=== PATIENT | male | born 1945 | race Caucasian/White ===

== ENCOUNTER 2018-04-21 16:18 | Inpatient (IN) | payer MEDICARE, OTHER, SELFPAY ==
[2018-04-21 18:02] VITALS: BMI 26.9
[2018-04-21 19:15] VITALS: BP 157/81; PULSE 103; RESP 18; TEMP 36.5; O2SAT 97
--- NOTE | 2018-04-21 19:17 | PC.NURSE ---
[facility] WITH ONSET OF GI BLEED SINCE 0300 LAST NIGHT. DENIES PAIN OR NAUSEA, NO STOOLS SINCE PRIOR TO TRANSFER FROM [facility]. REVIEWED PLAN OF CARE WITH PATIENT AND FAMILY- NPO AT THIS TIME- PATIENT SEEN BY DR. MAHAJAN.
[2018-04-21 19:20] VITALS: BP 150/88; PULSE 100; RESP 16; O2SAT 98
--- NOTE | 2018-04-21 19:22 | PM.HP.1 ---
History of Present Illness Date Patient Seen: 04/21/18 Time Patient Seen: 19:23 Chief complaint: GI BLEED Narrative: Patient is a 72-year-old male transfer from [facility] Emergency Department due to acute GI bleed. He was fine until this morning when noticed a black tarry stool. Subsequently he has had 3 or 4 similar stools prior to presenting to the emergency department and then had another 3 or 4 bloody stools in the ED. In total he has had about 7 bloody stools. He states that the stools have been black and tarry but also some bright red blood per rectum after the black tarry movements. He has been lightheaded. Patient states he had a colonoscopy about 5 years ago which was normal. He denies prior history of GI bleed. At outside Emergency Department his initial hematocrit was 35 and subsequent blood draw showed hematocrit of 33. Renal function testing was normal. He has been mildly tachycardic with normal blood pressures. He carries diagnosis of systemic lupus and takes prednisone 3 mg daily. He is also on low-dose daily aspirin. He has history of pulmonary embolism in 2015 during illness and previously pulmonary embolism after knee replacement. He stopped warfarin about 2 months ago and at that time started the 81 mg daily aspirin. He also takes occasional OTC Aleve for shoulder pain. Patient History Medical History GI bleed (Acute) BPH (benign prostatic hyperplasia) (Chronic) History of pulmonary embolism (Chronic) Lupus (systemic lupus erythematosus) (Chronic) Family & Social History Social History: household members spouse Safety & Behavioral: Feels Safe in Current Yes Environment Been Physically Hurt or No Threatened By a Person Suicidal Ideation Description None Tobacco & Substance use: Smoking Status Former smoker alcohol intake current alcohol intake frequency 0-2 drinks per day Substance Use Type does not use Meds Allergies Allergy/AdvReac Type Severity Reaction Status Date / Time No Known Drug Allergies Allergy Verified 04/21/18 19:33 Review of Systems Review of Systems All systems reviewed & are unremarkable except as noted in HPI and below Exam Narrative Exam Narrative: GENERAL: This is an alert well-nourished, well-developed patient HEAD: Atraumatic. Normocephalic. EYES: Pupils equal, round and reactive. Extraocular motions intact. No scleral icterus. No injection or drainage. OROPHARYNX: moist mucosa NECK: Trachea midline. No JVD or lymphadenopathy. CARDIOVASCULAR: Tachycardic with regular rhythm, no murmur RESPIRATORY: Clear to auscultation bilaterally. GASTROINTESTINAL: Abdomen nondistended, soft, non-tender. No hepato-splenomegaly, or palpable masses. EXTREMITIES: No pretibial edema. NEUROLOGICAL: Alert, well oriented, speech is intact, normal bilateral upper and lower extremity strength SKIN: warm, dry, no rash Assessment & Plan Plan: Assessment/Plan Narrative: 1. GI bleed with acute blood loss anemia. Patient presents with 7 or more episodes of melena to bright red blood stools. His baseline hematocrit is 45. This is likely upper source due to peptic ulcer disease and less likely a lower source. He is on low-dose prednisone, daily low-dose aspirin and takes Aleve as needed all risk factors. He may need transfusion overnight and potentially could become hemodynamically stable. Plan: ICU care. Keep NPO and provide maintenance IV fluid. Check serial H&H and transfuse for hematocrit less than 24 or if patient is hypotensive. IV Protonix. Consult surgery for EGD. 2. Systemic lupus erythematosus. Continue prednisone 3 mg daily. 3. DVT prophylaxis. Contraindicated due to active bleed. Quality VTE Deep Vein Thrombosis/Pulmonary Embolism Present on Admission: No
[2018-04-21] MEDS: SODIUM CHLORIDE 0.9% 1,000 ML 100 ML IV (20:30)
[2018-04-21] MEDS: PANTOPRAZOLE 40 MG VIAL IV (21:16)
[2018-04-21 21:22] LABS: Add Manual Diff / Slide Review NO; Basophils Percent Auto 0.6 % (0-2); Eosinophils Percent Auto 17.6 % (2-4); Hemoglobin 9.9 g/dL (13.5-17.5); Mean Corpuscular Hemoglobin 32.6 PG (26-34); Mean Corpuscular Volume 95.7 fL (80-100); Monocytes Percent Auto 1.6 % (3-14); Neutrophils Absolute Auto 1600 /uL (3000-5900); Neutrophils Percent Auto 69.2 % (50-75); Platelet Count 212 X10^3/uL (150-400); Red Blood Cell Count 3.03 X10^6/uL (4.5-5.9); Red Cell Distribution Width 14.6 % (11.6-14.8); White Blood Cell Count 2.3 X10^3/uL (4.5-11.0)
[2018-04-21 21:31] LABS: BUN Creatinine Ratio 31.4 (6-22); Blood Urea Nitrogen 22 mg/dL (9-20); Calcium 7.6 mg/dL (8.4-10.2); Carbon Dioxide 25 mmol/L (22-32); Chloride 105 mmol/L (98-107); Estimated Glomerular Filt Rate > 60.0 mL/min (>60); Glucose 80 mg/dL (80-110); HEMOLYSIS < 15 (0-50); Potassium 4.1 mmol/L (3.4-5.1); Sodium 136 mmol/L (137-145)
[2018-04-21 21:51] VITALS: BP 137/64; PULSE 97; RESP 12; TEMP 37.3; O2SAT 98
[2018-04-22] VITALS (33 sets, daily range): BP systolic 79–158; BP diastolic 44–71; PULSE 80–107; RESP 10–22; TEMP 36.7–37.6; O2SAT 95–98
--- NOTE | 2018-04-22 | PATH_ITS ---
[facility] Accession Number: [id number] . 01 Material submitted: . GASTRIC ANTRUM . 01 Clinical history: . FOR H. PYLORI . 02 Diagnosis: Gastric Antrum, Biopsies: Gastric antral mucosa with no diagnostic abnormality. No evidence of Helicobacter organisms on H/E stain. Negative for intestinal metaplasia, dysplasia or malignancy. MRV/04/23/2018 . 02 Electronically signed: . Elgin Almazan MD, PhD, Pathologist NPI- [id number] . 01 Gross description: . Received one formalin-filled container, labeled with the patient's name, labeled gastric antrum. The specimen consists of a 0.3 cm portion of tissue, entirely submitted in one cassette. ([id number]) /FRR . 02 Pathologist provided ICD-10: R10.13 . 02 CPT . 572741 Performed at: 01 [facility] [address] [facility] [place], [place], [place] [id number] MD Jerod Wood MD Phone: [phone] Performed at: 02 [facility] [address] [place], [place] [id number] MD Felix Lopez MD Phone: [phone]
[2018-04-22 01:19] LABS: Hematocrit 27.4 % (41-53); Hemoglobin 9.2 g/dL (13.5-17.5)
[2018-04-22 05:16] LABS: Hematocrit 26.6 % (41-53)
[2018-04-22] MEDS: SODIUM CHLORIDE 0.9% 1,000 ML 100 ML IV (06:02)
[2018-04-22] MEDS: predniSONE 1 MG TABLET 3 MG PO (08:29)
[2018-04-22] MEDS: PANTOPRAZOLE 40 MG VIAL IV (08:30)
--- NOTE | 2018-04-22 09:52 | PC.NURSE ---
Addendum entered by Latisha Subramanian R.N. 04/22/18 10:31: Returned to rm 103 from PACU a 1025. Alert and oriented, RA with sats 97%. Denies pain. Call light within reach. Original Note: Patient to EGD at 0940.
--- NOTE | 2018-04-22 10:02 | SUR.OPER ---
Supine on inpatient bed. Head on one pillow. One pillow under right hip per surgeon.
[2018-04-22 10:09] LABS: Hematocrit 27.3 % (41-53); Hemoglobin 9.1 g/dL (13.5-17.5)
--- NOTE | 2018-04-22 10:59 | OP_ITS ---
DATE OF SERVICE: 04/22/2018 PREOP DIAGNOSIS: Upper GI bleed. POSTOP DIAGNOSIS: Upper GI bleed secondary to diffuse severe antral gastritis and diffuse duodenitis. No definitive ulcer is seen. That is, no isolated duodenal ulcer. SURGEON: Parish Perez MD PROCEDURE: Esophagogastroduodenoscopy, gastric biopsy for H pylori. DESCRIPTION OF PROCEDURE: The patient was properly identified during surgical pause under general endotracheal anesthesia, placed in a left lateral decubitus position, the flexible fiberoptic gastroscope inserted transorally from the hypopharynx into the upper duodenum. 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 Certainly, there is a small hiatal hernia. Retroflexing the scope in the gastric fundus shows no Julia-Reyes, no blood in the proximal stomach, really no blood in the stomach whatsoever. Some diffuse antral gastritis is seen. There is no punctate duodenal ulcer. The first and second portions of the duodenum, however, are severely involved with diffuse duodenitis. Again, a gastric biopsy was done in the antrum for H pylori. The procedure was well tolerated. Numerous photographs of all the anatomy were taken. Lalo Hyde - /shane/leland doc#: [id number]/job#: [id number] dd: 04/22/2018 10:15:00 dt: 04/22/2018 10:54:00 DICTATING MD/COPIES TO: Parish Perez MD COPIES MNE: SANTOSH
--- NOTE | 2018-04-22 12:56 | P.PN_ITS ---
Subjective Date Patient Seen: 04/22/18 Time Patient Seen: 12:48 Interval history: Patient with continued rectal hemorrhage over night. EGD today showed severe duodenitis but no blood in stomach or duodenum. Patient has lightheadedness and orthostatic blood pressure drops to the 70s. Exam Vital Signs (past 8 hours): - 04/22/18 05:00 04/22/18 05:35 04/22/18 06:00 Temperature 98.5 F Pulse Rate 98 H 98 H Respiratory Rate 11 L 18 Blood Pressure 138/62 H 118/56 L Pulse Oximetry 98 96 95 04/22/18 07:00 04/22/18 07:52 04/22/18 08:00 Temperature 98.6 F Pulse Rate 95 H 90 93 H Respiratory Rate 18 16 Blood Pressure 120/61 121/64 H 133/65 H Pulse Oximetry 95 95 04/22/18 09:07 04/22/18 10:14 04/22/18 10:19 Temperature 98.4 F Pulse Rate 95 H 91 H Respiratory Rate 15 10 L Blood Pressure 114/66 119/71 Pulse Oximetry 97 97 96 04/22/18 10:28 04/22/18 11:15 04/22/18 11:43 Temperature 99.6 F Pulse Rate 88 92 H 107 H Respiratory Rate 15 20 Blood Pressure 136/70 H 121/66 H 79/44 L Pulse Oximetry 95 97 04/22/18 11:44 Temperature Pulse Rate 95 H Respiratory Rate Blood Pressure 131/63 H Pulse Oximetry Oxygen Delivery Method Room Air Oxygen Flow Rate 0 Narrative Exam Narrative: GENERAL: Patient is in no acute distress HEENT: Head normocephalic, atraumatic. Mucous membranes moist. CHEST: Clear to auscultation bilaterally. CARDIAC: Regular rate and rhythm. ABDOMEN: Nondistended, soft, nontender EXTREMITIES: no edema. NEUROLOGICAL: Alert, pleasant, no focal findings SKIN: Warm, dry, no petechiae, no rash Objective Labs Result Diagrams: 04/22/18 09:40 04/21/18 21:10 Labs: Laboratory Results - last 24 hr 04/21/18 04/21/18 04/21/18 21:10 21:10 21:10 WBC 2.3 L RBC 3.03 L Hgb 9.9 L Hct 29.0 L MCV 95.7 MCH 32.6 MCHC 34.0 RDW 14.6 Plt Count 212 Neut % (Auto) 69.2 Lymph % (Auto) 11.0 L [place] % (Auto) 1.6 L Eos % (Auto) 17.6 H Baso % (Auto) 0.6 Neut # (Auto) 1600 L Sodium 136 L Potassium 4.1 Chloride 105 Carbon Dioxide 25 BUN 22 H Creatinine 0.70 Estimated GFR > 60.0 BUN/Creatinine Ratio 31.4 H Glucose 80 Calcium 7.6 L Nasal Screen MRSA (PCR) Negative for mrsa Blood Type Antibody Screen 04/21/18 04/22/18 04/22/18 21:10 01:08 05:04 WBC RBC Hgb 9.2 L 9.0 L Hct 27.4 L 26.6 L MCV MCH MCHC RDW Plt Count Neut % (Auto) Lymph % (Auto) [place] % (Auto) Eos % (Auto) Baso % (Auto) Neut # (Auto) Sodium Potassium Chloride Carbon Dioxide BUN Creatinine Estimated GFR BUN/Creatinine Ratio Glucose Calcium Nasal Screen MRSA (PCR) Blood Type O Positive Antibody Screen Negative 04/22/18 09:40 WBC RBC Hgb 9.1 L Hct 27.3 L MCV MCH MCHC RDW Plt Count Neut % (Auto) Lymph % (Auto) [place] % (Auto) Eos % (Auto) Baso % (Auto) Neut # (Auto) Sodium Potassium Chloride Carbon Dioxide BUN Creatinine Estimated GFR BUN/Creatinine Ratio Glucose Calcium Nasal Screen MRSA (PCR) Blood Type Antibody Screen Assessment & Plan Plan: Assessment/Plan Narrative: 1. GI bleed with acute blood loss anemia. Patient is symptomatic due to blood loss with continued drop in hematocrit although act bleeding seems to be lessening. Primary finding of EGD was severe duodenitis which is likely source of bleed as patient has been on daily aspirin, prednisone and takes Aleve periodically. Patient stated he had a normal colonoscopy within the past 5 years. Gastric biopsies were obtained and pathology should be followed up on as outpatient. Plan: Transfer to floor care. Transfuse 2 units PRBC for symptomatic anemia. Change Protonix to p.o. 40 mg twice daily. Full liquid diet. Anticipate discharge tomorrow if patient is medically stable without active bleeding. He is instructed to avoid Aleve or other NSAIDs. 2. Systemic lupus erythematosus. Continue prednisone 3 mg daily. 3. History of pulmonary embolism. Patient has previous history of pulmonary embolism after knee replacement and in setting of acute illness a few years ago. Unclear whether he really needs to be on daily aspirin at this point. He can be discharged off aspirin to discuss with his PCP whether he should resume low-dose daily aspirin in future. 4. DVT prophylaxis. Contraindicated due to active bleed. Quality VTE Deep Vein Thrombosis/Pulmonary Embolism Present on Admission: No
[2018-04-22 13:35] LABS: Hemoglobin 9.5 g/dL (13.5-17.5)
--- NOTE | 2018-04-22 14:59 | CM.DANOTE ---
DCP Assessment: 72 year old male admitted to [facility] on 04/21 with diagnosis of GI bleed. Patient resides at home in [place] with his , insurance is Medicare, and [employer]. Patient has been independent prior to admission, and uses a cane upon occasion for stability. Alert and oriented. Had endoscopy procedure done today. Patient stated he is still having some rectal bleeding as well. Is to receive blood transfusion this afternoon. Plan: Will follow up with patient tomorrow and note updated orders from physician, which will determine if he will be discharged tomorrow. Has who is involved, and would be assist him with any needs. Asked patient if he had ever had home health, denied, and did not feel that it would be necessary. Will follow up with patient tomorrow.
[2018-04-22 21:00] LABS: Hematocrit 32.3 % (41-53); Hemoglobin 10.9 g/dL (13.5-17.5)
[2018-04-22] MEDS: PANTOPRAZOLE 40 MG TABLET PO (21:56)
--- NOTE | 2018-04-22 22:06 | PC.NURSE ---
Patient received total 2 units rbc's- up 3 xs on bedside commode for dark bloody stools. unsteady on feet one time- patient had requested we leave room and let him do own cleanup after stooling- kindly insisted we assist him due to his unsteadiness, and he agreed. anticipate posssible discharge to home tomorrow if no further bleeding and labs stable. patient aware of results of last lab draw- and no further transfusions at this time.
[2018-04-23 03:16] VITALS: BP 152/69; PULSE 89; RESP 18; TEMP 37.2; O2SAT 95
[2018-04-23 05:42] LABS: Add Manual Diff / Slide Review NO; Basophils Percent Auto 0.6 % (0-2); Hematocrit 29.8 % (41-53); Hemoglobin 10.1 g/dL (13.5-17.5); Lymphocytes Percent Auto 12.8 % (25-40); Mean Corpuscular HGB Conc 33.8 % (30-36); Mean Corpuscular Hemoglobin 31.7 PG (26-34); Mean Corpuscular Volume 93.9 fL (80-100); Monocytes Percent Auto 5.7 % (3-14); Neutrophils Absolute Auto 1800 /uL (3000-5900); Neutrophils Percent Auto 68.9 % (50-75); Platelet Count 212 X10^3/uL (150-400); Red Blood Cell Count 3.17 X10^6/uL (4.5-5.9); Red Cell Distribution Width 14.9 % (11.6-14.8); White Blood Cell Count 2.6 X10^3/uL (4.5-11.0)
[2018-04-23] MEDS: PANTOPRAZOLE 40 MG TABLET PO ×2 (06:12→20:35)
[2018-04-23 07:00] VITALS: BP 132/90; PULSE 100; RESP 16; TEMP 36.9; O2SAT 96
[2018-04-23] MEDS: predniSONE 1 MG TABLET 3 MG PO (08:47)
--- NOTE | 2018-04-23 11:03 | P.PN_ITS ---
Subjective Date Patient Seen: 04/23/18 Time Patient Seen: 10:58 Interval history: Patient's rectal bleeding has decreased since yesterday. He has only had 1 episode of rectal bleeding since he was transfused with 2 units of packed red blood cells last evening. He continues to be lightheaded when standing. Exam Vital Signs (past 8 hours): - 04/23/18 03:16 04/23/18 07:00 Temperature 99.0 F 98.5 F Pulse Rate 89 100 H Respiratory Rate 18 16 Blood Pressure 152/69 H 132/90 H Pulse Oximetry 95 96 Oxygen Delivery Method Room Air Oxygen Flow Rate 0 Const General: cooperative, healthy appearing, comfortable, well developed and well groomed Nutritional Appearance: overweight Orientation: alert, awake and oriented x3 HENMT Head: normal to inspection, normocephalic and atraumatic Mouth: oral mucosae normal Teeth and gingiva: gingiva normal Eyes General: appearance normal, both eyes and all related structures Pupils: PERRL Neck Neck: normal visual inspection, trachea midline and supple Other: No JVD or lymphadenopathy Chest Chest: normal inspection of the chest Resp Effort & Inspection: normal respiratory effort and able to speak in complete sentences Auscultation: clear to auscultation bilaterally Cardio Rate: regular rate Rhythm: regular rhythm Heart Sounds: S1 normal and S2 normal GI Inspection: normal to inspection Palpation: soft Auscultation: normal bowel sounds Other: Nontender Back/Spine/Pelvis Back: normal to inspection Skin General: dry skin and warm Other: He has a covered incision on his left elbow from a recent bursa surgery. He also has an approximate 5 mm crater appearing lesion on his right ft between the medial and intermediate bone on the ball of his foot which is being followed and managed by his wound care doctor. Is dressed with a 2 x 2 and protective covering. No signs of an infection. Neuro General: alert, awake and oriented x3 Cognition: normal cognition Speech: speech normal Gait: normal gait Motor: muscle tone normal throughout Extrem General: normal to inspection Psych Appearance: grossly normal Mental Status: mental status grossly normal Mood: congruent mood Affect: normal affect Attitude: cooperative Thought Process: normal Thought Content: normal Judgment: judgment good Objective Labs Result Diagrams: 04/23/18 05:08 04/21/18 21:10 Labs: Laboratory Results - last 24 hr 04/21/18 04/22/18 04/22/18 21:10 13:27 20:45 WBC RBC Hgb 9.5 L 10.9 L Hct 28.0 L 32.3 L MCV MCH MCHC RDW Plt Count Neut % (Auto) Lymph % (Auto) [place] % (Auto) Eos % (Auto) Baso % (Auto) Neut # (Auto) Blood Type O Positive Antibody Screen Negative Crossmatch See Detail 04/23/18 05:08 WBC 2.6 L RBC 3.17 L Hgb 10.1 L Hct 29.8 L MCV 93.9 MCH 31.7 MCHC 33.8 RDW 14.9 H Plt Count 212 Neut % (Auto) 68.9 Lymph % (Auto) 12.8 L [place] % (Auto) 5.7 Eos % (Auto) 12.0 H Baso % (Auto) 0.6 Neut # (Auto) 1800 L Blood Type Antibody Screen Crossmatch Assessment & Plan Plan: Assessment/Plan Narrative: 1. GI bleed with acute blood loss anemia. Patient is symptomatic due to blood loss with continued drop in hematocrit although act bleeding seems to be lessening. He was transfused with 2 units packed red blood cells on the evening shift last night and his hemoglobin went to 10.9. After the transfusion last night he had 1 episode of rectal hemorrhaging. His repeat hemoglobin this morning is 10.1 hematocrit 29.8. He continues to be symptomatic when standing with lightheadedness and increase in pulse rate. Primary finding of EGD was severe duodenitis which is likely a source of bleed as patient has been on daily aspirin, prednisone and takes Aleve periodically. Patient stated he had a normal colonoscopy within the past 5 years. Gastric biopsies were obtained and pathology should be followed up on as outpatient. Plan: After speaking with general surgeon the patient will undergo bowel prep for a colonoscopy in the morning. I will restart his IV at 125 cc/hour of normal saline for hydration purposes. If he continues to actively bleed and his hemoglobin is less than 9 we transfused with another 2 units packed red blood cells. His Protonix was changed to p.o. 40 mg twice daily. Anticipate discharge tomorrow if patient is medically stable without active bleeding and pending findings colonoscopy. He is instructed to avoid Aleve or other NSAIDs. 2. Systemic lupus erythematosus. Continue prednisone 3 mg daily. 3. History of pulmonary embolism. Patient has previous history of pulmonary embolism after knee replacement and in setting of acute illness a few years ago. Unclear whether he really needs to be on daily aspirin at this point. He can be discharged off aspirin to discuss with his PCP whether he should resume low-dose daily aspirin in future. 4. DVT prophylaxis. Contraindicated due to active bleed. Quality VTE Deep Vein Thrombosis/Pulmonary Embolism Present on Admission: No
[2018-04-23 11:41] VITALS: BP 145/81; PULSE 88; RESP 17; TEMP 37.1; O2SAT 98
[2018-04-23] MEDS: SODIUM CHLORIDE 0.9% 1,000 ML 125 ML IV ×2 (12:56→20:41)
[2018-04-23] MEDS: PEG3350/SOD SULF,BICARB,CL/KCL 4,000 ML SOLUTION 4000 ML PO (14:46)
[2018-04-23 15:40] VITALS: BP 166/86; PULSE 83; RESP 18; TEMP 36.1; O2SAT 97
[2018-04-23 20:03] VITALS: BP 161/89; PULSE 95; RESP 16; TEMP 36.1
--- NOTE | 2018-04-23 21:53 | PC.NURSE ---
Pt up to BSC. Bowel prep complete, stool clearing. Pt reports drsg fell off of right foot. Scant amount of serosanguineous drainage. Wound cleansed with NS, Allevyn drsg applied. Call light in reach.
[2018-04-24 00:47] VITALS: BP 148/69; PULSE 97; RESP 18; TEMP 37.2; O2SAT 97
[2018-04-24 05:03] VITALS: BP 143/65; PULSE 91; RESP 18; TEMP 37.1; O2SAT 94
[2018-04-24 05:43] LABS: Add Manual Diff / Slide Review NO; Basophils Percent Auto 0.4 % (0-2); Eosinophils Percent Auto 11.5 % (2-4); Hematocrit 29.6 % (41-53); Hemoglobin 10.2 g/dL (13.5-17.5); Lymphocytes Percent Auto 16.7 % (25-40); Mean Corpuscular HGB Conc 34.4 % (30-36); Mean Corpuscular Hemoglobin 32.1 PG (26-34); Mean Corpuscular Volume 93.5 fL (80-100); Monocytes Percent Auto 5.6 % (3-14); Neutrophils Absolute Auto 1500 /uL (3000-5900); Neutrophils Percent Auto 65.8 % (50-75); Platelet Count 224 X10^3/uL (150-400); Red Blood Cell Count 3.17 X10^6/uL (4.5-5.9); Red Cell Distribution Width 14.2 % (11.6-14.8); White Blood Cell Count 2.2 X10^3/uL (4.5-11.0)
[2018-04-24 05:48] LABS: BUN Creatinine Ratio 12.5 (6-22); Blood Urea Nitrogen 10 mg/dL (9-20); Calcium 7.4 mg/dL (8.4-10.2); Carbon Dioxide 26 mmol/L (22-32); Chloride 107 mmol/L (98-107); Estimated Glomerular Filt Rate > 60.0 mL/min (>60); Glucose 72 mg/dL (80-110); HEMOLYSIS < 15 (0-50); Magnesium 1.7 mg/dL (1.6-2.3); Potassium 3.7 mmol/L (3.4-5.1); Sodium 138 mmol/L (137-145)
[2018-04-24 07:50] VITALS: BP 145/73; PULSE 89; RESP 17; TEMP 36.8; O2SAT 97
[2018-04-24] MEDS: predniSONE 1 MG TABLET 3 MG PO (07:50)
[2018-04-24] MEDS: PANTOPRAZOLE 40 MG TABLET PO (07:50)
--- NOTE | 2018-04-24 10:08 | PM.PN.1 ---
Subjective Date Patient Seen: 04/24/18 Time Patient Seen: 08:08 Interval history: Uneventful 24 hr. He has no further rectal bleeding. He tolerated his bowel prep for his colonoscopy without any issues. He denies lightheadedness when transferring to the bedside commode. Exam Vital Signs (past 8 hours): - 04/24/18 05:03 04/24/18 07:50 Temperature 98.8 F 98.2 F Pulse Rate 91 H 89 Respiratory Rate 18 17 Blood Pressure 143/65 H 145/73 H Pulse Oximetry 94 97 Oxygen Delivery Method Room Air Oxygen Flow Rate 0 Narrative Exam Narrative: cooperative, healthy appearing, comfortable, well developed and well groomed Nutritional Appearance: overweight Orientation: alert, awake and oriented x3 HENMT Head: normal to inspection, normocephalic and atraumatic Mouth: oral mucosae normal Teeth and gingiva: gingiva normal Eyes General: appearance normal, both eyes and all related structures Pupils: PERRL Neck Neck: normal visual inspection, trachea midline and supple Other: No JVD or lymphadenopathy Chest Chest: normal inspection of the chest Resp Effort & Inspection: normal respiratory effort and able to speak in complete sentences Auscultation: clear to auscultation bilaterally Cardio Rate: regular rate Rhythm: regular rhythm Heart Sounds: S1 normal and S2 normal GI Inspection: normal to inspection Palpation: soft Auscultation: normal bowel sounds Other: Nontender Back/Spine/Pelvis Back: normal to inspection Skin General: dry skin and warm Other: He has a covered incision on his left elbow from a recent bursa surgery. He also has an approximate 5 mm wide crater appearing lesion on his right ft between the medial and intermediate bone on the ball of his foot which is being followed and managed by his wound care doctor. Is dressed with a 2 x 2 and protective covering. No signs of an infection. Neuro General: alert, awake and oriented x3 Cognition: normal cognition Speech: speech normal Gait: normal gait Motor: muscle tone normal throughout Extrem General: normal to inspection Psych Appearance: grossly normal Mental Status: mental status grossly normal Mood: congruent mood Affect: normal affect Attitude: cooperative Thought Process: normal Thought Content: normal Judgment: judgment good Objective Labs Result Diagrams: 04/24/18 04:53 04/24/18 04:53 Labs: Laboratory Results - last 24 hr 04/24/18 04/24/18 04:53 04:53 WBC 2.2 L RBC 3.17 L Hgb 10.2 L Hct 29.6 L MCV 93.5 MCH 32.1 MCHC 34.4 RDW 14.2 Plt Count 224 Neut % (Auto) 65.8 Lymph % (Auto) 16.7 L [place] % (Auto) 5.6 Eos % (Auto) 11.5 H Baso % (Auto) 0.4 Neut # (Auto) 1500 L Sodium 138 Potassium 3.7 Chloride 107 Carbon Dioxide 26 BUN 10 Creatinine 0.80 Estimated GFR > 60.0 BUN/Creatinine Ratio 12.5 Glucose 72 L Calcium 7.4 L Magnesium 1.7 Assessment & Plan Plan: Assessment/Plan Narrative: 1. GI bleed with acute blood loss anemia. He has had no reports of further bleeding since yesterday and has not required any further transfusions. He is asymptomatic able to stand and transfer the bedside commode without any lightheadedness. His repeat hemoglobin this morning is 10.2 hematocrit 29.6. Primary finding of EGD was severe duodenitis which is likely a source of bleed as patient has been on daily aspirin, prednisone and takes Aleve periodically. Patient stated he had a normal colonoscopy within the past 5 years. Gastric biopsies were obtained and pathology should be followed up on as outpatient. Plan: After speaking with general surgeon the patient will undergo a colonoscopy this morning. Yesterday, he was restarted on IV at 125 cc/hour of normal saline for hydration purposes. His Protonix was changed to p.o. 40 mg twice daily. Anticipate discharge today pending the findings of the colonoscopy. He is instructed to avoid Aleve or other NSAIDs. 2. Systemic lupus erythematosus. Continue prednisone 3 mg daily. 3. History of pulmonary embolism. Patient has previous history of pulmonary embolism after knee replacement and in setting of acute illness a few years ago. Unclear whether he really needs to be on daily aspirin at this point. He can be discharged off aspirin to discuss with his PCP whether he should resume low-dose daily aspirin in future. 4. DVT prophylaxis. Contraindicated due to active bleed. Quality VTE Deep Vein Thrombosis/Pulmonary Embolism Present on Admission: No
[2018-04-24 11:35] VITALS: BP 147/72; PULSE 86; RESP 18; TEMP 36.8; O2SAT 97
[2018-04-24 11:58] VITALS: BP 154/82; PULSE 84; RESP 15; TEMP 36.4; O2SAT 98; BMI 27.1
--- NOTE | 2018-04-24 12:10 | PC.NURSE ---
Addendum entered by Latisha Subramanian R.N. 04/24/18 12:58: Returned to room 103 at 1255 from PACU. Alert and oriented, on RA with sats 98%. Original Note: Patient to colonoscopy at 1150.
[2018-04-24] MEDS: MIDAZOLAM 5 MG/5 ML VIAL IV (12:44)
[2018-04-24] MEDS: fentaNYL 250 MCG/5 ML INJ IV (12:45)
--- NOTE | 2018-04-24 14:25 | CM.DPC ---
DC Plan cont: Spoke to patient. Stated that he will be discharged, and mentioned that medications were probable cause of bleeding. will be picking him up. Stated that he felt that he was back to baseline, and did not need any therapy at this time. Justina valerio RN/rn case mgr
--- NOTE | 2018-04-24 17:25 | OP_ITS ---
DATE OF SERVICE: 04/24/2018 PREOP DIAGNOSIS: Colonic bleeding. POSTOP DIAGNOSES: Pancolonic diverticulosis. No active bleeding. No sign of any blood in the colon. No tumors. No polyps. No ulcers. PROCEDURE: Total colonoscopy to the cecum. SURGEON: Parish Perez MD DESCRIPTION OF PROCEDURE: The patient was given conscious sedation. He was properly identified during a surgical pause. The flexible fiberoptic colonoscope was inserted transanally to the cecum. The patient has moderate pandiverticulosis. There are no tumors. No polyps. No ulcers. No blood. No new or old blood. The colonoscope was retrieved very slowly to look for any polyps or tumors or bleeding. There was nothing. The procedure was well tolerated. Lalo Hyde - /shane/suzan doc#: [id number]/job#: [id number] dd: 04/24/2018 12:53:00 dt: 04/24/2018 17:19:00 DICTATING /COPIES TO: Parish Perez MD COPIES MNE: SANTOSH
--- NOTE | 2018-04-25 09:09 | PM.DS.1 ---
History of Present Illness Date Patient Seen: 04/24/18 Time Patient Seen: 12:11 Chief complaint: GI BLEED Narrative: Patient is a 72-year-old male transfer from [facility] Emergency Department due to acute GI bleed. He was fine until this morning when noticed a black tarry stool. Subsequently he has had 3 or 4 similar stools prior to presenting to the emergency department and then had another 3 or 4 bloody stools in the ED. In total he has had about 7 bloody stools. He states that the stools have been black and tarry but also some bright red blood per rectum after the black tarry movements. He has been lightheaded. Patient states he had a colonoscopy about 5 years ago which was normal. He denies prior history of GI bleed. At outside Emergency Department his initial hematocrit was 35 and subsequent blood draw showed hematocrit of 33. Renal function testing was normal. He has been mildly tachycardic with normal blood pressures. He carries diagnosis of systemic lupus and takes prednisone 3 mg daily. He is also on low-dose daily aspirin. He has history of pulmonary embolism in 2015 during illness and previously pulmonary embolism after knee replacement. He stopped warfarin about 2 months ago and at that time started the 81 mg daily aspirin. He also takes occasional OTC Aleve for shoulder pain. Discharge Providers Date of admission: 04/21/18 16:18 Primary care physician: Jose Rudd MD Consults: 04/21/18 19:16 Consult to Physician Routine Comment: Consulting Provider: Parish Perez Reason for consultation: GI BLEED Has provider been notified: Yes Discharge provider: PASCALE Huerta Summary Discharge Diagnosis: 1. GI bleed with acute blood loss 2. systemic lupus erythematosus 3. History of pulmonary embolism Hospital Course: This is a summary of 4 day hospitalization for this 72-year-old patient who presented with acute blood loss from a GI bleed. He was symptomatic with lightheadedness and tachycardia. He was made NPO, started on IV fluids, and prepped for an EGD which revealed severe duodenitis which was likely source of his bleed as he has been on daily aspirin prednisone and takes Aleve periodically. A biopsy taken at the time revealed no evidence of Helicobacter and was negative for intestinal metaplasia, dysplasia or malignancy. He was subsequently transfused with 2 units packed red blood cells for continued symptomatic rectal bleeding and hemoglobin of 9 hemoglobin. After the transfusion he only had 1 episode of rectal bleeding, his hemoglobin stabilized, and he was prepped for colonoscopy which revealed moderate pandiverticulosis, no tumors polyps or ulcers or blood. His discharge hemoglobin was 10.2 hematocrit 29.6. Patient was subsequently discharged on his home medications and advised to not take any NSAIDs. He is to follow up with his primary care provider. Status at Discharge Overall status at discharge: patient is back to baseline Time Spent with Patient Greater than 30 minutes Exam Vital Signs (past 8 hours): Oxygen Delivery Method Room Air Oxygen Flow Rate 0 Narrative Exam Narrative: cooperative, healthy appearing, comfortable, well developed and well groomed Nutritional Appearance: overweight Orientation: alert, awake and oriented x3 HENMT Head: normal to inspection, normocephalic and atraumatic Mouth: oral mucosae normal Teeth and gingiva: gingiva normal Eyes General: appearance normal, both eyes and all related structures Pupils: PERRL Neck Neck: normal visual inspection, trachea midline and supple Other: No JVD or lymphadenopathy Chest Chest: normal inspection of the chest Resp Effort & Inspection: normal respiratory effort and able to speak in complete sentences Auscultation: clear to auscultation bilaterally Cardio Rate: regular rate Rhythm: regular rhythm Heart Sounds: S1 normal and S2 normal GI Inspection: normal to inspection Palpation: soft Auscultation: normal bowel sounds Other: Nontender Back/Spine/Pelvis Back: normal to inspection Skin General: dry skin and warm Other: He has a covered incision on his left elbow from a recent bursa surgery. He also has an approximate 5 mm wide crater appearing lesion on his right ft between the medial and intermediate bone on the ball of his foot which is being followed and managed by his wound care doctor. Is dressed with a 2 x 2 and protective covering. No signs of an infection. Neuro General: alert, awake and oriented x3 Cognition: normal cognition Speech: speech normal Gait: normal gait Motor: muscle tone normal throughout Extrem General: normal to inspection Psych Appearance: grossly normal Mental Status: mental status grossly normal Mood: congruent mood Affect: normal affect Attitude: cooperative Thought Process: normal Thought Content: normal Judgment: judgment good Objective Labs Result Diagrams: 04/24/18 04:53 04/24/18 04:53 Discharge Plan Discharge Plan Patient Disposition: Home, Self-Care Discharge comment: Take all home medications as prescribed. STOP NSAIDs. Discharge Med Rec/Prescriptions Prescriptions: No Action prednisone 1 mg tablet 3 mg PO QAM RF: 0 tamsulosin 0.4 mg capsule,extended release 24hr 1 mg PO DAILY RF: 0 hydroxychloroquine 200 mg 1 mg PO DAILY RF: 0 methotrexate (PF) 25 mg solution 1 mg Sub-Q QWEEK RF: 0 aspirin 81 mg Tablet,Delayed Release (Dr/Ec) 81 mg PO DAILY RF: 0 Follow up/Referrals: Jose Rudd MD [Primary Care Provider] - (Patient will call and make follow-up appointment within 1-2 weeks.) Visit Report/Discharge Packet Instructions: DI for Colonoscopy, Gastrointestinal Bleeding Visit Report Forms: Stroke Signs & Symptoms Discharge Data Primary Care Provider: Jose Rudd Attending Provider: Steve Booth Admit Date/Time: 04/21/18 16:18 Discharges patient from system. Discharge Date/Time: 04/24/18 15:07 Quality VTE Deep Vein Thrombosis/Pulmonary Embolism Present on Admission: No
== END 2018-04-24 15:07 | disposition home or self-care (01) | DRG 378 ==
PROVIDERS: Nurse Practitioner Acute Care; Surgery; Admitting Provider Internal Medicine; PCP Internal Medicine; Visit Provider Internal Medicine
PROC: 0DJ08ZZ Inspection of Upper Intestinal Tract, Via Natural or Artificial Opening Endoscopic (ICD-10-PCS; CPT 43235; principal; 2018-04-22 09:45)
PROC: 0DJD8ZZ Inspection of Lower Intestinal Tract, Via Natural or Artificial Opening Endoscopic (ICD-10-PCS; CPT 45378; principal; 2018-04-24 12:00)
DX: K29.81 Duodenitis with bleeding (principal); D62 Acute posthemorrhagic anemia; K29.71 Gastritis, unspecified, with bleeding; L93.0 Discoid lupus erythematosus; N40.0 Benign prostatic hyperplasia without lower urinary tract symptoms
CPT/HCPCS: 36415; 36430; 43239; 45378; 80048; 83735; 85014; 85018; 85025; 86850; 86900; 86901; 87797; P9016; C9113; J0330; J2250; J2704; J3010

== ENCOUNTER → 2018-04-29 13:04 | Outpatient (CLI) | payer MEDICARE, OTHER, SELFPAY ==
[2018-04-21 18:02] VITALS: BMI 26.9
--- NOTE | 2018-04-29 | OV.WND_ITS ---
Progress Note Details Patient Name: Lalo Hyde Patient Number: [id number] PatientPatientDate: 04/29/2018 Clinician: Angie Robles Clinician Cosigner: Priscilla Tran Physician / Promotions Manager: Jhonathan Hernandez SUBJECTIVE Chief Complaint This information was obtained from the patient Non-healing wound to left elbow and right foot. Allergies NKDA HPI This information was obtained from the patient 04/29/18. Seen by Dr. Hernandez. The patient's new to our clinic and presents with a non-healing left elbow surgical wound that started as an infected bursa requiring incision and drainage about one month ago. He does not report pain or significant drainage from the site and is not currently on antibiotics. Of note, he's been diagnosed with systemic lupus and is currently on prednisone and methotrexate. 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 This is complicated by a severe right foot pes cavus deformity. 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 , Past Medical History This information was obtained from the patient Patient has a medical history of: Systemic lupus erythematosis Surgical History This information was obtained from the patient Patient has a surgical history of: Bilateral Total knee replacement Cataract removal Complaints and Symptoms This information was obtained from the patient Patient complains of: General Notes: I have reviewed and concur with the Review of Systems and Past Family Social History documents completed by the clinician, I have reviewed and concur with the Wound Assessment document completed by the clinician Integumentary (Hair/Skin/Nails): Open Sore Musculoskeletal: Assistive Devices Prior Wound History: Drainage, Pain Patient denies complaints or symptoms related to: Cardiovascular (Central/Peripheral): Lower extremity (leg) swelling Constitutional Symptoms (General Health): Chills, Fever Hematologic/Lymphatic: Bleeding / Clotting Disorders, Bleeding Tendency Psychiatric: Memory Loss General Notes: Up to date per patient Medications hydroxychloroquine 200 mg tablet oral tablet oral once daily tamsulosin 0.4 mg capsule oral capsule,extended release 24hr oral once daily prednisone 5 mg tablet oral tablet oral once daily gentamicin 0.1 % topical ointment topical ointment topical every other day for 7 days for infected wound OBJECTIVE Constitutional BP elevated; Afebrile; Alert and in no distress. Well developed. Alert. Clean appearing.. Height/Length: 73 in (185.42 cm), Weight: 197.7 lbs (89.86 kgs), BMI: 26.1, Temperature: 98 ?F (36.67 ?C), Pulse: 102 bpm, Respiratory Rate: 16 breaths/min, Blood Pressure : 164/93 mmHg, Pulse Oximetry: 94 %. Ears, Nose, Mouth, and Throat: No clinically significant hearing loss on informal examination. Respiratory: No respiratory distress. Even respirations and without use of accessory muscles.. Cardiovascular: Affected extremity exhibits no peripheral edema or cyanosis, is warm, and is well perfused. Capillary refill is less than 2 seconds. Musculoskeletal: Significant right foot pes cavus deformity. Integumentary (Hair, Skin) No periwound erythema, warmth, or significant drainage. No periwound rashes appreciated or noted otherwise.. Refer to appropriate clinician wound documentation for this visit; left elbow wound base covered with pink granulation, signficant undermining, no purulent drainage; right plantar 1st MTPJ ulcer extends to subcut. Significant amount of callus in the right 1st MTPJ periulcer area. Wound #1 Left Elbow is a chronic Full Thickness Atypical and has received a status of Not Healed. Initial wound encounter measurements are 1.4cm length x 1.2cm width x 0.2cm depth, with an area of 1.68 sq cm and a volume of 0.336 cubic cm. No tunneling has been noted. No sinus tract has been noted. Undermining has been noted at 1:00 and ends at 1:00 with a maximum distance of 2cm. There is a moderate amount of sero-sanguineous drainage noted which has no odor. The patient reports a wound pain of level 0/10. The wound margin is irregular. Wound bed has Yes epithelialization, No eschar, No slough, Yes bright red, pink, firm granulation. The periwound skin texture is normal. The periwound skin moisture is normal. The periwound skin color is normal. The temperature of the periwound skin is WNL. Periwound skin does not exhibit signs or symptoms of infection. Local Pulse is Palpable. Neurological: Cranial nerves grossly intact with symmetric function normal by informal observation.. ASSESSMENT Active Problems ICD-10 (Encounter Diagnosis) S41.102D - Unspecified open wound of left upper arm, subsequent encounter (Encounter Diagnosis) L97.512 - Non-pressure chronic ulcer of other part of right foot with fat layer exposed (Encounter Diagnosis) M21.6X1 - Other acquired deformities of right foot PLAN Wound Orders: Wound #1 Left Elbow Anesthetic Topical Xylocaine to wound bed. - In clinic only Cleanser Cleanse Wound: - Normal saline in clinic. May use distilled water at home with clean gauze. May Shower. - Please avoid getting tap water in wounds. Cover while in shower. May use cast protector purchased from pharmacy. Topical Treatments Antibiotic/Antimicrobial Ointment/Cream. - Gentamicin ointment Dressings Pack wound: - 1/4 ribbon gauze. Primary dressing: - Bordered foam Change Dressing: - Every other day. Additional Orders: Off-Loading Keep weight off: - Left elbow. Follow-Up Appointments Return Appointment: - - Saturday 05/05 Other information: If you develop fever, chills, increased pain, drainage, redness or swelling please call our office. If after hours, respond to the ER. Should you experience any significant changes in your wound(s) or have any questions regarding your home care instructions please contact the wound center @ [phone]. If after hours, contact your primary care physician or go to the hospital emergency room. Scribing Attestation I attest, as the nurse, that I scribed these orders for the physician. Medications prescribed: gentamicin - topical 0.1 % ointment other for 7 days for infected wound starting 04/29/2018 General Notes: Please contact Dr. Barrow for referral regarding right foot. We will call with any positive wound culture results requiring antibiotics. I've reviewed the clinician's documentation and agree with the evaluation and plan as written. Also, I've cultured the left elbow wound and will consider starting an oral antibiotic pending the culture results. We'll also plan on placing a wound vac next week. He'll discuss the right foot ulcer with his sharepoint analyst also and we'll be happy to manage this if needed. Electronic Signature(s) Signed By: Date: Jhonathan Hernandez MD 05/01/2018 08:46:21 Entered By: Jhonathan Hernandez on 05/01/2018 08:37:31
== END ==
PROVIDERS: PCP Internal Medicine; Visit Provider Internal Medicine
DX: S41.102D Unspecified open wound of left upper arm, subsequent encounter (principal)
CPT/HCPCS: 87070; 87075; 87077; 87147; 87186; 87205; 99213

== ENCOUNTER → 2018-05-05 11:32 | Outpatient (CLI) | payer MEDICARE, OTHER, SELFPAY ==
[2018-04-21 18:02] VITALS: BMI 26.9
--- NOTE | 2018-05-05 | OV.WND_ITS ---
Progress Note Details Patient Name: Lalo Hyde Patient Number: [id number] PatientPatientDate: 05/05/2018 Clinician: Lisa Fofana Clinician Cosigner: Angie Robles Physician / Road Repairer: Jhonathan Hernandez SUBJECTIVE Chief Complaint This information was obtained from the patient Non-healing wound to left elbow and right foot. Allergies NKDA HPI This information was obtained from the patient 05/05/18. Seen by Dr. Hernandez. The patient's left elbow wound culture grew a coag negative Staph species and he's been applying topical gentamicin ointment to the base as recommended. 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 04/29/18. Seen by Dr. Hernandez. The patient's new to our clinic and presents with a non-healing left elbow surgical wound that started as an infected bursa requiring incision and drainage about one month ago. He does not report pain or significant drainage from the site and is not currently on antibiotics. Of note, he's been diagnosed with systemic lupus and is currently on prednisone and methotrexate. 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 This is complicated by a severe right foot pes cavus deformity. Past Medical History This information was obtained from the patient Patient has a medical history of: Systemic lupus erythematosis Complaints and Symptoms This information was obtained from the patient Patient complains of: General Notes: I have reviewed and concur with the Review of Systems and Past Family Social History documents completed by the clinician, I have reviewed and concur with the Wound Assessment document completed by the clinician Integumentary (Hair/Skin/Nails): Open Sore Musculoskeletal: Assistive Devices Neurological: Loss of Protective Sensation Prior Wound History: Drainage, Pain Patient denies complaints or symptoms related to: Cardiovascular (Central/Peripheral): Lower extremity (leg) swelling Constitutional Symptoms (General Health): Chills, Fever Ear/Nose/Mouth/Throat: Hearing Loss / Aid Hematologic/Lymphatic: Bleeding / Clotting Disorders, Bleeding Tendency Psychiatric: Memory Loss OBJECTIVE Constitutional Vital signs reviewed and noted. Well developed. Alert. Clean appearing.. Height/ Length: 73 in (185.42 cm), Weight: 194.4 lbs (88.36 kgs), BMI: 25.6, Temperature: 98.4 ?F ( 36.89 ?C), Pulse: 100 bpm, Respiratory Rate: 18 breaths/min, Blood Pressure: 133/84 mmHg, Pulse Oximetry: 95 %. Ears, Nose, Mouth, and Throat: No clinically significant hearing loss on informal examination. Respiratory: No respiratory distress. Even respirations and without use of accessory muscles.. Cardiovascular: Affected extremity exhibits no peripheral edema or cyanosis, is warm, and is well perfused. Capillary refill is less than 2 seconds. Musculoskeletal: Significant dorsal flexion of right 1st toe. Integumentary (Hair, Skin) No periwound erythema, warmth, or significant drainage. No periwound rashes appreciated or noted otherwise.. Refer to appropriate clinician wound documentation for this visit; left elbow wound and right foot ulcer extends to subcut with base partially covered with pink granulation, remainder fibrin and slough. Significant amount of callus in the right foot periulcer area. Wound #1 Left Elbow is a chronic Full Thickness Atypical and has received a status of Not Healed. Subsequent wound encounter measurements are 1.5cm length x 1.4cm width x 0.4cm depth, with an area of 2.1 sq cm and a volume of 0.84 cubic cm. No tunneling has been noted. No sinus tract has been noted. Undermining has been noted at 1:00 and ends at 1: 00 with a maximum distance of 1.8cm. There is a moderate amount of serous drainage noted which has no odor. The patient reports a wound pain of level 0/10. The wound margin is irregular. Wound bed has Yes epithelialization, No eschar, Yes slough, Yes bright red, pink, firm granulation. The periwound skin texture is normal. The periwound skin moisture is normal. The periwound skin color is normal. The temperature of the periwound skin is WNL. Periwound skin does not exhibit signs or symptoms of infection. Local Pulse is Palpable. Wound #2 Right, Plantar Foot is a chronic Full Thickness Neuropathic Ulcer and has received a status of Not Healed. Initial wound encounter measurements are 0.4cm length x 0.2cm width x 0.4cm depth, with an area of 0.08 sq cm and a volume of 0.032 cubic cm. No tunneling has been noted. No sinus tract has been noted. Undermining has been noted at 7:00 and ends at 4:00 with a maximum distance of 0.4cm. There is a small amount of sero- sanguineous drainage noted which has no odor. The patient reports a wound pain of level 0/ 10. The wound margin is callus. Wound bed has No epithelialization, No eschar, Yes slough, Yes bright red, firm granulation. The periwound skin moisture is normal. The periwound skin color is normal. The periwound skin exhibited: Callus. The periwound skin did not exhibit: Brawny Induration, Edema, Excoriation, Induration, Crepitus, Fluctuance, Friable, Rash. The temperature of the periwound skin is WNL. Periwound skin does not exhibit signs or symptoms of infection. Local Pulse is Strong. General Notes: Patient reports pain when disturbed. Neurological: Cranial nerves grossly intact with symmetric function normal by informal observation.. ASSESSMENT Active Problems ICD-10 (Encounter Diagnosis) S41.102D - Unspecified open wound of left upper arm, subsequent encounter (Encounter Diagnosis) L97.512 - Non-pressure chronic ulcer of other part of right foot with fat layer exposed (Encounter Diagnosis) M21.6X1 - Other acquired deformities of right foot (Encounter Diagnosis) B95.7 - Other staphylococcus as the cause of diseases classified elsewhere PROCEDURES Wound #1 Wound #1 (Atypical) is located on the left elbow. A skin/subcutaneous tissue level surgical debridement with a total area debrided of 2.1 sq cm was performed by Jhonathan Hernandez MD. Subcutaneous was removed along with devitalized tissue: exudate. The following instrument (s) were used: curette. Pain control was achieved using 4% Lido. A time out was conducted prior to the start of the procedure. A minimal amount of bleeding was controlled with n/a. The procedure was tolerated well with a pain level of 0 throughout and a pain level of 0 following the procedure. Post Debridement Measurements: 1.5cm length x 1.4cm width x 0.5cm depth; with an area of 2.1 sq cm and a volume of 1.05 cubic cm; Wound #1 (Atypical) is located on the left elbow. A Disposable Wound Vac Application < 50 Sq Cm procedure was performed by Jhonathan Hernandez MD. A time out was conducted prior to the start of the procedure. The procedure was tolerated well. General Notes: CATHERINE 4x8 applied to left elbow. Wound #2 Wound #2 (Neuropathic Ulcer) is located on the right, plantar foot. A skin/ subcutaneous tissue level surgical debridement with a total area debrided of 0.2 sq cm was performed by Jhonathan Hernandez MD. Subcutaneous was removed along with devitalized tissue: callus and slough. The following instrument(s) were used: curette. Pain control was achieved using 4% Lido. A time out was conducted prior to the start of the procedure. A moderate amount of bleeding was controlled with pressure. The procedure was tolerated well with a pain level of 0 throughout and a pain level of 0 following the procedure. Post Debridement Measurements: 0.5cm length x 0.4cm width x 0.4cm depth; with an area of 0.2 sq cm and a volume of 0.08 cubic cm; General Notes: Undermining decreased to 0.2cm post debridement due to callus removal. Additional Information Muscle fascia or bone removed and sent to pathology?: No Muscle fascia or bone removed and sent to pathology?: No PLAN Wound Orders: Wound #1 Left Elbow Anesthetic Topical Xylocaine to wound bed. - In clinic only. Cleanser Cleanse Wound: - Normal saline in clinic. May use distilled water at home with clean gauze. May Shower. - Please avoid getting tap water in wounds. Cover while in shower. May use cast protector purchased from pharmacy. Topical Treatments Antibiotic/Antimicrobial Ointment/Cream. - Gentamicin ointment. Dressings Wound Vac: - CATHERINE 4x8. Change Dressing: - Leave in place until next visit. Wound #2 Right, Plantar Foot Anesthetic Topical Xylocaine to wound bed. - In clinic only. Cleanser Cleanse Wound: - Normal saline in clinic. May use distilled water at home with clean gauze. May Shower. - Please avoid getting tap water in wounds. Cover while in shower. May use cast protector purchased from pharmacy. Dressings Pack wound: - Endoform moistened with normal saline (may use distilled water at home). Cover and secure with: - [place] pad donut surrounding wound - you may leave the felt donut in place if it does not fall off during dressing changes. Foam cut, secured with hypafix tape. Change Dressing: - Every other day. Additional Orders: Off-Loading Keep weight off: - Left elbow and right foot. Use/Wear when Walking: - Forefoot off-loading shoe. Please use knee scooter if possible. Follow-Up Appointments Return Appointment: - - One week. Other information: If you develop fever, chills, increased pain, drainage, redness or swelling please call our office. If after hours, respond to the ER. Should you experience any significant changes in your wound(s) or have any questions regarding your home care instructions please contact the wound center @ [phone]. If after hours, contact your primary care physician or go to the hospital emergency room. Scribing Attestation I attest, as the nurse, that I scribed these orders for the physician. I've reviewed the clinician's documentation and agree with the evaluation and plan as written. In addition the patient's wound and ulcer demonstrate evidence of non-viable devitalized tissue and they will continue to benefit from sharp debridement to help promote granulation and expedite healing. Negative pressure wound therapy will be utilized to facilitate granulation and removal of exudate and infectious material with the goal of expediting wound healing. We'll also refer the patient to [facility] for evaluation of orthotic footwear to help facilitate the left foot deformity and minimize callus formation. Electronic Signature(s) Signed By: Date: Jhonathan Hernandez MD 05/05/2018 13:52:38 Entered By: Jhonathan Hernandez on 05/05/2018 12:50:51
== END ==
PROVIDERS: PCP Internal Medicine; Visit Provider Internal Medicine
DX: G90.09 Other idiopathic peripheral autonomic neuropathy (principal); L97.512 Non-pressure chronic ulcer of other part of right foot with fat layer exposed; S41.102A Unspecified open wound of left upper arm, initial encounter; M21.6X1 Other acquired deformities of right foot; B95.7 Other staphylococcus as the cause of diseases classified elsewhere
CPT/HCPCS: 11042; 97607

== ENCOUNTER → 2018-05-12 10:41 | Outpatient (CLI) | payer MEDICARE, OTHER, SELFPAY ==
[2018-04-21 18:02] VITALS: BMI 26.9
--- NOTE | 2018-05-12 | OV.WND_ITS ---
Progress Note Details Patient Name: Lalo Hyde Patient Number: [id number] PatientPatientDate: 05/12/2018 Clinician: Anum Guaman Clinician Cosigner: Poly Marquez Physician / Flatbed Press Operator: Jhonathan Hernandez SUBJECTIVE Chief Complaint This information was obtained from the patient Non-healing wound to left elbow and right foot. Allergies NKDA HPI This information was obtained from the patient 05/12/18. Seen by Dr. Hernandez. The patient does not report increased drainage nor pain associated with the chronic left elbow, non-healing surgical wound nor the right plantar foot neuropathic ulcer since his last visit. He's tolerating NPWT for the elbow wound and wearing his offloading shoe as recommended on the right foot. He's off of prednisone but continues on methotrexate and hydroxychloroquine for SLE also. 05/05/18. Seen by Dr. Hernandez. The patient's left elbow wound culture grew a coag negative Staph species and he's been applying topical gentamicin ointment to the base as recommended. 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 04/29/18. Seen by Dr. Hernandez. The patient's new to our clinic and presents with a non-healing left elbow surgical wound that started as an infected bursa requiring incision and drainage about one month ago. He does not report pain or significant drainage from the site and is not currently on antibiotics. Of note, he's been diagnosed with systemic lupus and is currently on prednisone and methotrexate. 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 This is complicated by a severe right foot pes cavus deformity. Past Medical History This information was obtained from the patient Patient has a medical history of: Systemic lupus erythematosis Complaints and Symptoms This information was obtained from the patient Patient complains of: General Notes: I have reviewed and concur with the Review of Systems and Past Family Social History documents completed by the clinician, I have reviewed and concur with the Wound Assessment document completed by the clinician Integumentary (Hair/Skin/Nails): Open Sore Musculoskeletal: Assistive Devices Neurological: Loss of Protective Sensation Prior Wound History: Drainage, Pain Patient denies complaints or symptoms related to: Cardiovascular (Central/Peripheral): Lower extremity (leg) swelling Constitutional Symptoms (General Health): Chills, Fever Ear/Nose/Mouth/Throat: Hearing Loss / Aid Hematologic/Lymphatic: Bleeding / Clotting Disorders, Bleeding Tendency Psychiatric: Memory Loss OBJECTIVE Constitutional Vital signs reviewed and noted. Well developed. Alert. Clean appearing.. Height/ Length: 73 in (185.42 cm), Weight: 193.1 lbs (87.77 kgs), BMI: 25.5, Temperature: 98.6 ?F (37 ?C), Pulse: 99 bpm, Respiratory Rate: 17 breaths/min, Blood Pressure: 113/74 mmHg, Pulse Oximetry: 96 %. Ears, Nose, Mouth, and Throat: No clinically significant hearing loss on informal examination. Respiratory: No respiratory distress. Even respirations and without use of accessory muscles.. Integumentary (Hair, Skin) No periwound erythema, warmth, or significant drainage. No periwound rashes appreciated or noted otherwise.. Refer to appropriate clinician wound documentation for this visit; left elbow wound and right foot ulcer extends to subcut with base partially covered with pink granulation, remainder fibrin and slough. Wound #1 Left Elbow is a chronic Full Thickness Atypical and has received a status of Not Healed. Subsequent wound encounter measurements are 1.3cm length x 1cm width x 0.2cm depth, with an area of 1.3 sq cm and a volume of 0.26 cubic cm. No tunneling has been noted. No sinus tract has been noted. Undermining has been noted at 1:00 and ends at 1: 00 with a maximum distance of 1.7cm. There is a moderate amount of sero-sanguineous drainage noted which has no odor. The patient reports a wound pain of level 0/10. The wound margin is irregular. Wound bed has Yes epithelialization, No eschar, Yes slough, Yes bright red, pink, firm granulation. The periwound skin texture is normal. The periwound skin moisture is normal. The periwound skin color is normal. The temperature of the periwound skin is WNL. Periwound skin does not exhibit signs or symptoms of infection. Local Pulse is Palpable. Wound #2 Right, Plantar Foot is a chronic Full Thickness Neuropathic Ulcer and has received a status of Not Healed. Subsequent wound encounter measurements are 0.5cm length x 0.3cm width x 0.3cm depth, with an area of 0.15 sq cm and a volume of 0.045 cubic cm. No tunneling has been noted. No sinus tract has been noted. Undermining has been noted at 12:00 and ends at 12:00 with a maximum distance of 0.3cm. There is a moderate amount of serous drainage noted which has no odor. The patient reports a wound pain of level 0/10. The wound margin is callus. Wound bed has No epithelialization, No eschar, Yes slough, Yes bright red, firm granulation. The periwound skin moisture is normal. The periwound skin color is normal. The periwound skin exhibited: Callus. The periwound skin did not exhibit: Brawny Induration, Edema, Excoriation, Induration, Crepitus, Fluctuance, Friable, Rash. The temperature of the periwound skin is WNL. Periwound skin does not exhibit signs or symptoms of infection. Local Pulse is Strong. General Notes: Patient reports needle pain when it touched. Neurological: Cranial nerves grossly intact with symmetric function normal by informal observation.. ASSESSMENT Active Problems ICD-10 (Encounter Diagnosis) S41.102D - Unspecified open wound of left upper arm, subsequent encounter (Encounter Diagnosis) L97.512 - Non-pressure chronic ulcer of other part of right foot with fat layer exposed (Encounter Diagnosis) T45.1X5D - Adverse effect of antineoplastic and immunosuppressive drugs, subsequent encounter PROCEDURES Wound #1 Wound #1 (Atypical) is located on the left elbow. A skin/subcutaneous tissue level surgical debridement with a total area debrided of 1.3 sq cm was performed by Jhonathan Hernandez MD. Subcutaneous was removed along with devitalized tissue: slough. Pain control was achieved using 4% Lido. A time out was conducted prior to the start of the procedure. A minimal amount of bleeding was controlled with n/a. The procedure was tolerated well with a pain level of 0 throughout and a pain level of 0 following the procedure. Post Debridement Measurements: 1.3cm length x 1cm width x 0.3cm depth; with an area of 1.3 sq cm and a volume of 0.39 cubic cm; Wound #1 (Atypical) is located on the left elbow. A Disposable Wound Vac Application < 50 Sq Cm procedure was performed by Jhonathan Hernandez MD. A time out was conducted prior to the start of the procedure. The procedure was tolerated well. General Notes: 4x8 applied to left elbow Wound #2 Wound #2 (Neuropathic Ulcer) is located on the right, plantar foot. A skin/ subcutaneous tissue level surgical debridement with a total area debrided of 0.2 sq cm was performed by Jhonathan Hrenandez MD. Subcutaneous was removed along with devitalized tissue: callus and slough. The following instrument(s) were used: curette. Pain control was achieved using 4% Lido. A time out was conducted prior to the start of the procedure. A minimal amount of bleeding was controlled with n/a. The procedure was tolerated well with a pain level of 0 throughout and a pain level of 0 following the procedure. Post Debridement Measurements: 0.5cm length x 0.4cm width x 0.4cm depth; with an area of 0.2 sq cm and a volume of 0.08 cubic cm; Additional Information Muscle fascia or bone removed and sent to pathology?: No Muscle fascia or bone removed and sent to pathology?: No PLAN Wound Orders: Wound #1 Left Elbow Anesthetic Topical Xylocaine to wound bed. - In clinic only. Cleanser Cleanse Wound: - Normal saline in clinic. May use distilled water at home with clean gauze. May Shower. - Please avoid getting tap water in wounds. Cover while in shower. May use cast protector purchased from pharmacy. Topical Treatments Antibiotic/Antimicrobial Ointment/Cream. - Gentamicin ointment. Dressings Wound Vac: - CATHERINE 4x8. Change Dressing: - Leave in place until next visit. Wound #2 Right, Plantar Foot Anesthetic Topical Xylocaine to wound bed. - In clinic only. Cleanser Cleanse Wound: - Normal saline in clinic. May use distilled water at home with clean gauze. May Shower. - Please avoid getting tap water in wounds. Cover while in shower. May use cast protector purchased from pharmacy. Dressings Pack wound: - Endoform moistened with normal saline (may use distilled water at home). Cover and secure with: - [place] pad donut surrounding wound - you may leave the felt donut in place if it does not fall off during dressing changes. Foam cut, secured with hypafix tape. Change Dressing: - Every other day. Additional Orders: Off-Loading Keep weight off: - Left elbow and right foot. Use/Wear when Walking: - Forefoot off-loading shoe. Please use knee scooter if possible. Follow-Up Appointments Return Appointment: - - One week. Other information: If you develop fever, chills, increased pain, drainage, redness or swelling please call our office. If after hours, respond to the ER. Should you experience any significant changes in your wound(s) or have any questions regarding your home care instructions please contact the wound center @ [phone]. If after hours, contact your primary care physician or go to the hospital emergency room. Scribing Attestation I attest, as the nurse, that I scribed these orders for the physician. I've reviewed the clinician's documentation and agree with the evaluation and plan as written. In addition, the patient's ulcer demonstrates evidence of non-viable devitalized tissue which will continue to benefit from sharp debridement to help promote granulation and expedite healing. Negative pressure wound therapy will be utilized to facilitate granulation and removal of exudate and infectious material with the goal of expediting wound healing. Also, we discussed the immunosuppressive effects of his SLE medications and if the left elbow wound does not improve he may need to be referred to a plastic surgeon. Electronic Signature(s) Signed By: Date: Jhonathan Hernandez MD 05/12/2018 13:33:28 Entered By: Jhonathan Hernandez on 05/12/2018 13:32:19
== END ==
PROVIDERS: PCP Internal Medicine; Visit Provider Internal Medicine
DX: G90.09 Other idiopathic peripheral autonomic neuropathy (principal); L97.512 Non-pressure chronic ulcer of other part of right foot with fat layer exposed; S41.102A Unspecified open wound of left upper arm, initial encounter; T45.1X5D Adverse effect of antineoplastic and immunosuppressive drugs, subsequent encounter
CPT/HCPCS: 11042; 97607

== ENCOUNTER → 2018-05-19 09:37 | Outpatient (CLI) | payer MEDICARE, OTHER, SELFPAY ==
[2018-04-21 18:02] VITALS: BMI 26.9
== END ==
PROVIDERS: PCP Internal Medicine; Visit Provider Internal Medicine
DX: S51.002A Unspecified open wound of left elbow, initial encounter (principal); G90.9 Disorder of the autonomic nervous system, unspecified; L97.512 Non-pressure chronic ulcer of other part of right foot with fat layer exposed; T45.1X5D Adverse effect of antineoplastic and immunosuppressive drugs, subsequent encounter; M21.6X1 Other acquired deformities of right foot
CPT/HCPCS: 11042; 97607

== ENCOUNTER → 2018-05-22 08:58 | Outpatient (CLI) | payer MEDICARE, OTHER, SELFPAY | PROVIDERS: PCP Internal Medicine; Visit Provider Internal Medicine | DX: G90.9 Disorder of the autonomic nervous system, unspecified (principal); L97.511 Non-pressure chronic ulcer of other part of right foot limited to breakdown of skin; S51.002A Unspecified open wound of left elbow, initial encounter; M21.6X1 Other acquired deformities of right foot | CPT/HCPCS: 11042; 97607 ==

== ENCOUNTER → 2018-05-29 13:48 | Outpatient (CLI) | payer MEDICARE, OTHER, SELFPAY ==
--- NOTE | 2018-05-29 | OV.WND_ITS ---
Progress Note Details Patient Name: Lalo Hyde Patient Number: [id number] PatientPatientDate: 05/29/2018 Clinician: Lisa Fofana Clinician Cosigner: Priscilla Tran Physician / Harness Brusher: Jhonathan Hernandez SUBJECTIVE Chief Complaint This information was obtained from the patient Non-healing wound to left elbow and right foot. Allergies NKDA HPI This information was obtained from the patient 05/29/18. Seen by Dr. Hernandez. The patient missed his recent appointment due to pneumonia for which he's now on antibiotics. He does not report pain or drainage associated with the chronic, non-healing left elbow surgical wound nor right 1st MTPJ neuropathic ulcer since his last visit. He has a severe left foot pes cavus deformity and is wearing an offloading shoe as recommended and minimizing his walking. He's also off of all immunosuppressive medications now that he'd been taking for many years for his systemic lupus erythematosis. 05/22/18. Seen by Dr. Hernandez. The patient's not yet received a call from the plastic surgeon's office we referred him to for the non-healing left elbow surgical wound. 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 He's wearing is offloading shoe as recommended and has not had any significant problems with the SNAP wound vac that was applied to the left elbow wound. 05/19/18. Seen by Dr. Hernandez. The patient reports some intermittent pain in the left elbow and feels the wound vac seal covering the non-healing left elbow surgical wound may not have been entirely effective. He's also wearing a forefoot offloading surgical show on the right foot and reports some increasing hip pain. 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 He also continues on methotrexate and hydroxychloroquine for SLE. 05/12/18. Seen by Dr. Hernandez. The patient does not report increased drainage nor pain associated with the chronic left elbow, non-healing surgical wound nor the right plantar foot neuropathic ulcer since his last visit. He's tolerating NPWT for the elbow wound and wearing his offloading shoe as recommended on the right foot. He's off of prednisone but continues on methotrexate and hydroxychloroquine for SLE also. 05/05/18. Seen by Dr. Hernandez. The patient's left elbow wound culture grew a coag negative Staph species and he's been applying topical gentamicin ointment to the base as recommended. 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 04/29/18. Seen by Dr. Hernandez. The patient's new to our clinic and presents with a non-healing left elbow surgical wound that started as an infected bursa requiring incision and drainage about one month ago. He does not report pain or significant drainage from the site and is not currently on antibiotics. Of note, he's been diagnosed with systemic lupus and is currently on prednisone and methotrexate. 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 This is complicated by a severe right foot pes cavus deformity. Past Medical History This information was obtained from the patient Patient has a medical history of: Systemic lupus erythematosis Complaints and Symptoms This information was obtained from the patient Patient complains of: General Notes: I have reviewed and concur with the Review of Systems and Past Family Social History documents completed by the clinician, I have reviewed and concur with the Wound Assessment document completed by the clinician Constitutional Symptoms (General Health): Fatigue Integumentary (Hair/Skin/Nails): Open Sore Musculoskeletal: Assistive Devices Neurological: Loss of Protective Sensation Prior Wound History: Drainage, Pain Respiratory: Cough Patient denies complaints or symptoms related to: Cardiovascular (Central/Peripheral): Lower extremity (leg) swelling Constitutional Symptoms (General Health): Chills, Fever Ear/Nose/Mouth/Throat: Hearing Loss / Aid Hematologic/Lymphatic: Bleeding / Clotting Disorders, Bleeding Tendency Psychiatric: Memory Loss OBJECTIVE Constitutional Vital signs reviewed and noted. Well developed. Alert. Clean appearing.. Height/ Length: 73 in (185.42 cm), Weight: 193.1 lbs (87.77 kgs), BMI: 25.5, Temperature: 98.5 ?F ( 36.94 ?C), Pulse: 105 bpm, Respiratory Rate: 16 breaths/min, Blood Pressure: 123/72 mmHg, Pulse Oximetry: 100 %. Ears, Nose, Mouth, and Throat: No clinically significant hearing loss on informal examination. Respiratory: No respiratory distress. Even respirations and without use of accessory muscles.. Gastrointestinal (GI): Non-obese. Nondistended.. Musculoskeletal: Significant right foot pes cavus deformity. Integumentary (Hair, Skin) No periwound erythema, warmth, or significant drainage. No periwound rashes appreciated or noted otherwise.. Refer to appropriate clinician wound documentation for this visit; right foot ulcer extends to subcut with base partially covered with pink granulation, remainder fibrin and slough; left elbow wound extends to deep subcut with significant undermining persisting. Moderate amount of callus in the right foot periulcer area. Wound #1 Left Elbow is a chronic Full Thickness Atypical and has received a status of Not Healed. Subsequent wound encounter measurements are 1.8cm length x 1.8cm width x 0.3cm depth, with an area of 3.24 sq cm and a volume of 0.972 cubic cm. No tunneling has been noted. No sinus tract has been noted. Undermining has been noted at 1:00 and ends at 1:00 with a maximum distance of 1.6cm. There is a moderate amount of sero- sanguineous drainage noted which has no odor. The patient reports a wound pain of level 0/10. The wound margin is unattached. Wound bed has Yes epithelialization, No eschar, Yes slough, Yes bright red, pink, firm granulation. The periwound skin texture is normal. The periwound skin moisture is normal. The periwound skin color is normal. The temperature of the periwound skin is WNL. Periwound skin does not exhibit signs or symptoms of infection. Local Pulse is Palpable. Wound #2 Right, Plantar Foot is a chronic Full Thickness Neuropathic Ulcer and has received a status of Not Healed. Subsequent wound encounter measurements are 0.2cm length x 0.2cm width x 0.3cm depth, with an area of 0.04 sq cm and a volume of 0.012 cubic cm. No tunneling has been noted. No sinus tract has been noted. No undermining has been noted. There was no drainage noted. The patient reports a wound pain of level 0/10. The wound margin is callus. Wound bed has Yes epithelialization, No eschar, No slough, No granulation. The periwound skin moisture is normal. The periwound skin color is normal. The periwound skin exhibited: Callus. The periwound skin did not exhibit: Brawny Induration, Edema, Excoriation, Induration, Crepitus, Fluctuance, Friable, Rash. The temperature of the periwound skin is WNL. Periwound skin does not exhibit signs or symptoms of infection. Local Pulse is Strong. Neurological: Cranial nerves grossly intact with symmetric function normal by informal observation.. ASSESSMENT Active Problems ICD-10 (Encounter Diagnosis) S41.102D - Unspecified open wound of left upper arm, subsequent encounter (Encounter Diagnosis) L97.512 - Non-pressure chronic ulcer of other part of right foot with fat layer exposed (Encounter Diagnosis) T45.1X5D - Adverse effect of antineoplastic and immunosuppressive drugs, subsequent encounter (Encounter Diagnosis) M21.6X1 - Other acquired deformities of right foot (Encounter Diagnosis) J18.9 - Pneumonia, unspecified organism PROCEDURES Wound #1 Wound #1 (Atypical) is located on the left elbow. A skin/subcutaneous tissue level surgical debridement with a total area debrided of 3.24 sq cm was performed by Jhonathan Hernandez MD. Subcutaneous was removed along with devitalized tissue: exudate and slough. The following instrument(s) were used: curette. Pain control was achieved using 4% Lido. A time out was conducted prior to the start of the procedure. A moderate amount of bleeding was controlled with pressure. The procedure was tolerated well with a pain level of 0 throughout and a pain level of 0 following the procedure. Post Debridement Measurements: 1.8cm length x 1.8cm width x 0.4cm depth; with an area of 3.24 sq cm and a volume of 1.296 cubic cm; Wound #2 Wound #2 (Neuropathic Ulcer) is located on the right, plantar foot. A skin/ subcutaneous tissue level surgical debridement with a total area debrided of 0.09 sq cm was performed by Jhonathan Hernandez MD. Subcutaneous was removed along with devitalized tissue: callus and exudate. The following instrument(s) were used: curette. Pain control was achieved using 4% Lido. A time out was conducted prior to the start of the procedure. A minimal amount of bleeding was controlled with pressure. The procedure was tolerated well with a pain level of 0 throughout and a pain level of 0 following the procedure. Post Debridement Measurements: 0.3cm length x 0.3cm width x 0.3cm depth; with an area of 0.09 sq cm and a volume of 0.027 cubic cm; Additional Information Muscle fascia or bone removed and sent to pathology?: No Muscle fascia or bone removed and sent to pathology?: No PLAN Wound Orders: Wound #1 Left Elbow Anesthetic Topical Xylocaine to wound bed. - In clinic only. Cleanser Cleanse Wound: - Normal saline in clinic. May use distilled water at home with clean gauze. May Shower. - Please avoid getting tap water in wounds. Cover while in shower. May use cast protector purchased from pharmacy. Topical Treatments Antibiotic/Antimicrobial Ointment/Cream. - Triple antibiotic ointment. Dressings Cover and secure with: - Foam cut to cover, secured with hypafix tape. Change Dressing: - Every other day. Wound #2 Right, Plantar Foot Anesthetic Topical Xylocaine to wound bed. - In clinic only. Cleanser Cleanse Wound: - Normal saline in clinic. May use distilled water at home with clean gauze. May Shower. - Please avoid getting tap water in wounds. Cover while in shower. May use cast protector purchased from pharmacy. Dressings Pack wound: - Endoform moistened with normal saline (may use distilled water at home). Cover and secure with: - [place] pad donut surrounding wound - you may leave the felt donut in place if it does not fall off during dressing changes. Foam cut, secured with hypafix tape. Change Dressing: - Every other day. Additional Orders: Off-Loading Keep weight off: - Left elbow and right foot. Use/Wear when Walking: - Forefoot off-loading shoe. Please use knee scooter if possible. Follow-Up Appointments Return Appointment: - - One week. Other information: If you develop fever, chills, increased pain, drainage, redness or swelling please call our office. If after hours, respond to the ER. Should you experience any significant changes in your wound(s) or have any questions regarding your home care instructions please contact the wound center @ [phone]. If after hours, contact your primary care physician or go to the hospital emergency room. Scribing Attestation I attest, as the nurse, that I scribed these orders for the physician. General Notes: Patient to call plastic surgeon's office to schedule a consult appointment. If plastics decides not to treat, we will evaluate whether a Grafix skin substitute. would be appropriate. I've reviewed the clinician's documentation and agree with the evaluation and plan as written. In addition, the patient's ulcer demonstrates evidence of non-viable devitalized tissue which will continue to benefit from sharp debridement to help promote granulation and expedite healing. Also, the patient will contact plastic surgery again once he's feeling better regarding his pneumonia to discuss possible grafting options for the chronic left elbow wound. Electronic Signature(s) Signed By: Date: Jhonathan Hernandez MD 05/30/2018 07:58:24 Entered By: Jhonathan Hernandez on 05/30/2018 07:31:40
== END ==
PROVIDERS: PCP Internal Medicine; Visit Provider Internal Medicine
DX: L97.512 Non-pressure chronic ulcer of other part of right foot with fat layer exposed (principal); S51.002A Unspecified open wound of left elbow, initial encounter; M21.6X1 Other acquired deformities of right foot; J18.9 Pneumonia, unspecified organism
CPT/HCPCS: 11042

== ENCOUNTER 2018-06-16 02:48 | Inpatient (IN) | payer MEDICARE, OTHER, SELFPAY ==
[2018-06-16] VITALS (11 sets, daily range): BP systolic 136–153; BP diastolic 68–92; PULSE 75–113; RESP 14–20; TEMP 36.3–36.8; O2SAT 91–99; BMI 22.4
--- NOTE | 2018-06-16 03:05 | DI.RAD.S_ITS ---
PROCEDURE: XR CHEST 1V INDICATIONS: Shortness of breath TECHNIQUE: One view of the chest was acquired. COMPARISON: Outside Film, CT, CT ANGIO CHEST, 05/22/2018, 15:13. [facility], CR, XR CHEST 2 VIEWS, 06/13/2018, 14:36. FINDINGS: Surgical changes and devices: None. Lungs and pleura: No pleural effusions or pneumothorax. Focal opacity in the right upper lobe is stable compared to prior exams. Linear opacities in the left lung with atelectasis or parenchymal scarring are stable. Mediastinum: Mediastinal contours appear normal. Heart size is normal. Bones and chest wall: No suspicious bony lesions. Overlying soft tissues appear unremarkable. IMPRESSION: Stable exam compared to 06/13/2018. Persistent right upper lobe opacity noted. Repeat chest x-ray in one month is recommended to evaluate for resolution and to exclude neoplastic process. Dictated by: Melissa Cordova MD, PhD on 06/16/2018 at 8:42 Approved by: Melissa Cordova MD, PhD on 06/16/2018 at 8:44
[2018-06-16] MEDS: ASPIRIN 81 MG TAB 324 MG PO (03:30)
[2018-06-16] MEDS: KETOROLAC 60 MG/2 ML VIAL 15 MG IV (03:31)
[2018-06-16] MEDS: SODIUM CHLORIDE 0.9% 1,000 ML 150 ML IV ×2 (03:31→07:47)
[2018-06-16] MEDS: methylPREDNISolone 125 MG/2 ML VIAL IV (03:31)
--- NOTE | 2018-06-16 03:39 | ED_ITS ---
HPI - Weakness General Chief complaint: Weakness Stated complaint: possibel lupus flare up, left elbow surgery Time Seen by Provider: 06/16/18 02:53 Source: patient and family Mode of arrival: ambulatory Limitations: no limitations History of Present Illness HPI Narrative: 72-year-old male with history of lupus and recent admission for melena presents with widespread joint pain and fatigue. Additionally he has some chest pain and shortness of breath. He denies any fever or chills. He is not dizzy nor weak (focally). He patient has a history of lupus and recently went off of all of his lupus medications due to a poorly healing left elbow bursa after surgery. His doctor took him off his medications he was placed back gone few of them on Saturday but he saw his redye hand. MD Complaint: generalized weakness Onset (ago): day(s) Duration: constant Location: generalized Migration: none Severity: moderate Relieving factors: none Exacerbating factors: none Context: recent illness Associated symptoms: chest pain, loss of appetite and myalgias Related Data Home Medications Medication Instructions Recorded Confirmed hydroxychloroquine 1 mg PO DAILY 04/21/18 04/21/18 methotrexate (PF) 1 mg SUB-Q QWEEK 04/21/18 04/21/18 prednisone 3 mg PO QAM 04/21/18 04/21/18 tamsulosin 1 mg PO DAILY 04/21/18 04/21/18 aspirin 81 mg PO DAILY 04/22/18 04/22/18 Allergies Allergy/AdvReac Type Severity Reaction Status Date / Time No Known Drug Allergies Allergy Verified 04/24/18 12:05 Review of Systems Review of Systems All systems reviewed & are unremarkable except as noted in HPI and below Constitutional Denies chills, Denies fever(s), Denies lethargy, Reports weakness and Reports weight loss Eyes Denies change in vision, Denies eye discharge, Denies irritation and Denies loss of vision ENT Ears, Nose, Mouth, and Throat: Denies change in voice, Denies neck pain and Denies sore throat Cardiovascular Reports chest pain, Denies irregular heart rhythm, Denies lightheadedness, Denies palpitations, Reports dyspnea, Reports dyspnea on exertion and Denies orthopnea Respiratory Reports cough, Reports dyspnea, Reports dyspnea on exertion and Denies wheezing Gastrointestinal Gastrointestinal: Denies abdominal pain, Denies change in bowel habits, Denies diarrhea, Denies nausea and Denies vomiting Genitourinary Denies hematuria, Denies flank pain, Denies urinary incontinence and Denies urinary urgency Musculoskeletal Denies neck pain Integumentary/Breasts Denies pruritus, Denies erythema, Denies rash and Denies wounds Neurologic Denies confusion, Denies loss of vision and Reports weakness Psychiatric Denies anxiety, Denies confusion, Denies depression, Denies homicidal ideation and Denies suicidal ideation Endocrine Denies palpitations Hematologic/Lymphatic Denies easy bruising Allergic/Immunologic Denies wheezing FOR[facility]LY [facility], [facility] Medical History GI bleed (Acute) BPH (benign prostatic hyperplasia) (Chronic) History of pulmonary embolism (Chronic) Lupus (systemic lupus erythematosus) (Chronic) Social History household members: spouse Smoking Status: Former smoker alcohol intake: current Exam Narrative Exam Narrative: Pleasant 72-year-old male is visibly distraught, obviously anxious Initial Vital Signs Initial Vital Signs: Vital Signs Temperature 97.8 F 06/16/18 03:05 Pulse Rate 105 H 06/16/18 03:05 Respiratory Rate 18 06/16/18 03:05 Blood Pressure 144/84 H 06/16/18 03:05 Pulse Oximetry 99 06/16/18 03:05 Const General: cooperative and well developed Nutritional Appearance: well nourished and thin Orientation: alert, awake, oriented x3 and not confused [facility] Head: normocephalic and atraumatic Ears: external ears normal and TM's normal bilaterally Nose: external nose normal and No nasal discharge Face and sinus: sinuses nontender, face symmetric, no sinus tenderness and dry mucous membranes Teeth and gingiva: dentition normal Throat: tonsils normal and uvula midline Eyes General: appearance normal, both eyes and all related structures Eyelids: eyelids normal Conjunctivae: conjunctivae normal Sclera: sclerae normal Pupils: PERRL EOM: EOM intact bilaterally Neck Neck: normal visual inspection, trachea midline, No lymphadenopathy, No midline deformity and No JVD Lymphatic: No lymphedema Chest Chest: normal inspection of the chest Resp Effort & Inspection: normal respiratory effort, able to speak in complete sentences, no respiratory distress and no use of accessory muscles Auscultation: clear to auscultation bilaterally, no rales, no rhonchi and no wheezes Cardio Rate: regular rate Rhythm: regular rhythm Heart Sounds: no click, no gallops, no murmurs and no rubs Pulses: normal peripheral pulses GI Inspection: non-distended Palpation: soft, no hepatosplenomegaly, No guarding, No pulsatile mass and No tender Auscultation: normal bowel sounds Back/Spine/Pelvis Back: No CVA tenderness Cervical Spine: cervical ROM normal and No pain with cervical ROM Thoracic/Lumbar Spine: thoracic and lumbar spine normal to inspection Skin General: no rashes or lesions noted, No jaundice and No petechiae Neuro General: alert, oriented x3, gait normal and no focal motor deficits Speech: speech normal Extrem General: full ROM, no clubbing, cyanosis or edema, no pedal edema and no calf tenderness Psych Appearance: well kempt Mental Status: mental status grossly normal Attitude: cooperative Thought Content: normal and suicidality Judgment: judgment good Course Decision to Admit Date: 06/16/18 Decision to Admit time: 04:08 Orders Ordered: ED Orders 06/16/18 03:05 XR chest 1V Stat EKG-12 Lead Stat 06/16/18 03:43 B Type Natriuretic Peptide Stat C-Reactive Protein Quant Stat Complete Blood Count AUTO DIFF Stat Comprehensive Metabolic Panel Stat Erythrocyte Sedimentation Rate Stat Lipase Stat Procalcitonin Stat Troponin & CK Cardiac Panel Stat Sodium Chloride (Normal Saline 0.9%) 1,000 mls @ 150 mls/hr IV CONT GINA Last Admin: 06/16/18 03:31 Dose: 150 mls/hr Discontinued Medications Aspirin (Aspirin Chew) 324 mg PO NOW ONE Stop: 06/16/18 03:05 Last Admin: 06/16/18 03:30 Dose: 324 mg Hydromorphone HCl (Dilaudid) 0.5 mg IV NOW ONE Stop: 06/16/18 04:34 Ketorolac Tromethamine (Toradol) 15 mg IV NOW ONE Stop: 06/16/18 03:05 Last Admin: 06/16/18 03:31 Dose: 15 mg Methylprednisolone (Solu-Medrol 125 Mg Vial) 125 mg IV NOW ONE Stop: 06/16/18 03:05 Last Admin: 06/16/18 03:31 Dose: 125 mg Consultations Consultation #1: Dr. Reyes is happy to accept, will write orders Time: 04:44 Vital Signs - 8 hr 06/16/18 03:05 06/16/18 03:45 06/16/18 04:08 Temperature 97.8 F Pulse Rate 105 H 98 H 99 H Respiratory Rate 18 20 20 Blood Pressure 144/84 H Blood Pressure [Right Arm] 153/92 H 136/77 H Pulse Oximetry 99 98 97 MDM - Weakness Lab Data Result diagrams: 06/16/18 03:43 06/16/18 03:43 Lab Results 06/16/18 06/16/18 06/16/18 Range/Units 03:43 03:43 03:43 WBC (4.5-11.0) X10^3/uL RBC (4.5-5.9) X10^6/uL Hgb (13.5-17.5) g/dL Hct (41-53) % MCV (80-100) fL MCH (26-34) PG MCHC (30-36) % RDW (11.6-14.8) % Plt Count (150-400) X10^3/uL Neut % (Auto) (50-75) % Lymph % (Auto) (25-40) % [place] % (Auto) (3-14) % Eos % (Auto) (2-4) % Baso % (Auto) (0-2) % Neut # (Auto) (0570-9674) /uL ESR 9 (0-15) MM/HR Sodium (137-145) mmol/L Potassium (3.4-5.1) mmol/L Chloride (98-107) mmol/L Carbon Dioxide (22-32) mmol/L BUN (9-20) mg/dL Creatinine (0.66-1.25) mg/dL Estimated GFR (>60) mL/min BUN/Creatinine Ratio (6-22) Glucose (80-110) mg/dL Calcium (8.4-10.2) mg/dL Total Bilirubin (0.2-1.3) mg/dL AST (17-59) IU/L ALT (21-72) IU/L Alkaline Phosphatase (38-126) U/L Total Creatine Kinase (55-170) U/L Troponin I (0.01-0.034) ng/mL C-Reactive Protein 1.8 H (<1.0) mg/dL B-Natriuretic Peptide 32.8 (<100) Total Protein (6.3-8.2) g/dL Albumin (3.5-5.0) g/dL Globulin (1.7-4.1) g/dL Albumin/Globulin Ratio (1.0-2.8) Lipase (23-300) U/L Procalcitonin < 0.05 (<0.5) ng/mL 06/16/18 06/16/18 Range/Units 03:43 03:43 WBC 4.1 L (4.5-11.0) X10^3/uL RBC 4.35 L (4.5-5.9) X10^6/uL Hgb 12.5 L (13.5-17.5) g/dL Hct 37.6 L (41-53) % MCV 86.4 (80-100) fL MCH 28.8 (26-34) PG MCHC 33.3 (30-36) % RDW 15.6 H (11.6-14.8) % Plt Count 223 (150-400) X10^3/uL Neut % (Auto) 91.3 H (50-75) % Lymph % (Auto) 4.6 L (25-40) % [place] % (Auto) 2.8 L (3-14) % Eos % (Auto) 0.9 L (2-4) % Baso % (Auto) 0.4 (0-2) % Neut # (Auto) 3800 (5670-6214) /uL ESR (0-15) MM/HR Sodium 128 L (137-145) mmol/L Potassium 4.0 (3.4-5.1) mmol/L Chloride 95 L (98-107) mmol/L Carbon Dioxide 25 (22-32) mmol/L BUN 22 H (9-20) mg/dL Creatinine 0.80 (0.66-1.25) mg/dL Estimated GFR > 60.0 (>60) mL/min BUN/Creatinine Ratio 27.5 H (6-22) Glucose 139 H (80-110) mg/dL Calcium 8.6 (8.4-10.2) mg/dL Total Bilirubin 0.7 (0.2-1.3) mg/dL AST 50 (17-59) IU/L ALT 63 (21-72) IU/L Alkaline Phosphatase 54 (38-126) U/L Total Creatine Kinase 45 L (55-170) U/L Troponin I < 0.012 (0.01-0.034) ng/mL C-Reactive Protein (<1.0) mg/dL B-Natriuretic Peptide (<100) Total Protein 5.9 L (6.3-8.2) g/dL Albumin 2.9 L (3.5-5.0) g/dL Globulin 3.0 (1.7-4.1) g/dL Albumin/Globulin Ratio 1.0 (1.0-2.8) Lipase 100 (23-300) U/L Procalcitonin (<0.5) ng/mL Discharge Plan Departure Patient Disposition: Admitted As Inpatient Clinical Impression: Acute hyponatremia, Acute dehydration
[2018-06-16 03:50] LABS: Add Manual Diff / Slide Review NO; Basophils Percent Auto 0.4 % (0-2); Eosinophils Percent Auto 0.9 % (2-4); Hematocrit 37.6 % (41-53); Hemoglobin 12.5 g/dL (13.5-17.5); Lymphocytes Percent Auto 4.6 % (25-40); Mean Corpuscular HGB Conc 33.3 % (30-36); Mean Corpuscular Hemoglobin 28.8 PG (26-34); Mean Corpuscular Volume 86.4 fL (80-100); Monocytes Percent Auto 2.8 % (3-14); Neutrophils Absolute Auto 3800 /uL (3000-5900); Neutrophils Percent Auto 91.3 % (50-75); Platelet Count 223 X10^3/uL (150-400); Red Blood Cell Count 4.35 X10^6/uL (4.5-5.9); Red Cell Distribution Width 15.6 % (11.6-14.8); White Blood Cell Count 4.1 X10^3/uL (4.5-11.0)
[2018-06-16 04:05] LABS: Alanine Aminotransferase 63 IU/L (21-72); Albumin 2.9 g/dL (3.5-5.0); Alkaline Phosphatase 54 U/L (38-126); Aspartate Aminotransferase 50 IU/L (17-59); BUN Creatinine Ratio 27.5 (6-22); Bilirubin Total 0.7 mg/dL (0.2-1.3); Blood Urea Nitrogen 22 mg/dL (9-20); Calcium 8.6 mg/dL (8.4-10.2); Carbon Dioxide 25 mmol/L (22-32); Chloride 95 mmol/L (98-107); Creatine Kinase 45 U/L (55-170); Estimated Glomerular Filt Rate > 60.0 mL/min (>60); Glucose 139 mg/dL (80-110); HEMOLYSIS < 15 (0-50); Lipase 100 U/L (23-300); Sodium 128 mmol/L (137-145); Total Protein 5.9 g/dL (6.3-8.2)
[2018-06-16 04:09] LABS: C-Reactive Protein Quant 1.8 mg/dL (<1.0)
[2018-06-16 04:11] LABS: B Type Natriuretic Peptide 32.8 (<100)
[2018-06-16 04:12] LABS: Erythrocyte Sedimentation Rate 9 MM/HR (0-15)
[2018-06-16 04:18] LABS: Troponin I < 0.012 ng/mL (0.01-0.034)
[2018-06-16 04:19] LABS: Procalcitonin < 0.05 ng/mL (<0.5)
[2018-06-16] MEDS: HYDROMORPHONE 1 MG INJ 0.5 MG IV (04:42)
--- NOTE | 2018-06-16 05:09 | PC.NURSE ---
Edited due to entry error
--- NOTE | 2018-06-16 06:11 | PM.HP.1 ---
History of Present Illness Date Patient Seen: 06/16/18 Time Patient Seen: 05:10 Chief complaint: possible lupus flare up, left elbow surgery Narrative: This is a 72 year old male with complex medical problems presenting with clinical symptoms suggest for flare of systemic lupus erythematosus, dehydration/volume depletion with hyponatremia, complains of widespread joint pain and fatigue, chronic wound on his left elbow. Current symptoms present for the last few weeks and getting progressively worse, especially in the last 24 hr prompting current admission. He was seen by his sales development executive last Saturday who recommended discontinuation of treatment with methotrexate and addition of hydroxychloroquine + steroids . Patient complains of general weakness, malaise, poor appetite, worsening widespread joint pain and fatigue, sore throat. In February of this year he underwent incision for left elbow bursitis which has not completely healed up yet. Patient reports recent admission to our hospital for GI bleeding from unclear source. Initial exam and testing in ED was significant for ill-appearing male with stable vital signs, mild sinus tachycardia. His general clinical exam was significant for mild malnourishment, some atrophy of interest take muscles on both hands , swelling of metacarpophalangeal joints with some deformity. Clinical labs with hyponatremia of 128, mild hyperglycemia of 139, mild normocytic anemia with no leukocytosis. Patient is getting admitted to acute care unit for further management by hospitalist team. Patient History Medical History GI bleed (Acute) BPH (benign prostatic hyperplasia) (Chronic) History of pulmonary embolism (Chronic) Lupus (systemic lupus erythematosus) (Chronic) Family & Social History Family History: Reviewed 06/16/18 by Pete Reyes MD Social History: household members spouse Tobacco & Substance use: Smoking Status Former smoker alcohol intake current alcohol intake frequency 0-2 drinks per day Substance Use Type does not use Meds Home Medications Medication Instructions Recorded Confirmed Type hydroxychloroquine 200 mg PO DAILY 04/21/18 06/16/18 History prednisone 5 mg PO QAM 04/21/18 06/16/18 History tamsulosin 0.8 mg PO DAILY 04/21/18 06/16/18 History aspirin 81 mg PO DAILY 04/22/18 04/22/18 History Allergies Allergy/AdvReac Type Severity Reaction Status Date / Time No Known Drug Allergies Allergy Verified 04/24/18 12:05 Review of Systems Review of Systems All systems reviewed & are unremarkable except as noted in HPI and below Exam Vital Signs (past 8 hours): - 06/16/18 03:05 06/16/18 03:45 06/16/18 04:08 Temperature 97.8 F Pulse Rate 105 H 98 H 99 H Respiratory Rate 18 20 20 Blood Pressure 144/84 H Blood Pressure [Right Arm] 153/92 H 136/77 H Pulse Oximetry 99 98 97 06/16/18 04:51 06/16/18 05:08 06/16/18 05:17 Temperature Pulse Rate 90 113 H 87 Respiratory Rate 14 17 16 Blood Pressure 143/77 H Blood Pressure [Right Arm] 148/82 H 143/77 H Pulse Oximetry 91 99 95 Oxygen Delivery Method Room Air Narrative Exam Narrative: Constitutional: Well-developed ill appearing and cachectic male in mild distress. He is alert oriented x3. HEENT: Somewhat dry oral mucosa, limited ability to open his mouth wide Eyes: PERRLA, EOMI Neck: Supple, no lymphadenopathy no jugular venous distension Cardiovascular: Mild sinus tachycardia with no discernible murmurs Pulmonary: Clear to auscultation bilaterally, no rales crepitations or wheezing detected. GI: Soft, nontender, nondistended, bowel sounds present. Extremities: Warm to touch, no peripherally edema. Chronic small joint deformities on both hands with some mild atrophy of small muscles, swelling of metatarsophalangeal joints Skin: with chronic pigmentation predominantly on both forearms. There is small round shaped and healed wound on left elbow area approximately 15 mm in diameter with clean base. Neurological: No focal neurological symptoms detected, patient appears to be grossly neurologically intact. Objective Labs Result Diagrams: 06/16/18 03:43 06/16/18 03:43 Labs: Laboratory Results - last 24 hr 06/16/18 06/16/18 06/16/18 03:43 03:43 03:43 WBC RBC Hgb Hct MCV MCH MCHC RDW Plt Count Neut % (Auto) Lymph % (Auto) [place] % (Auto) Eos % (Auto) Baso % (Auto) Neut # (Auto) ESR 9 Sodium Potassium Chloride Carbon Dioxide BUN Creatinine Estimated GFR BUN/Creatinine Ratio Glucose Calcium Total Bilirubin AST ALT Alkaline Phosphatase Total Creatine Kinase Troponin I C-Reactive Protein 1.8 H B-Natriuretic Peptide 32.8 Total Protein Albumin Globulin Albumin/Globulin Ratio Lipase Procalcitonin < 0.05 06/16/18 06/16/18 03:43 03:43 WBC 4.1 L RBC 4.35 L Hgb 12.5 L Hct 37.6 L MCV 86.4 MCH 28.8 MCHC 33.3 RDW 15.6 H Plt Count 223 Neut % (Auto) 91.3 H Lymph % (Auto) 4.6 L [place] % (Auto) 2.8 L Eos % (Auto) 0.9 L Baso % (Auto) 0.4 Neut # (Auto) 3800 ESR Sodium 128 L Potassium 4.0 Chloride 95 L Carbon Dioxide 25 BUN 22 H Creatinine 0.80 Estimated GFR > 60.0 BUN/Creatinine Ratio 27.5 H Glucose 139 H Calcium 8.6 Total Bilirubin 0.7 AST 50 ALT 63 Alkaline Phosphatase 54 Total Creatine Kinase 45 L Troponin I < 0.012 C-Reactive Protein B-Natriuretic Peptide Total Protein 5.9 L Albumin 2.9 L Globulin 3.0 Albumin/Globulin Ratio 1.0 Lipase 100 Procalcitonin Assessment & Plan Plan: Assessment/Plan Narrative: 1. Systemic lupus erythematosus flare: Manifesting with symptoms of widespread joint PE, general weakness, fatigue, poor appetite, unintentional weight loss, dehydration S1 depletion with resultant hypernatremia. Most probably provoked by recent changes made to his medications by his sales development executive a week ago, including decrease into the dose of his steroids. Start patient on therapy with low-dose of IV steroids, continue current therapy with methotrexate, symptomatic and supportive care. 2. Dehydration/volume depletion: Start patient on IV hydration with normal saline 3. Hyponatremia: Most probably secondary to the above with appropriate release of ADH. Start patient on hydration with normal saline, observe for response. 4. Unintentional weight loss: multifactorial/secondary to above. Request director of event management consultation. Management as above. 5. History of recurrent DVTs/PE: Chronic therapy with Coumadin remains on hold for history of recent gastrointestinal bleeding. Complex remains asymptomatic. 6. GI prophylaxis: Proton pump inhibitors p.o. 7. DVT prophylaxis: Lovenox sc 8. Code status: Patient is a full code.
--- NOTE | 2018-06-16 09:07 | CM.DANOTE ---
Discharge Planning/Care Management DCP: assessment: case received, EMR reviewed and met with pt. Introduced self and role. Pt is a 72 year old male who admitted early this morning 0445 to care of hospitalist team. PCP: Dr. Rudd. also is followed by a gis geographer who saw him on Saturday, 06/13 and changed his medications. He notes he had not yet started those medications and was still taking the prior medication ordered. He notes he usually does quite well but this was so sudden and the worst pain I have ever felt. P: in process. Will check in prn and follow as d/c needs become clearer. CM Discharge Assessment Start: 06/16/18 09:04 Freq: Status: Active Protocol: Document 06/16/18 09:05 ITV (Rec: 06/16/18 09:07 ITV [id number]) Discharge Planning Assessment Advance Directives? Yes Advance Directives on File No History Provided By Patient Medical Record Prior Living Arrangements House Household Members spouse Independent with ADL's Yes: with use of cane Is patient alert and oriented? Yes DME Already Rented / Owned Cane Transportation Arrangement Spouse bedside and can provide transport at d/c. Whiteboard Updated in Patient Room with Yes name and ext. # of Rare/Endangered Species Specialist Comment rooming in, currently asleep on the window bed. does not rouse during this conversation with her Review Status In Process Next Review Type Continued Stay Review
[2018-06-16] MEDS: PANTOPRAZOLE 40 MG PACKET PO (09:53)
[2018-06-16] MEDS: methylPREDNISolone 125 MG/2 ML VIAL 60 MG IV ×2 (09:53→20:10)
[2018-06-16] MEDS: HYDROXYCHLOROQUINE 200 MG TABLET PO (09:53)
[2018-06-16] MEDS: LIDOCAINE VISCOUS 2% MM ×2 (10:19→20:11)
[2018-06-16] MEDS: MAG HYDROX MM ×2 (10:19→20:11)
[2018-06-16] MEDS: ALUMINUM MM ×2 (10:19→20:11)
[2018-06-16] MEDS: [UNRECOGNIZED DRUG - OTHER] MM ×2 (10:19→20:11)
[2018-06-16 10:50] LABS: RBC Urine None Seen (0-5/HPF)
[2018-06-16 10:53] LABS: Appearance Urine UA CLEAR; Bilirubin Urine UA NEGATIVE (NEGATIVE); Color Urine UA YELLOW; Glucose Urine UA NEGATIVE (Normal); Ketones Urine UA TRACE (NEGATIVE); Leukocyte Esterase Urine UA NEGATIVE (NEGATIVE); Nitrite Urine UA Negative (Negative); Occult Blood Urine UA NEGATIVE (Negative); Protein Urine UA 2+ (Negative); Specific Gravity Urine UA 1.015 (1.000-1.035); Urobilinogen Urine UA 0.2 E.U./dL (0.2)
[2018-06-16 11:12] LABS: Amorphous Sediment Urine 1+; Bacteria Urine Few (2-10); Squamous Epithelial Cell Urine 5-10 /HPF; WBC Urine 5-10/HPF (0-5/HPF)
[2018-06-16 11:13] LABS: Culture Indicated Urine Cult Not Indicated; Granular Casts Urine 5-10/LPF; Mucus Urine 2+ (Negative)
[2018-06-16] MEDS: SODIUM CHLORIDE 0.9% 1,000 ML 100 ML IV ×2 (13:00→16:15)
--- NOTE | 2018-06-16 14:22 | PC.NURSE ---
day shift- pt states pain is improved today from last night. has decreased to just his shoulders from his entire body. states pain is 3/10 and declines any pain meds. up with SBA to bathroom. Did have BM with ferdinand blood. Notified MD and general surgery consult for upper/lower scope. pt had additional BM with ferdinand blood again this shift. will guiac stool.
--- NOTE | 2018-06-16 14:59 | PM.CN ---
History of Present Illness Date Patient Seen: 06/16/18 Time Patient Seen: 14:59 Chief complaint: possible lupus flare up, left elbow surgery Reason for consult: Blood per rectum Requesting provider: Pete Reyes Narrative: 72-year-old male who presented the emergency department yesterday with severe intractable diffuse joint pain in the upper and lower extremities most pronounced in the hips who was subsequently admitted for management of possible lupus exacerbation and had a single bloody stool shortly after admission. Currently patient states that his stool is formed and otherwise normal this afternoon. He has had no blood or melena since then. He has no abdominal pain. No nausea or vomiting. Appetite is not at usual baseline but he is tolerating his meals without significant difficulty. Denies diarrhea. No dizziness or lightheadedness. No chest pain or shortness of breath. Of note, he had a similar episode with ongoing gastrointestinal hemorrhage and associated symptomatic anemia in March 2018 for which he underwent EGD and colonoscopy approximately April 24, 2018. Findings were essentially unremarkable for neoplasm, ulcers, active bleeding, or other abnormalities. He did have pandiverticulosis. He was taken off of his warfarin therapy at that time and has otherwise done well. Surgery consultation is currently obtained given his single episode of bloody stool earlier this morning. [facility] Medical History GI bleed (Acute) BPH (benign prostatic hyperplasia) (Chronic) History of pulmonary embolism (Chronic) Lupus (systemic lupus erythematosus) (Chronic) Surgical History History of colonoscopy (Acute) History of esophagogastroduodenoscopy (EGD) (Acute) Social History household members: spouse Smoking Status: Former smoker alcohol intake: current Meds Home Medications Medication Instructions Recorded Confirmed Type hydroxychloroquine 200 mg PO DAILY 04/21/18 06/16/18 History prednisone 5 mg PO QAM 04/21/18 06/16/18 History tamsulosin 0.8 mg PO DAILY 04/21/18 06/16/18 History aspirin 81 mg PO DAILY 04/22/18 06/16/18 History Allergies Allergy/AdvReac Type Severity Reaction Status Date / Time No Known Drug Allergies Allergy Verified 04/24/18 12:05 Review of Systems Review of Systems All systems reviewed & are unremarkable except as noted in HPI and below Exam Vital Signs (past 8 hours): - 06/16/18 07:05 06/16/18 11:35 Temperature 97.8 F 98.2 F Pulse Rate 87 89 Respiratory Rate 15 16 Blood Pressure 146/88 H 150/81 H Pulse Oximetry 97 94 Oxygen Delivery Method Room Air Oxygen Flow Rate 0 Narrative Exam Narrative: Thin male in no acute distress. Alert oriented x3. He is able to ambulate unassisted. He appears chronically ill however. Sclera nonicteric Neck is supple Chest clear auscultation Abdomen is soft, nondistended, nontender, no masses. No ascites. No hepatomegaly. Extremities show no clubbing or cyanosis Objective Labs Result Diagrams: 06/16/18 03:43 06/16/18 03:43 Labs: Laboratory Results - last 24 hr 06/16/18 06/16/18 06/16/18 03:43 03:43 03:43 WBC RBC Hgb Hct MCV MCH MCHC RDW Plt Count Neut % (Auto) Lymph % (Auto) [place] % (Auto) Eos % (Auto) Baso % (Auto) Neut # (Auto) ESR 9 Sodium Potassium Chloride Carbon Dioxide BUN Creatinine Estimated GFR BUN/Creatinine Ratio Glucose Calcium Total Bilirubin AST ALT Alkaline Phosphatase Total Creatine Kinase Troponin I C-Reactive Protein 1.8 H B-Natriuretic Peptide 32.8 Total Protein Albumin Globulin Albumin/Globulin Ratio Lipase Procalcitonin < 0.05 Urine Color Urine Appearance Urine pH Ur Specific [place] Urine Protein Urine Glucose (UA) Urine Ketones Urine Occult Blood Urine Nitrate Urine Bilirubin Urine Urobilinogen Ur Leukocyte Esterase Urine RBC Urine WBC Ur Squamous Epith Cells Amorphous Sediment Urine Bacteria Granular Casts Urine Mucus Ur Culture Indicated? Micro UA Comment 06/16/18 06/16/18 06/16/18 03:43 03:43 08:15 WBC 4.1 L RBC 4.35 L Hgb 12.5 L Hct 37.6 L MCV 86.4 MCH 28.8 MCHC 33.3 RDW 15.6 H Plt Count 223 Neut % (Auto) 91.3 H Lymph % (Auto) 4.6 L [place] % (Auto) 2.8 L Eos % (Auto) 0.9 L Baso % (Auto) 0.4 Neut # (Auto) 3800 ESR Sodium 128 L Potassium 4.0 Chloride 95 L Carbon Dioxide 25 BUN 22 H Creatinine 0.80 Estimated GFR > 60.0 BUN/Creatinine Ratio 27.5 H Glucose 139 H Calcium 8.6 Total Bilirubin 0.7 AST 50 ALT 63 Alkaline Phosphatase 54 Total Creatine Kinase 45 L Troponin I < 0.012 C-Reactive Protein B-Natriuretic Peptide Total Protein 5.9 L Albumin 2.9 L Globulin 3.0 Albumin/Globulin Ratio 1.0 Lipase 100 Procalcitonin Urine Color Yellow Urine Appearance Clear Urine pH 6.0 Ur Specific [place] 1.015 Urine Protein 2+ H Urine Glucose (UA) Negative Urine Ketones Trace H Urine Occult Blood Negative Urine Nitrate Negative Urine Bilirubin Negative Urine Urobilinogen 0.2 Ur Leukocyte Esterase Negative Urine RBC None seen Urine WBC 5-10/hpf H Ur Squamous Epith Cells 5-10 /hpf H Amorphous Sediment 1+ Urine Bacteria Few (2-10) H Granular Casts 5-10/lpf Urine Mucus 2+ H Ur Culture Indicated? Cult not indicated Micro UA Comment Not Reportable Assessment & Plan (1) Blood in stool: Current visit: Yes Status: Acute Plan: Assessment/Plan Narrative: 72-year-old male with history of recent gastrointestinal hemorrhage status post EGD and colonoscopy which were essentially normal now with single recurrent episode of small amount of blood in the stool earlier this morning. Episode is since resolved and his bowel function has returned to baseline without any evidence of melena or bright red blood. He otherwise is completely asymptomatic. In fact, his hemoglobin is in the normal range this admission after transfusion in March of this year. He has no evidence of significant acute hemorrhage at the moment. He is otherwise stable. He will receive ongoing management of his pain and potential lupus exacerbation per the internal medicine service. I see no indication to repeat his endoscopy at this time. I suspect that the bleeding episode may possibly be related to a diverticulum. I agree with withholding warfarin indefinitely, and I would advise against Lovenox even for prophylactic issues in light of the gastrointestinal hemorrhage. I discussed all the above with the patient in detail. In addition, I explained to him that a small possibility of significant recurrent acute hemorrhage exists. If he is stable under those circumstances then I would recommend immediate transfer to a higher level facility where angiography and/or tagged red cell scan nuclear medicine capabilities are available. He understands that we do not have such services at [facility]. He was agreeable to such if indicated. All questions were otherwise answered to his satisfaction, and he voiced understanding. We will continue to follow him this admission but it is unlikely he will require any acute surgical intervention.
[2018-06-16] MEDS: HYDROCODONE/ACET 5/325 TABLET 1 TAB PO (21:36)
[2018-06-16] MEDS: MORPHINE 2 MG/ML INJ IV (21:36)
--- NOTE | 2018-06-16 22:43 | PC.NURSE ---
Ashtyn shift- Pt requested mouth care (swish/spit) @ 0, and C/O 6-7 pain to bilat knees. medicated with norco 5/325 1 tab PO and morphine 1mg IVP, effective. Pt alos reported talking to this evening. informed pt, his Lupus Dr. called and reported, UA taken last Sat is positive for bladder infection. this has not informed hospital staff as of yet. Using BRP to void and BM with ferdinand blood this ashtyn. RAC NS @ 100 infusing. Tele- NSR and NSR 1*AVB.
[2018-06-17] VITALS (7 sets, daily range): BP systolic 120–158; BP diastolic 60–88; PULSE 67–89; RESP 16–19; TEMP 36.4–36.7; O2SAT 95–97; BMI 22.5
[2018-06-17] MEDS: SODIUM CHLORIDE 0.9% 1,000 ML 100 ML IV (02:09)
[2018-06-17 07:40] LABS: Hematocrit 30.8 % (41-53); Hemoglobin 10.4 g/dL (13.5-17.5); Red Blood Cell Count 3.58 X10^6/uL (4.5-5.9); White Blood Cell Count 4.5 X10^3/uL (4.5-11.0)
[2018-06-17 07:41] LABS: Add Manual Diff / Slide Review NO; Basophils Percent Auto 0.2 % (0-2); Lymphocytes Percent Auto 4.3 % (25-40); Mean Corpuscular HGB Conc 33.9 % (30-36); Mean Corpuscular Hemoglobin 29.1 PG (26-34); Monocytes Percent Auto 4.4 % (3-14); Neutrophils Absolute Auto 4100 /uL (3000-5900); Neutrophils Percent Auto 91.1 % (50-75); Platelet Count 210 X10^3/uL (150-400); Red Cell Distribution Width 15.5 % (11.6-14.8)
[2018-06-17 08:21] LABS: Alanine Aminotransferase 41 IU/L (21-72); Albumin 2.3 g/dL (3.5-5.0); Albumin Globulin Ratio 0.8 (1.0-2.8); Alkaline Phosphatase 39 U/L (38-126); Aspartate Aminotransferase 31 IU/L (17-59); BUN Creatinine Ratio 31.4 (6-22); Bilirubin Total 0.4 mg/dL (0.2-1.3); Blood Urea Nitrogen 22 mg/dL (9-20); Calcium 7.9 mg/dL (8.4-10.2); Carbon Dioxide 23 mmol/L (22-32); Chloride 102 mmol/L (98-107); Estimated Glomerular Filt Rate > 60.0 mL/min (>60); Globulin 2.8 g/dL (1.7-4.1); Glucose 172 mg/dL (80-110); HEMOLYSIS 0 (0-50); Potassium 4.4 mmol/L (3.4-5.1); Sodium 131 mmol/L (137-145); Total Protein 5.1 g/dL (6.3-8.2)
[2018-06-17] MEDS: methylPREDNISolone 125 MG/2 ML VIAL 60 MG IV ×2 (08:21→22:08)
[2018-06-17] MEDS: HYDROXYCHLOROQUINE 200 MG TABLET PO (08:21)
--- NOTE | 2018-06-17 10:47 | PC.NURSE ---
Pt is A&Ox3, he denies pain. States that he had pneumonia three weeks ago and still has a cough at times and productive sputum. Upon auscultation of patients lungs, he is clear and on high 90s per Pulse Ox. Pt is steady on his feet, he calls appropriately for help and is going to have a shower this morning.
[2018-06-17 14:54] LABS: Bacteria Urine None Seen
[2018-06-17 14:58] LABS: Appearance Urine UA CLEAR; Bilirubin Urine UA NEGATIVE (NEGATIVE); Color Urine UA YELLOW; Glucose Urine UA NEGATIVE (Normal); Ketones Urine UA NEGATIVE (NEGATIVE); Leukocyte Esterase Urine UA NEGATIVE (NEGATIVE); Nitrite Urine UA Negative (Negative); Occult Blood Urine UA TRACE-LYSED (Negative); Protein Urine UA 1+ (Negative); Urobilinogen Urine UA 0.2 E.U./dL (0.2)
[2018-06-17 15:16] LABS: RBC Urine 1-5/HPF (0-5/HPF); Transitional Epi Cells Urine 1-5/HPF (0-5/HPF); WBC Urine 5-10/HPF (0-5/HPF)
[2018-06-17 15:17] LABS: Culture Indicated Urine Specimen Cultured
--- NOTE | 2018-06-17 15:26 | PM.PN.1 ---
Subjective Date Patient Seen: 06/17/18 Time Patient Seen: 07:45 Interval history: This is a 72 year old male with complex medical problems presenting with clinical symptoms suggestive of flare of systemic lupus erythematosus, dehydration/volume depletion with hyponatremia, complains of widespread joint pain and fatigue, chronic ,slow to heal, wound on his left elbow after I&D for bursitis. Later, on the day of admission, patient reported transient episode of BRBPR, which resovled spontaneusly. As of this morning, reporrts feelinig signifacntly bettter with resolution of his presenting symptoms. Exam Vital Signs (past 8 hours): - 06/17/18 08:21 06/17/18 12:15 Temperature 97.8 F 97.8 F Pulse Rate 67 72 Respiratory Rate 16 18 Blood Pressure 150/70 H 140/65 H Pulse Oximetry 96 97 Oxygen Delivery Method Room Air Oxygen Flow Rate 0 Narrative Exam Narrative: Constitutional: Well-developed , cachectic male in no distress. He is alert oriented x3, reports resolution of his presenting symptoms. HEENT: moist oral mucosa, otherwise unremarkable exam. Eyes: PERRLA, EOMI Neck: Supple, no lymphadenopathy no jugular venous distension Cardiovascular: RRR with no discernible murmurs Pulmonary: Clear to auscultation bilaterally, no rales, crepitations or wheezing detected. GI: Soft, nontender, nondistended, bowel sounds present. Extremities: Warm to touch, no peripherally edema. Chronic small joint deformities on both hands with some mild atrophy of small muscles, swelling of metatarsophalangeal joints Skin: with chronic pigmentation predominantly on both forearms. There is small round shaped and slow tyo heal wound on left elbow area approximately 15 mm in diameter with clean base. Neurological: No focal neurological symptoms detected, patient appears to be grossly neurologically intact. Objective Imaging Chest x-ray: Radiologist's impression: IMPRESSION: Stable exam compared to 06/13/2018. Persistent right upper lobe opacity noted. Repeat chest x-ray in one month is recommended to evaluate for resolution and to exclude neoplastic process. Dictated by: Melissa Cordova MD, PhD on 06/16/2018 at 8:42 Approved by: Melissa Cordova MD, PhD on 06/16/2018 at 8:44 Labs Result Diagrams: 06/17/18 05:57 06/17/18 05:57 Labs: Laboratory Results - last 24 hr 06/17/18 06/17/18 06/17/18 05:57 05:57 14:50 WBC 4.5 RBC 3.58 L Hgb 10.4 L Hct 30.8 L MCV 86.0 MCH 29.1 MCHC 33.9 RDW 15.5 H Plt Count 210 Neut % (Auto) 91.1 H Lymph % (Auto) 4.3 L [place] % (Auto) 4.4 Eos % (Auto) 0.0 L Baso % (Auto) 0.2 Neut # (Auto) 4100 Sodium 131 L Potassium 4.4 Chloride 102 Carbon Dioxide 23 BUN 22 H Creatinine 0.70 Estimated GFR > 60.0 BUN/Creatinine Ratio 31.4 H Glucose 172 H Calcium 7.9 L Magnesium 2.0 Total Bilirubin 0.4 AST 31 ALT 41 Alkaline Phosphatase 39 Total Protein 5.1 L Albumin 2.3 L Globulin 2.8 Albumin/Globulin Ratio 0.8 L Urine Color Yellow Urine Appearance Clear Urine pH 6.0 Ur Specific [place] 1.020 Urine Protein 1+ H Urine Glucose (UA) Negative Urine Ketones Negative Urine Occult Blood Trace-lysed Urine Nitrate Negative Urine Bilirubin Negative Urine Urobilinogen 0.2 Ur Leukocyte Esterase Negative Urine RBC 1-5/hpf Urine WBC 5-10/hpf H Ur Transition Epith Cell 1-5/hpf Urine Bacteria None seen Ur Culture Indicated? Specimen cultured Micro UA Comment Not Reportable Assessment & Plan Plan: Assessment/Plan Narrative: 1. Systemic lupus erythematosus flare: Manifesting with symptoms of widespread joint PE, general weakness, fatigue, poor appetite, unintentional weight loss, dehydration S1 depletion with resultant hyponatremia. Most probably provoked by recent changes made to his medications by his medical office clerk a week ago, including decrease into the dose of his steroids. Started patient on therapy with low-dose of IV steroids with good clinical response and near complete resolution of presenting symptoms' Continue current therapy with hydrochochloroquine, symptomatic and supportive care.Anticipate discharge home on a higher dose of PO prednisone. 2. Dehydration/volume depletion: resolving on IV hydration with normal saline. 3. Hyponatremia: Most probably secondary to the above with appropriate release of ADH, rsolving, continue IV fluid support as above. 4. Unintentional weight loss: multifactorial/secondary to above.Diet support per computer programming supervisor recommendation. 5. Recurrent episodes of BRBPR: right after admission complained of blood diarrhea which resolved. Per my request, was seen by Dr. Martinez: I see no indication to repeat his endoscopy at this time. I suspect that the bleeding episode may possibly be related to a diverticulum. I agree with withholding warfarin indefinitely, and I would advise against Lovenox even for prophylactic issues in light of the gastrointestinal hemorrhage. I discussed all the above with the patient in detail. In addition, I explained to him that a small possibility of significant recurrent acute hemorrhage exists. If he is stable under those circumstances then I would recommend immediate transfer to a higher level facility where angiography and/or tagged red cell scan nuclear medicine capabilities are available. He understands that we do not have such services at [facility]. He was agreeable to such if indicated. All questions were otherwise answered to his satisfaction, and he voiced understanding. We will continue to follow him this admission but it is unlikely he will require any acute surgical intervention. Currently, with no new episodes of GI bleeding. 5. History of recurrent DVTs/PE: Chronic therapy with Coumadin remains on hold indefinitely as recommended by Dr. Martinez for history of recent gastrointestinal bleeding. 6. Hyperglycemia: steroid induced, manage with ISS. 7. GI prophylaxis: Proton pump inhibitors p.o. 8. DVT prophylaxis: SCDs BL 9. Code status: Patient is a full code 10. Disposition: anticipate discharge home in AM Time Spent With Patient Time with patient: 25 - 35 minutes Quality VTE Deep Vein Thrombosis/Pulmonary Embolism Present on Admission: No
[2018-06-17] MEDS: INSULIN ASPART 100 UNIT/ML INSULN PEN SUBCUT (17:20)
[2018-06-17] MEDS: POTASSIUM CHLORIDE 20 MEQ/15 ML UDC PO (17:20)
[2018-06-17 17:42] LABS: Hemoglobin A1C% w Est Avg Glu 5.9 % (4.0-6.0)
--- NOTE | 2018-06-17 20:50 | PC.NURSE ---
Addendum entered by Neha Steel R.N. 06/17/18 23:19: 2215- pt c/O severe itching to IV site. all medications have been given. DC'd RAC IV, 2x2 gau[address]. Pt DC to home tomorrow. Original Note: Pt currently on achs glucose checks with 1630 CBG-154, 2 units insulin given. Answered all questions pt had concerning why on insulin now and not yesterday. 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 Denies pain, nausea, and SOB at this time. RAC SL, 96%RA, LS clear. DC tomorrow.
[2018-06-17] MEDS: HYDROCODONE/ACET 5/325 TABLET 1 TAB PO (22:16)
[2018-06-17] MEDS: MAG HYDROX MM (22:17)
[2018-06-17] MEDS: LIDOCAINE VISCOUS 2% MM (22:17)
[2018-06-17] MEDS: [UNRECOGNIZED DRUG - OTHER] MM (22:17)
[2018-06-17] MEDS: MORPHINE 2 MG/ML INJ IV (22:17)
[2018-06-17] MEDS: ALUMINUM MM (22:17)
[2018-06-18 03:27] VITALS: BP 151/79; PULSE 69; RESP 19; TEMP 36.7; O2SAT 94
[2018-06-18 04:15] VITALS: O2SAT 97
[2018-06-18 06:17] LABS: Add Manual Diff / Slide Review NO; Basophils Percent Auto 0.2 % (0-2); Hematocrit 32.4 % (41-53); Lymphocytes Percent Auto 3.1 % (25-40); Mean Corpuscular HGB Conc 33.9 % (30-36); Mean Corpuscular Hemoglobin 28.9 PG (26-34); Mean Corpuscular Volume 85.4 fL (80-100); Monocytes Percent Auto 3.4 % (3-14); Neutrophils Absolute Auto 5300 /uL (3000-5900); Neutrophils Percent Auto 93.3 % (50-75); Platelet Count 223 X10^3/uL (150-400); Red Blood Cell Count 3.79 X10^6/uL (4.5-5.9); Red Cell Distribution Width 15.8 % (11.6-14.8); White Blood Cell Count 5.7 X10^3/uL (4.5-11.0)
[2018-06-18 06:29] LABS: Alanine Aminotransferase 43 IU/L (21-72); Albumin 2.7 g/dL (3.5-5.0); Alkaline Phosphatase 43 U/L (38-126); Aspartate Aminotransferase 49 IU/L (17-59); BUN Creatinine Ratio 35.7 (6-22); Bilirubin Total 0.4 mg/dL (0.2-1.3); Blood Urea Nitrogen 25 mg/dL (9-20); Calcium 8.4 mg/dL (8.4-10.2); Carbon Dioxide 27 mmol/L (22-32); Chloride 101 mmol/L (98-107); Estimated Glomerular Filt Rate > 60.0 mL/min (>60); Globulin 2.8 g/dL (1.7-4.1); Glucose 171 mg/dL (80-110); HEMOLYSIS < 15 (0-50); Magnesium 2.2 mg/dL (1.6-2.3); Potassium 4.7 mmol/L (3.4-5.1); Sodium 133 mmol/L (137-145); Total Protein 5.5 g/dL (6.3-8.2)
[2018-06-18] MEDS: PANTOPRAZOLE 40 MG TABLET PO (06:41)
[2018-06-18 08:21] VITALS: BP 153/78; PULSE 69; RESP 16; TEMP 36.6; O2SAT 96
[2018-06-18] MEDS: INSULIN ASPART 100 UNIT/ML INSULN PEN SUBCUT ×2 (08:26→12:10)
[2018-06-18] MEDS: POTASSIUM CHLORIDE 20 MEQ/15 ML UDC PO (08:29)
[2018-06-18] MEDS: HYDROXYCHLOROQUINE 200 MG TABLET PO (08:29)
[2018-06-18] MEDS: predniSONE 20 MG TABLET 50 MG PO (08:55)
--- NOTE | 2018-06-18 11:51 | PC.NURSE ---
Assess- Pt is awake and ambulating with cane by himself. BS this am 201 and 211. Insulin given. Pt has been discharged from the hospital. Dressing to l. elbow changed. in room and pt is eating lunch now. Will be discharged soon after.
--- NOTE | 2018-06-18 16:46 | PM.DS.1 ---
History of Present Illness Chief complaint: possible lupus flare up, left elbow surgery Discharge Providers Date of admission: 06/16/18 04:45 Primary care physician: Jose Rudd MD Consults: 06/16/18 07:06 Consult to Dietitian, Adult Routine Comment: Reason For Exam: Ongoing weight loss 06/16/18 13:27 Consult to Physician Routine Comment: Consulting Provider: Homer Martinez Reason for consultation: GI bleeding Has provider been notified: Yes Discharge provider: Jaya Joyce MD Summary Discharge Diagnosis: Acute Flare of Lupus Hospital Course: This very pleasant gentleman is admitted history of acute-onset severe pain affecting all over the body and worsening of his joint pains He had 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 Meyer office waiting for return of the call in the meantime I have discharged him on prednisone 20 mg p.o. b.i.d. for the next 5 days he will follow up with Dr. Meyer by them and see if he needs to taper to discontinue the steroids and go back on small dose of the prednisone Time Spent with Patient Greater than 30 minutes Exam Vital Signs (past 8 hours): Oxygen Delivery Method Room Air Oxygen Flow Rate 0 Objective Labs Result Diagrams: 06/18/18 05:37 06/18/18 05:37 Labs: Laboratory Results - last 24 hr 06/17/18 06/18/18 06/18/18 17:24 05:37 05:37 WBC 5.7 RBC 3.79 L Hgb 11.0 L Hct 32.4 L MCV 85.4 MCH 28.9 MCHC 33.9 RDW 15.8 H Plt Count 223 Neut % (Auto) 93.3 H Lymph % (Auto) 3.1 L [place] % (Auto) 3.4 Eos % (Auto) 0.0 L Baso % (Auto) 0.2 Neut # (Auto) 5300 Sodium 133 L Potassium 4.7 Chloride 101 Carbon Dioxide 27 BUN 25 H Creatinine 0.70 Estimated GFR > 60.0 BUN/Creatinine Ratio 35.7 H Glucose 171 H Hemoglobin A1c 5.9 Calcium 8.4 Magnesium 2.2 Total Bilirubin 0.4 AST 49 ALT 43 Alkaline Phosphatase 43 Total Protein 5.5 L Albumin 2.7 L Globulin 2.8 Albumin/Globulin Ratio 1.0 Discharge Plan Discharge Plan Patient Disposition: Home Provider Discharge Instructions Diet: Regular Activity: ad meenu Skin/Wound/Dressing Care Report to your healthcare provider any signs of infection, such as:: chills, fever, night sweats and increased pain Discharge Data Primary Care Provider: Jose Rudd Attending Provider: Pete Reyes Admit Date/Time: 06/16/18 04:45 Discharges patient from system. Discharge Date/Time: 06/18/18 13:07 Quality VTE Deep Vein Thrombosis/Pulmonary Embolism Present on Admission: No
--- NOTE | 2018-06-18 17:11 | P.DS_ITS ---
History of Present Illness Chief complaint: possible lupus flare up, left elbow surgery Discharge Providers Date of admission: 06/16/18 04:45 Primary care physician: Jose Rudd MD Consults: 06/16/18 07:06 Consult to Dietitian, Adult Routine Comment: Reason For Exam: Ongoing weight loss 06/16/18 13:27 Consult to Physician Routine Comment: Consulting Provider: Homer Martinez Reason for consultation: GI bleeding Has provider been notified: Yes Discharge provider: Jaya Joyce MD Exam Vital Signs (past 8 hours): Oxygen Delivery Method Room Air Oxygen Flow Rate 0 Const General: cooperative, healthy appearing, comfortable and well developed Orientation: alert, awake and oriented x3 HENMT Head: normal to inspection, normocephalic and atraumatic Ears: hearing grossly normal bilaterally Nose: external nose normal Face and sinus: normal facial exam Eyes General: appearance normal, both eyes and all related structures Eyelids: eyelids normal Conjunctivae: conjunctivae normal Sclera: sclerae normal Pupils: PERRL EOM: EOM intact bilaterally Resp Effort & Inspection: normal respiratory effort and able to speak in complete sentences Auscultation: clear to auscultation bilaterally Cardio Palpation: normal PMI Rate: regular rate Rhythm: regular rhythm Heart Sounds: S1 normal and S2 normal GI Inspection: normal to inspection Palpation: soft and no hepatosplenomegaly Skin General: no rashes or lesions noted Neuro General: alert, awake, oriented x3 and no meningeal signs Cranial Nerves: CN's II-XI intact bilaterally Cognition: normal cognition Speech: speech normal Motor: muscle tone normal throughout Extrem Other: Hand joints chronic deformity Psych Mental Status: mental status grossly normal Speech and Movement: speech and movement normal Mood: congruent mood Affect: normal affect Attitude: cooperative Thought Process: normal Thought Content: normal Judgment: judgment good Objective Labs Result Diagrams: 06/18/18 05:37 06/18/18 05:37 Labs: Laboratory Results - last 24 hr 06/17/18 06/18/18 06/18/18 17:24 05:37 05:37 WBC 5.7 RBC 3.79 L Hgb 11.0 L Hct 32.4 L MCV 85.4 MCH 28.9 MCHC 33.9 RDW 15.8 H Plt Count 223 Neut % (Auto) 93.3 H Lymph % (Auto) 3.1 L [place] % (Auto) 3.4 Eos % (Auto) 0.0 L Baso % (Auto) 0.2 Neut # (Auto) 5300 Sodium 133 L Potassium 4.7 Chloride 101 Carbon Dioxide 27 BUN 25 H Creatinine 0.70 Estimated GFR > 60.0 BUN/Creatinine Ratio 35.7 H Glucose 171 H Hemoglobin A1c 5.9 Calcium 8.4 Magnesium 2.2 Total Bilirubin 0.4 AST 49 ALT 43 Alkaline Phosphatase 43 Total Protein 5.5 L Albumin 2.7 L Globulin 2.8 Albumin/Globulin Ratio 1.0 Discharge Plan Discharge Plan Patient Disposition: Home Provider Discharge Instructions Diet: Regular Activity: ad meenu Skin/Wound/Dressing Care Report to your healthcare provider any signs of infection, such as:: chills, fever, night sweats and increased pain Discharge Data Primary Care Provider: Jose Rudd Attending Provider: Pete Reyes Admit Date/Time: 06/16/18 04:45 Discharges patient from system. Discharge Date/Time: 06/18/18 13:07 Quality VTE Deep Vein Thrombosis/Pulmonary Embolism Present on Admission: No
== END 2018-06-18 13:07 | disposition home or self-care (01) | DRG 546 ==
LOC: ED 04:42 → AC 04:46
PROVIDERS: Admitting Provider Hospitalist; Emergency Provider Emergency Medicine; PCP Internal Medicine; Visit Provider Hospitalist
DX: M32.9 Systemic lupus erythematosus, unspecified (principal); E87.1 Hypo-osmolality and hyponatremia; K92.1 Melena; E44.0 Moderate protein-calorie malnutrition; R63.4 Abnormal weight loss; Z68.22 Body mass index [BMI] 22.0-22.9, adult; E86.0 Dehydration; Z87.891 Personal history of nicotine dependence; R73.9 Hyperglycemia, unspecified; T38.0X5A Adverse effect of glucocorticoids and synthetic analogues, initial encounter; Y92.230 Patient room in hospital as the place of occurrence of the external cause; Z86.718 Personal history of other venous thrombosis and embolism; Z79.01 Long term (current) use of anticoagulants
CPT/HCPCS: 36415; 36591; 71045; 80053; 81001; 82550; 82553; 82962; 83036; 83690; 83735; 83880; 84145; 84484; 85025; 85651; 86140; 87077; 87086; 87186; 93005; 93010; 94762; 96361; 96374; 96375; 99283; 99285; J1170; J1885; J2270; J2930

== ENCOUNTER → 2018-10-01 10:16 | Outpatient (CLI) | payer MEDICARE, OTHER, SELFPAY ==
[2018-06-16 05:51] VITALS: BMI 22.4
== END ==
PROVIDERS: PCP Family Medicine; Visit Provider Family Medicine
DX: L97.512 Non-pressure chronic ulcer of other part of right foot with fat layer exposed (principal)
CPT/HCPCS: 36415; 80053; 84134; 85025; 85651; 86140; 87070; 87075; 87077; 87205

== ENCOUNTER → 2018-10-01 12:22 | Outpatient (CLI) | payer MEDICARE, OTHER, SELFPAY ==
[2018-06-16 05:51] VITALS: BMI 22.4
--- NOTE | 2018-10-01 | DI.RAD.S_ITS ---
PROCEDURE: XR FOOT RT MIN 3V INDICATIONS: FOOT PAIN TECHNIQUE: 3 views of the foot were acquired. COMPARISON: None. FINDINGS: Suboptimal evaluation given deformity of the toes. No fractures or dislocations. No suspicious bony lesions. Lucency involving the plantar soft tissues at the first metatarsal head suggesting ulceration. No definite focal osseous destruction to suggest advanced osteomyelitis. There is hallux valgus and first MTP joint degeneration. Numerous vascular calcifications present. Os peroneum. There are marginal lucencies at the first metatarsal head raising the possibility of erosions/gout. IMPRESSION: No definite focal osseous destruction to suggest advanced osteomyelitis although if clinical concern persists, continued radiographic short interval serial followup could be performed versus contrast-enhanced MRI. Hallux valgus. First MTP joint degeneration. Flexion deformity of the toes. Soft tissue lucency suggesting ulceration at the plantar soft tissues at the level of the first metatarsal head. Marginal lucencies at the first metatarsal head raising the possibility of erosive arthropathy such as gout. Please correlate clinically and with laboratory data. Dictated by: Sctoty Felipe M.D. on 10/01/2018 at 15:58 Approved by: Scotty Felipe M.D. on 10/01/2018 at 16:05
== END ==
PROVIDERS: PCP Family Medicine; Visit Provider Family Medicine
DX: L97.512 Non-pressure chronic ulcer of other part of right foot with fat layer exposed (principal); G60.9 Hereditary and idiopathic neuropathy, unspecified; M79.671 Pain in right foot; M19.071 Primary osteoarthritis, right ankle and foot
CPT/HCPCS: 11042; 36415; 73630; 80053; 84134; 85025; 85651; 86140; 87070; 87075; 87077; 87186; 87205; 99213

== ENCOUNTER → 2018-10-01 12:50 | Outpatient (CLI) | payer MEDICARE, OTHER, SELFPAY ==
[2018-06-16 05:51] VITALS: BMI 22.4
[2018-10-01 13:15] LABS: Add Manual Diff / Slide Review NO; Basophils Percent Auto 0.8 % (0-2); Eosinophils Percent Auto 2.3 % (2-4); Hematocrit 40.7 % (41-53); Hemoglobin 13.2 g/dL (13.5-17.5); Lymphocytes Percent Auto 8.3 % (25-40); Mean Corpuscular HGB Conc 32.4 % (30-36); Mean Corpuscular Volume 86.6 fL (80-100); Monocytes Percent Auto 3.7 % (3-14); Neutrophils Absolute Auto 3100 /uL (3000-5900); Neutrophils Percent Auto 84.9 % (50-75); Platelet Count 238 X10^3/uL (150-400); Red Cell Distribution Width 14.2 % (11.6-14.8); White Blood Cell Count 3.7 X10^3/uL (4.5-11.0)
[2018-10-01 13:48] LABS: Erythrocyte Sedimentation Rate 11 MM/HR (0-15)
[2018-10-01 14:07] LABS: Alanine Aminotransferase 33 IU/L (21-72); Albumin 3.6 g/dL (3.5-5.0); Albumin Globulin Ratio 1.2 (1.0-2.8); Alkaline Phosphatase 67 U/L (38-126); Aspartate Aminotransferase 32 IU/L (17-59); BUN Creatinine Ratio 24.4 (6-22); Bilirubin Total 0.2 mg/dL (0.2-1.3); Blood Urea Nitrogen 22 mg/dL (9-20); Calcium 9.1 mg/dL (8.4-10.2); Carbon Dioxide 27 mmol/L (22-32); Chloride 99 mmol/L (98-107); Estimated Glomerular Filt Rate > 60.0 mL/min (>60); Globulin 2.9 g/dL (1.7-4.1); Glucose 108 mg/dL (80-110); HEMOLYSIS 15 (0-50); Potassium 5.1 mmol/L (3.4-5.1); Sodium 138 mmol/L (137-145); Total Protein 6.5 g/dL (6.3-8.2)
[2018-10-01 14:08] LABS: C-Reactive Protein Quant < 0.5 mg/dL (<1.0)
[2018-10-01 14:13] LABS: Prealbumin 25.2 mg/dL (17.6-36.0)
== END ==
PROVIDERS: PCP Family Medicine; Visit Provider Family Medicine
DX: L97.512 Non-pressure chronic ulcer of other part of right foot with fat layer exposed (principal)
CPT/HCPCS: 36415; 80053; 84134; 85025; 85651; 86140

== ENCOUNTER → 2018-10-08 12:58 | Outpatient (CLI) | payer MEDICARE, OTHER, SELFPAY ==
[2018-06-16 05:51] VITALS: BMI 22.4
== END ==
PROVIDERS: PCP Family Medicine; Visit Provider Family Medicine
DX: S51.002A Unspecified open wound of left elbow, initial encounter (principal); G90.9 Disorder of the autonomic nervous system, unspecified; L97.511 Non-pressure chronic ulcer of other part of right foot limited to breakdown of skin
CPT/HCPCS: 11042

== ENCOUNTER → 2018-10-15 13:02 | Outpatient (CLI) | payer MEDICARE, OTHER, SELFPAY ==
[2018-06-16 05:51] VITALS: BMI 22.4
== END ==
PROVIDERS: PCP Family Medicine; Visit Provider Family Medicine
DX: G90.9 Disorder of the autonomic nervous system, unspecified (principal); S91.301A Unspecified open wound, right foot, initial encounter; S51.002A Unspecified open wound of left elbow, initial encounter
CPT/HCPCS: 11042; 97597; 99212

== ENCOUNTER → 2018-10-15 15:03 | Outpatient (CLI) | payer MEDICARE, OTHER, SELFPAY ==
[2018-06-16 05:51] VITALS: BMI 22.4
[2018-10-15 15:52] LABS: BUN Creatinine Ratio 26.7 (6-22); Blood Urea Nitrogen 24 mg/dL (9-20); Estimated Glomerular Filt Rate > 60.0 mL/min (>60)
== END ==
PROVIDERS: PCP Family Medicine; Visit Provider Family Medicine
DX: S91.301A Unspecified open wound, right foot, initial encounter (principal)
CPT/HCPCS: 36415; 82565; 84520

== ENCOUNTER → 2018-10-22 08:08 | Outpatient (CLI) | payer MEDICARE, OTHER, SELFPAY ==
[2018-06-16 05:51] VITALS: BMI 22.4
--- NOTE | 2018-10-22 | DI.MRI.S_ITS ---
PROCEDURE: MR FOOT RT WO/W CON INDICATIONS: Unspecified open wound, right foot, initial encoun TECHNIQUE: Noncontrast coronal T1 spin echo and STIR, sagittal T1 spin echo with fat saturation and STIR, axial T1 spin echo and T2 fast spin echo with fat saturation. After the administration of contrast, axial/sagittal/coronal T1 spin echo with fat saturation through the right foot. COMPARISON: None. FINDINGS: Image quality: Excellent. Bones: The visualized bone marrow demonstrates normal signal on all sequences. The overlying cortex appears intact. No abnormal intraosseous enhancement. Osteoarthritic changes are noted in first MTP joint and first through fifth interphalangeal joints. Intraosseous cyst formation and plantar aspect of first metatarsal head is seen. No suspicious bony lesions. Soft tissues: No soft tissue masses are visualized. The scanned muscles demonstrate normal overall bulk and internal signal. There is an ulceration involving plantar aspect of medial forefoot at the level of first MTP joint. Surrounding soft tissue edema and swelling is seen. No drainable abscess collection is seen. Mild contrast enhancement in forefoot soft tissue at the area of ulceration is seen. IMPRESSION: 1. Ulceration involving plantar aspect of medial forefoot at the level of first MTP joint with surrounding soft tissue cellulitis. No discrete drainable fluid collection is seen. No underlying tendons or muscle involvement. 2. No MR evidence of osteomyelitis. Mild forefoot joint osteoarthritis. Dictated by: Han Velazco M.D. on 10/22/2018 at 9:22 Approved by: Han Velazco M.D. on 10/22/2018 at 9:38
== END ==
PROVIDERS: PCP Family Medicine; Visit Provider Family Medicine
DX: S91.301A Unspecified open wound, right foot, initial encounter (principal); G60.9 Hereditary and idiopathic neuropathy, unspecified; L97.512 Non-pressure chronic ulcer of other part of right foot with fat layer exposed; S51.002D Unspecified open wound of left elbow, subsequent encounter; L03.115 Cellulitis of right lower limb
CPT/HCPCS: 73720; 99213

== ENCOUNTER → 2018-10-22 10:00 | Outpatient (CLI) | payer MEDICARE, OTHER, SELFPAY ==
[2018-06-16 05:51] VITALS: BMI 22.4
== END ==
PROVIDERS: PCP Family Medicine; Visit Provider Family Medicine
DX: G60.9 Hereditary and idiopathic neuropathy, unspecified (principal); L97.512 Non-pressure chronic ulcer of other part of right foot with fat layer exposed; S51.002D Unspecified open wound of left elbow, subsequent encounter; L03.115 Cellulitis of right lower limb
CPT/HCPCS: 99213

== ENCOUNTER → 2018-10-30 13:30 | Outpatient (CLI) | payer MEDICARE, OTHER, SELFPAY ==
[2018-06-16 05:51] VITALS: BMI 22.4
== END ==
PROVIDERS: PCP Family Medicine; Visit Provider Family Medicine
DX: G60.9 Hereditary and idiopathic neuropathy, unspecified (principal); L97.511 Non-pressure chronic ulcer of other part of right foot limited to breakdown of skin; L03.115 Cellulitis of right lower limb; Z48.817 Encounter for surgical aftercare following surgery on the skin and subcutaneous tissue
CPT/HCPCS: 97597

== ENCOUNTER → 2018-11-06 10:10 | Outpatient (CLI) | payer MEDICARE, OTHER, SELFPAY ==
[2018-06-16 05:51] VITALS: BMI 22.4
[2018-11-06 10:40] LABS: BUN Creatinine Ratio 28.9 (6-22); Blood Urea Nitrogen 26 mg/dL (9-20); Estimated Glomerular Filt Rate > 60.0 mL/min (>60)
--- NOTE | 2018-11-06 10:47 | DI.CT.S_ITS ---
PROCEDURE: CT CHEST W CON INDICATIONS: lung mass TECHNIQUE: After the administration of intravenous contrast, 5 mm thick sections acquired from the pulmonary apices to the posterior costophrenic angles. 7 mm thick coronal and sagittal MIP reformats were acquired. For radiation dose reduction, the following was used: automated exposure control, adjustment of mA and/or kV according to patient size. COMPARISON: Outside Film, CT, CT ANGIO CHEST, 05/22/2018, 15:13. FINDINGS: Image quality: Excellent. Lungs and pleura: No acute air space opacities. Previously seen right upper lobe density has resolved, with mild residual scarring remaining. Mild apical predominant emphysema is present. Mild bibasilar scarring is present. No pleural effusions or pneumothorax. Central and peripheral airways are patent and normal in caliber. Mediastinum: Heart size is normal. No pericardial effusion. No mediastinal or hilar adenopathy by size criteria. Thoracic aorta and central pulmonary arteries are normal in size. Esophagus is normal in caliber. No hiatal hernia. Bones and chest wall: No suspicious bony lesions. Moderate diffuse thoracic kyphosis. No vertebral body compression fractures. No axillary or supraclavicular adenopathy by size criteria. Thyroid gland is within normal limits. Abdomen: Visualized upper abdominal solid organs appear normal. Upper abdominal bowel loops are normal in caliber. IMPRESSION: 1. Resolved right upper lobe pneumonia with mild residual scarring. No evidence of neoplasm. 2. Mild emphysema. Dictated by: Hernando Breaux M.D. on 11/06/2018 at 11:13 Approved by: Hernando Breaux M.D. on 11/06/2018 at 11:16
== END ==
PROVIDERS: PCP Family Medicine; Visit Provider Family Medicine
DX: L97.511 Non-pressure chronic ulcer of other part of right foot limited to breakdown of skin (principal); L03.115 Cellulitis of right lower limb; Z01.812 Encounter for preprocedural laboratory examination; J43.9 Emphysema, unspecified; J98.4 Other disorders of lung; G60.9 Hereditary and idiopathic neuropathy, unspecified
CPT/HCPCS: 11042; 36415; 71260; 82565; 84520; Q9967

== ENCOUNTER → 2018-11-13 14:31 | Outpatient (CLI) | payer MEDICARE, OTHER, SELFPAY ==
[2018-06-16 05:51] VITALS: BMI 22.4
== END ==
PROVIDERS: PCP Family Medicine; Visit Provider Family Medicine
DX: G60.9 Hereditary and idiopathic neuropathy, unspecified (principal); L97.511 Non-pressure chronic ulcer of other part of right foot limited to breakdown of skin
CPT/HCPCS: 11042

== ENCOUNTER → 2018-11-19 14:36 | Outpatient (CLI) | payer MEDICARE, OTHER, SELFPAY ==
[2018-06-16 05:51] VITALS: BMI 22.4
== END ==
PROVIDERS: PCP Family Medicine; Visit Provider Family Medicine
DX: G60.9 Hereditary and idiopathic neuropathy, unspecified (principal); L97.512 Non-pressure chronic ulcer of other part of right foot with fat layer exposed
CPT/HCPCS: 11042

== ENCOUNTER → 2018-11-24 08:58 | Outpatient (CLI) | payer MEDICARE, OTHER, SELFPAY ==
[2018-06-16 05:51] VITALS: BMI 22.4
== END ==
PROVIDERS: PCP Family Medicine; Visit Provider Podiatrist Primary Podiatric Medicine
DX: G60.9 Hereditary and idiopathic neuropathy, unspecified (principal); L97.512 Non-pressure chronic ulcer of other part of right foot with fat layer exposed
CPT/HCPCS: 11042

== ENCOUNTER → 2018-11-25 14:15 | Outpatient (CLI) | payer MEDICARE, OTHER, SELFPAY ==
[2018-06-16 05:51] VITALS: BMI 22.4
== END ==
PROVIDERS: PCP Family Medicine; Visit Provider Family Medicine
DX: L97.512 Non-pressure chronic ulcer of other part of right foot with fat layer exposed (principal)
CPT/HCPCS: 99212

== ENCOUNTER → 2018-11-28 12:53 | Outpatient (CLI) | payer MEDICARE, OTHER, SELFPAY ==
[2018-06-16 05:51] VITALS: BMI 22.4
--- NOTE | 2018-12-05 15:27 | PM.PFT.1 ---
Pulmonary Function Test Referral & Results Date Patient Seen: 11/28/18 Requesting provider: Dionne Snow Indication: J44.9 Results: The spirometry demonstrates an FVC of 4.24 L which is 91% of predicted. The FEV1 was measured at 2.98 L which is 87% of predicted. The FEV1/FVC ratio was 70 which is 96% of predicted. Following the administration of bronchodilator there was no appreciable change. Lung volumes show an SVC of 4.23 L which is 87% of predicted. The diffusing capacity was measured at 22.19 which is 62% of predicted. No hemoglobin value was provided, so no correction for potential anemia could be made, if appropriate. The maximum voluntary ventilation was normal Interpretation: This study demonstrates perhaps very mild obstructive lung disease based primarily on shape a flow volume loop. However this could also be considered normal Lung volumes are normal so there is no evidence of restrictive lung disease There is a mild reduction in diffusing capacity suggesting some element of disease at the capillary alveolar level
== END ==
PROVIDERS: PCP Family Medicine; Visit Provider Family Medicine
DX: J44.9 Chronic obstructive pulmonary disease, unspecified (principal)
CPT/HCPCS: 94060; 94726; 94729

== ENCOUNTER → 2018-12-04 14:19 | Outpatient (CLI) | payer MEDICARE, OTHER, SELFPAY ==
[2018-06-16 05:51] VITALS: BMI 22.4
== END ==
PROVIDERS: PCP Family Medicine; Visit Provider Family Medicine
DX: L97.516 Non-pressure chronic ulcer of other part of right foot with bone involvement without evidence of necrosis (principal); G90.9 Disorder of the autonomic nervous system, unspecified
CPT/HCPCS: 11042; 99213

== ENCOUNTER → 2018-12-04 16:30 | Outpatient (CLI) | payer MEDICARE, OTHER, SELFPAY ==
[2018-06-16 05:51] VITALS: BMI 22.4
--- NOTE | 2018-12-04 16:35 | DI.RAD.S_ITS ---
PROCEDURE: XR FOOT RT MIN 3V INDICATIONS: EVAL FOR OSTEOMYELITIS TECHNIQUE: 3 views of the foot were acquired. COMPARISON: [facility], CR, XR FOOT RT MIN 3V, 10/01/2018, 12:40. FINDINGS: Bones: No fractures or dislocations. No suspicious bony lesions. Soft tissues: No tibiotalar joint effusion. Achilles tendon appears normal. There is a cutaneous defect at the plantar aspect of the forefoot, located adjacent to the first metatarsal head, seen on the lateral projection. Underlying osteomyelitis is not seen. IMPRESSION: Soft tissue defect but no foreign body or osteomyelitis is found. Dictated by: Jeb Evangelista M.D. on 12/04/2018 at 17:11 Approved by: Jeb Evangelista M.D. on 12/04/2018 at 17:12
== END ==
PROVIDERS: PCP Family Medicine; Visit Provider Family Medicine
DX: L97.514 Non-pressure chronic ulcer of other part of right foot with necrosis of bone (principal)
CPT/HCPCS: 11042; 73630; 99213

== ENCOUNTER → 2018-12-17 10:10 | Outpatient (CLI) | payer MEDICARE, OTHER, SELFPAY ==
[2018-06-16 05:51] VITALS: BMI 22.4
== END ==
PROVIDERS: PCP Family Medicine; Visit Provider Family Medicine
DX: S91.301A Unspecified open wound, right foot, initial encounter (principal); S91.302A Unspecified open wound, left foot, initial encounter; G60.9 Hereditary and idiopathic neuropathy, unspecified
CPT/HCPCS: 11042

== ENCOUNTER → 2018-12-24 10:15 | Outpatient (CLI) | payer MEDICARE, OTHER, SELFPAY ==
[2018-06-16 05:51] VITALS: BMI 22.4
== END ==
PROVIDERS: PCP Family Medicine; Visit Provider Family Medicine
DX: G90.9 Disorder of the autonomic nervous system, unspecified (principal); L97.512 Non-pressure chronic ulcer of other part of right foot with fat layer exposed; I73.9 Peripheral vascular disease, unspecified
CPT/HCPCS: 93922; 99213

== ENCOUNTER → 2018-12-29 07:45 | Outpatient (CLI) | payer MEDICARE, OTHER, SELFPAY ==
[2018-06-16 05:51] VITALS: BMI 22.4
--- NOTE | 2018-12-29 | DI.MRI.S_ITS ---
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 Post-contrast short axis, long axis, and sagittal T1 spin echo with fat saturation through the forefoot. COMPARISON: [facility], , MR FOOT RT WO/W CON, 10/22/2018, 8:45. FINDINGS: Image quality: Excellent. Bones and joints: There is subtle marrow edema involving medial sesamoid of the first metatarsal head. No abnormal intraosseous enhancement is seen. No other area of abnormal marrow signal. No fracture or dislocation. Osteoarthritic changes are noted in first MTP joint as well as interphalangeal joints. No definite bony erosion is seen. No intraosseous lesions. Soft tissues: Ulceration over the plantar aspect of first MTP joint is seen with surrounding soft tissue edema and mild contrast enhancement suggestive of cellulitis. No discrete drainable fluid collection is seen. The visualized plantar foot muscles demonstrate normal signal and bulk. Visualized flexor and extensor tendons appear intact, without tenosynovitis. The distal insertions of the peroneus brevis and longus tendons appear intact. The principal Lisfranc ligament appears intact. No soft tissue ganglion cysts or bursal fluid collections. Sagittal images demonstrate no evidence for plantar plate tears. IMPRESSION: 1. Ulceration involving the plantar aspect of first MTP joint with surrounding soft tissue synovitis. No discrete abscess collection is seen. 2. Subtle marrow signal abnormality involving adjacent medial sesamoid of first metatarsal head, early osteomyelitis cannot be excluded. No bony erosive changes are seen. No other area of abnormal marrow signal. No fracture or dislocation. Osteoarthritic changes throughout forefoot joints. Dictated by: Han Velazco M.D. on 12/29/2018 at 9:59 Approved by: Han Velazco M.D. on 12/29/2018 at 10:08
== END ==
PROVIDERS: PCP Family Medicine; Visit Provider Family Medicine
DX: L97.516 Non-pressure chronic ulcer of other part of right foot with bone involvement without evidence of necrosis (principal); G60.9 Hereditary and idiopathic neuropathy, unspecified; G90.9 Disorder of the autonomic nervous system, unspecified; L97.512 Non-pressure chronic ulcer of other part of right foot with fat layer exposed; I73.9 Peripheral vascular disease, unspecified
CPT/HCPCS: 73720; 93923; 97597

== ENCOUNTER → 2018-12-29 13:00 | Outpatient (CLI) | payer MEDICARE, OTHER, SELFPAY ==
[2018-06-16 05:51] VITALS: BMI 22.4
== END ==
PROVIDERS: PCP Family Medicine; Visit Provider Family Medicine
DX: G90.9 Disorder of the autonomic nervous system, unspecified (principal); L97.512 Non-pressure chronic ulcer of other part of right foot with fat layer exposed; I73.9 Peripheral vascular disease, unspecified
CPT/HCPCS: 93923; 97597

== ENCOUNTER → 2019-01-06 13:16 | Outpatient (CLI) | payer MEDICARE, OTHER, SELFPAY ==
[2018-06-16 05:51] VITALS: BMI 22.4
== END ==
PROVIDERS: PCP Family Medicine; Visit Provider Family Medicine
DX: G90.9 Disorder of the autonomic nervous system, unspecified (principal); L97.516 Non-pressure chronic ulcer of other part of right foot with bone involvement without evidence of necrosis; L97.512 Non-pressure chronic ulcer of other part of right foot with fat layer exposed; I73.9 Peripheral vascular disease, unspecified
CPT/HCPCS: 11042; 17250; 87070; 87075; 87077; 87205

== ENCOUNTER → 2019-01-13 10:04 | Outpatient (CLI) | payer MEDICARE, OTHER, SELFPAY ==
[2018-06-16 05:51] VITALS: BMI 22.4
== END ==
PROVIDERS: PCP Family Medicine; Visit Provider Family Medicine
DX: G90.9 Disorder of the autonomic nervous system, unspecified (principal); L97.516 Non-pressure chronic ulcer of other part of right foot with bone involvement without evidence of necrosis; L97.512 Non-pressure chronic ulcer of other part of right foot with fat layer exposed; I73.9 Peripheral vascular disease, unspecified
CPT/HCPCS: 11042; 97597

== ENCOUNTER → 2019-01-20 10:45 | Outpatient (CLI) | payer MEDICARE, OTHER, SELFPAY ==
[2018-06-16 05:51] VITALS: BMI 22.4
== END ==
PROVIDERS: PCP Family Medicine; Visit Provider Family Medicine
DX: G90.9 Disorder of the autonomic nervous system, unspecified (principal); L97.516 Non-pressure chronic ulcer of other part of right foot with bone involvement without evidence of necrosis; I73.9 Peripheral vascular disease, unspecified
CPT/HCPCS: 11042

== ENCOUNTER → 2019-01-26 13:24 | Outpatient (CLI) | payer MEDICARE, OTHER, SELFPAY ==
[2018-06-16 05:51] VITALS: BMI 22.4
== END ==
PROVIDERS: PCP Family Medicine; Visit Provider Family Medicine
DX: G90.9 Disorder of the autonomic nervous system, unspecified (principal); L97.512 Non-pressure chronic ulcer of other part of right foot with fat layer exposed; L97.516 Non-pressure chronic ulcer of other part of right foot with bone involvement without evidence of necrosis; I73.9 Peripheral vascular disease, unspecified
CPT/HCPCS: 11042; 11043

== ENCOUNTER → 2019-06-03 12:43 | Outpatient (CLI) | payer MEDICARE, OTHER, SELFPAY ==
[2018-06-16 05:51] VITALS: BMI 22.4
--- NOTE | 2019-06-03 12:44 | DI.RAD.S_ITS ---
PROCEDURE: XR LUMBAR SPINE 2-3V INDICATIONS: new low back and radicular left leg pain TECHNIQUE: 3 views of the lumbar spine were acquired. COMPARISON: None. FINDINGS: Bones: 5 [id number] vertebrae are present. There is normal bony alignment. No vertebral body compression fractures. No suspicious bony lesions. Moderate degenerative disc disease, moderately severe facet osteoarthritis is noted from L3 inferiorly and present to the degree that spinal and foraminal stenosis may be present at L4-5 and L5-S1. Soft tissues: Overlying bowel gas pattern is normal. No suspicious soft tissue calcifications. IMPRESSION: Degenerative disc disease and facet osteoarthritis is relatively prominent over the lower half of the lumbosacral spine but no acute trauma found. Spinal and foraminal stenosis may be present, followup by MR scanning may be warranted given the current reported clinical symptomatology and these findings. Dictated by: Jeb Evangelista M.D. on 06/03/2019 at 14:21 Approved by: Jeb Evangelista M.D. on 06/03/2019 at 14:23
== END ==
PROVIDERS: PCP Family Medicine; Visit Provider Family Medicine
DX: M54.5 Low back pain (principal); M51.17 Intervertebral disc disorders with radiculopathy, lumbosacral region; M47.27 Other spondylosis with radiculopathy, lumbosacral region
CPT/HCPCS: 72100

== ENCOUNTER 2020-08-25 12:32 | Inpatient (IN) | payer MEDICARE, OTHER, SELFPAY ==
[2018-06-16 05:51] VITALS: BMI 22.4
[2020-08-25] VITALS (13 sets, daily range): BP systolic 151–197; BP diastolic 78–110; PULSE 77–90; RESP 16–21; TEMP 36.2–36.8; O2SAT 95–98; BMI 25.7; BMI 25.5
--- NOTE | 2020-08-25 12:39 | ED_ITS ---
HPI - Neuro Symptoms/Deficit General Chief Complaint: Neuro Symptoms/Deficit Stated Complaint: double vision,unstable,lips numb Time Seen by Provider: 08/25/20 12:37 Source: patient and family () Mode of arrival: Ambulatory Limitations: no limitations History of Present Illness HPI Narrative: This is a pleasant 74-year-old male who comes to the emergency department with complaint of double vision, unsteady gait and tingling of his lips. Patient states that he woke up at about 5 5:30 a.m. and was normal to use the bathroom to urinate. When he woke up this morning at 7 he was symptomatic. He denies any headache currently but states he had a very mild headache in the back of his head this morning. He denies any changes to speech, he states that if he covers up his right or left eye his double vision resolves but when he uses both eyes together he has double vision that is slightly overlapped. 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 He denies any chest pain or shortness of breath, no nausea, no vomiting. Typically has loose bowel movements with no new changes and no new changes to urination today. He states that he does have a history of lupus and is currently on hydrochloroquine as well as prednisone, vitamin-D and a multivitamin. He denies any history of hypertension, diabetes or dyslipidemia. 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 Morrison 1 of the urologists and has had infusions for this at least 1 time. States he had bilateral knee surgery 10 years ago and 5 years prior to that. No allergies to medications. Quit tobacco in 1983, drinks alcohol had 4 beers yesterday, no illicit street drugs. Dr. Snow is his primary care and Dr. hawkins is his final inspector paper. Related Data Home Medications Medication Instructions Recorded Confirmed hydroxychloroquine 200 mg PO BID 09/22/18 08/25/20 cholecalciferol (vitamin D3) 50 2,000 unit PO DAILY 11/07/18 08/25/20 mcg (2,000 unit) capsule ialrygit-iwj-vohhw acid 0.4 1 tab PO DAILY 11/07/18 08/25/20 mg-lycopene 300 mcg-lutein 250 mcg tablet Previous Rx's Medication Instructions Recorded prednisone 5 mg tablet 40 mg PO DAILY #80 tab 06/08/19 Allergies Allergy/AdvReac Type Severity Reaction Status Date / Time No Known Drug Allergies Allergy Verified 06/03/19 11:39 Review of Systems Review of Systems ROS Unobtainable: All systems reviewed & are unremarkable except as noted in HPI and below Patient History Medical History BPH (benign prostatic hyperplasia) (Chronic) Cataracts, bilateral (Chronic) Chronic cough (Chronic ~2017) 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 Mother Diabetes mellitus Hyperlipidemia Social History marital status: household members: spouse lives independently: Yes caregiver/support person: No housing: house education level: college occupational status: previously employed Smoking Status: Former smoker second hand exposure: No alcohol intake: current substance use type: does not use Smoking Status: Former smoker alcohol intake frequency: 0-2 drinks per day Substance Use Type: does not use Exam Narrative Exam Narrative: GEN: well nourished, well appearing male, alert and oriented x 3, patient appears to be in mild distress. HEENT: Atraumatic, pupils are equal round reactive to light, extraocular movements are intact, nares are clear, TMs are clear with no fluid, there is no conjunctival pallor. Throat is clear without any exudates, erythema, tonsillar enlargement or uvular deviation, no facial droop. HEART: Regular rate and rhythm without murmur, clicks, rubs. No carotid bruits, pulses are equal in upper and lower extremities LUNGS:Lungs clear to auscultation, no wheezes, rales, crackles, chest moves symmetrically ABD:bowel sounds normal, soft, non-tender, no guarding, rebound, rigidity, no masses noted, no hepatosplenomegaly :No CVA tenderness, [male/female exam] MSCL: Non-tender, no muscle atrophy, muscles strength 5/5 upper and lower extremities, full range of motion. NEURO:CN 2-12 intact, sensation normal, reflexes 2/4 upper and lower extremities. finger nose finger test normal, heel arrington test normal Initial Vital Signs Initial Vital Signs: Vital Signs Pulse Rate 87 08/25/20 12:39 Respiratory Rate 19 08/25/20 12:39 Pulse Oximetry 97 08/25/20 12:39 Scores NIH Stroke Scale Level of Conciousness: Alert, keenly responsive Ask month/age: Answers both questions correctly. Open/close eyes, close hand: Performs both tasks correctly Best gaze horizontal: Normal Visual tam: No visual loss Facial palsy: Normal symetrical movement Left arm drift: No drift for full 10 sec Right arm drift: No drift for full 10 sec Left leg drift: No drift for full 5 sec Right leg drift: No drift for full 5 sec Limb ataxia: Absent Sensory on face/arms/legs: Normal, no sensory loss Best language: No aphasia, normal Dysarthria: Normal Extinction or inattention: No abnormality Total NIH Stroke scale score: 0 Course Orders Ordered: ED Orders 08/25/20 12:37 CT head/brain wo con Stat EKG-12 Lead Stat 08/25/20 12:38 CT angio head and neck Stat 08/25/20 12:45 Basic Metabolic Panel Stat Complete Blood Count AUTO DIFF Stat Partial Thromboplastin Time Stat Prothrombin Time INR Stat Troponin & CK Cardiac Panel Stat 08/25/20 13:17 Urine Drug Screen, Rapid Stat 08/25/20 13:49 Urine Culture Stat Urine Microscopic Stat 08/25/20 15:12 MR stroke Stat 08/25/20 16:29 Consult to Discharge Planning Routine Consult to Occupational Therapy Evaluate & Treat Consult to Physical Therapy Evaluate & Treat EC echo doppler complete Routine Acetaminophen (Tylenol) 650 mg PO Q6HR PRN PRN Reason: Fever/Mild Pain (1-3) Aspirin (Aspirin Ec) 81 mg PO DAILY [facility] Atorvastatin Calcium (Lipitor) 20 mg PO BEDTIME [facility] Enoxaparin Sodium (Lovenox) 40 mg SUBCUT DAILY [facility] Hydroxychloroquine Sulfate (Plaquenil) 200 mg PO BID [facility] Naloxone HCl (Narcan) 0.2 mg IV Q2MIN PRN PRN Reason: Opiate Reversal Prednisone (Deltasone) 5 mg PO DAILY [facility] Tamsulosin HCl (Flomax) 0.8 mg PO DAILY [facility] Discontinued Medications Aspirin (Aspirin Chew) 324 mg PO NOW ONE Stop: 08/25/20 13:32 Last Admin: 08/25/20 13:35 Dose: 324 mg Documented by: RED Aspirin (Aspirin Ec) 325 mg PO DAILY [facility] Celecoxib (Celebrex) 200 mg PO DAILY [facility] Sodium Chloride (Normal Saline 0.9%) 1,000 mls @ 150 mls/hr IV CONT [facility] Last Infusion: 08/25/20 15:57 Dose: 0 mls/hr Documented by: Infusion: 08/25/20 15:31 Dose: 0 mls/hr Documented by: Admin: 08/25/20 13:16 Dose: 150 mls/hr Documented by: RED Reevaluation(s) Reevaluation #1: Re-evaluate patient continues to have diplopia. Otherwise he is doing well. Reviewed CT imaging and angiogram and labs. Patient has had infusions at [facility] but does not recall the medication. Patient is going to check is records. Discussed plan for consultation with neurology as I suspect likely CVA but would like any additional recommendations with his history of vasculitis. Time: 14:30 Consultations Consultation #1: Spoke with Dr. Butt from tele-stroke. He suspects more of a ischemic pattern after reviewing patient's non con head CT and reviewing verbally patient's angiography and recommends MRI without contrast and following the traditional ischemic stroke pathway. Time: 14:37 Consultation #2: Spoke with Dr. Mirza and he accepts on behalf on Dr. Snow. Plan to order MRI for stroke. Time: 15:05 Vital Signs Vital signs: Vital Signs - 8 hr 08/25/20 12:39 08/25/20 12:45 08/25/20 12:56 Temperature 98.1 F Pulse Rate 87 90 82 Respiratory Rate 19 16 20 Blood Pressure 197/92 H 180/82 H Pulse Oximetry 97 98 98 08/25/20 13:00 08/25/20 13:01 08/25/20 13:30 Temperature Pulse Rate 90 87 85 Respiratory Rate 21 20 19 Blood Pressure 183/88 H 157/78 H Pulse Oximetry 97 97 96 08/25/20 14:00 08/25/20 14:30 08/25/20 14:31 Temperature Pulse Rate 84 84 81 Respiratory Rate 20 21 19 Blood Pressure 154/86 H 152/110 H Pulse Oximetry 96 97 97 08/25/20 15:00 Temperature Pulse Rate 83 Respiratory Rate 20 Blood Pressure 179/87 H Pulse Oximetry 97 MDM - Neuro Symptoms/Deficit Lab Data Attestation: I reviewed the patient's lab results. Result diagrams: 08/25/20 12:45 08/25/20 12:45 Labs: Lab Results 08/25/20 08/25/20 08/25/20 Range/Units 12:45 12:45 12:45 WBC 7.3 (4.5-11.0) X10^3/uL RBC 4.69 (4.5-5.9) X10^6/uL Hgb 14.6 (13.5-17.5) g/dL Hct 44.5 (41-53) % MCV 94.8 (80-100) fL MCH 31.2 (26-34) PG MCHC 32.9 (30-36) % RDW 12.9 (11.6-14.8) % Plt Count 269 (150-400) X10^3/uL Neut % (Auto) 86.0 H (50-75) % Lymph % (Auto) 7.4 L (25-40) % Clarke % (Auto) 5.6 (3-14) % Eos % (Auto) 0.5 L (2-4) % Baso % (Auto) 0.5 (0-2) % Neut # (Auto) 6200 (3727-7678) /uL Lymph # (Auto) 500 L (4329-4553) /uL Clarke # (Auto) 400 (0-900) /uL Eos # (Auto) 0 (0-450) /uL Baso # (Auto) 0 (0-100) /uL PT 11.5 (10.1-12.7) SECONDS INR 1.0 (0.9-1.3) APTT 28 (26.4-36.2) SECONDS Sodium 134 L (137-145) mmol/L Potassium 4.4 (3.4-5.1) mmol/L Chloride 98 (98-107) mmol/L Carbon Dioxide 30 (22-32) mmol/L BUN 17 (9-20) mg/dL Creatinine 0.86 (0.66-1.25) mg/dL Estimated GFR > 60.0 (>60) mL/min BUN/Creatinine Ratio 19.8 (6-22) Glucose 130 H (80-110) mg/dL Calcium 9.1 (8.4-10.2) mg/dL Total Creatine Kinase 78 (55-170) U/L CK-MB (CK-2) TNP CK-MB (CK-2) Rel Index TNP Troponin I < 0.012 (0.01-0.034) ng/mL Urine RBC (0-5/HPF) Urine WBC (0-5/HPF) Ur Squamous Epith Cells (0-5/HPF) Amorphous Sediment Urine Bacteria (None) Ur Culture Indicated? U Opiates 300ng/mL cut (Negative) Ur Oxycodone Screen (Negative) Urine Methadone Screen (Negative) Ur Barbiturates Screen (Negative) U Tricyclic Antidepress (Negative) Ur Phencyclidine Scrn (Negative) Ur Amphetamines Screen (Negative) U Methamphetamines Scrn (Negative) Ur MDMA Scrn (Ecstasy) (Negative) U Benzodiazepines Scrn (Negative) Urine Cocaine Screen (Negative) U Marijuana (THC) Screen (Negative) 08/25/20 08/25/20 Range/Units 13:17 13:49 WBC (4.5-11.0) X10^3/uL RBC (4.5-5.9) X10^6/uL Hgb (13.5-17.5) g/dL Hct (41-53) % MCV (80-100) fL MCH (26-34) PG MCHC (30-36) % RDW (11.6-14.8) % Plt Count (150-400) X10^3/uL Neut % (Auto) (50-75) % Lymph % (Auto) (25-40) % Clarke % (Auto) (3-14) % Eos % (Auto) (2-4) % Baso % (Auto) (0-2) % Neut # (Auto) (2306-9058) /uL Lymph # (Auto) (6478-4745) /uL Clarke # (Auto) (0-900) /uL Eos # (Auto) (0-450) /uL Baso # (Auto) (0-100) /uL PT (10.1-12.7) SECONDS INR (0.9-1.3) APTT (26.4-36.2) SECONDS Sodium (137-145) mmol/L Potassium (3.4-5.1) mmol/L Chloride (98-107) mmol/L Carbon Dioxide (22-32) mmol/L BUN (9-20) mg/dL Creatinine (0.66-1.25) mg/dL Estimated GFR (>60) mL/min BUN/Creatinine Ratio (6-22) Glucose (80-110) mg/dL Calcium (8.4-10.2) mg/dL Total Creatine Kinase (55-170) U/L CK-MB (CK-2) CK-MB (CK-2) Rel Index Troponin I (0.01-0.034) ng/mL Urine RBC 1-5/hpf (0-5/HPF) Urine WBC 30-100/hpf H (0-5/HPF) Ur Squamous Epith Cells 0-1 /hpf (0-5/HPF) Amorphous Sediment 1+ Urine Bacteria Few (2-10) H (None) Ur Culture Indicated? Specimen cultured U Opiates 300ng/mL cut Negative (Negative) Ur Oxycodone Screen Negative (Negative) Urine Methadone Screen Negative (Negative) Ur Barbiturates Screen Negative (Negative) U Tricyclic Antidepress Negative (Negative) Ur Phencyclidine Scrn Negative (Negative) Ur Amphetamines Screen Negative (Negative) U Methamphetamines Scrn Negative (Negative) Ur MDMA Scrn (Ecstasy) Negative (Negative) U Benzodiazepines Scrn Negative (Negative) Urine Cocaine Screen Negative (Negative) U Marijuana (THC) Screen Negative (Negative) Point of Care Testing Glucose POC 121 Urine Dip Bedside Urine Glucose Negative Bedside Urine Bilirubin - Negative Bedside Urine Ketone - Negative Urine Specific Andrews 1.010 Bedside Urine Occult Blood ++ Bedside Urine pH 6.0 Bedside Urine Protein + 30 Bedside Urine Urobilinogen - Negative Bedside Urine Nitrite - Negative Bedside Urine Leukocytes +++ [address] scan - head: Radiologist's Impression: [address] [address] [address] Scan Report Signed Patient: Lalo Hyde [facility]#: [id number] : 3Acct:[id number] Age/Sex: 74 / MDate of Service: 08/25/20 Loc: ED Accession Number: [id number] Procedure: CT head/brain wo con Ordering Provider: Indigo Moss D.O. PROCEDURE: CT HEAD/BRAIN WO CON INDICATIONS: double vision, unstable gait, lips numb TECHNIQUE: Noncontrast 4.5 mm thick angled axial sections acquired from the foramen magnum to the vertex, with coronal and sagittal reformats. For radiation dose reduction, the following was used: automated exposure control, adjustment of mA and/or kV according to patient size. COMPARISON: None. FINDINGS: Image quality: Excellent. CSF spaces: Basal cisterns are patent. No extra-axial fluid collections. The ventricles are symmetric in size and shape. Brain: [place] left MCA sign. No intracranial bleeds or masses. There is mild cerebral volume loss for age, with resultant ventricular and sulcal prominence. There are mild periventricular and deep white matter chronic small vessel ischemic changes. There is intracranial internal carotid artery atherosclerosis. Skull and face: Calvarium and visualized facial bones appear intact, without suspicious lesions. Sinuses: Visualized sinuses and mastoids are clear. IMPRESSION: 1. Question left MCA sign. 2. Cerebral volume loss and chronic microvascular ischemic changes. The result was discussed with Dr. Pfeiffer. Dictated by: Rylie Hernández M.D. on 08/25/2020 at 12:59 Approved by: Rylie Hernández M.D. on 08/25/2020 at 13:03 CTA - brain/neck: Radiologist's Impression: Lalo Hyde 74 M 1945 [place] [address] CT Scan Report Signed Patient: Lalo Hyde [facility]#: [id number] : 3Acct:[id number] Age/Sex: 74 / MDate of Service: 08/25/20 Loc: ED Accession Number: [id number] Procedure: CT angio head and neck Ordering Provider: Indigo Moss D.O. PROCEDURE: CT ANGIO HEAD AND NECK INDICATIONS: double vision, unstable gait, lips numb TECHNIQUE: Noncontrast images were performed earlier in the day and not repeated. After the administration of intravenous contrast, 1 mm thick sections acquired from the aortic arch through the [place]. Post-contrast 4.5 mm thick sections then re- acquired from the foramen magnum to the vertex. 3-dimensional qzudulh-atukvpksj-jnshwrtqen (MIP) and/or volume rendering reformats were acquired of the central intracranial vasculature and neck separately. COMPARISON: [facility], CT, CT HEAD/BRAIN WO CON, 08/25/2020, 12:39. FINDINGS: Image quality: Excellent. BRAIN: CSF spaces: Ventricles are normal in size and shape. Basal cisterns are patent. No extra-axial fluid collections. Brain: No midline shift. No intracranial bleeds or masses. Zaragoza-white matter interface appears intact. Skull and face: Calvarium and facial bones appear intact, without suspicious lesions. Orbits appear normal. Sinuses: Sinuses and mastoids are clear. HEAD CT ANGIOGRAPHY: Anterior circulation: Intracranial internal carotid arteries demonstrate generalized calcification, with approximately 50% narrowing seen on each side. The flow within the paired anterior cerebral arteries is normal and symmetric. The flow within the middle cerebral arteries is normal and symmetric. The anterior communicating artery is seen. No aneurysms are seen. Posterior circulation: Visualized portions of the vertebral arteries demonstrate normal caliber, and join to form a normal appearing basilar artery. Flow within the posterior cerebral arteries is normal and symmetric. No aneurysms are seen. NECK CT ANGIOGRAPHY: Carotid system: The great vessels demonstrate a conventional anatomy as they arise from the aortic arch. The origins of the common carotid arteries appear patent. The common carotid arteries demonstrate normal caliber and courses. The bifurcation regions demonstrate atherosclerotic calcification and irregularity, right worse than left. No hemodynamically significant stenosis can be seen on either side, however. Posterior circulation: The origins of the vertebral arteries both appear widely patent. The more superior extracranial portions of both vertebral arteries also demonst rate normal courses and calibers. They join to form a normal appearing basilar artery. Soft tissues: Visualized neck soft tissues demonstrate no suspicious abnormalities. Bones: No suspicious bony lesions. Visualized cervical spine appears normally aligned. Moderate cervical spine degenerative changes are seen. IMPRESSION: No significant intracranial arterial abnormality is seen. Specifically, the left MCA demonstrates a normal appearance. Within the arteries of the neck, no hemodynamically significant stenosis can be seen. However, atherosclerotic calcification and irregularity can be seen involving the bifurcation regions, left worse than right. Incidental note is made of: Moderate cervical spine degenerative change Any quantitative measurements of stenosis were performed using NASCET criteria. Dictated by: Pranav Lopez M.D. on 08/25/2020 at 12:26 Approved by: Pranav Lopez M.D. on 08/25/2020 at 12:30 ECG Data Attestation: I personally reviewed and interpreted this ECG as follows: Interpretation: Sinus rhythm first-degree AV block, rate 88, TX interval of 214 and a QRS of 80 with a QTC of 430. No ST elevation or depression noted. MDM Narrative Medical decision making narrative: Patient comes in with concerning symptoms for stroke, he is far outside the window almost 7 hours from symptom onset a release last known normal. Patient is not a tPA candidate. He was initially quite hypertensive but improved in the emergency department to appropriate parameters. CT head is initially negative and CTA shows some minor changes but no clear stenosis. Patient does have a history of lupus and states he has been told he has vasculitis but is not sure what kind. Discussed with neurology who felt this was more likely an ischemic pattern and recommends MRI and the traditional stroke pathway. Patient was given aspirin 324 mg in the department all findings were discussed with patient not had resolution of his symptoms but no worsening. Stroke Core Measures Exclusion Criteria TPA in CVA: Symptom Onset >3 or 4.5 Hours (last known normal greater than 7 hours.) Discharge Plan Departure Patient Disposition: Admitted as Observation Clinical Impression: Diplopia, Acute CVA (cerebrovascular accident) Discharge Date/Time: 08/25/20 16:24 Referrals: Dionne Snow MD [Primary Care Provider] - Admit Date/Time: 08/25/20 15:39 Admit Provider: Rick Mirza
[2020-08-25 12:50] LABS: Add Manual Diff / Slide Review NO; Basophils Absolute Auto 0 /uL (0-100); Basophils Percent Auto 0.5 % (0-2); Eosinophils Absolute Auto 0 /uL (0-450); Eosinophils Percent Auto 0.5 % (2-4); Hematocrit 44.5 % (41-53); Hemoglobin 14.6 g/dL (13.5-17.5); Lymphocytes Absolute Auto 500 /uL (1100-4500); Lymphocytes Percent Auto 7.4 % (25-40); Mean Corpuscular HGB Conc 32.9 % (30-36); Mean Corpuscular Hemoglobin 31.2 PG (26-34); Mean Corpuscular Volume 94.8 fL (80-100); Monocytes Absolute Auto 400 /uL (0-900); Monocytes Percent Auto 5.6 % (3-14); Neutrophils Absolute Auto 6200 /uL (1500-7000); Platelet Count 269 X10^3/uL (150-400); Red Blood Cell Count 4.69 X10^6/uL (4.5-5.9); Red Cell Distribution Width 12.9 % (11.6-14.8); White Blood Cell Count 7.3 X10^3/uL (4.5-11.0)
[2020-08-25 12:56] LABS: Prothrombin Time 11.5 SECONDS (10.1-12.7)
[2020-08-25 12:59] LABS: PTT Partial Thromboplastin Tim 28 SECONDS (26.4-36.2)
[2020-08-25 13:04] LABS: BUN Creatinine Ratio 19.8 (6-22); Blood Urea Nitrogen 17 mg/dL (9-20); Calcium 9.1 mg/dL (8.4-10.2); Carbon Dioxide 30 mmol/L (22-32); Chloride 98 mmol/L (98-107); Creatine Kinase 78 U/L (55-170); Estimated Glomerular Filt Rate > 60.0 mL/min (>60); Glucose 130 mg/dL (80-110); HEMOLYSIS < 15 (0-50); Potassium 4.4 mmol/L (3.4-5.1); Sodium 134 mmol/L (137-145)
[2020-08-25 13:15] LABS: Troponin I < 0.012 ng/mL (0.01-0.034)
[2020-08-25] MEDS: SODIUM CHLORIDE 0.9% 1,000 ML 150 ML IV (13:16)
[2020-08-25 13:30] LABS: UR Morphine/Opiate cutoff 300 Negative (Negative); Ur Creatinine Normal (Normal); Ur Specific Gravity Normal (Normal); Urine Amphetamines Negative (Negative); Urine Barbiturates Negative (Negative); Urine Benzodiazepines Negative (Negative); Urine Cocaine Negative (Negative); Urine MDMA Negative (Negative); Urine Methadone Negative (Negative); Urine Methamphetamines Negative (Negative); Urine Oxycodone Negative (Negative); Urine Phencyclidine Negative (Negative); Urine Tetrahydrocannabinol Negative (Negative); Urine Tricyclic Antidepressant Negative (Negative); Urine pH Normal (Normal)
[2020-08-25] MEDS: ASPIRIN 81 MG CHEW TAB 324 MG PO (13:35)
[2020-08-25 13:58] LABS: Amorphous Sediment Urine 1+; Bacteria Urine Few (2-10); Culture Indicated Urine Specimen Cultured; RBC Urine 1-5/HPF (0-5/HPF); Squamous Epithelial Cell Urine 0-1 /HPF (0-5/HPF); WBC Urine 30-100/HPF (0-5/HPF)
--- NOTE | 2020-08-25 15:12 | DI.MRI.S_ITS ---
PROCEDURE: MR STROKE Pre- and post-contrast brain MRI, non-contrast brain MR angiogram, pre- and postcontrast neck MR angiogram INDICATIONS: stroke TECHNIQUE: Brain: Noncontrast axial T1 spin echo, axial T2 fast spin echo, sagittal and axial FLAIR, coronal T2 fast spin echo, axial gradient echo, axial diffusion and ADC through the brain. After the administration of contrast, axial 3D VIBE of the cranial vasculature and brain. Brain MRA: Non-contrast 3-D time of flight MR angiogram, with multiple rwuakft-gmnaaniiw-arbygxvuql (MIP) reformats performed. Neck MRA: Axial and sagittal TruFISP through the neck. Coronal dynamic MR angiogram during administration of contrast in the arterial and venous phases, with 3-dimenstional obyhjkr-yvczbzqwy-sshdjbqscd (MIP) reformats constructed from subtraction images. COMPARISON: None. FINDINGS: Image quality: Excellent. BRAIN: CSF spaces: Ventricles are normal in size and shape. Basal cisterns are patent. No extra-axial fluid collections. Brain: No intracranial bleeds or mass effects. Zaragoza-white matter interface is normal. Diffusion weighted images show no acute ischemic insults. Brainstem appears normal. Normal intravascular flow voids are present. No abnormal intracranial enhancement. Skull and face: Calvarial marrow signal is normal. Orbits appear normal. Sinuses: Sinuses and mastoids are clear. BRAIN MR ANGIOGRAM: Anterior circulation: Intracranial internal carotid arteries are normal in size and enhancement. The flow within the paired anterior cerebral arteries is normal and symmetric. The flow within the middle cerebral arteries is normal and symmetric. The anterior communicating artery is seen. No stenoses, occlusions, or aneurysms. Posterior circulation: The visualized portions of the vertebral arteries demonstrate normal caliber, and join to form a normal appearing basilar artery. The flow within the posterior cerebral arteries is normal and symmetric. No stenoses, occlusions, or aneurysms. NECK MR ANGIOGRAM: Carotids: Great vessels demonstrate a conventional anatomy as they arise from the aortic arch. The origins of the common carotid arteries appear patent. The calibers and courses of both common carotid arteries are normal. The bifurcation regions appear normal bilaterally. The internal carotid arteries demonstrate normal course and asymmetric caliber with no identified stenosis at the left internal carotid artery and less than 50% stenosis at the origin of the right internal carotid artery.. Posterior circulation: The origins of the vertebral arteries appear patent. More superior portions of both vertebral arteries demonstrate normal course and caliber, and join to form a normal appearing basilar artery. Miscellaneous: Subclavian arteries appear patent. Pre-contrast images through the neck show no soft tissue abnormalities. IMPRESSION: BRAIN MRI: No evidence of acute or subacute ischemic injury, excellent appearance of the brain parenchyma with minimal microvascular atherosclerotic change in the deep white matter of each hemisphere. BRAIN MR ANGIOGRAM: Normal intracranial MR angiogram. NECK MR ANGIOGRAM: Minimal atherosclerotic narrowing at the origin of the right internal carotid artery, none seen on the left. No significant stenosis. Dictated by: Jeb Evangelista M.D. on 08/25/2020 at 16:19 Approved by: Jeb Evangelista M.D. on 08/25/2020 at 16:21
--- NOTE | 2020-08-25 16:05 | P.HP_ITS ---
History of Present Illness History of Present Illness Date Patient Seen: 08/25/20 Time Patient Seen: 16:05 Chief complaint: double vision,unstable,lips numb Narrative: 74-year-old male who normally sees Dr. Snow but was last seen not quite 1 year ago. He presented to the [facility] Emergency Department on day of admission with symptoms of unsteady gait unstable on his feet numbness and tingling of his lips as well as double vision. He reported that he woke up about 05:00 day of admission and was entirely normal as he went off to the bathroom to empty his bladder. When he went back to bed and woke up again at 07:00 as when he noticed symptoms. For symptom a noticed was double vision which is 1 image on top of the other that disappears when he covers 1 eye although he has the sense that his right eye is the 1 affected since his vision out of that is not as clear. Also had some tingling around his lips and when he got up to walk he had severe dizziness and had a hold on to the side. Workup in the ER was fairly unremarkable. His head CT showed possible left MCA changes but follow-up CT angiography failed to reveal any difficulty. Tele stroke neurology was consulted who recommended admission for evaluation for standard thromboembolic CVA. Patient does have a history of lupus and possibly some element of vasculitis treated in the distant past. I do have access to a fairly recent rheumatology note from [facility] which describes the lupus as being diagnosed with a positive OLINDA and double-stranded DNA and hypocomplementemia. 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 Mother Diabetes mellitus Hyperlipidemia Social History: household members spouse lives independently Yes caregiver/support person No Safety & Behavioral: Feels Safe in Current Yes Environment Been Physically Hurt or No Threatened By a Person Tobacco & Substance use: Smoking Status Former smoker alcohol intake current alcohol intake frequency 0-2 drinks per day Substance Use Type does not use Meds Home Medications and Allergies Home Medications Medication Instructions Recorded Confirmed Type hydroxychloroquine 200 mg PO BID 09/22/18 08/25/20 History cholecalciferol (vitamin D3) 50 2,000 unit PO DAILY 11/07/18 08/25/20 History mcg (2,000 unit) capsule wbhnarbb-yom-rihau acid 0.4 1 tab PO DAILY 11/07/18 08/25/20 History mg-lycopene 300 mcg-lutein 250 mcg tablet prednisone 5 mg tablet 40 mg PO DAILY #80 tab 06/08/19 08/25/20 Rx Allergies Allergy/AdvReac Type Severity Reaction Status Date / Time No Known Drug Allergies Allergy Verified 06/03/19 11:39 Review of Systems Constitutional Constitutional: Denies excessive sweating, Denies fever(s), Denies headache(s), Denies weakness, Denies weight gain and Denies weight loss Eyes Eyes: Reports change in vision (Double vision), Reports diplopia, Denies itchy eyes, Denies loss of vision and Denies other visual disturbances ENT Ears, Nose, Mouth, and Throat: No change in voice, No dysphagia, Yes dizziness, No otalgia, No headache(s), No hoarseness, No lip swelling, No neck pain, No sore throat, No throat swelling and No tongue swelling Cardiovascular Cardiovascular: Denies chest pain, Denies syncope, Denies rapid heart rate, Denies irregular heart rhythm, Denies palpitations, Denies dyspnea, Denies dyspnea on exertion and Denies slow heart rate Respiratory Respiratory: Denies chest congestion, Denies cough, Denies hemoptysis, Denies dyspnea, Denies dyspnea on exertion, Denies stridor and Denies wheezing Gastrointestinal Gastrointestinal: Denies abdominal pain, Denies bloating, Denies change in bowel habits, Denies change in stool character, Denies dysphagia, Denies nausea, Denies vomiting and Denies hematemesis Genitourinary Genitourinary: Denies hematuria, Denies difficulty urinating and Denies urinary frequency Musculoskeletal Musculoskeletal: Reports abnormal gait, Denies myalgias, Denies arthralgias, Denies limited range of motion and Denies neck pain Integumentary/Breasts Skin/Breast: Denies bleeding lesions, Denies change in pigmentation, Denies changing lesions, Denies new lesions, Denies rash, Denies skin swelling, Denies sores and Denies jaundice Neurologic Neurologic: Denies abnormal speech, Reports abnormal gait, Denies behavioral changes, Denies confusion, Reports dizziness, Denies syncope, Denies headache(s), Denies loss of vision, Denies memory loss, Denies seizure-like activity, Reports paresthesias (Around lips, now resolved) and Denies weakness Psychiatric Psychiatric: Denies behavioral changes, Denies change in appetite, Denies confusion, Denies difficulty concentrating, Denies auditory hallucinations, Denies memory loss, Denies mood swings and Denies suicidal ideation Endocrine Endocrine: Denies excessive sweating, Denies flushing, Denies polyuria and Denies palpitations Hematologic/Lymphatic Hematologic/Lymphatic: Denies easy bleeding, Denies easy bruising and Denies lymphadenopathy Allergic/Immunologic Allergic/Immunologic: Denies urticaria, Denies itchy eyes, Denies lip swelling, Denies throat swelling, Denies tongue swelling and Denies wheezing Exam Vital Signs (past 8 hours): - 08/25/20 12:39 08/25/20 12:45 08/25/20 12:56 Temperature 98.1 F Pulse Rate 87 90 82 Respiratory Rate 19 16 20 Blood Pressure 197/92 H 180/82 H Pulse Oximetry 97 98 98 08/25/20 13:00 08/25/20 13:01 08/25/20 13:30 Temperature Pulse Rate 90 87 85 Respiratory Rate 21 20 19 Blood Pressure 183/88 H 157/78 H Pulse Oximetry 97 97 96 08/25/20 14:00 08/25/20 14:30 08/25/20 14:31 Temperature Pulse Rate 84 84 81 Respiratory Rate 20 21 19 Blood Pressure 154/86 H 152/110 H Pulse Oximetry 96 97 97 08/25/20 15:00 Temperature Pulse Rate 83 Respiratory Rate 20 Blood Pressure 179/87 H Pulse Oximetry 97 Oxygen Delivery Method Room Air Narrative Exam Narrative: Elderly male in no obvious distress lying in hospital bed HEENT-normocephalic atraumatic PERRLA, EOMs intact although maybe defect in right upward left gaze Neck-no lymphadenopathy no bruits Lungs-good breath sounds Heart-regular rate and rhythm no murmur Abdomen-benign Neuro-alert and oriented x3, no cranial nerve defects beyond the possible right eye as above, gait not tested Objective Imaging MRI - head: Radiologist's impression: PROCEDURE: MR STROKE Pre- and post-contrast brain MRI, non-contrast brain MR angiogram, pre- and postcontrast neck MR angiogram INDICATIONS: stroke TECHNIQUE: Brain: Noncontrast axial T1 spin echo, axial T2 fast spin echo, sagittal and axial FLAIR, coronal T2 fast spin echo, axial gradient echo, axial diffusion and ADC through the brain. After the administration of contrast, axial 3D VIBE of the cranial vasculature and brain. Brain MRA: Non-contrast 3-D time of flight MR angiogram, with multiple vielzuf-gqrkbpqlw-olsswfosuy (MIP) reformats performed. Neck MRA: Axial and sagittal TruFISP through the neck. Coronal dynamic MR angiogram during administration of contrast in the arterial and venous phases, with 3- dimenstional lkndfzt-jvwkxcmri-zkhkvznuxz (MIP) reformats constructed from subtraction images. COMPARISON: None. FINDINGS: Image quality: Excellent. BRAIN: CSF spaces: Ventricles are normal in size and shape. Basal cisterns are patent. No extra-axial fluid collections. Brain: No intracranial bleeds or mass effects. [place]-white matter interface is normal. Diffusion weighted images show no acute ischemic insults. Brainstem appears normal. Normal intravascular flow voids are present. No abnormal intracranial enhancement. Skull and face: Calvarial marrow signal is normal. Orbits appear normal. Sinuses: Sinuses and mastoids are clear. BRAIN MR ANGIOGRAM: Anterior circulation: Intracranial internal carotid arteries are normal in size and enhancement. The flow within the paired anterior cerebral arteries is normal and symmetric. The flow within the middle cerebral arteries is normal and symmetric. The anterior communicating artery is seen. No stenoses, occlusions, or aneurysms. Posterior circulation: The visualized portions of the vertebral arteries demonstrate normal caliber, and join to form a normal appearing basilar artery. The flow within the posterior cerebral arteries is normal and symmetric. No stenoses, occlusions, or aneurysms. NECK MR ANGIOGRAM: Carotids: Great vessels demonstrate a conventional anatomy as they arise from the aortic arch. The origins of the common carotid arteries appear patent. The calibers and courses of both common carotid arteries are normal. The bifurcation regions appear normal bilaterally. The internal carotid arteries demonstrate normal course and asymmetric caliber with no identified stenosis at the left internal carotid artery and less than 50% stenosis at the origin of the right internal carotid artery.. Posterior circulation: The origins of the vertebral arteries appear patent. More superior portions of both vertebral arteries demonstrate normal course and caliber, and join to form a normal appearing basilar artery. Miscellaneous: Subclavian arteries appear patent. Pre-contrast images through the neck show no soft tissue abnormalities. IMPRESSION: BRAIN MRI: No evidence of acute or subacute ischemic injury, excellent a ppearance of the brain parenchyma with minimal microvascular atherosclerotic change in the deep white matter of each hemisphere. BRAIN MR ANGIOGRAM: Normal intracranial MR angiogram. NECK MR ANGIOGRAM: Minimal atherosclerotic narrowing at the origin of the right internal carotid artery, none seen on the left. No significant stenosis. CT scan - head: Radiologist's impression: PROCEDURE: CT ANGIO HEAD AND NECK INDICATIONS: double vision, unstable gait, lips numb TECHNIQUE: Noncontrast images were performed earlier in the day and not repeated. After the administration of intravenous contrast, 1 mm thick sections acquired from the aortic arch through the [place] of [place]. Post-contrast 4.5 mm thick sections then re- acquired from the foramen magnum to the vertex. 3-dimensional neeesdt-quayjfbcr-uciqzmrxou (MIP) and/or volume rendering reformats were acquired of the central intracranial vasculature and neck separately. COMPARISON: [facility], CT, CT HEAD/BRAIN WO CON, 08/25/2020, 12:39. FINDINGS: Image quality: Excellent. BRAIN: CSF spaces: Ventricles are normal in size and shape. Basal cisterns are patent. No extra-axial fluid collections. Brain: No midline shift. No intracranial bleeds or masses. [place]-white matter interface appears intact. Skull and face: Calvarium and facial bones appear intact, without suspicious lesions. Orbits appear normal. Sinuses: Sinuses and mastoids are clear. HEAD CT ANGIOGRAPHY: Anterior circulation: Intracranial internal carotid arteries demonstrate generalized calcification, with approximately 50% narrowing seen on each side. The flow within the paired anterior cerebral arteries is normal and symmetric. The flow within the middle cerebral arteries is normal and symmetric. The anterior communicating artery is seen. No aneurysms are seen. Posterior circulation: Visualized portions of the vertebral arteries dem onstrate normal caliber, and join to form a normal appearing basilar artery. Flow within the posterior cerebral arteries is normal and symmetric. No aneurysms are seen. NECK CT ANGIOGRAPHY: Carotid system: The great vessels demonstrate a conventional anatomy as they arise from the aortic arch. The origins of the common carotid arteries appear patent. The common carotid arteries demonstrate normal caliber and courses. The bifurcation regions demonstrate atherosclerotic calcification and irregularity, right worse than left. No hemodynamically significant stenosis can be seen on either side, however. Posterior circulation: The origins of the vertebral arteries both appear widely patent. The more superior extracranial portions of both vertebral arteries also demonstrate normal courses and calibers. They join to form a normal appearing basilar artery. Soft tissues: Visualized neck soft tissues demonstrate no suspicious abnormalities. Bones: No suspicious bony lesions. Visualized cervical spine appears normally aligned. Moderate cervical spine degenerative changes are seen. IMPRESSION: No significant intracranial arterial abnormality is seen. Specifically, the left MCA demonstrates a normal appearance. Within the arteries of the neck, no hemodynamically significant stenosis can be seen. However, atherosclerotic calcification and irregularity can be seen involving the bifurcation regions, left worse than right. Incidental note is made of: Moderate cervical spine degenerative change Any quantitative measurements of stenosis were performed using NASCET criteria. PROCEDURE: CT HEAD/BRAIN WO CON INDICATIONS: double vision, unstable gait, lips numb TECHNIQUE: Noncontrast 4.5 mm thick angled axial sections acquired from the foramen magnum to the vertex, with coronal and sagittal reformats. For radiation dose reduction, the following was used: automated exposure control, adjustment of mA and/or kV according to patient size. COMPARISON: None. FINDINGS: Image quality: Excellent. CSF spaces: Basal cisterns are patent. No extra-axial fluid collections. The ventricles are symmetric in size and shape. Brain: [place] left MCA sign. No intracranial bleeds or masses. There is mild cerebral volume loss for age, with resultant ventricular and sulcal prominence. There are mild periventricular and deep white matter chronic small vessel ischemic changes. There is intracranial internal carotid artery atherosclerosis. Skull and face: Calvarium and visualized facial bones appear intact, without suspicious lesions. Sinuses: Visualized sinuses and mastoids are clear. IMPRESSION: 1. Question left MCA sign. 2. Cerebral volume loss and chronic microvascular ischemic changes. Labs Result Diagrams: 08/25/20 12:45 08/25/20 12:45 Labs: Laboratory Results - last 24 hr 08/25/20 08/25/20 08/25/20 12:45 12:45 12:45 WBC 7.3 RBC 4.69 Hgb 14.6 Hct 44.5 MCV 94.8 MCH 31.2 MCHC 32.9 RDW 12.9 Plt Count 269 Neut % (Auto) 86.0 H Lymph % (Auto) 7.4 L [place] % (Auto) 5.6 Eos % (Auto) 0.5 L Baso % (Auto) 0.5 Neut # (Auto) 6200 Lymph # (Auto) 500 L [place] # (Auto) 400 Eos # (Auto) 0 Baso # (Auto) 0 PT 11.5 INR 1.0 APTT 28 Sodium 134 L Potassium 4.4 Chloride 98 Carbon Dioxide 30 BUN 17 Creatinine 0.86 Estimated GFR > 60.0 BUN/Creatinine Ratio 19.8 Glucose 130 H Calcium 9.1 Total Creatine Kinase 78 CK-MB (CK-2) TNP CK-MB (CK-2) Rel Index TNP Troponin I < 0.012 Urine RBC Urine WBC Ur Squamous Epith Cells Amorphous Sediment Urine Bacteria Ur Culture Indicated? U Opiates 300ng/mL cut Ur Oxycodone Screen Urine Methadone Screen Ur Barbiturates Screen U Tricyclic Antidepress Ur Phencyclidine Scrn Ur Amphetamines Screen U Methamphetamines Scrn Ur MDMA Scrn (Ecstasy) U Benzodiazepines Scrn Urine Cocaine Screen U Marijuana (THC) Screen 08/25/20 08/25/20 13:17 13:49 WBC RBC Hgb Hct MCV MCH MCHC RDW Plt Count Neut % (Auto) Lymph % (Auto) [place] % (Auto) Eos % (Auto) Baso % (Auto) Neut # (Auto) Lymph # (Auto) [place] # (Auto) Eos # (Auto) Baso # (Auto) PT INR APTT Sodium Potassium Chloride Carbon Dioxide BUN Creatinine Estimated GFR BUN/Creatinine Ratio Glucose Calcium Total Creatine Kinase CK-MB (CK-2) CK-MB (CK-2) Rel Index Troponin I Urine RBC 1-5/hpf Urine WBC 30-100/hpf H Ur Squamous Epith Cells 0-1 /hpf Amorphous Sediment 1+ Urine Bacteria Few (2-10) H Ur Culture Indicated? Specimen cultured U Opiates 300ng/mL cut Negative Ur Oxycodone Screen Negative Urine Methadone Screen Negative Ur Barbiturates Screen Negative U Tricyclic Antidepress Negative Ur Phencyclidine Scrn Negative Ur Amphetamines Screen Negative U Methamphetamines Scrn Negative Ur MDMA Scrn (Ecstasy) Negative U Benzodiazepines Scrn Negative Urine Cocaine Screen Negative U Marijuana (THC) Screen Negative Assessment & Plan Assessment & Plan narrative: 1. Probable CVA-despite not finding anything on CT or MR imaging of the brain this appears to be a small CVA probably involving brainstem with cranial nerve involvement based primarily on symptoms of double vision and dizziness. Hopefully given the presume small nature of the lesion patient will recover rather rapidly. He will need also evaluation by physical therapy occupational therapy. Does not have a lot if any in the way of cranial nerve symptoms except for his double vision. He passed a basic swallow screen and I do not think would benefit from speech therapy at this point. Patient did develop an upper GI bleed when taking NSAIDs in very low-dose previously for various orthopedic musculoskeletal type symptoms. Somewhat hesitant to place patient on aspirin even low-dose 81 mg aspirin with that hi story as well as history of extensive bruising on his skin despite not taking any sort of anti thrombotic or anticoagulant whatsoever. However with this event I think the benefit outweighs the risk and would recommend at least short- term either 81 mg aspirin or perhaps Plavix (although history of bruising and easy bleeding make that a bit more problematic). Given this appears to be a small vessel disease process perhaps anti thrombotic therapy would not be appropriate. 2. 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 No evidence of active process at this time seems a bit atypical. Continue his hydroxychloroquine. Will continue patient's usual meds including the low-dose prednisone and the hydroxychloroquine as above. 3. Hypertension-likely a responsive hypertension secondary to his stroke. Will continue with some permissive hypertension for now. 4. VTE prophylaxis-I do think patient would benefit from low-dose Lovenox while hospitalized 5. Code status-patient should be full code in the event of a sudden cardiac or respiratory arrest.
--- NOTE | 2020-08-25 16:29 | DI.ECHO.S_ITS ---
[facility]---------+ [facility] +---------+ : : [address] : : : : [id number] : : : : Phone: [phone]+ Echocardiogram Report + + :Name: JUAN SANDERS Study Date: 08/26/2020 Height: 72 in : :[facility] Exam Location: IS Weight: 200 lb : : Gender: Male BSA: 2.1 m2 : :: 1945 Age: 74 yrs BP: 141/62 mmHg: :Reason For Study: CVA : :Ordering Physician: Brook : :Hospitalist Performed By: Kassandra Page : :Referring: JOHN DYER R : + + Interpretation Summary Left ventricular systolic function is normal with an estimated ejection fraction of 60 to 65% without any focal wall motion abnormality. Left ventricular size and wall thickness appear normal. There is likely a diastolic relaxation abnormality but normal filling pressures. The right ventricle appears normal. Right ventricular systolic pressure cannot be estimated but CVP is likely around 3 mmHg. The left atrium is moderate??severely enlarged while the right atrium is mildly enlarged. There is mild posterior mitral valve leaflet prolapse producing an eccentric jet of mild mitral regurgitation. There is no other significant valvular abnormality. The aortic root and ascending aorta are mildly enlarged. Procedure: A two-dimensional transthoracic echocardiogram with color flow and Doppler was performed. The study quality was technically adequate. There is no prior echocardiogram noted for this patient. The patient was in normal sinus rhythm during the exam. Left Ventricle: The left ventricle appears normal in size, wall thickness, and systolic function without any focal wall motion abnormalities. The ejection fraction is estimated to be 60-65%. Diastolic parameters suggest a relaxation abnormality of the left ventricle, consistent with probable normal filling pressures. Right Ventricle: The right ventricle is normal in size and function. Atria: The left atrium is moderately dilated. The right atrium is mildly dilated. A prominent eustachian valve noted in the RA. There is no Doppler evidence for an interatrial shunt. Mitral Valve: There is mild to moderate mitral annular calcification. The mitral valve leaflets are slightly calcified. There is mild mitral valve prolapse. There is mild mitral regurgitation. Aortic Valve: The aortic valve is trileaflet. The aortic valve opens well. There is trace aortic regurgitation. Tricuspid Valve: The tricuspid valve is normal in structure and function. There is a trace or physiologic amount of tricuspid regurgitation. Pulmonary artery pressures cannot be estimated because of the lack of a measurable TR jet velocity but the IVC suggests a CVP of around 3 mmHg. Pulmonic Valve: The pulmonic valve is not well visualized. There is a trace or physiologic amount of pulmonic regurgitation. There is no other significant valvular heart disease. Great Vessels: The aortic root is mildly dilated. The ascending aorta is mildly enlarged. The pulmonary artery is not well visualized, but is probably normal size. The IVC is of normal diameter and collapses greater than 50% with a sniff. This suggests a low right atrial pressure of 3 mm Hg. Pericardium/ Pleura There is no pericardial effusion. There is no pleural effusion. MMode/2D Measurements & Calculations LVIDd: 4.6 cm LVOT diam: 2.3 cm LVIDs: 3.6 cm Ao root diam: 4.0 cm FS: 21.4 % asc Aorta Diam: 3.5 cm EPSS: 0.21 cm IVSd: 0.59 cm LVPWd: 0.55 cm LV wooten. diameter/BSA (cm/m^2): 2.2 LV sys. diameter/BSA (cm/m^2): 1.7 LA A2 area: 27.5 cm2 RA long axis: 5.4 cm LA A4 area: 27.6 cm2 RA area: 21.6 cm2 LA length (vol): 6.4 cm RA vol: 72.5 ml LA vol: 101.2 ml RA : 34.1 ml/m2 LA vol index: 47.5 ml/m2 IVC diam: 1.8 cm RVD1 (basal): 4.4 cm TAPSE: 2.1 cm Doppler Measurements & Calculations Ao V2 max: 118.5 cm/sec LVOT Max Aron: 88.2 cm/sec Ao V2 mean: 82.4 cm/sec LV V1 max P.1 mmHg Ao max P.6 mmHg LV V1 VTI: 18.4 cm Ao mean P.0 mmHg ARMAAN(I,D): 3.4 cm2 Ao V2 VTI: 22.4 cm ARMAAN(V,D): 3.1 cm2 sev ratio: 0.82 ARMAAN indexed to BSA (cm^2/m^2): 1.6 MV E max aron: 81.3 cm/sec TR max aron: 208.6 cm/sec MV A max aron: 118.2 cm/sec TR max P.4 mmHg MV E/A: 0.69 PA V2 max: 73.4 cm/sec Med Peak E' Aron: 5.6 cm/sec PA V2 mean: 53.2 cm/sec E/E' med: 14.6 PA mean P.2 mmHg Lat Peak E' Aron: 9.1 cm/sec PA Accel Time: 0.10 sec E/E' lat: 9.0 E/e' average: 11.8 MV P1/2t: 73.1 msec MVA(VTI): 2.7 cm2 MV V2 mean: 69.3 cm/sec MV P1/2t max aron: 80.7 cm/sec MV mean P.3 mmHg MVA(P1/2t): 3.0 cm2 MV V2 VTI: 28.8 cm SV(LVOT): 76.7 ml Reading Physician:02:02 PM
--- NOTE | 2020-08-25 16:52 | PC.ADMIT ---
[id number] Admission Note: The patient,Lalo Hyde,74 y/o, was given written information regarding hospital policies, unit procedures and contact persons. Patient's smoking status: Former smoker. Vital Signs - 8 hr 08/25/20 12:39 08/25/20 12:45 08/25/20 12:56 Temperature 98.1 F Pulse Rate 87 90 82 Respiratory Rate 19 16 20 Blood Pressure 197/92 H 180/82 H Pulse Oximetry 97 98 98 08/25/20 13:00 08/25/20 13:01 08/25/20 13:30 Temperature Pulse Rate 90 87 85 Respiratory Rate 21 20 19 Blood Pressure 183/88 H 157/78 H Pulse Oximetry 97 97 96 08/25/20 14:00 08/25/20 14:30 08/25/20 14:31 Temperature Pulse Rate 84 84 81 Respiratory Rate 20 21 19 Blood Pressure 154/86 H 152/110 H Pulse Oximetry 96 97 97 08/25/20 15:00 Temperature Pulse Rate 83 Respiratory Rate 20 Blood Pressure 179/87 H Pulse Oximetry 97 Patient arrived @ 1625 via wheelchair and ambulated with moderate difficulty to bed, reports unsteady on his feet r/t diplopia. Reports recent fall in the last 3 months. Denies chest pain, SOB, nausea/vomiting, saturating WNL on RA. Pt is hypertensive 153/95 which patient reports is abnormal. High fall risk d/t double vision, unsteady gait, and recent fall. Dr Mirza in the room at time of admission. Bed alarm on and functioning, call light education given and in reach, patient acknowledged all teaching.
[2020-08-25 17:08] LABS: COVID19 -Nasal RAPID Negative (Negative)
[2020-08-25] MEDS: ATORVASTATIN 20 MG TABLET PO (20:43)
[2020-08-25] MEDS: HYDROXYCHLOROQUINE 200 MG TABLET PO (20:43)
[2020-08-26 03:45] VITALS: BP 141/81; PULSE 81; RESP 16; TEMP 36.6; O2SAT 96
--- NOTE | 2020-08-26 08:08 | P.DS_ITS ---
History of Present Illness History of Present Illness Date Patient Seen: 08/26/20 Time Patient Seen: 10:18 Chief complaint: double vision,unstable,lips numb Narrative: 74-year-old male who normally sees Dr. Snow but was last seen not quite 1 year ago. He presented to the [facility] on day of admission with symptoms of unsteady gait unstable on his feet numbness and tingling of his lips as well as double vision. He reported that he woke up about 05:00 day of admission and was entirely normal as he went off to the bathroom to empty his bladder. When he went back to bed and woke up again at 07:00 as when he noticed symptoms. For symptom a noticed was double vision which is 1 image on top of the other that disappears when he covers 1 eye although he has the sense that his right eye is the 1 affected since his vision out of that is not as clear. Also had some tingling around his lips and when he got up to walk he had severe dizziness and had a hold on to the side. Workup in the ER was fairly unremarkable. His head CT showed possible left MCA changes but follow-up CT angiography failed to reveal any difficulty. [facility] neurology was consulted who recommended admission for evaluation for standard thromboembolic CVA. Patient does have a history of lupus and possibly some element of vasculitis treated in the distant past. I do have access to a fairly recent rheumatology note from [facility] which describes the lupus as being diagnosed with a positive OLINDA and double-stranded DNA and hypocomplementemia. 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 In addition his CT angiography was unremarkable Discharge Providers Provider Date of admission: 08/25/20 15:39 Discharge Date: 08/26/20 Primary care physician: Dionne Snow MD Consults: 08/25/20 16:29 Consult to Discharge Planning Routine Comment: Consult to Occupational Therapy Evaluate & Treat Comment: Physician Instructions: Evaluate and treat Consult to Physical Therapy Evaluate & Treat Comment: Physician Instructions: Evaluate and Treat Discharge provider: Dionne Snow MD Summary Hospital Course Discharge Diagnosis: Blurry vision Presumed Acute CVA Hypertension Lupus Hospital Course: The pt was admitted due to double vision and unsteady gait, concerning for TIA/CVA. CT, CTA and MRI were negative. Echocardiogram revealed an enlarged right atrium and mild mitral regurgitation. The pt was seen by PT and OT. OT noted a weakening of the medial rectus and inferior oblique of his right and recommended outpatient therapy. They recommended no driving at home. Initially at presentation, the pts BP was noted to be quite elevated. This trended back down during his hospitalization. Due to ongoing concern for CVA, with persistent symptoms of blurry vision even at discharge, the pt was started on a statin and baby aspirin. He does have a hx of GI bleed, and risks vs benefits of aspirin discussed, and the pt agreeing with starting. He will discharge home today. He will f/u with ophthamology within the next 3-4 days. He will f/u in clinic in 2 weeks, with BP readings from home as well. Status at Discharge Cognitive/behavioral status at discharge: oriented Functional status at discharge: uses cane/walker Overall status at discharge: patient is not back to baseline Exam Vital Signs (past 8 hours): - 08/26/20 03:45 Temperature 97.8 F Pulse Rate 81 Respiratory Rate 16 Blood Pressure 141/81 H Pulse Oximetry 96 Oxygen Delivery Method Room Air Oxygen Flow Rate 0 Narrative Exam Narrative: Gen: NAD, sitting comfortably in bed, appears well HEENT: normocephalic, atraumatic CV: RRR, no murmurs Resp: clear to auscultation bilaterally Abd: soft, nontender, nondistended, normoactive bowel sounds Ext: no edema Neuro: EOMI, visual acuity grossly abnormal, remainder CN intact, 5/5 strength UE and LE, finger to nose and heel to arrington intact Objective Imaging Echo: Radiologist's impression: Left ventricular systolic function is normal with an estimated ejection fraction of 60 to 65% without any focal wall motion abnormality. Left ventricular size and wall thickness appear normal. There is likely a diastolic relaxation abnormality but normal filling pressures. The right ventricle appears normal. Right ventricular systolic pressure cannot be estimated but CVP is likely around 3 mmHg. The left atrium is moderate??severely enlarged while the right atrium is mildly enlarged. There is mild posterior mitral valve leaflet prolapse producing an eccentric jet of mild mitral regurgitation. There is no other significant valvular abnormality. The aortic root and ascending aorta are mildly enlarged. MRI - head: Radiologist's impression: BRAIN MRI: No evidence of acute or subacute ischemic injury, excellent appearance of the brain parenchyma with minimal microvascular atherosclerotic change in the deep white matter of each hemisphere. BRAIN MR ANGIOGRAM: Normal intracranial MR angiogram. NECK MR ANGIOGRAM: Minimal atherosclerotic narrowing at the origin of the right internal carotid artery, none seen on the left. No significant stenosis. CT scan - head: Radiologist's impression: 1. Question left MCA sign. 2. Cerebral volume loss and chronic microvascular ischemic changes. CTA: Radiologist's impression: No significant intracranial arterial abnormality is seen. Specifically, the left MCA demonstrates a normal appearance. Within the arteries of the neck, no hemodynamically significant stenosis can be seen. However, atherosclerotic calcification and irregularity can be seen involving the bifurcation regions, left worse than right. Incidental note is made of: Moderate cervical spine degenerative change Any quantitative measurements of stenosis were performed using NASCET criteria. Labs Result Diagrams: 08/25/20 12:45 08/25/20 12:45 Labs: Laboratory Results - last 24 hr 08/25/20 08/25/20 08/25/20 12:45 12:45 12:45 WBC 7.3 RBC 4.69 Hgb 14.6 Hct 44.5 MCV 94.8 MCH 31.2 MCHC 32.9 RDW 12.9 Plt Count 269 Neut % (Auto) 86.0 H Lymph % (Auto) 7.4 L [place] % (Auto) 5.6 Eos % (Auto) 0.5 L Baso % (Auto) 0.5 Neut # (Auto) 6200 Lymph # (Auto) 500 L [place] # (Auto) 400 Eos # (Auto) 0 Baso # (Auto) 0 PT 11.5 INR 1.0 APTT 28 Sodium 134 L Potassium 4.4 Chloride 98 Carbon Dioxide 30 BUN 17 Creatinine 0.86 Estimated GFR > 60.0 BUN/Creatinine Ratio 19.8 Glucose 130 H Calcium 9.1 Total Creatine Kinase 78 CK-MB (CK-2) TNP CK-MB (CK-2) Rel Index TNP Troponin I < 0.012 Urine RBC Urine WBC Ur Squamous Epith Cells Amorphous Sediment Urine Bacteria Ur Culture Indicated? U Opiates 300ng/mL cut Ur Oxycodone Screen Urine Methadone Screen Ur Barbiturates Screen U Tricyclic Antidepress Ur Phencyclidine Scrn Ur Amphetamines Screen U Methamphetamines Scrn Ur MDMA Scrn (Ecstasy) U Benzodiazepines Scrn Urine Cocaine Screen U Marijuana (THC) Screen COVID-19 PCR 08/25/20 08/25/20 08/25/20 13:17 13:49 16:05 WBC RBC Hgb Hct MCV MCH MCHC RDW Plt Count Neut % (Auto) Lymph % (Auto) [place] % (Auto) Eos % (Auto) Baso % (Auto) Neut # (Auto) Lymph # (Auto) [place] # (Auto) Eos # (Auto) Baso # (Auto) PT INR APTT Sodium Potassium Chloride Carbon Dioxide BUN Creatinine Estimated GFR BUN/Creatinine Ratio Glucose Calcium Total Creatine Kinase CK-MB (CK-2) CK-MB (CK-2) Rel Index Troponin I Urine RBC 1-5/hpf Urine WBC 30-100/hpf H Ur Squamous Epith Cells 0-1 /hpf Amorphous Sediment 1+ Urine Bacteria Few (2-10) H Ur Culture Indicated? Specimen cultured U Opiates 300ng/mL cut Negative Ur Oxycodone Screen Negative Urine Methadone Screen Negative Ur Barbiturates Screen Negative U Tricyclic Antidepress Negative Ur Phencyclidine Scrn Negative Ur Amphetamines Screen Negative U Methamphetamines Scrn Negative Ur MDMA Scrn (Ecstasy) Negative U Benzodiazepines Scrn Negative Urine Cocaine Screen Negative U Marijuana (THC) Screen Negative COVID-19 PCR Negative Discharge Plan Discharge Plan Patient Disposition: Home Discharge orders & Medications Prescriptions: New atorvastatin [Lipitor] 20 mg Tablet 20 mg PO BEDTIME Qty: 30 RF: 3 aspirin 81 mg Tablet,Delayed Release (Dr/Ec) 81 mg PO DAILY Qty: 30 RF: 0 tamsulosin [Flomax] 0.4 mg Capsule 0.8 mg PO DAILY Qty: 30 RF: 0 Continued cholecalciferol (vitamin D3) 2,000 unit capsule 2,000 unit PO DAILY RF: 0 liyqnizp-hch-WA-lycopen-lutein [Centrum Silver] 0.4-300-250 mg-mcg-mcg tablet 1 tab PO DAILY RF: 0 prednisone 5 mg tablet 40 mg PO DAILY Qty: 80 RF: 0 hydroxychloroquine 200 mg 200 mg PO BID RF: 0 Follow up/Referrals: Dionne Snow MD [Primary Care Provider] - 09/06/20 8:30 am (appt:09/06 @ 8:30 w/dr snow please arrive 15 minutes prior to your scheduled appointment time ) Diet/Activity/Treatments Diet: Regular Visit Report/Discharge Packet Instructions: DI for Stroke-Ischemic, Living a Balanced Life with Lupus, DI for Double Vision Visit Report Forms: Patient Portal/API, Stroke Signs & Symptoms Discharge Data Primary Care Provider: Dionne Snow VTE Deep Vein Thrombosis/Pulmonary Embolism Present on Admission: No
[2020-08-26 08:52] VITALS: BP 138/69; PULSE 88; RESP 16; TEMP 36.5; O2SAT 96
[2020-08-26] MEDS: HYDROXYCHLOROQUINE 200 MG TABLET PO (09:27)
[2020-08-26] MEDS: ASPIRIN EC 81 MG TABLET PO (09:27)
[2020-08-26] MEDS: ENOXAPARIN 40 MG/0.4 ML SYRINGE SUBCUT (09:27)
[2020-08-26] MEDS: predniSONE 5 MG TABLET PO (09:28)
--- NOTE | 2020-08-26 12:17 | CM.DANOTE ---
Addendum entered by Ivania Alvarez LPN 08/26/20 12:35: Care team members report that pt did well with PT and was cleared for home. Pt will be following up with a neurologist and and an eye doctor as well as with Dr. Snow in clinic: 09/06. Pt's will be taking him back home to [place] today. Payer: Medicare and [employer]. Admission status: INPT: confirmed by UR LEANDRO Newsome. Original Note: Discharge Planning/Care Management DCP: assessment: case received, EMR reviewed. DC to home order noted. No PT notes are yet available. Went to room to meet with pt and continue the assessment process. Door closed: ECHO in process. Conferred then with PT/Billy who was just completing his notes and with LEANDRO Wu. Pt is a 74 year old male who admitted yesterday afternoon to care of Dr. Pickett. PCP: Dr. Ivan Snow: saw him today and has ok'd him for the d/c. CM Discharge Assessment Start: 08/26/20 12:14 Freq: Status: Active Protocol: Document 08/26/20 12:14 ITV (Rec: 08/26/20 12:17 ITV [id number]) Discharge Planning Assessment Advance Directives? Yes Advance Directives on File No History Provided By Patient,Medical Record Prior Living Arrangements House Household Members spouse Transportation Arrangement on her way to take pt home
[2020-08-26 12:25] VITALS: BP 150/69; PULSE 81; RESP 16; TEMP 36.6; O2SAT 97
--- NOTE | 2020-08-26 12:39 | PT.IIE ---
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 able to make needs known Mobility and Gait independent without AD. Pt is very active and do home exercises 30 mins a day. 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 level entry, 16 steps with B rails to second floor which has kitchen and living room Pt can stay on main floor with bathroom and bedroom access Home Environment High Toilet Home Equipment Straight Cane,Raised Toilet Seat w/Armrests,Grab Bars In Shower Employment Status Self-Employed Additional Social History Comment Pt lives with his Maribel in [place]. Son lives in [place] and he has 3 neighbors to assist if needed M2 PT-IP Current Condition Start: 08/26/20 08:28 Freq: NEEDED Status: Active Protocol: Document 08/26/20 12:07 (Rec: 08/26/20 12:38 [id number]) Physical Therapy Current Condition Current Condition Evaluation Date 08/26/20 Treatment Diagnosis CVA with diplopia, unsteady gait Onset Date 08/25/20 Weight Bearing Status Weight Bearing Status Full Weight Bearing M3 PT-IP Subjective Start: 08/26/20 08:28 Freq: NEEDED Status: Active Protocol: Document 08/26/20 12:07 HH (Rec: 08/26/20 12:38 [id number]) Subjective Physical Therapy Visit Type Type Initial Evaluation Visit Start Time 10:10 Visit Stop Time 10:44 Total Visit Minutes 34 Number of RETREAD OPERATOR Visits 0 Physical Therapy Visit Comments Patient Comments I dont think i have any problem with my limbs or my body. Patient Goals To be able to return home safely Therapy Pain Assessment Pain Present Pain Present Denied Pain M4 PT-IP Mobility and Gait Start: 08/26/20 08:28 Freq: NEEDED Status: Active Protocol: Document 08/26/20 12:07 (Rec: 08/26/20 12:38 [id number]) PT-Bed Mobility Assessment Supine to Sit Supine to Sit Independent Scooting Scooting to Edge of Bed Independent PT-Transfer Assessment Sit to and From Stand Sit to and from Stand Standby Assistance Equipment Transfer Assistive Device Gait Belt,Straight Cane,Front Wheeled Walker Orthotic/Prosthetic Devices or Brace: No Transfers Transfer Destination Bed,Chair Transfer Technique Stand Step Pivot Transfer Ability Level of Assist Standby Assistance,Use of Upper Extremities Comments Mobility Comments pt was in bed upon PT and SPT arrival. Pt was AxOx4 and denied any discomfort. He then completed supine to long sit followed by pivoting to EOB on L side independently. Pt completed neurological assessment. He stood up with CGA and initially slightly LOB d/t his double vision. He completed balance test and then started walking with this PT without AD. Pt was unsteady overall but he was able to recovery multiple times. Interestingly, pt balance improved with using his L eye only but significantly reduced with gait deviation to L when R eye opened only. Pt completed amb with FWW for 100 ft and his balance did improve and so does SPC on his R side for 220 ft. Pt then returned to his room chair with safe transfer with proper techniques. Call light placed within reach. Gait Assessment Gait Gait Assistance Required: Contact Guard Assist Distance (Feet) 370 Able to Maintain Weight Bearing Status Yes During Gait Assistive Devices Assistive Device None,Gait Belt,Straight Cane, Front Wheeled Walker Orthotic/Prosthetic Devices or Brace: No Gait Deviations General Gait Pattern Antalgic,Wide Based Gait Factors Limiting Gait Function Factors Limiting Gait Function Decreased Sensation,Poor Balance Comments Gait Comments see mobility comments. Stair Climbing Assessment Evaluation Level of Assist On Stairs Standby Assistance Devices Stair Climbing Assistive Devices Left Railing,Right Railing Technique/Endurance Stair Climbing Direction Ascend and Descend Stair Climbing Technique Step Over Step Number of Steps Climbed 3 Query Text: Stair Climbing Set # Repetitions (reps) 2 Comments Stair Climbing Comments step over pattern with B rail support SBA. no LOB noted. PT-Balance Assessment Sitting Balance and Reactions Static Sitting Balance Ability Normal Dynamic Sitting Balance Ability Normal Standing Balance and Reactions Static Standing Balance Ability Normal Dynamic Standing Balance Ability Normal Device Used none Comments Other Balance Tests/Deviations/Treatment Marching in place = very : unsteady with both eyes opened , worse with R eye opened only but best with L eye opened M5 PT-IP Objective Assessments Start: 08/26/20 08:28 Freq: NEEDED Status: Active Protocol: Document 08/26/20 12:07 (Rec: 08/26/20 12:38 [id number]) Orientation Orientation/Cognition Level of Alertness Alert Orientation Name,Age,Birthday,Month,Date, Year,Day of Week,Place, Situation Language Function Ability No Deficits Noted Safety Awareness Understands Safety Issues Memory Description No Deficits Noted Gross Range of Motion Upper Extremity ROM Assessment Within Functional Limits Lower Extremity ROM Assessment Within Functional Limits Strength Upper Extremity Strength Assessment Within Functional Limits Lower Extremity Strength Assessment Within Functional Limits Comments Strength Comments L shoulder 3+/5 d/t previous RTC injury Coordination Assessment Gross Coordination Gross Coordination WNL Assessment Finger to Nose Test Normal Performance Pronation/Supination Test Normal Performance Foot Tapping Test Normal Performance Heel on Martin Test Normal Performance Sensation Assessment Sensation Gross Sensation WNL Light Touch Intact Proprioception (Position) Intact Muscle Tone Muscle Tone WNL Yes Other Assessments Other Other Assessments saccade pursuit= WNL peripheral vision= WNL convergence =WNL hearing= WNL facial motor= WNL fine motor control= WNL M7 PT-IP Assessment and Plan Start: 08/26/20 08:28 Freq: NEEDED Status: Active Protocol: Document 08/26/20 12:07 (Rec: 08/26/20 12:38 [id number]) PT Summary Assessment and Plan Potential Rehabilitation Potential Excellent Status of Condition at Evaluation Stable Summary Impairments Balance Assessment Summary This is an evaluation only for this 74yo male admitted to yesterday d/t new onset of diplopia and unsteady gait. PLOF= completely independent without AD who is also very active with good mobility. Upon assessment, this PT did a thorough neuro assessment on pt: no deficits noted with gross motor control, fine motor control, face motor control, ROM, strength, coordination, reflexes and sensation. However, pt stated his vision only overlaps ( diplopia) with 2 eyes open only with tilted vision bilaterally (R worse than L). This affects his gait who amb with deviation to L with R eye opened only but WFL with L eye opened only. Pt's gait was better with SPC/ FWW. Although his visual deficits is out of therapy pracitce scope, this PT recommended pt to use his SPC for mobility ( and use eye patch to cover R eye if needed) at this point and monitor his daily BP. Pt is safe to d/c home at this point with assistance as needed. Pt will benefit from consulting neurologist and bread racker. Frequency of Treatment Frequency Of Treatment Discharge Recommendations To Nursing Amount of Assist Needed 1 Person Assist Discharge Recommendations PT Discharge Recommendations Home with Assistance Transportation Needs at Discharge Private Vehicle
--- NOTE | 2020-08-26 12:52 | OT.IP.EVAL ---
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 able to make needs known Mobility and Gait independent without AD. Pt is very active and do home exercises 30 mins a day. 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 Pt has not stairs to enter but 16 steps to get to the second floor. Pt is able to stay onthe main level if needed. Home Environment High Toilet,Walk in Shower Home Equipment Quad Cane Employment Status Retired Additional Social History Comment Pt is retired from the [employer] and then [employer]. Pt has a flat bed and a slim based quad cane. M2 OT-IP Current Condition Start: 08/26/20 14:42 Freq: Status: Active Protocol: Document 08/26/20 14:42 CGR (Rec: 08/26/20 15:00 CGR [email or web address]) Occupational Therapy Current Condition Current Condition Evaluation Date 08/26/20 Treatment Diagnosis double vision Diagnosis Onset Date 08/26/20 M3 OT- IP Subjective and Pain Start: 08/26/20 14:42 Freq: Status: Active Protocol: Document 08/26/20 14:42 CGR (Rec: 08/26/20 15:00 CGR [email or web address]) OT- Subjective Occupational Therapy Visit Type Type Initial Evaluation Visit Start Time 12:21 Visit Stop Time 12:52 Total Visit Minutes 31 Occupational Therapy Visit Comments Patient Comments My R eye seems to be the weak one. OT Pain Assessment Pain When Pain Assessed At Rest Pain Present Pain Present Denied Pain M4 OT- IP ADL's Start: 08/26/20 14:42 Freq: Status: Active Protocol: Document 08/26/20 14:42 CGR (Rec: 08/26/20 15:00 CGR [email or web address]) OT [id number] General Evaluation Self-Feeding Ability Independent OT ADL-Grooming General Evaluation Grooming Ability Independent OT ADL-Oral Care General Eval Oral Care Ability Independent OT ADL-Dressing General Eval Upper Body Dressing Ability Independent OT ADL-Toileting General Evaluation Toileting Ability Independent OT ADL-Bathing Comments OT Bathing Comments not performed M5 OT- IP IADL's Start: 08/26/20 14:42 Freq: Status: Active Protocol: Document 08/26/20 14:42 CGR (Rec: 08/26/20 15:00 CGR [email or web address]) OT-Instrumental Activities of Daily Living Deficits IADL Deficits Identified No Deficits Home Safety Awareness Awareness of Need for Assistance at Home Good Awareness Ability to Problem Solve Emergency Able to Problem Solve Situations Medication Management Medication Management No Deficits Identified Money Management Money Management No Deficits Identified Meal Preparation Meal Preparation No Deficits Identified Director Cost Director Cost No Deficits Identified Driving Driving Comments Pt understands that it is not safe for him to drive at this time. M6 OT- IP Functional Cognition Start: 08/26/20 14:42 Freq: Status: Active Protocol: Document 08/26/20 14:42 CGR (Rec: 08/26/20 15:00 CGR [email or web address]) Cognitive Factors Limiting Selfcare Function Cognitive Ability Level of Alertness Alert Patient Orientation Name,Age,Birthday,Month,Date, Year,Day of Week,Place, Situation Attention Span Ability Capable of Focused Attention, Capable of Sustained Attention Ability to Follow Commands Able to Follow Multi-Step Commands Memory Description No Deficits Noted Safety Awareness No Deficits Noted Problem Solving Ability No deficits Noted OT- Vision and Hearing OT- Hearing Assessment OT- Hearing Assessment WFL OT- Vision Assessment Visual Acuity Glasses All The Time Visual Attentiveness WFL Occular Pursuits WFL Visual Convergence WFL Visual Claire WFL Diplopia Present Visual Spacial Neglect Not Applicable Vision Assessment Comments Pt presents with a L drift in his R eye. Pt describes a slanted view when using both eyes but correct vision when either eye independent of the other. Pt states that his R eye feels odd when he is forced to use it for vision. Pt appears to be experiencing weakness of the R inferior rectus and inferior oblique muscles causing a drift laterally and angled vision from his right eye. M7 OT- IP Mobility and Balance Start: 08/26/20 14:42 Freq: Status: Active Protocol: Document 08/26/20 14:42 CGR (Rec: 08/26/20 15:00 CGR [email or web address]) OT- Bed Mobility Assessment Rolling Level of Assistance Independent Supine to Sit Supine to Sit Assist Independent Sit to Supine Sit to Supine Assist Independent Scooting Scooting to Edge of Bed Independent OT-Transfer Assessment Sit to and From Stand Sit to and from Stand Independent Transfers Transfer Ability Independent Technique Transfer Destination Bed,Chair,Toilet Transfer Technique Stand Step Pivot Devices Transfer Assistive Devices Gait Belt,Small Based Quad Cane OT- Gait Assessment Gait Gait Assistance Required: Independent Assistive Devices Assistive Device Gait Belt,Small Based Quad Cane OT- Balance Assessment Sitting Balance and Reactions Static Sitting Balance Ability Normal Dynamic Sitting Balance Ability Normal M8 OT- IP Objective Assessments Start: 08/26/20 14:42 Freq: Status: Active Protocol: Document 08/26/20 14:42 CGR (Rec: 08/26/20 15:00 CGR [email or web address]) OT Gross Range of Motion Upper Extremity Range of Motion Assessment Within Functional Limits OT Strength Upper Extremity Strength Assessment Within Functional Limits Comments Strength Comments grossly 4+/5 except shlds weak from pain. OT- Coordination Assessment Upper Extremity Finger to Nose Test Within Functional Limits Finger Tapping Test Within Functional Limits OT-Muscle Tone Assessment Muscle Tone WNL Yes OT Sensation Assessment Edema Edema Absent M9 OT- IP Assessment and Plan Start: 08/26/20 14:42 Freq: Status: Active Protocol: Document 08/26/20 14:42 CGR (Rec: 08/26/20 15:00 CGR [email or web address]) OT Summary Assessment and Plan Potential Rehabilitation Potential Excellent Analytic Complexity at Evaluation Low Summary OT Impairments Balance Progress Towards Goals Progressing Toward Goals,Goals Met Assessment Summary Pt presents as a low complexity evaluation s/p admit for visual changes. Pt appears to have a weakening of the medial rectus and inferior oblique of his right eye. Pt educated on issue and referred to outpatient rehabilitation for addressing this very specific deficit. No further acute OT needs at this time. Frequency of Treatment Frequency Of Treatment Discharge Discharge Recommendations OT Discharge Recommendations Home Other Discharge Recommendations Pt states understanding that he is not safe for driving at this time. Transportation Needs at Discharge Private Vehicle
--- NOTE | 2020-08-26 16:24 | PC.NURSE ---
Discharge: Feels ready to d/c home. Echo completed. Has passed both PT/OT. Diet tolerated with out problems. Vds w/out diff. No pain at time of d/c which is not at his usual baseline. (hx of lupus and has multi areas of pain due to this ie shoulders, ect) Seen by MD and received her instructions. He is not driving at this time due to double vision which has remained unchanged during his time here. Reviewed d/c packet. Rx was esent. Questions answered. Pt d/c home via auto w/spouse.
== END 2020-08-26 13:30 | disposition home or self-care (01) | DRG 66 ==
LOC: ED 15:09 → AC 16:04
PROVIDERS: Admitting Provider Internal Medicine; Emergency Provider Emergency Medicine; PCP Family Medicine; Referring Provider Emergency Medicine; Visit Provider Family Medicine
DX: I63.9 Cerebral infarction, unspecified (principal); H53.8 Other visual disturbances; I10 Essential (primary) hypertension; M32.9 Systemic lupus erythematosus, unspecified; R26.81 Unsteadiness on feet; I34.0 Nonrheumatic mitral (valve) insufficiency; Z87.891 Personal history of nicotine dependence
CPT/HCPCS: 36415; 70450; 70496; 70498; 70548; 70553; 80048; 80305; 81003; 81015; 82550; 82962; 84484; 85025; 85610; 85730; 87077; 87086; 87185; 87186; 87635; 93005; 93010; 93306; 96360; 96361; 97161; 97165; 97535; 99222; 99238; 99285; J1650

== ENCOUNTER → 2020-12-07 12:20 | Outpatient (CLI) | payer MEDICARE, OTHER, SELFPAY ==
[2020-08-25 16:30] VITALS: BMI 25.5
--- NOTE | 2020-12-07 12:23 | DI.RAD.S_ITS ---
PROCEDURE: XR CHEST 2V INDICATIONS: cough, possible hx of lung nodule TECHNIQUE: 2 views of the chest were acquired. COMPARISON: [facility], CR, XR CHEST 1V, 06/16/2018, 3:51. FINDINGS: Surgical changes and devices: None. Lungs and pleura: Lungs are clear. No pleural effusions or pneumothorax. Mediastinum: Mediastinal contours are normal. Heart size is normal. Bones and chest wall: No suspicious bony abnormalities. Soft tissues appear unremarkable. IMPRESSION: Normal for age, source of current cough symptoms is not seen. Dictated by: Jeb Evangelista M.D. on 12/07/2020 at 13:33 Approved by: Jeb Evangelista M.D. on 12/07/2020 at 13:33
== END ==
PROVIDERS: PCP Family Medicine; Referring Provider Family Medicine; Visit Provider Family Medicine
DX: R05 Cough (principal)
CPT/HCPCS: 71046

== ENCOUNTER → 2022-03-01 13:56 | Outpatient (CLI) | payer MEDICARE, OTHER, SELFPAY ==
[2020-08-25 16:30] VITALS: BMI 25.5
== END ==
PROVIDERS: PCP Family Medicine; Visit Provider Physician Assistant
DX: S91.309A Unspecified open wound, unspecified foot, initial encounter (principal)
CPT/HCPCS: 87070; 87077; 87147; 87205

== ENCOUNTER → 2022-03-07 08:14 | Outpatient (CLI) | payer MEDICARE, OTHER, SELFPAY ==
[2020-08-25 16:30] VITALS: BMI 25.5
== END ==
PROVIDERS: PCP Family Medicine; Referring Provider Family Medicine; Visit Provider Family Medicine
DX: G62.9 Polyneuropathy, unspecified (principal); L97.424 Non-pressure chronic ulcer of left heel and midfoot with necrosis of bone; L08.9 Local infection of the skin and subcutaneous tissue, unspecified; M86.172 Other acute osteomyelitis, left ankle and foot; R60.0 Localized edema; Q66.71 Congenital pes cavus, right foot; Q66.72 Congenital pes cavus, left foot; M20.41 Other hammer toe(s) (acquired), right foot; M20.42 Other hammer toe(s) (acquired), left foot; M32.9 Systemic lupus erythematosus, unspecified; D84.821 Immunodeficiency due to drugs; I77.6 Arteritis, unspecified; E78.5 Hyperlipidemia, unspecified; Z79.52 Long term (current) use of systemic steroids; Z79.899 Other long term (current) drug therapy; Z87.448 Personal history of other diseases of urinary system; Z86.718 Personal history of other venous thrombosis and embolism; Z86.711 Personal history of pulmonary embolism; Z87.891 Personal history of nicotine dependence; L97.524 Non-pressure chronic ulcer of other part of left foot with necrosis of bone
CPT/HCPCS: 11044; 36415; 80053; 85025; 85651; 86140; 87070; 87075; 87176; 87205; 99204; 99214

== ENCOUNTER → 2022-03-07 10:13 | Outpatient (CLI) | payer MEDICARE, OTHER, SELFPAY ==
[2020-08-25 16:30] VITALS: BMI 25.5
[2022-03-07 10:45] LABS: Add Manual Diff / Slide Review NO; Basophils Absolute Auto 100 /uL (0-100); Basophils Percent Auto 0.9 % (0-2); Eosinophils Absolute Auto 0 /uL (0-450); Eosinophils Percent Auto 0.5 % (2-4); Hematocrit 39.4 % (41-53); Hemoglobin 13.3 g/dL (13.5-17.5); Lymphocytes Absolute Auto 600 /uL (1100-4500); Lymphocytes Percent Auto 8.9 % (25-40); Mean Corpuscular HGB Conc 33.8 % (30-36); Mean Corpuscular Hemoglobin 30.3 PG (26-34); Mean Corpuscular Volume 89.8 fL (80-100); Monocytes Absolute Auto 300 /uL (0-900); Neutrophils Absolute Auto 5600 /uL (1500-7000); Neutrophils Percent Auto 84.7 % (50-75); Platelet Count 350 X10^3/uL (150-400); Red Blood Cell Count 4.39 X10^6/uL (4.5-5.9); Red Cell Distribution Width 12.8 % (11.6-14.8); White Blood Cell Count 6.6 X10^3/uL (4.5-11.0)
[2022-03-07 11:06] LABS: Erythrocyte Sedimentation Rate 31 MM/HR (0-15)
[2022-03-07 11:10] LABS: Alanine Aminotransferase 20 IU/L (<50); Albumin 3.5 g/dL (3.5-5.0); Albumin Globulin Ratio 1.2 (1.0-2.8); Alkaline Phosphatase 73 U/L (38-126); Aspartate Aminotransferase 29 IU/L (17-59); BUN Creatinine Ratio 20.2 (6-22); Bilirubin Total 0.3 mg/dL (0.2-1.3); Blood Urea Nitrogen 23 mg/dL (9-20); Calcium 9.1 mg/dL (8.4-10.2); Carbon Dioxide 30 mmol/L (22-32); Chloride 99 mmol/L (98-107); Estimated Glomerular Filt Rate > 60 mL/min (>60); Globulin 2.9 g/dL (1.7-4.1); Glucose 103 mg/dL (80-110); HEMOLYSIS < 15 (0-50); Potassium 4.7 mmol/L (3.4-5.1); Sodium 134 mmol/L (137-145); Total Protein 6.4 g/dL (6.3-8.2)
== END ==
PROVIDERS: PCP Family Medicine; Referring Provider Family Medicine; Visit Provider Family Medicine
DX: L08.9 Local infection of the skin and subcutaneous tissue, unspecified (principal); L97.524 Non-pressure chronic ulcer of other part of left foot with necrosis of bone
CPT/HCPCS: 36415; 80053; 85025; 85651; 86140

== ENCOUNTER → 2022-03-14 13:10 | Outpatient (CLI) | payer MEDICARE, OTHER, SELFPAY ==
[2020-08-25 16:30] VITALS: BMI 25.5
== END ==
PROVIDERS: PCP Family Medicine; Referring Provider Family Medicine; Visit Provider Family Medicine
DX: G62.9 Polyneuropathy, unspecified (principal); L97.424 Non-pressure chronic ulcer of left heel and midfoot with necrosis of bone; R60.0 Localized edema; M86.272 Subacute osteomyelitis, left ankle and foot; R79.82 Elevated C-reactive protein (CRP); M20.60 Acquired deformities of toe(s), unspecified, unspecified foot; M32.9 Systemic lupus erythematosus, unspecified; D84.821 Immunodeficiency due to drugs; I77.6 Arteritis, unspecified; E78.5 Hyperlipidemia, unspecified; Z79.52 Long term (current) use of systemic steroids; Z79.899 Other long term (current) drug therapy; Z79.2 Long term (current) use of antibiotics; Z87.448 Personal history of other diseases of urinary system; Z86.718 Personal history of other venous thrombosis and embolism; Z86.711 Personal history of pulmonary embolism; Z87.891 Personal history of nicotine dependence
CPT/HCPCS: 11043; 93922; 99214

== ENCOUNTER → 2022-03-21 13:52 | Outpatient (CLI) | payer MEDICARE, OTHER, SELFPAY ==
[2020-08-25 16:30] VITALS: BMI 25.5
== END ==
PROVIDERS: PCP Family Medicine; Referring Provider Family Medicine; Visit Provider Family Medicine
DX: G62.9 Polyneuropathy, unspecified (principal); L97.426 Non-pressure chronic ulcer of left heel and midfoot with bone involvement without evidence of necrosis; R60.0 Localized edema
CPT/HCPCS: 99212

== ENCOUNTER → 2022-03-28 10:13 | Outpatient (CLI) | payer MEDICARE, OTHER, SELFPAY ==
[2020-08-25 16:30] VITALS: BMI 25.5
== END ==
PROVIDERS: PCP Family Medicine; Referring Provider Family Medicine; Visit Provider Family Medicine
DX: G62.9 Polyneuropathy, unspecified (principal); L97.424 Non-pressure chronic ulcer of left heel and midfoot with necrosis of bone; M86.172 Other acute osteomyelitis, left ankle and foot; R79.82 Elevated C-reactive protein (CRP); I73.9 Peripheral vascular disease, unspecified; M20.60 Acquired deformities of toe(s), unspecified, unspecified foot; M32.9 Systemic lupus erythematosus, unspecified; D84.821 Immunodeficiency due to drugs; E78.5 Hyperlipidemia, unspecified; Z79.52 Long term (current) use of systemic steroids; Z79.899 Other long term (current) drug therapy; Z79.2 Long term (current) use of antibiotics; Z87.448 Personal history of other diseases of urinary system; Z86.718 Personal history of other venous thrombosis and embolism; Z86.711 Personal history of pulmonary embolism; Z87.891 Personal history of nicotine dependence
CPT/HCPCS: 93923; 99213; 99214

== ENCOUNTER → 2022-04-04 13:24 | Outpatient (CLI) | payer MEDICARE, OTHER, SELFPAY ==
[2020-08-25 16:30] VITALS: BMI 25.5
== END ==
PROVIDERS: PCP Family Medicine; Referring Provider Family Medicine; Visit Provider Family Medicine
DX: G62.9 Polyneuropathy, unspecified (principal); L97.424 Non-pressure chronic ulcer of left heel and midfoot with necrosis of bone; M86.172 Other acute osteomyelitis, left ankle and foot; R79.82 Elevated C-reactive protein (CRP); M21.42 Flat foot [pes planus] (acquired), left foot; M21.6X1 Other acquired deformities of right foot; M21.6X2 Other acquired deformities of left foot; M32.9 Systemic lupus erythematosus, unspecified; D84.821 Immunodeficiency due to drugs; E78.5 Hyperlipidemia, unspecified; Z79.52 Long term (current) use of systemic steroids; Z79.899 Other long term (current) drug therapy; Z79.2 Long term (current) use of antibiotics; Z87.448 Personal history of other diseases of urinary system; Z86.718 Personal history of other venous thrombosis and embolism; Z86.711 Personal history of pulmonary embolism; Z87.891 Personal history of nicotine dependence
CPT/HCPCS: 99213

== ENCOUNTER → 2022-04-18 09:37 | Outpatient (CLI) | payer MEDICARE, OTHER, SELFPAY ==
[2020-08-25 16:30] VITALS: BMI 25.5
== END ==
PROVIDERS: PCP Family Medicine; Referring Provider Family Medicine; Visit Provider Family Medicine
DX: G62.9 Polyneuropathy, unspecified (principal); L97.424 Non-pressure chronic ulcer of left heel and midfoot with necrosis of bone; M86.172 Other acute osteomyelitis, left ankle and foot; M21.42 Flat foot [pes planus] (acquired), left foot; M21.6X1 Other acquired deformities of right foot; M21.6X2 Other acquired deformities of left foot; M32.9 Systemic lupus erythematosus, unspecified; D84.821 Immunodeficiency due to drugs; E78.5 Hyperlipidemia, unspecified; Z79.52 Long term (current) use of systemic steroids; Z79.899 Other long term (current) drug therapy; Z79.2 Long term (current) use of antibiotics; Z87.448 Personal history of other diseases of urinary system; Z86.718 Personal history of other venous thrombosis and embolism; Z86.711 Personal history of pulmonary embolism; Z87.891 Personal history of nicotine dependence
CPT/HCPCS: 11044

== ENCOUNTER → 2022-04-19 12:53 | Outpatient (CLI) | payer MEDICARE, OTHER, SELFPAY ==
[2020-08-25 16:30] VITALS: BMI 25.5
--- NOTE | 2022-04-19 | DI.MRI.S_ITS ---
PROCEDURE: MR FOOT LT WO/W CON INDICATIONS: Subacute osteomyelitis, left ankle and foot TECHNIQUE: Noncontrast coronal T1 spin echo and STIR, sagittal T1 spin echo with fat saturation and STIR, axial T1 spin echo and T2 fast spin echo with fat saturation. After the administration of contrast, axial/sagittal/coronal T1 spin echo with fat saturation through the left forefoot . COMPARISON: [facility], CR, XR FOOT 3 VIEWS WEIGHT BEARING LEFT, 03/29/2022, 11:33. [facility], MR, MR FOOT RT WO/W CON, 12/29/2018, 8:46. FINDINGS: Image quality: Excellent. Bones: Severe ill-defined T2 signal elevation and enhancement throughout the proximal, mid, and distal aspect of the 1st metatarsal is present. There are several multi locular low high T2 intensity foci within the mid/proximal aspect of the 1st metatarsal spanning roughly 35 mm anteroposterior by 8 mm transverse. There is mild ill-defined STIR signal elevation and enhancement within the proximal aspect of the proximal phalanx of the 3rd digit. There is focal erosion of the inferior aspect of the 1st metatarsal head. Soft tissues: No soft tissue masses are visualized. There is moderate ill-defined STIR signal elevation and enhancement within the soft tissues surrounding the 1st metatarsal extending to the plantar surface where there appears to be a focal soft tissue ulcer. There is enlargement of the flexor hallucis longus tendon which demonstrates moderate internal T2 signal elevation, indicating partial thickness tearing. IMPRESSION: 1. Severe osteomyelitis of the 1st metatarsal with possible intraosseous abscesses. 2. Osteomyelitis of the proximal aspect of the 1st digit. 3. Soft tissue ulceration and cellulitis within the plantar soft tissues adjacent to the 1st metatarsal. 4. Partial-thickness tearing of the flexor hallucis longus tendon. Dictated by: Hernando Breaux M.D. on 04/19/2022 at 16:16 Transcribed by: CHAD on 04/19/2022 at 16:20 Approved by: Hernando Breaux M.D. on 04/19/2022 at 16:58
== END ==
PROVIDERS: PCP Family Medicine; Referring Provider Orthopaedic Surgery Foot and Ankle Surgery; Visit Provider Orthopaedic Surgery Foot and Ankle Surgery
DX: M86.272 Subacute osteomyelitis, left ankle and foot (principal); L97.429 Non-pressure chronic ulcer of left heel and midfoot with unspecified severity; L03.116 Cellulitis of left lower limb; S96.012A Strain of muscle and tendon of long flexor muscle of toe at ankle and foot level, left foot, initial encounter
CPT/HCPCS: 73720

== ENCOUNTER → 2022-04-23 14:57 | Outpatient (CLI) | payer MEDICARE, OTHER, SELFPAY ==
[2020-08-25 16:30] VITALS: BMI 25.5
== END ==
PROVIDERS: PCP Family Medicine; Referring Provider Family Medicine; Visit Provider Family Medicine
DX: G62.9 Polyneuropathy, unspecified (principal); L97.424 Non-pressure chronic ulcer of left heel and midfoot with necrosis of bone; M86.172 Other acute osteomyelitis, left ankle and foot; M21.42 Flat foot [pes planus] (acquired), left foot; M21.6X1 Other acquired deformities of right foot; M21.6X2 Other acquired deformities of left foot; M32.9 Systemic lupus erythematosus, unspecified; D84.821 Immunodeficiency due to drugs; E78.5 Hyperlipidemia, unspecified; Z79.52 Long term (current) use of systemic steroids; Z79.899 Other long term (current) drug therapy; Z79.2 Long term (current) use of antibiotics; Z87.448 Personal history of other diseases of urinary system; Z86.718 Personal history of other venous thrombosis and embolism; Z86.711 Personal history of pulmonary embolism; Z87.891 Personal history of nicotine dependence
CPT/HCPCS: 99212; 99214

== ENCOUNTER → 2022-05-02 10:04 | Outpatient (CLI) | payer MEDICARE, OTHER, SELFPAY ==
[2020-08-25 16:30] VITALS: BMI 25.5
== END ==
PROVIDERS: PCP Family Medicine; Referring Provider Family Medicine; Visit Provider Family Medicine
DX: G62.9 Polyneuropathy, unspecified (principal); L97.424 Non-pressure chronic ulcer of left heel and midfoot with necrosis of bone; M86.272 Subacute osteomyelitis, left ankle and foot; M21.42 Flat foot [pes planus] (acquired), left foot; M21.6X1 Other acquired deformities of right foot; M21.6X2 Other acquired deformities of left foot; M32.9 Systemic lupus erythematosus, unspecified; D84.821 Immunodeficiency due to drugs; E78.5 Hyperlipidemia, unspecified; Z79.52 Long term (current) use of systemic steroids; Z79.899 Other long term (current) drug therapy; Z79.2 Long term (current) use of antibiotics; Z87.448 Personal history of other diseases of urinary system; Z86.718 Personal history of other venous thrombosis and embolism; Z86.711 Personal history of pulmonary embolism; Z87.891 Personal history of nicotine dependence
CPT/HCPCS: 99213

== ENCOUNTER → 2022-05-09 12:03 | Outpatient (CLI) | payer MEDICARE, OTHER, SELFPAY ==
[2020-08-25 16:30] VITALS: BMI 25.5
[2022-05-09 13:08] LABS: COVID19 -Nasal RAPID Negative (Negative)
== END ==
PROVIDERS: PCP Family Medicine; Referring Provider Orthopaedic Surgery Foot and Ankle Surgery; Visit Provider Orthopaedic Surgery Foot and Ankle Surgery
DX: Z20.822 Contact with and (suspected) exposure to COVID-19 (principal)
CPT/HCPCS: 87635; C9803

== ENCOUNTER 2022-05-11 09:10 | Day surgery (SDC) | payer MEDICARE, OTHER, SELFPAY ==
[2020-08-25 16:30] VITALS: BMI 25.5
[2022-05-09 08:28] VITALS: BMI 26.2
[2022-05-11] MEDS: LACTATED RINGERS 1,000 ML 42 ML IV (09:33)
[2022-05-11 09:38] VITALS: BP 139/78; PULSE 94; RESP 18; TEMP 36.1; O2SAT 100; BMI 26.2
--- NOTE | 2022-05-11 09:53 | SUR.PREOP ---
RIGHT PICC LINE RIGHT A/C
--- NOTE | 2022-05-11 10:01 | SUR.PREOP ---
pt had tablet in belongings
--- NOTE | 2022-05-11 10:20 | PM.PREOP ---
Pre-operative Note COVID-19 COVID-19 status: Negative Result date/Date tested (Pos, Neg/Pending): 05/09/22 Criteria for continued procedure: Expected advancement of disease process Interval Note History & Physical reviewed/Exam performed by Physician: Yes Changes to H&P: Yes H&P completed within 30 days and has changed as indicated here:: Patient has decided to proceed with the partial 1st ray amputation over the salvage procedure. Consent signed for partial 1st ray amputation left foot. Otherwise exam stable preop. HEENT exam normocephalic it is traumatic. Heart regular rate rhythm. Lungs clear to auscultation. Left foot demonstrates neuropathic plantar ulcer at 1st MTP joint MRI consistent with osteomyelitis.
[2022-05-11] MEDS: CEFAZOLIN 2 GM/20 ML SYRINGE IV (10:47)
--- NOTE | 2022-05-11 11:08 | SUR.OPER ---
Supine on padded OR bed, head on pillow, arms secured on padded arm boards at <90 degrees abduction, legs uncrossed, safety belt at lower torso, tape over blanket over right lower leg, left lower leg prepped, sterile drapped and in control of the Surgeon. [place] bump under left hip and folded blankets under left lower leg.
[2022-05-11] MEDS: VANCOMYCIN 1,000 MG VIAL 1000 MG TOP (11:39)
[2022-05-11] MEDS: BUPIVACAINE 0.5% (PF) VIAL 30 ML INJ (11:40)
[2022-05-11] MEDS: EPINEPHrine 1 MG/ML 0.15 MG INJ (11:40)
[2022-05-11 12:07] VITALS: BP 155/74; PULSE 101; RESP 15; TEMP 37; O2SAT 96
[2022-05-11 12:12] VITALS: BP 149/73; PULSE 96; RESP 24; O2SAT 97
--- NOTE | 2022-05-11 12:16 | P.OP_ITS ---
Operative Date/Time/Diagnoses Date of procedure: 05/11/22 Time of procedure: 11:06 Pre-op diagnosis: 1. 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 Osteomyelitis left foot M86.8x7 3. Lupus Post-op diagnosis: same Procedure & Clinicians Procedure: 1. 1st ray amputation left foot CPT code 40325 2. 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 His MRI shows interosseous abscesses in the 1st metatarsal as well as osteomyelitis 1st metatarsal head and proximal phalanx. His wound care physician states that has not improved. He is indicated for surgical treatment. We discussed options including salvage and amputation options. Discussed that debridement and amputation provides the best chance for eradication of the infection. We discussed risks including wound healing problems or need for additional surgery. The patient has expressed a desire to proceed with 1st ray amputation and placement of antibiotic beads. He will continue on his IV antibiotics from Infectious Disease. New biopsies of the bone will be taken. The risks and benefits of the procedure have been discussed with the patient even opportunity to ask questions. The risks of surgery include but are not limited to infection, wound healing problems need for additional surgery or amputation, persistence of pain, damage to nerves and blood vessels, posttraumatic arthritis, DVT, PE, cardiopulmonary complications and . The patient expressed a thorough understanding of the risks and benefits of surgery and has elected to proceed. Consent was signed. Surgeon: Yisel Klein Click Yes if Unassisted: Yes Anesthesia Type: General and Local Operative Notes Findings: Open full-thickness neuropathic ulcer plantar great toe in the area of the lateral sesamoid probes deep to bone. First metatarsal and 1st MTP joint tissue noted to be chaidez and soft. After resection of the 1st metatarsal head there is noted small amount of purulence within the 1st metatarsal can now. This is curette did thoroughly to the metatarsal base and all necrotic tissue was debrided Closure Type: primary Specimen(s): other (Great toe and left 1st metatarsal sent for microbiology and pathology) Estimated Blood Loss (mL): 10 Blood products transfused: none Tourniquet time (min): 40 Procedure in detail: Patient was seen in the preoperative area the site of surgery was marked informed consent confirmed. He was brought back to the operating room by the anesthesia team positioned supine on operative table. General anesthesia was administered. The left lower extremity was prepped and draped in the standard sterile fashion with Betadine on the open wound. A well-padded nonsterile thigh tourniquet was placed. A formal time-out procedure was performed confirming the patient's side and site of surgery administration of appropriate antibiotics. All were in agreement. The patient was prepped and draped gravity exsanguination was utilized and the tourniquet was elevated to 250 mmHg Attention was turned to the left foot the tennis racquet style amputation incision was marked out around the great toe and extending medially along the metatarsal. This completely excise the plantar ulcer. Full-thickness skin incision was made. The great toe was disarticulated at the metatarsophalangeal joint and passed off the table for pathology. This exposed the metatarsal head which was chaidez and soft indicative of osteomyelitis. This was then transected and also passed off the table for pathology. There was a small amount of purulence noted in the level of the transection in the 1st metatarsal canal. Small curette was then taken to thoroughly curette out the metatarsal canal getting all the way back to the base of the 1st metatarsal this bone was sent for microbiology. After this was completed in all necrotic soft tissue had been debrided and removed including the lateral sesamoid . Intraoperative C-arm fluoroscopy was used to confirm the transection level. The wound was then irrigated with 3 L of sterile saline using the cysto tubing. Gloves and drapes were changed after this was completed. The dissolvable antibiotic beads were made with the Stimulan 3 cc package using 500 mg of vancomycin these were then packed into the 1st metatarsal canal and as soft tissues. Additional vancomycin powder was used and the soft tissue deep and subcutaneous layers. The wound was then closed in layered fashion with 2-0 PDS suture 4-0 Monocryl and 3-0 nylon suture. Tourniquet was released prior to final closure and hemostasis had been confirmed achieved. The wound was closed and 30 cc of 0.25% Marcaine with epinephrine was injected for local anesthetic. The wound was dressed with a soft dressing Xeroform gauze 4x4s Kerlix and an Fernando wrap. Drapes removed. Patient was woken from anesthesia and taken to PACU in good condition. There no immediate complications from this procedure. All counts were correct. Complications: none Post-operative Condition: stable Disposition: PACU Plan for aftercare: Flatfoot or heel weight-bearing in the postoperative shoe. Dressing should remain clean and in place. Sutures will remain in place proximally 4-6 weeks. Patient has dissolvable antibiotic beads follow-up in clinic for wound check in 2 weeks. We will continue his scheduled IV antibiotics through his PICC line. Aspirin for DVT prophylaxis starting postop day 1 Until full weight-bearing
[2022-05-11 12:17] VITALS: BP 142/82; PULSE 96; RESP 19; O2SAT 93
[2022-05-11 12:22] VITALS: BP 158/75; PULSE 99; RESP 19; TEMP 36.1; O2SAT 95
[2022-05-11 12:30] VITALS: BP 151/78; PULSE 92; RESP 15; TEMP 36.1; O2SAT 94
--- NOTE | 2022-05-11 13:09 | SUR.PHASEII ---
1250 late entry PICC line flushed with NS per policy; patient states that his is also his daily PICC management after the 4pm infusions. A&O, pleasant. No questions or concerns upon discharge.
== END 2022-05-11 12:57 | disposition home or self-care (01) ==
PROVIDERS: PCP Family Medicine; Referring Provider Orthopaedic Surgery Foot and Ankle Surgery; Visit Provider Orthopaedic Surgery Foot and Ankle Surgery
PROC: (CPT 28810; principal; 2022-05-11 10:45)
DX: L98.494 Non-pressure chronic ulcer of skin of other sites with necrosis of bone (principal); M86.8X7 Other osteomyelitis, ankle and foot; M32.9 Systemic lupus erythematosus, unspecified; E78.5 Hyperlipidemia, unspecified
CPT/HCPCS: 28810; 87070; 87075; 87205; J0171; J0690; J1100; J2405; J2704; J3010

== ENCOUNTER → 2022-07-09 09:09 | Outpatient (CLI) | payer MEDICARE, OTHER, SELFPAY ==
[2020-08-25 16:30] VITALS: BMI 25.5
== END ==
PROVIDERS: PCP Family Medicine; Referring Provider Family Medicine; Visit Provider Family Medicine
DX: G60.8 Other hereditary and idiopathic neuropathies (principal); L97.522 Non-pressure chronic ulcer of other part of left foot with fat layer exposed; T87.89 Other complications of amputation stump; L08.89 Other specified local infections of the skin and subcutaneous tissue; Z79.52 Long term (current) use of systemic steroids; Z79.899 Other long term (current) drug therapy; Z89.422 Acquired absence of other left toe(s)
CPT/HCPCS: 11042; 87070; 87075; 87077; 87147; 87186; 87205; 99213; 99214

== ENCOUNTER → 2022-07-16 09:58 | Outpatient (CLI) | payer MEDICARE, OTHER, SELFPAY ==
[2020-08-25 16:30] VITALS: BMI 25.5
== END ==
PROVIDERS: PCP Family Medicine; Referring Provider Family Medicine; Visit Provider Family Medicine
DX: G60.8 Other hereditary and idiopathic neuropathies (principal); L97.522 Non-pressure chronic ulcer of other part of left foot with fat layer exposed; L08.89 Other specified local infections of the skin and subcutaneous tissue; B95.7 Other staphylococcus as the cause of diseases classified elsewhere; Z79.52 Long term (current) use of systemic steroids; Z79.899 Other long term (current) drug therapy; Z89.422 Acquired absence of other left toe(s)
CPT/HCPCS: 11042; 99214

== ENCOUNTER → 2022-07-23 09:23 | Outpatient (CLI) | payer MEDICARE, OTHER, SELFPAY ==
[2020-08-25 16:30] VITALS: BMI 25.5
== END ==
PROVIDERS: PCP Family Medicine; Referring Provider Family Medicine; Visit Provider Family Medicine
DX: G60.8 Other hereditary and idiopathic neuropathies (principal); T87.81 Dehiscence of amputation stump; R60.0 Localized edema; Z79.52 Long term (current) use of systemic steroids; Z79.899 Other long term (current) drug therapy; Z89.422 Acquired absence of other left toe(s)
CPT/HCPCS: 11042

== ENCOUNTER → 2022-07-30 08:35 | Outpatient (CLI) | payer MEDICARE, OTHER, SELFPAY ==
[2020-08-25 16:30] VITALS: BMI 25.5
== END ==
PROVIDERS: PCP Family Medicine; Referring Provider Family Medicine; Visit Provider Family Medicine
DX: L08.9 Local infection of the skin and subcutaneous tissue, unspecified (principal); L97.529 Non-pressure chronic ulcer of other part of left foot with unspecified severity; L03.116 Cellulitis of left lower limb; G60.8 Other hereditary and idiopathic neuropathies; T87.81 Dehiscence of amputation stump; S91.302A Unspecified open wound, left foot, initial encounter; R60.0 Localized edema; Z89.422 Acquired absence of other left toe(s); M86.18 Other acute osteomyelitis, other site
CPT/HCPCS: 11042; 36415; 73720; 80053; 85025; 85651; 86140; 87070; 87075; 87077; 87147; 87186; 87205; 99214; A9579

== ENCOUNTER → 2022-07-30 09:39 | Outpatient (CLI) | payer MEDICARE, OTHER, SELFPAY ==
[2020-08-25 16:30] VITALS: BMI 25.5
[2022-07-30 10:13] LABS: Add Manual Diff / Slide Review NO; Basophils Absolute Auto 0 /uL (0-100); Eosinophils Absolute Auto 100 /uL (0-450); Eosinophils Percent Auto 1.9 % (2-4); Hematocrit 41.3 % (41-53); Hemoglobin 13.6 g/dL (13.5-17.5); Lymphocytes Absolute Auto 500 /uL (1100-4500); Lymphocytes Percent Auto 11.5 % (25-40); Mean Corpuscular Hemoglobin 29.5 PG (26-34); Mean Corpuscular Volume 89.4 fL (80-100); Monocytes Absolute Auto 400 /uL (0-900); Monocytes Percent Auto 8.6 % (3-14); Neutrophils Absolute Auto 3300 /uL (1500-7000); Platelet Count 224 X10^3/uL (150-400); Red Blood Cell Count 4.62 X10^6/uL (4.5-5.9); Red Cell Distribution Width 15.4 % (11.6-14.8); White Blood Cell Count 4.3 X10^3/uL (4.5-11.0)
[2022-07-30 10:26] LABS: HEMOLYSIS < 15 (0-50); Sodium 133 mmol/L (137-145)
[2022-07-30 10:28] LABS: Erythrocyte Sedimentation Rate 4 MM/HR (0-15)
[2022-07-30 10:29] LABS: Alanine Aminotransferase 24 IU/L (<50); Albumin 3.7 g/dL (3.5-5.0); Albumin Globulin Ratio 1.1 (1.0-2.8); Alkaline Phosphatase 76 U/L (38-126); Aspartate Aminotransferase 36 IU/L (17-59); BUN Creatinine Ratio 20.8 (6-22); Bilirubin Total 0.4 mg/dL (0.2-1.3); Blood Urea Nitrogen 22 mg/dL (9-20); C-Reactive Protein Quant 0.6 mg/dL (<1.0); Calcium 8.7 mg/dL (8.4-10.2); Carbon Dioxide 26 mmol/L (22-32); Chloride 100 mmol/L (98-107); Estimated Glomerular Filt Rate > 60 mL/min (>60); Globulin 3.3 g/dL (1.7-4.1); Glucose 95 mg/dL (80-110); Potassium 4.7 mmol/L (3.4-5.1)
== END ==
PROVIDERS: PCP Family Medicine; Referring Provider Family Medicine; Visit Provider Family Medicine
DX: L08.9 Local infection of the skin and subcutaneous tissue, unspecified (principal)
CPT/HCPCS: 36415; 80053; 85025; 85651; 86140

== ENCOUNTER → 2022-07-30 16:55 | Outpatient (CLI) | payer MEDICARE, OTHER, SELFPAY ==
[2020-08-25 16:30] VITALS: BMI 25.5
--- NOTE | 2022-07-30 16:57 | DI.MRI.S_ITS ---
PROCEDURE: MR FOOT LT WO/W CON INDICATIONS: evaluate for osteomyelitis TECHNIQUE: Noncontrast coronal T1 spin echo and STIR, sagittal T1 spin echo with fat saturation and STIR, axial T1 spin echo and T2 fast spin echo with fat saturation. After the administration of contrast, axial/sagittal/coronal T1 spin echo with fat saturation through the left foot. COMPARISON: [facility], MR, MR FOOT LT WO/W CON, 04/19/2022, 12:58. FINDINGS: Image quality: Excellent. Bones: There is prior amputation of left great toe at the level of mid 1st metatarsal shaft. Significant marrow edema throughout 1st metatarsal shaft with erosive changes involving 1st metatarsal stump is seen consistent with osteomyelitis in this area. Mild edema involving plantar and lateral aspect of 2nd metatarsal head is seen without discrete fracture line likely represent contusion. No gross bony erosive changes are seen. After IV contrast infusion, enhancement within 1st metatarsal stump is noted. Subtle enhancement along plantar aspect of 2nd metatarsal head is seen. Soft tissues: There is ulceration over 1st metatarsal stump with extensive subcutaneous soft tissue edema and swelling. There is suggestion of a small ill-defined peripherally enhancing fluid collection distal to the 1st metatarsal stump and measures approximately 1.4 x 1.3 x 0.5 cm in size concerning for small abscess collection in this area. The scanned muscles demonstrate normal overall bulk and internal signal. IMPRESSION: 1. Full-thickness ulceration at great toe amputation site with adjacent cellulitis and suggestion of small abscess collection distal to 1st metatarsal stump as above. No discrete drainable fluid collection is noted. 2. Finding is consistent with osteomyelitis involving 1st metatarsal stump with bony erosive changes along the surgical margin. 3. Subtle marrow signal abnormality involving plantar and lateral aspect of 2nd metatarsal head without overlying cortical erosion or destruction. This could represent area of bony contusion. Early osteomyelitis cannot be entirely excluded. Dictated by: Han Velazco M.D. on 07/31/2022 at 11:25 Approved by: Han Velazco M.D. on 07/31/2022 at 11:30
== END ==
PROVIDERS: PCP Family Medicine; Referring Provider Family Medicine; Visit Provider Family Medicine
DX: L08.9 Local infection of the skin and subcutaneous tissue, unspecified (principal); L97.529 Non-pressure chronic ulcer of other part of left foot with unspecified severity; L03.116 Cellulitis of left lower limb
CPT/HCPCS: 73720; A9579

== ENCOUNTER → 2022-08-06 08:43 | Outpatient (CLI) | payer MEDICARE, OTHER, SELFPAY ==
[2020-08-25 16:30] VITALS: BMI 25.5
== END ==
PROVIDERS: PCP Family Medicine; Referring Provider Orthopaedic Surgery Foot and Ankle Surgery; Visit Provider Family Medicine
DX: G60.8 Other hereditary and idiopathic neuropathies (principal); T87.89 Other complications of amputation stump; L08.9 Local infection of the skin and subcutaneous tissue, unspecified; B95.7 Other staphylococcus as the cause of diseases classified elsewhere; Z89.422 Acquired absence of other left toe(s); Z79.52 Long term (current) use of systemic steroids; Z79.899 Other long term (current) drug therapy; Z79.2 Long term (current) use of antibiotics
CPT/HCPCS: 99213; 99214

== ENCOUNTER → 2022-12-20 11:37 | Outpatient (CLI) | payer MEDICARE, OTHER, SELFPAY ==
[2020-08-25 16:30] VITALS: BMI 25.5
[2022-12-20 12:34] LABS: Influenza A - CEPHEID Flu A NEGATIVE (NEGATIVE); Influenza B - CEPHEID Flu B NEGATIVE (NEGATIVE); Respiratory Syncytial Virus Negative (Negative)
[2022-12-20 12:47] LABS: COVID-19 CEPHEID 4-PLEX PCR Negative (Negative)
== END ==
PROVIDERS: PCP Family Medicine; Visit Provider Nurse Practitioner Family
DX: R05.1 Acute cough (principal)
CPT/HCPCS: 0241U

== ENCOUNTER → 2023-03-13 08:34 | Outpatient (CLI) | payer MEDICARE, OTHER, SELFPAY ==
[2020-08-25 16:30] VITALS: BMI 25.5
== END ==
PROVIDERS: PCP Family Medicine; Referring Provider Family Medicine; Visit Provider Surgery
DX: L97.512 Non-pressure chronic ulcer of other part of right foot with fat layer exposed (principal); L08.9 Local infection of the skin and subcutaneous tissue, unspecified; G60.3 Idiopathic progressive neuropathy; L97.511 Non-pressure chronic ulcer of other part of right foot limited to breakdown of skin; M32.9 Systemic lupus erythematosus, unspecified
CPT/HCPCS: 11042; 36415; 85025; 85651; 86140; 87070; 87075; 87077; 87186; 87205; 99213; 99214

== ENCOUNTER → 2023-03-13 10:34 | Outpatient (CLI) | payer MEDICARE, OTHER, SELFPAY ==
[2020-08-25 16:30] VITALS: BMI 25.5
[2023-03-13 11:08] LABS: Add Manual Diff / Slide Review NO; Basophils Absolute Auto 0 /uL (0-100); Basophils Percent Auto 0.5 % (0-2); Eosinophils Absolute Auto 200 /uL (0-450); Eosinophils Percent Auto 5.5 % (2-4); Hematocrit 42.4 % (41-53); Hemoglobin 14.3 g/dL (13.5-17.5); Lymphocytes Absolute Auto 600 /uL (1100-4500); Lymphocytes Percent Auto 14.2 % (25-40); Mean Corpuscular HGB Conc 33.7 % (30-36); Mean Corpuscular Hemoglobin 31.3 PG (26-34); Mean Corpuscular Volume 92.8 fL (80-100); Monocytes Absolute Auto 200 /uL (0-900); Neutrophils Absolute Auto 2900 /uL (1500-7000); Neutrophils Percent Auto 74.8 % (50-75); Platelet Count 195 X10^3/uL (150-400); Red Blood Cell Count 4.57 X10^6/uL (4.5-5.9); Red Cell Distribution Width 14.3 % (11.6-14.8); White Blood Cell Count 3.9 X10^3/uL (4.5-11.0)
[2023-03-13 11:40] LABS: Erythrocyte Sedimentation Rate 10 MM/HR (0-15)
[2023-03-13 11:45] LABS: C-Reactive Protein Quant 1.4 mg/dL (<1.0)
== END ==
PROVIDERS: PCP Family Medicine; Referring Provider Surgery; Visit Provider Surgery
DX: L97.512 Non-pressure chronic ulcer of other part of right foot with fat layer exposed (principal); L08.9 Local infection of the skin and subcutaneous tissue, unspecified
CPT/HCPCS: 36415; 85025; 85651; 86140; 87070; 87075; 87077; 87186; 87205

== ENCOUNTER → 2023-03-20 11:38 | Outpatient (CLI) | payer MEDICARE, OTHER, SELFPAY ==
[2020-08-25 16:30] VITALS: BMI 25.5
== END ==
PROVIDERS: PCP Family Medicine; Referring Provider Orthopaedic Surgery Foot and Ankle Surgery; Visit Provider Surgery
DX: L97.512 Non-pressure chronic ulcer of other part of right foot with fat layer exposed (principal); G60.9 Hereditary and idiopathic neuropathy, unspecified; M32.9 Systemic lupus erythematosus, unspecified
CPT/HCPCS: 11042; 99213

== ENCOUNTER → 2023-03-27 10:21 | Outpatient (CLI) | payer MEDICARE, OTHER, SELFPAY ==
[2020-08-25 16:30] VITALS: BMI 25.5
== END ==
PROVIDERS: PCP Family Medicine; Referring Provider Orthopaedic Surgery Foot and Ankle Surgery; Visit Provider Surgery
DX: G60.3 Idiopathic progressive neuropathy (principal); L97.512 Non-pressure chronic ulcer of other part of right foot with fat layer exposed; M32.9 Systemic lupus erythematosus, unspecified
CPT/HCPCS: 11042

== ENCOUNTER → 2023-04-03 13:44 | Outpatient (CLI) | payer MEDICARE, OTHER, SELFPAY ==
[2020-08-25 16:30] VITALS: BMI 25.5
== END ==
PROVIDERS: PCP Family Medicine; Referring Provider Orthopaedic Surgery Foot and Ankle Surgery; Visit Provider Surgery
DX: G60.3 Idiopathic progressive neuropathy (principal); L97.512 Non-pressure chronic ulcer of other part of right foot with fat layer exposed; L97.521 Non-pressure chronic ulcer of other part of left foot limited to breakdown of skin; L84 Corns and callosities
CPT/HCPCS: 11042; 93926; 99213

== ENCOUNTER → 2023-04-03 15:00 | Outpatient (CLI) | payer MEDICARE, OTHER, SELFPAY ==
[2020-08-25 16:30] VITALS: BMI 25.5
== END ==
PROVIDERS: PCP Family Medicine; Referring Provider Surgery; Visit Provider Surgery
DX: L97.512 Non-pressure chronic ulcer of other part of right foot with fat layer exposed (principal)
CPT/HCPCS: 93926

== ENCOUNTER → 2023-04-10 09:04 | Outpatient (CLI) | payer MEDICARE, OTHER, SELFPAY ==
[2020-08-25 16:30] VITALS: BMI 25.5
== END ==
PROVIDERS: PCP Family Medicine; Referring Provider Orthopaedic Surgery Foot and Ankle Surgery; Visit Provider Surgery
DX: G60.3 Idiopathic progressive neuropathy (principal); L97.512 Non-pressure chronic ulcer of other part of right foot with fat layer exposed; L97.522 Non-pressure chronic ulcer of other part of left foot with fat layer exposed; M32.9 Systemic lupus erythematosus, unspecified
CPT/HCPCS: 11042

== ENCOUNTER → 2023-04-17 10:51 | Outpatient (CLI) | payer MEDICARE, OTHER, SELFPAY ==
[2020-08-25 16:30] VITALS: BMI 25.5
== END ==
PROVIDERS: PCP Family Medicine; Referring Provider Orthopaedic Surgery Foot and Ankle Surgery; Visit Provider Surgery
DX: G60.3 Idiopathic progressive neuropathy (principal); L97.512 Non-pressure chronic ulcer of other part of right foot with fat layer exposed; L97.521 Non-pressure chronic ulcer of other part of left foot limited to breakdown of skin; M32.9 Systemic lupus erythematosus, unspecified
CPT/HCPCS: 11042; 99212; 99213

== ENCOUNTER → 2023-04-24 10:08 | Outpatient (CLI) | payer MEDICARE, OTHER, SELFPAY ==
[2020-08-25 16:30] VITALS: BMI 25.5
== END ==
PROVIDERS: PCP Family Medicine; Referring Provider Orthopaedic Surgery Foot and Ankle Surgery; Visit Provider Surgery
DX: G60.3 Idiopathic progressive neuropathy (principal); L97.512 Non-pressure chronic ulcer of other part of right foot with fat layer exposed; M32.9 Systemic lupus erythematosus, unspecified
CPT/HCPCS: 11042

== ENCOUNTER 2023-05-02 09:33 | Day surgery (SDC) | payer MEDICARE, OTHER, SELFPAY ==
[2020-08-25 16:30] VITALS: BMI 25.5
[2023-04-18 12:16] VITALS: BMI 26.2
--- NOTE | 2023-05-02 | PATH_ITS ---
[facility] Accession Number: [id number] No. of containers..01 Tissue . 01 Material submitted: . foot - RIGHT FOOT SESAMOID . 01 Diagnosis: Right Foot Sesamoid, Excision: Fragment of osteocartilaginous and fibroconnective tissue with mild marrow fibrosis and reactive changes. MRV 05/08/2023 1325 Local . 01 Electronically signed: . August Delarosa MD, Dermatopathologist NPI- [id number] . 01 Gross description: . The specimen is received in formalin labeled with the patient's name, , and sesamoid right foot, and consists of a single irregular fragment of frye osseous tissue measuring 1.5 x 1.1 x 0.6 cm. The external surface is inked blue. Sectioning reveals frye, trabecular osseous tissue. The specimen is submitted entirely in cassette A1 following decalcification. ([id number]) /R 05/04/2023 1334 Local . 01 Pathologist provided ICD-10: Q66.89, M21.969 . 01 CPT . 632573, 409360 Specimen Comment: A courtesy copy of this report has been sent to [phone] Performed at: 01 [facility] [address] [place] [address] Suite [facility], [place], [place] [id number] MD Jerod Wood MD Phone: [phone]
[2023-05-02 09:53] VITALS: BMI 26.2
[2023-05-02] MEDS: LACTATED RINGERS 1,000 ML 42 ML IV (10:10)
[2023-05-02 10:13] VITALS: BP 156/89; PULSE 91; RESP 20; TEMP 36.6; O2SAT 98
--- NOTE | 2023-05-02 11:08 | PM.PREOP ---
Pre-operative Note Interval Note History & Physical reviewed/Exam performed by Physician: Yes Changes to H&P: No
--- NOTE | 2023-05-02 11:08 | PM.HP.1 ---
History of Present Illness History of Present Illness Date Patient Seen: 05/02/23 Time Patient Seen: 11:08 Chief complaint: Right Foot Rice Procedure Narrative: Patient is a 77-year-old male with a history of lupus he is on prednisone 5 mg daily. He is had a history of partial amputations on the left foot. On the right foot he has a plantar 1st MTP wound equinus contracture and claw hallux. He is failed conservative treatment with wound care. He has vascular studies that indicate appropriate blood flow. 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 Mother Diabetes mellitus Hyperlipidemia Social History marital status: household members: none lives independently: Yes caregiver/support person: No housing: house education level: college occupational status: previously employed Smoking Status: Former smoker second hand exposure: No alcohol intake: current substance use type: does not use Meds Home Medications and Allergies Home Medications Medication Instructions Recorded Confirmed Type cholecalciferol (vitamin D3) 50 2,000 unit PO DAILY 11/07/18 01/16/23 History mcg (2,000 unit) capsule Disabled Parking Permit #1 ea 10/03/20 01/16/23 Rx hydroxychloroquine 200 mg tablet 200 mg PO BID 05/09/22 01/16/23 History prednisone 5 mg tablet 5 mg PO DAILY 05/02/23 05/02/23 History Allergies Allergy/AdvReac Type Severity Reaction Status Date / Time No Known Drug Allergies Allergy Verified 01/16/23 10:36 Review of Systems Review of Systems Narrative: History of lupus on steroids. ROS: Yes All systems reviewed with the patient and are negative except as otherwise documented Exam Vital Signs (past 8 hours): - 05/02/23 10:13 Temperature 97.9 F Pulse Rate 91 H Respiratory Rate 20 Blood Pressure 156/89 H Pulse Oximetry 98 Oxygen Delivery Method Room Air Oxygen Delivery Method Room Air Narrative Exam Narrative: Alert oriented no acute distress Normocephalic atraumatic Lungs clear to auscultation bilaterally Heart regular rate and rhythm Right lower extremity grossly normal alignment rigid claw hallux equinus contracture 1 x 1.5 cm plantar ulceration 1st MTP no surrounding erythema full-thickness probes deep to bone. No fluctuance. Neuropathic ulcer. Palpable dorsalis pedis pulse. Great toe claw hallux, stocking-glove neuropathy Assessment & Plan Assessment and plan (1) Foot deformity: Status: Acute (2) Neuropathic ulcer of foot: Status: Acute Plan Patient has a rigid claw hallux deformity, equinus contracture neuropathic ulcer and osteomyelitis. This is failed to heal with extensive immobilization offloading and wound care and oral antibiotics. He has been indicated for a IP joint fusion extensor tendon transfer to the 1st metatarsal ?Rice procedure? he is also been indicated for debridement of the plantar ulcer bone biopsy possible placement of antibiotic beads and possible rotational flap closure as well as Achilles tendon lengthening. The risks and benefits of the procedure have been discussed with the patient and given the opportunity to ask questions. The risks of surgery include but are not limited to infection, malunion, nonunion, persistence of pain, damage to nerves and blood vessels, posttraumatic arthritis, DVT, PE, cardiopulmonary complications and . The patient expressed a thorough understanding of the risks and benefits of surgery and has elected to proceed. Consent was signed. Time Spent With Patient Time with patient: less than 30 minutes Quality VTE Deep Vein Thrombosis/Pulmonary Embolism Present on Admission: No
[2023-05-02] MEDS: CEFAZOLIN 2 GM/100 ML PREMIX 100 ML IV (11:20)
--- NOTE | 2023-05-02 11:48 | SUR.OPER ---
Supine on padded OR bed, head on pillow, arms secured on padded arm boards at <90 degrees abduction, legs uncrossed, operative leg elevated on bumps, bump under right thigh, safety belt at abdomen, tape over blanket over nonoperative leg.
[2023-05-02] MEDS: BUPIVACAINE 0.5% W/ EPI (PF) 30 ML VIAL 20 ML INJ (12:13)
[2023-05-02] MEDS: VANCOMYCIN PER PHARMACY 1 REQUEST MISC (12:54)
[2023-05-02 13:20] VITALS: BP 159/86; PULSE 78; RESP 16; TEMP 36.8; O2SAT 95
[2023-05-02 13:24] VITALS: BP 146/83; PULSE 79; RESP 14; TEMP 36.7; O2SAT 94
[2023-05-02 13:29] VITALS: BP 144/74; PULSE 80; RESP 16; O2SAT 98
--- NOTE | 2023-05-02 13:34 | PM.OP.1 ---
Operative Date/Time/Diagnoses Date of procedure: 05/02/23 Time of procedure: 11:50 Pre-op diagnosis: Neuropathic ulcer with necrosis of bone Equinus contracture right ankle Claw toe Lupus Post-op diagnosis: same Procedure & Clinicians Procedure: Right foot Rice procedure, hallux interphalangeal joint fusion and extensor tendon transfer to the 1st metatarsal CPT code 31840 Lengthening right Achilles tendon CPT code 61108-20 separate surgical site Local preparation and rearrangement of rotational flap less than 10 cm CPT code 32880-74 separate site Debridement of bone, excision medial sesamoid CPT code CPT 36466 Manual preparation insertion antibiotic drug delivery device, antibiotic beads CPT code 35739 Same procedure as scheduled: Yes Indications: The patient is a 77-year-old male with a 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 This is 1 x 1.5 x 0.5 cm plantar 1st ray ulceration and rigid deformity of the hallux with a claw toe and equinus ankle deformity. He has been indicated for Rice procedure with IPJ fusion, extensor transfer to the 1st metatarsal Achilles lengthening ulcer debridement bone and her sesamoid excision as indicated and possible closure with rotational flap and placement of antibiotic beads. The risks and benefits of the procedure have been discussed with the patient and given the opportunity to ask questions. The risks of surgery include but are not limited to infection, malunion, nonunion, persistence of pain, damage to nerves and blood vessels, posttraumatic arthritis, DVT, PE, cardiopulmonary complications and . The patient expressed a thorough understanding of the risks and benefits of surgery and has elected to proceed. Consent was signed. Surgeon: Yisel Klein Click Yes if Unassisted: Yes Anesthesia Type: General and Local Operative Notes Findings: 1 x 1.5 x 0.5 cm plantar neuropathic ulceration. No fluctuance. Full-thickness ulceration probes deep to medial sesamoid bone this was debrided and ellipsed size. Medial sesamoid was removed. Antibiotic beads were placed and a local rotational flap was used to close the plantar wound defect. The hallux claw toe was corrected performing a IP joint fusion and the extensor hallucis longus was transferred to the 1st metatarsal. There was an equinus contracture on [place] and a lengthening of the Achilles was performed with a triple joby section technique. Closure Type: primary Specimen(s): none sent Prosthetic devices, grafts, tissues, transplants, or devices: Arthrex 36 mm 4.0 headless screw Arthrex 3.0 SutureTak Estimated Blood Loss (mL): 10 Blood products transfused: none Tourniquet time (min): 56 Procedure in detail: Patient was seen in the preoperative area the site of surgery marked informed consent confirmed. The patient was brought back to the operating room by the anesthesia team positioned supine on operative table. General anesthetic was administered. All bony prominences were well padded. A well-padded thigh tourniquet was placed. An SCD was placed on contralateral lower extremity. The right lower extremity was prepped and draped in the standard sterile fashion a formal time-out procedure was performed confirming the patient's side and site of surgery administration of appropriate preoperative antibiotic. All were in agreement. Attention turned to the right lower extremity. Esmarch was used for exsanguination tourniquet raised to 250 mm Hg. The scope was cold test was performed there was a equinus contracture with knee extension and knee flexion. Therefore decision was made for lengthening of the Achilles tendon this was held in dorsiflexion and a triple joby section lengthening was undertaken. Three small incisions were made midline of the Achilles at 2 4 and 6 cm above the calcaneal insertion. With the distal and proximal joby sections performed midline and a joby section to the lateral aspect of the leg and the central joby section opening medially. This provided a good audible and palpable stretch of the Achilles getting to 15-20 degrees of dorsiflexion with the knee extended. Next a curvilinear incision over the hallux IP joint was taken through the skin subcutaneous tissues and transecting the EHL to expose the IP joint. The joint was exposed through suppressive dissection and the TPS saw used to remove the condyles of the proximal phalanx and the cartilage surface of the distal phalanx. These were then aligned and a guidewire for a 4-0 headless screw from the Arthrex set was placed center center on the AP and lateral this was measured and a 36 mm 4.0 headless screw was selected and placed to perform the IP joint fusion. The soft tissues extensor tendon subcutaneous tissues were then repaired with 2-0 Vicryl 4-0 Monocryl and 3-0 nylon. Through a separate incision over the 1st metatarsal neck just medial to the extensor tendon this was taken down through the skin subcutaneous tissue to the level of the metatarsal neck. The EHL was isolated was transected this level and a 3.0 SutureTak from Arthrex was drilled and then placed into the metatarsal neck and the EHL tendon was then sewn down to transfer to the metatarsal neck providing excellent fixation. This wound was then irrigated and closed in a layered fashion. Attention was then turned to the plantar wound a rotational flap was drawn out on the skin then the wound was excised including deep tissues and the exposed medial sesamoid. The medial sesamoid was sent for culture and pathology. Flexor tendon was also exposed in the wound and was transected then repaired proximally. The wound was thoroughly irrigated with sterile saline and gloves were changed. Next the rotational flap was prepared and rotated into the wound. This was fixed provisionally with a few 2-0 PDS sutures. Then the manually prepared antibiotic beads made from the dissolvable calcium sulfate beads mixed with 500 mg of vancomycin were prepared and then inserted into the plantar wound then additional 2-0 PDS sutures were used to close the rotational flap and the donor site followed by 4-0 Monocryl in the skin and 3-0 and 4-0 nylon for final closure. Dressings were placed with Xeroform gauze Webril and an Fernando wrap. Drapes removed the patient was placed into a walking boot awoken from anesthesia and taken to recovery room in good condition. There no immediate complications was procedure. All counts were correct. Complications: none Post-operative Condition: stable Disposition: PACU Plan for aftercare: Weightbear as tolerated in the boot. Follow-up in 2 weeks. [address]utures remain in place to 6 weeks. Keep incisions clean dry and intact.
[2023-05-02 13:35] VITALS: BP 145/85; PULSE 88; RESP 16; O2SAT 98
[2023-05-02 13:39] VITALS: BP 157/93; PULSE 78; RESP 16; TEMP 36.2; O2SAT 95
== END 2023-05-02 13:56 | disposition home or self-care (01) ==
PROVIDERS: PCP Family Medicine; Referring Provider Family Medicine; Visit Provider Orthopaedic Surgery Foot and Ankle Surgery
PROC: (CPT 28760; principal; 2023-05-02 11:15)
PROC: (CPT 27685; 2023-05-02 11:15)
DX: L97.314 Non-pressure chronic ulcer of right ankle with necrosis of bone (principal)
CPT/HCPCS: 28760; 27685; 14040; 28315; 87070; 87075; 87205; C1889; J0690; J1170; J2405; J2704; J3010

== ENCOUNTER 2023-07-04 06:20 | Day surgery (SDC) | payer MEDICARE, OTHER, SELFPAY ==
[2020-08-25 16:30] VITALS: BMI 25.5
[2023-07-03 15:28] VITALS: BMI 26.2
[2023-07-04] VITALS (8 sets, daily range): BP systolic 119–158; BP diastolic 59–84; PULSE 81–84; RESP 12–16; TEMP 36.1–36.9; O2SAT 94–98; BMI 25.0
--- NOTE | 2023-07-04 | PATH_ITS ---
[facility] Accession Number: [id number] No. of containers..01 Tissue . 01 Material submitted: . toe - RIGHT SECOND TOE . 01 Diagnosis: Right Second Toe, Amputation: Necrosis of skin and associated abscess formation of soft tissue, extending to margins of resection. Focal osteonecrosis (see comment). MRV 07/11/2023 1726 Local . 01 Comment: The marrow associated with the areas of osteonecrosis is also necrotic and therefore, cells within the marrow space cannot be definitivly identified, which limits the ability to diagnosis osteomyelitis. . 01 Electronically signed: . Ashleigh Nash MD, Pathologist NPI- [id number] . 01 Gross description: . Received fresh, labeled with the patient's name and right second toe on requisition, is a 4.5 cm long by up to 2.2 cm diameter disarticulate digit. The skin is 4.3 cm long and 100% circumferential. There is a 2.3 cm, 100% circumferential blackened ulcerative lesion at the distal tip surrounding the thickened orange nail bed. The lesion is within 0.1 cm of the skin resection margin on the plantar side of the toe. The skin margin is inked blue. The bone underlying the ulcer contains a metal screw. Breast Trimmer sections are submitted: . A1: Perpendicular sections of ulcerative lesion to skin margin. A2: Cross section of ulcerative lesion with underlying bone, following decalcification. A3: Perpendicular section of disarticulated end of digit (note, this is not a true margin). ([id number]) /MRV 07/05/2023 1827 Local . 01 Pathologist provided ICD-10: I96 . 01 CPT . 605969, 958390 Specimen Comment: A courtesy copy of this report has been sent to [phone] Performed at: 01 [facility] [address] [facility], [place], [place] [id number] MD Jerod Wood MD Phone: [phone]
[2023-07-04] MEDS: LACTATED RINGERS 1,000 ML 42 ML IV (07:09)
--- NOTE | 2023-07-04 07:17 | PM.PREOP ---
Pre-operative Note Interval Note History & Physical reviewed/Exam performed by Physician: Yes Changes to H&P: No
--- NOTE | 2023-07-04 07:26 | P.OP_ITS ---
Operative Date/Time/Diagnoses Date of procedure: 07/04/23 Time of procedure: 08:00 Pre-op diagnosis: Right 2nd toe necrosis Right lateral foot wound dehiscence, osteomyelitis Lupus Neuropathic foot ulcers Post-op diagnosis: same Procedure & Clinicians Procedure: 1. Right 2nd toe amputation with metatarsal head excision-- toe modifier T6 2. Right lateral foot wound 5th metatarsal bone excision soft tissue and bone debridement, excisional--02422-51 separate site Application of wet-to-dry dressings Same procedure as scheduled: Yes Indications: Patient is a 77-year-old male with a history of lupus and neuropathic ulcers and foot and toe deformities. He had a forefoot deformity and 5th metatarsal head excision wound debridement and closure for neuropathic ulcers and toe deformities proximally 2 weeks ago. He presented to postop appointment with a necrotic 2nd toe and wound dehiscence of his lateral wound with exposed bone. He was indicated for irrigation debridement including bone of the lateral wound and wet-to-dry dressings and ear indicated for amputation of the 2nd toe. Care was coordinated with the [facility] wound care center which will help postoperatively with wet-to-dry dressings and hopeful conversion to a wound VAC dressing as appropriate. Patient did not have evidence of sepsis will be placed on oral antibiotics with intraoperative cultures to tailor these. The risks and benefits of the procedure have been discussed with the patient and given the opportunity to ask questions. The risks of surgery include but are not limited to infection, need for additional surgery, wound care where amputation, persistence of pain, damage to nerves and blood vessels, posttraumatic arthritis, DVT, PE, cardiopulmonary complications and . The patient expressed a thorough understanding of the risks and benefits of surgery and has elected to proceed. Consent was signed. Surgeon: Yisel Klein Click Yes if Unassisted: Yes Anesthesia Type: General and Local Operative Notes Findings: Necrotic 2nd toe additional dehiscence over capsulotomy incision 2nd toe. Purulence was found in the more proximal aspect of this incision the site of the 2nd MTP tracking subcutaneously dorsally over the 3rd and towards the 4th MTPs. Soft tissue and purulence was debrided in this area of tunneling. Profound dehiscence of lateral incision site as metatarsal head excision with exposed proximal 5th metatarsal shaft bone Second toe was amputated including metatarsal head. Debridement was completed of subcutaneous dorsal lateral tunneling. Lateral wound was excisionally debrided including soft tissue skin and bone. Fifth metatarsal was shortened wounds were thoroughly irrigated and packed with wet-to-dry dressings Closure Type: non-primary (Wet-to-dry dressings for lateral wound. And 2nd toe amputation site) Specimen(s): other (Bone, tissue sent for culture) Estimated Blood Loss (mL): 10 Blood products transfused: none Tourniquet time (min): 0 Procedure in detail: Patient seen the preoperative area the site of surgery marked informed consent confirmed. The patient was brought back to the operating room by the anesthesia team and anesthetic was administered. Patient was positioned on the operative table in the supine position bony prominences were well padded. No tourniquet was used. A formal time-out procedure was performed confirming the patient's side and site of surgery administration of appropriate preoperative antibiotic. All were in agreement. Attention was turned to the right foot, local anesthetic was administered. There was a black necrotic distal 2/3 of the 2nd toe with additional dehiscence over the 2nd MTP capsulotomy incision there was profound dehiscence of the lateral foot wound at the site of the metatarsal head excision. There was a palpable dorsalis pedis pulse. There was no bleeding from the end of the 2nd toe. There was bleeding with pinprick of the 3rd 4th and 5th toes. Tennis racquet type incision was made around the 2nd toe for the complete 2nd toe amputation and the metatarsal head was also excised to avoid prominence in the wound. At the level of the MTP joint subcutaneous purulence was noted tracking dorsally towards the 3rd and 4th metatarsal head and neck area this did not appear to go deep to the joints but did track the subcutaneously. This was debrided with a rongeur curette and then irrigated thoroughly with saline. Toe was sent for pathology. Metatarsal head was sent for culture. No other purulence then the subcutaneous soft tissue area was noted. All tissues were bleeding well. Nonviable tissue was debrided. This was packed with wet-to-dry dressings a piece of the wet-to-dry dressing was packed subcutaneously in the area of tunneling dorsal laterally The open 2nd toe amputation site wound measured 6 cm x 1 cm x 1 cm Attention was then turned separately to the lateral wound dehiscence there was palpable and exposed 5th metatarsal. Wound was extended slightly proximally and the wound was ellipsed sized and excised. The TTS saw was used to shorten the 5th metatarsal to remove the exposed bone and this was also sent for culture. Wounds were thoroughly irrigated with saline. Once the wound bed was clean and all nonviable tissue was excised a stay suture was placed proximally and distally and then the wound was packed with wet-to-dry dressings similarly to the 2nd toe amputation site. The open lateral wound measured 4 cm x 1 cm x 1 cm At the end of the case again pinprick was tested at the remaining 3rd 4th and 5th toes and bleeding was noted. The wet-to-dry dressings were then wrapped in Kerlix and a loose Fernando wrap. The patient was woken from anesthesia and taken to recovery room in good condition. Complications: none Post-operative Condition: stable Disposition: PACU Plan for aftercare: Patient will be on oral antibiotics. He will be seen at the Wound Care Center at [facility] tomorrow for dressing changes possible conversion from wet to dries to wound VAC as applicable. Pain medications for tramadol and meloxicam were provided. He is currently on Bactrim for an antibiotic. We will tailor as needed based on intraoperative cultures. Guarded prognosis, high risk need for additional debridements or amputation
[2023-07-04] MEDS: CEFAZOLIN 2 GM/100 ML PREMIX 100 ML IV (07:55)
[2023-07-04] MEDS: BUPIVACAINE 0.25% (PF) 30 ML, EPINEPHrine 0.15 MG INJ (08:15)
[2023-07-04] MEDS: HYDROMORPHONE 1 MG INJ IV ×4 (08:46→09:05)
[2023-07-04] MEDS: OXYCODONE/ACETAMINOPHEN 5/325 TABLET 1 TAB PO (08:53)
[2023-07-04] MEDS: HYDROCODONE/ACET 5/325 TABLET 1 TAB PO (09:31)
--- NOTE | 2023-07-04 09:32 | SUR.PHASEI ---
Addendum entered by Jessi Hernandez R.N. 07/04/23 09:33: pain is up to 5/10. Original Note: Pt pain free until he gets a zinger, then pain is up to a 7/10. Medicated as noted.
[2023-07-04] MEDS: ONDANSETRON 4 MG/2 ML INJ IV (10:01)
== END 2023-07-04 10:07 | disposition home or self-care (01) ==
PROVIDERS: PCP Family Medicine; Referring Provider Orthopaedic Surgery Foot and Ankle Surgery; Visit Provider Orthopaedic Surgery Foot and Ankle Surgery
PROC: (CPT 28825; principal; 2023-07-04 07:45)
DX: I96 Gangrene, not elsewhere classified (principal); T81.31XA Disruption of external operation (surgical) wound, not elsewhere classified, initial encounter; M20.41 Other hammer toe(s) (acquired), right foot; M32.9 Systemic lupus erythematosus, unspecified
CPT/HCPCS: 28825; 11044; 87070; 87075; 87077; 87186; 87205; J0171; J0690; J1170; J2405; J2704; J3010

== ENCOUNTER → 2023-07-08 08:30 | Outpatient (CLI) | payer MEDICARE, OTHER, SELFPAY ==
[2020-08-25 16:30] VITALS: BMI 25.5
== END ==
PROVIDERS: PCP Family Medicine; Referring Provider Orthopaedic Surgery Foot and Ankle Surgery; Visit Provider Surgery
DX: G60.3 Idiopathic progressive neuropathy (principal); L97.512 Non-pressure chronic ulcer of other part of right foot with fat layer exposed; M86.171 Other acute osteomyelitis, right ankle and foot; T87.89 Other complications of amputation stump; S91.301A Unspecified open wound, right foot, initial encounter; R60.0 Localized edema
CPT/HCPCS: 11042; 99213; 99214

== ENCOUNTER → 2023-07-10 14:47 | Outpatient (CLI) | payer MEDICARE, OTHER, SELFPAY ==
[2020-08-25 16:30] VITALS: BMI 25.5
== END ==
PROVIDERS: PCP Family Medicine; Referring Provider Orthopaedic Surgery Foot and Ankle Surgery; Visit Provider Surgery
DX: T87.89 Other complications of amputation stump (principal); G60.3 Idiopathic progressive neuropathy; L97.512 Non-pressure chronic ulcer of other part of right foot with fat layer exposed; M86.171 Other acute osteomyelitis, right ankle and foot; S91.301A Unspecified open wound, right foot, initial encounter; T81.89XA Other complications of procedures, not elsewhere classified, initial encounter; R60.0 Localized edema
CPT/HCPCS: 97605

== ENCOUNTER → 2023-07-12 12:52 | Outpatient (CLI) | payer MEDICARE, OTHER, SELFPAY ==
[2020-08-25 16:30] VITALS: BMI 25.5
== END ==
PROVIDERS: PCP Family Medicine; Referring Provider Orthopaedic Surgery Foot and Ankle Surgery; Visit Provider Physician Assistant
DX: T87.89 Other complications of amputation stump (principal); Z89.421 Acquired absence of other right toe(s); T81.89XA Other complications of procedures, not elsewhere classified, initial encounter; S91.301A Unspecified open wound, right foot, initial encounter; L97.512 Non-pressure chronic ulcer of other part of right foot with fat layer exposed; G60.9 Hereditary and idiopathic neuropathy, unspecified; R60.0 Localized edema
CPT/HCPCS: 97605

== ENCOUNTER → 2023-07-15 14:13 | Outpatient (CLI) | payer MEDICARE, OTHER, SELFPAY ==
[2020-08-25 16:30] VITALS: BMI 25.5
== END ==
PROVIDERS: PCP Family Medicine; Referring Provider Orthopaedic Surgery Foot and Ankle Surgery; Visit Provider Surgery
DX: L97.512 Non-pressure chronic ulcer of other part of right foot with fat layer exposed (principal); M86.171 Other acute osteomyelitis, right ankle and foot; T81.31XD Disruption of external operation (surgical) wound, not elsewhere classified, subsequent encounter
CPT/HCPCS: 11043; 97597; 97605; 99212

== ENCOUNTER → 2023-07-18 14:12 | Outpatient (CLI) | payer MEDICARE, OTHER, SELFPAY ==
[2020-08-25 16:30] VITALS: BMI 25.5
== END ==
PROVIDERS: PCP Family Medicine; Referring Provider Orthopaedic Surgery Foot and Ankle Surgery; Visit Provider Surgery
DX: T87.89 Other complications of amputation stump (principal); S91.301A Unspecified open wound, right foot, initial encounter; T81.89XA Other complications of procedures, not elsewhere classified, initial encounter; G60.3 Idiopathic progressive neuropathy; L97.512 Non-pressure chronic ulcer of other part of right foot with fat layer exposed; R60.0 Localized edema; L53.9 Erythematous condition, unspecified
CPT/HCPCS: 97605

== ENCOUNTER → 2023-07-22 13:35 | Outpatient (CLI) | payer MEDICARE, OTHER, SELFPAY ==
[2020-08-25 16:30] VITALS: BMI 25.5
== END ==
PROVIDERS: PCP Family Medicine; Referring Provider Orthopaedic Surgery Foot and Ankle Surgery; Visit Provider Surgery
DX: G60.3 Idiopathic progressive neuropathy (principal); T87.89 Other complications of amputation stump; S91.301A Unspecified open wound, right foot, initial encounter; L97.511 Non-pressure chronic ulcer of other part of right foot limited to breakdown of skin; M86.171 Other acute osteomyelitis, right ankle and foot; R60.0 Localized edema; L53.9 Erythematous condition, unspecified
CPT/HCPCS: 11042; 11044; 97605

== ENCOUNTER → 2023-07-25 13:44 | Outpatient (CLI) | payer MEDICARE, OTHER, SELFPAY ==
[2020-08-25 16:30] VITALS: BMI 25.5
== END ==
PROVIDERS: PCP Family Medicine; Referring Provider Orthopaedic Surgery Foot and Ankle Surgery; Visit Provider Surgery
DX: T87.89 Other complications of amputation stump (principal); R60.0 Localized edema; L53.9 Erythematous condition, unspecified; G60.3 Idiopathic progressive neuropathy; L97.512 Non-pressure chronic ulcer of other part of right foot with fat layer exposed
CPT/HCPCS: 97605

== ENCOUNTER → 2023-07-29 13:28 | Outpatient (CLI) | payer MEDICARE, OTHER, SELFPAY ==
[2020-08-25 16:30] VITALS: BMI 25.5
== END ==
PROVIDERS: PCP Family Medicine; Referring Provider Orthopaedic Surgery Foot and Ankle Surgery; Visit Provider Surgery
DX: T87.89 Other complications of amputation stump (principal); R60.0 Localized edema; L53.9 Erythematous condition, unspecified; S91.301A Unspecified open wound, right foot, initial encounter; T81.89XA Other complications of procedures, not elsewhere classified, initial encounter; G60.3 Idiopathic progressive neuropathy; L97.512 Non-pressure chronic ulcer of other part of right foot with fat layer exposed
CPT/HCPCS: 11042; 97605; 99213

== ENCOUNTER 2023-07-30 13:41 | Inpatient (IN) | payer MEDICARE, OTHER, SELFPAY ==
[2020-08-25 16:30] VITALS: BMI 25.5
[2023-07-30 13:44] VITALS: BP 159/65; PULSE 70; RESP 18; TEMP 36.7; O2SAT 99; BMI 25.0
--- NOTE | 2023-07-30 13:53 | DI.US.S_ITS ---
PROCEDURE: US PERIPH VENOUS LOW EXTREM BI INDICATIONS: LOWER EXTREMITY EDEMA TECHNIQUE: Real-time imaging, as well as color and pulse Doppler interrogation, were performed of the deep veins of both legs from the inguinal ligament to the popliteal fossa, with documentation of the visualized calf veins. COMPARISON: None. FINDINGS: Right: Nonocclusive thrombus identified in the right common femoral vein. The femoral, popliteal, and the visualized calf veins are normally compressible, and free of intraluminal thrombus. Left: The common femoral, femoral, popliteal, and the visualized calf veins are normally compressible, and free of intraluminal thrombus. Color and pulse Doppler demonstrate normal phasic intravascular flow. There is normal augmentation response to distal compression maneuver. IMPRESSION: Abnormal study demonstrating nonocclusive deep vein thrombosis involving the right common femoral vein. No evidence of deep vein thrombosis involving the left lower extremity. Dictated by: Melissa Cordova MD, PhD on 07/30/2023 at 16:32 Approved by: Melissa Cordova MD, PhD on 07/30/2023 at 16:34
--- NOTE | 2023-07-30 14:01 | DI.MRI.S_ITS ---
PROCEDURE: MR FOOT RT WO/W CON INDICATIONS: Eval for osteo TECHNIQUE: Noncontrast coronal T1 spin echo and STIR, sagittal T1 spin echo with fat saturation and STIR, axial T1 spin echo and T2 fast spin echo with fat saturation. After the administration of contrast, axial/sagittal/coronal T1 spin echo with fat saturation through the left foot. COMPARISON: [facility] [place], CR, XR FOOT 3 VIEWS WEIGHT BEARING RIGHT, 02/07/2023, 11:38. [facility], MR, MR FOOT LT WO/W CON, 07/30/2022, 17:30. FINDINGS: Image quality: Excellent. Bones: There is prior amputation of the 2nd toe at the level of 2nd metatarsal neck. There is also surgical fusion of the 1st, 3rd through 5th interphalangeal joints with susceptibility artifacts. Postsurgical changes also seen in distal shaft of 1st metatarsal bone. There is also resection of 5th metatarsal bone at the level of mid 5th metatarsal shaft. Extensive marrow edema involving 5th metatarsal stump is seen concerning for osteomyelitis in this area versus postsurgical changes. Mild contrast enhancement in this area is also seen. Subtle marrow edema and enhancement involving 2nd metatarsal stump and adjacent 3rd metatarsal head and neck. No acute fracture or dislocation. No gross bony erosive changes. Soft tissues: Full-thickness ulceration involving dorsal and lateral aspect of forefoot at the level of 5th metatarsal shaft is seen. Full-thickness ulceration over dorsal aspect of forefoot at the level of 3rd MTP joint is also seen. Extensive soft tissue edema and swelling throughout visualized portion of right foot is seen particularly over dorsal and lateral aspect of forefoot. No discrete peripherally enhancing drainable abscess collection is identified. No enhancing soft tissue mass is seen. Extensive edema throughout visualized plantar foot muscles are seen without discrete intramuscular fluid collection. IMPRESSION: 1. Extensive postsurgical changes in forefoot as described above. Findings are concerning for osteomyelitis involving 2nd and 5th metatarsal stumps as well as 3rd metatarsal head and neck. Evaluation of the phalanges are limited due to presence of surgical hardware and susceptibility artifacts. 2. Full-thickness ulcerations involving lateral aspect of forefoot and dorsal aspect of forefoot as described above with extensive forefoot cellulitis. No discrete drainable abscess collection is seen. 3. Suggestion of myositis throughout plantar foot muscles without intramuscular abscess collection. Dictated by: Han Velazco M.D. on 07/30/2023 at 16:11 Approved by: Han Velazco M.D. on 07/30/2023 at 16:22
--- NOTE | 2023-07-30 14:01 | DI.MRI.S_ITS ---
PROCEDURE: MR LOWER LEG RT WO/W CON INDICATIONS: Eval for osteo TECHNIQUE: Noncontrast coronal T1 spin echo and STIR, sagittal T1 spin echo with fat saturation and STIR, axial T1 spin echo and T2 fast spin echo with fat saturation. After the administration of contrast, axial/sagittal/coronal T1 spin echo with fat saturation through the right lower leg. COMPARISON: None. FINDINGS: Image quality: Excellent. Bones: Patient is status post right knee arthroplasty with susceptibility artifacts in included proximal right tibial shaft . There is no marrow edema. No acute fracture or dislocation. No abnormal intraosseous enhancement. No cortical erosion or abnormal periosteal reaction is seen. Soft tissues: Diffuse subcutaneous soft tissue edema and swelling throughout right lower leg is seen extending to hindfoot and midfoot. There is no discrete drainable peripherally enhancing fluid collection. Edema throughout lower leg muscles are seen particularly involving calf muscles. No discrete drainable intramuscular fluid collection or enhancing soft tissue mass is seen. IMPRESSION: 1. Extensive cellulitis throughout right lower leg. No discrete drainable abscess collection. 2. Myositis involving right lower leg muscles without intramuscular fluid collection or enhancing mass. 3. No marrow edema. No fracture or dislocation. No evidence of osteomyelitis in right lower leg. Dictated by: Han Velazco M.D. on 07/30/2023 at 16:22 Approved by: Han Velazco M.D. on 07/30/2023 at 16:25
--- NOTE | 2023-07-30 14:05 | ED_ITS ---
HPI - Extremity Problem General Chief complaint: Extremity Problem,Nontraumatic Stated complaint: dr ref/states needs MRI Time Seen by Provider: 07/30/23 13:44 Source: patient Mode of arrival: Wheelchair History of Present Illness HPI Narrative: Patient is a 77-year-old male. Does have lupus. Is on hydroxychloroquine for this. Also has peripheral vascular disease. Recently had a right 2nd toe amputation by Orthopedic surgery. Was at the Orthopedic surgery Clinic today for follow-up. It was noticed by the operative surgeon that the swelling in his right foot and redness is getting worse and is now extending up his leg to above his knee. Patient denies any new trauma. He does have a wound VAC in place. He is taking all of his medications as directed. He was sent to the emergency department for blood work, MRI, DVT ultrasound admission to the hospital for antibiotics. Related Data Home Medications Medication Instructions Recorded Confirmed cholecalciferol (vitamin D3) 50 2,000 unit PO DAILY 11/07/18 07/04/23 mcg (2,000 unit) capsule hydroxychloroquine 200 mg tablet 200 mg PO BID 05/09/22 07/04/23 prednisone 5 mg tablet 5 mg PO DAILY 05/02/23 07/04/23 Bactrim DS PO Q12H 07/04/23 Previous Rx's Medication Instructions Recorded Disabled Parking Permit #1 ea 10/03/20 meloxicam 7.5 mg tablet 7.5 mg PO DAILY #30 tabs 07/04/23 tramadol 50 mg tablet 50 mg PO Q6H PRN pain #30 tabs 07/04/23 Allergies Allergy/AdvReac Type Severity Reaction Status Date / Time No Known Drug Allergies Allergy Verified 07/04/23 06:25 Review of Systems Constitutional Constitutional: Reports system reviewed and no additional complaints, except as documented Musculoskeletal Musculoskeletal: Reports system reviewed and no additional complaints, except as documented Integumentary/Breasts Skin/Breast: Reports system reviewed and no additional complaints, except as documented Neurologic Neurologic: Reports system reviewed and no additional complaints, except as documented Hematologic/Lymphatic On Anticoagulants: No Patient History Medical History Arthritis BPH (benign prostatic hyperplasia) Cataracts, bilateral Chronic cough (~2017) 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 Mother Diabetes mellitus Hyperlipidemia Social History marital status: household members: none lives independently: Yes caregiver/support person: No housing: house education level: college occupational status: previously employed Smoking Status: Former smoker second hand exposure: No alcohol intake: current substance use type: does not use Smoking Status: Former smoker alcohol intake frequency: 0-2 drinks per day Substance Use Type: does not use Exam Initial Vital Signs Initial Vital Signs: Vital Signs Temperature 98.1 F 07/30/23 13:44 Pulse Rate 70 07/30/23 13:44 Respiratory Rate 18 07/30/23 13:44 Blood Pressure 159/65 H 07/30/23 13:44 Pulse Oximetry 99 07/30/23 13:44 Oxygen Delivery Method Room Air 07/30/23 13:44 HENMT Head: normal to inspection and normocephalic Resp Effort & Inspection: normal respiratory effort Skin Other: Patient is missing his 2nd toe. The 3rd and 4th toes do have what appeared to be necrotic tissue on them. Wound VAC in place and appears well. He does have redness that extends to his ankle and swelling that extends to his knee. Neuro General: patient alert and patient awake Extrem General: edema Course Orders Ordered: ED Orders 07/30/23 13:45 Consult to Orthopedic Surgery Stat 07/30/23 13:53 US periph venous low extrem lt Stat US periph venous low extrem rt Stat 07/30/23 14:01 MR foot RT wo/w con Stat MR lower leg RT wo/w con Stat 07/30/23 14:07 C-Reactive Protein Quant Stat Complete Blood Count AUTO DIFF Stat Comprehensive Metabolic Panel Stat Erythrocyte Sedimentation Rate Stat Lactate (Lactic Acid) Stat Lipase Stat 07/30/23 14:15 Blood Culture Stat Sodium Chloride (Normal Saline 0.9%) 1,000 mls @ 100 mls/hr IV CONT GINA Last Admin: 07/30/23 14:16 Dose: 100 mls/hr Documented By: MPO Discontinued Medications Meropenem 500 mg/ Sodium (Chloride) 100 mls @ 200 mls/hr IV NOW ONE Stop: 07/30/23 14:06 Vital Signs Vital signs: Vital Signs - 8 hr 07/30/23 13:44 Temperature 98.1 F Pulse Rate 70 Respiratory Rate 18 Blood Pressure 159/65 H Pulse Oximetry 99 Oxygen Delivery Method Room Air MDM - Extremity (Nontraumatic) Lab Data 07/30/23 14:07 07/30/23 14:07 Labs: Lab Results 07/30/23 Range/Units 14:07 WBC 5.1 (4.5-11.0) X10^3/uL RBC 4.08 L (4.5-5.9) X10^6/uL Hgb 12.4 L (13.5-17.5) g/dL Hct 36.9 L (41-53) % MCV 90.3 (80-100) fL MCH 30.4 (26-34) PG MCHC 33.7 (30-36) % RDW 13.7 (11.6-14.8) % Plt Count 278 (150-400) X10^3/uL Neut % (Auto) 63.4 (50-75) % Lymph % (Auto) 19.5 L (25-40) % [place] % (Auto) 8.2 (3-14) % Eos % (Auto) 8.2 H (2-4) % Baso % (Auto) 0.7 (0-2) % Neut # (Auto) 3200 (9467-6842) /uL Lymph # (Auto) 1000 L (9201-0490) /uL [place] # (Auto) 400 (0-900) /uL Eos # (Auto) 400 (0-450) /uL Baso # (Auto) 0 (0-100) /uL MDM Narrative Medical decision making narrative: I did receive a call from his primary orthopedic provider prior to arrival here in the emergency department. She recommended blood work, antibiotics, admission, DVT ultrasound and MRI. All of these have been ordered. The patient is not septic. Based on his prior cultures meropenem was ordered. Discussed the case with Dr. Snow who is the patient's primary doctor. We will admit for further evaluation and treatment. Labs, ultrasound, MRI all pending at the time of admission. Discharge Plan Departure Patient Disposition: Admitted As Inpatient Clinical Impression: Cellulitis Admit Date/Time: 07/30/23 14:26 Admit Provider: Dionne Snow
[2023-07-30] MEDS: SODIUM CHLORIDE 0.9% 1,000 ML 100 ML IV ×3 (14:16→23:51)
[2023-07-30 14:24] LABS: Add Manual Diff / Slide Review NO; Basophils Absolute Auto 0 /uL (0-100); Basophils Percent Auto 0.7 % (0-2); Eosinophils Absolute Auto 400 /uL (0-450); Eosinophils Percent Auto 8.2 % (2-4); Hematocrit 36.9 % (41-53); Hemoglobin 12.4 g/dL (13.5-17.5); Lymphocytes Absolute Auto 1000 /uL (1100-4500); Lymphocytes Percent Auto 19.5 % (25-40); Mean Corpuscular HGB Conc 33.7 % (30-36); Mean Corpuscular Hemoglobin 30.4 PG (26-34); Mean Corpuscular Volume 90.3 fL (80-100); Monocytes Absolute Auto 400 /uL (0-900); Monocytes Percent Auto 8.2 % (3-14); Neutrophils Absolute Auto 3200 /uL (1500-7000); Neutrophils Percent Auto 63.4 % (50-75); Platelet Count 278 X10^3/uL (150-400); Red Blood Cell Count 4.08 X10^6/uL (4.5-5.9); Red Cell Distribution Width 13.7 % (11.6-14.8); White Blood Cell Count 5.1 X10^3/uL (4.5-11.0)
[2023-07-30 14:36] LABS: Lactate (Lactic Acid) 1.1 mmol/L (0.7-2.1)
[2023-07-30 14:39] LABS: Alanine Aminotransferase 18 IU/L (<50); Albumin Globulin Ratio 1.1 (1.0-2.8); Alkaline Phosphatase 77 U/L (38-126); Aspartate Aminotransferase 25 IU/L (17-59); BUN Creatinine Ratio 22.6 (6-22); Bilirubin Total 0.5 mg/dL (0.2-1.3); Blood Urea Nitrogen 30 mg/dL (9-20); C-Reactive Protein Quant 2.9 mg/dL (<1.0); Calcium 9.5 mg/dL (8.4-10.2); Carbon Dioxide 26 mmol/L (22-32); Chloride 97 mmol/L (98-107); Estimated Glomerular Filt Rate 54 mL/min (>60); Globulin 3.7 g/dL (1.7-4.1); Glucose 64 mg/dL (80-110); HEMOLYSIS < 15 (0-50); Lipase 76 U/L (23-300); Potassium 4.1 mmol/L (3.4-5.1); Sodium 132 mmol/L (137-145); Total Protein 7.7 g/dL (6.3-8.2)
[2023-07-30 14:43] LABS: Erythrocyte Sedimentation Rate 32 MM/HR (0-15)
[2023-07-30 15:45] LABS: Hemoglobin A1C% w Est Avg Glu 5.2 % (4.0-6.0)
--- NOTE | 2023-07-30 16:19 | PC.NURSE ---
IV antibiotics not started yet because pt has been down in MRI. Will start antibiotics when pt is back in room.
--- NOTE | 2023-07-30 16:23 | PM.HP.1 ---
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 The pt reports that approximately 2 days ago he noted a significant increase in his right leg swelling. The lower leg has not been painful. Around the same time, he also developed frequent cramping/shooting nerve pain in the right quadriceps muscle. He states that one time it was so severe he felt like he tore something, and now he has a difficult time moving the right leg. The leg has also appeared significantly more warm. He denies any recent fevers or chills. He denies any recent chest pain, SOB. He has otherwise been feeling well. The pt has been on Bactrim since his last surgery. He is also being followed by wound care. 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 Mother Diabetes mellitus Hyperlipidemia Social History marital status: household members: none lives independently: Yes caregiver/support person: No housing: house education level: college occupational status: previously employed Smoking Status: Former smoker second hand exposure: No alcohol intake: current substance use type: does not use Meds Home Medications and Allergies Home Medications Medication Instructions Recorded Confirmed Type cholecalciferol (vitamin D3) 50 2,000 unit PO DAILY 11/07/18 07/30/23 History mcg (2,000 unit) capsule Disabled Parking Permit #1 ea 10/03/20 07/30/23 Rx hydroxychloroquine 200 mg tablet 200 mg PO BID 05/09/22 07/30/23 History meloxicam 7.5 mg tablet 7.5 mg PO DAILY #30 tabs 07/04/23 07/30/23 Rx tramadol 50 mg tablet 50 mg PO Q6H PRN pain #30 tabs 07/04/23 07/30/23 Rx Allergies Allergy/AdvReac Type Severity Reaction Status Date / Time No Known Drug Allergies Allergy Verified 07/04/23 06:25 Exam Vital Signs (past 8 hours): - 07/30/23 13:44 Temperature 98.1 F Pulse Rate 70 Respiratory Rate 18 Blood Pressure 159/65 H Pulse Oximetry 99 Oxygen Delivery Method Room Air Oxygen Delivery Method Room Air Narrative Exam Narrative: Gen: NAD, laying comfortably in bed, appears well HEENT: normocephalic, atraumatic, sclera clear CV: RRR, no murmurs Resp: clear to auscultation bilaterally Abd: soft, nontender, nondistended, normoactive bowel sounds Ext: left LE without any swelling, right LE with 2+ pitting edema to mid-calf level significantly worse in the foot, significant erythema without dramatic increase in warmth in the foot, fading into the calf up to knee level, nontender to palpation over entire lenght of leg, good capillary refill in toes, able to move ankle without pain, wound vac in place Objective Labs 07/30/23 14:07 07/30/23 14:07 Labs: Laboratory Results - last 24 hr 07/30/23 07/30/23 07/30/23 14:07 14:07 14:07 WBC 5.1 RBC 4.08 L Hgb 12.4 L Hct 36.9 L MCV 90.3 MCH 30.4 MCHC 33.7 RDW 13.7 Plt Count 278 Neut % (Auto) 63.4 Lymph % (Auto) 19.5 L [place] % (Auto) 8.2 Eos % (Auto) 8.2 H Baso % (Auto) 0.7 Neut # (Auto) 3200 Lymph # (Auto) 1000 L [place] # (Auto) 400 Eos # (Auto) 400 Baso # (Auto) 0 ESR 32 H Sodium 132 L Potassium 4.1 Chloride 97 L Carbon Dioxide 26 BUN 30 H Creatinine 1.33 H Estimated GFR 54 L BUN/Creatinine Ratio 22.6 H Glucose 64 L Hemoglobin A1c Lactate 1.1 Calcium 9.5 Total Bilirubin 0.5 AST 25 ALT 18 Alkaline Phosphatase 77 C-Reactive Protein 2.9 H Total Protein 7.7 Albumin 4.0 Globulin 3.7 Albumin/Globulin Ratio 1.1 Lipase 76 07/30/23 14:07 WBC RBC Hgb Hct MCV MCH MCHC RDW Plt Count Neut % (Auto) Lymph % (Auto) [place] % (Auto) Eos % (Auto) Baso % (Auto) Neut # (Auto) Lymph # (Auto) [place] # (Auto) Eos # (Auto) Baso # (Auto) ESR Sodium Potassium Chloride Carbon Dioxide BUN Creatinine Estimated GFR BUN/Creatinine Ratio Glucose Hemoglobin A1c 5.2 Lactate Calcium Total Bilirubin AST ALT Alkaline Phosphatase C-Reactive Protein Total Protein Albumin Globulin Albumin/Globulin Ratio Lipase Assessment & Plan Assessment & Plan narrative: Pt is a 77yo man with lupus, chronic nephritis syndrome, 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 MRI demonstrates ongoing osteomyelitis in addition to cellulitis and myositis. Doppler showing nonocclusive femoral DVT. 1) DVT: Likely contributing significantly to increase in swelling. Pt does have lupus, and multiple recent surgeries as provoking factors. 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 No known diabetes or PAD. A1C completed at admission normal range. On Bactrim as an outpatient. Prior wound culture growing Serratia and Pseudomonas. - Continue Meropenem for now - F/U blood cultures - Ortho following, did not feel repeat surgical intervention needed - Consult with [facility] regarding ongoing coverage, duration of therapy 3) Chronic ulcerations, poor wound healing, wound vac in place: - Consult [facility], pt due for wound vac change on 08/01 4) Lupus: Stable - Continue home Hydroxychloroquine, Prednisone 5) Right leg weakness: Unclear etiology, beyond pt with leg cramping - Continue mIVF overnight - PT consulted DVT ppx: Lovenox as above Code: Full Diet: General Dispo: Pending blood cultures, consults as above, symptom improvement. Anticipate at least 2 midnights.
[2023-07-30 16:40] VITALS: BP 166/71; PULSE 78; RESP 14; TEMP 36.3; O2SAT 94
[2023-07-30] MEDS: MEROPENEM 500 MG in SODIUM CHLORIDE 0.9% 100 ML 200 MG IV (16:51)
[2023-07-30 17:18] VITALS: BMI 25.0
--- NOTE | 2023-07-30 19:05 | PM.CN ---
History of Present Illness Consult details Date Patient Seen: 07/30/23 Time Patient Seen: 19:06 Chief complaint: dr ref/states needs MRI Reason for consult: Orthopedic management right foot Requesting provider: Oneil Mcneill Narrative: The patient is a 77-year-old patient of mine that is a neuropathic with a history of lupus. He had chronic right foot neuropathic ulcerations resulting in osteomyelitis and chronic foot deformities. He had a correction of foot deformities sustained an infection necrosis of his 2nd toe. He had an amputation of the 2nd toe and also necrosis wound at his 5th metatarsal head site and had a more extensive 5th metatarsal partial excision for this. He has been getting wound care with [facility] wound care and just transitioned from wet-to-dry to the wound VAC last week. States he last saw Wound Care yesterday but notes in the last 3 days he is had a change and endorses increased pain and swelling in his right foot and entire leg and also difficulty lifting the right leg. He thinks he may have strained a groin or thigh muscle. He is not had any fevers or shortness of breath. He has been taking oral Bactrim as an antibiotic based on his intraoperative cultures. Up until 3 days ago states he was doing okay and then noted the substantial swelling. --he was evaluated in my Orthopedic Clinic today where I saw his leg noted his swelling and suspected a deep venous thrombosis. Discussed with the patient that erythema and swelling in his foot could also mean worsening of infection but with pain in his thigh and swelling all the way up to the knee and calf I was concerned about deep venous thrombosis she also has a history of lupus. I sent the patient to the emergency room for workup and venous ultrasound as well as advanced imaging of his foot to rule out worsening infection and discussed admission and likely IV antibiotics and/or treatment for thrombosis as indicated. The patient agreed and presented to the ER. I also discussed this plan with ER physician Dr. Mcneill. Patient was admitted to his primary care doctor Dr. Gonzalez. He did have an ultrasound that revealed a nonocclusive right common femoral DVT. He was also started on IV antibiotics. He is seen now resting in his hospital room. And he had MRIs of both his foot and lower leg on the right side. He notes that during his treatment at some point there was a leak in his wound VAC and that has been off for the last 2 hours. He is most bothered by the pain cramping or spasming that he feels in his thigh and leg. Meds Home Medications and Allergies Home Medications Medication Instructions Recorded Confirmed Type cholecalciferol (vitamin D3) 50 2,000 unit PO DAILY 11/07/18 07/04/23 History mcg (2,000 unit) capsule Disabled Parking Permit #1 ea 10/03/20 01/16/23 Rx hydroxychloroquine 200 mg tablet 200 mg PO BID 05/09/22 07/04/23 History prednisone 5 mg tablet 5 mg PO DAILY 05/02/23 07/04/23 History Bactrim DS PO Q12H 07/04/23 History meloxicam 7.5 mg tablet 7.5 mg PO DAILY #30 tabs 07/04/23 Rx tramadol 50 mg tablet 50 mg PO Q6H PRN pain #30 tabs 07/04/23 Rx Allergies Allergy/AdvReac Type Severity Reaction Status Date / Time No Known Drug Allergies Allergy Verified 07/04/23 06:25 Review of Systems Review of Systems Narrative: History of lupus complains of thigh pain difficulty lifting right lower extremity. No fevers. No chills but states it was very cold and MRI room Exam Vital Signs (past 8 hours): - 07/30/23 13:44 07/30/23 16:40 Temperature 98.1 F 97.3 F L Pulse Rate 70 78 Respiratory Rate 18 14 Blood Pressure 159/65 H 166/71 H Pulse Oximetry 99 94 Oxygen Delivery Method Room Air Oxygen Delivery Method Room Air Narrative Exam Narrative: Alert oriented male no acute distress lying in bed HEENT exam normocephalic atraumatic Heart regular rate rhythm Lungs unlabored on room air Musculoskeletal exam Has difficulty lifting right leg due to thigh pain. Quadriceps tendon is palpable. Knee is not swollen. There is swelling up to the level of the knee and foot globally. Erythema above ankle level as well. Edema of the foot no obvious fluctuance. Patient is neuropathic. There is a wound VAC with sponges to the 5th metatarsal head area and 2nd toe amputation site and a track pad. The VAC has been off according to the patient for the last 2 hours due to a leak obtained in the hospital. He has a palpable dorsalis pedis pulse. Calf and lower extremity globally swollen. Tender to palpation. Demonstrates dorsiflexion plantar flexion. Utilizing dressing film I reapplied the VAC and obtained a good seal. Objective Imaging MRI of the right foot: My impression: Consistent with previous surgical history of hammertoe fixation 2nd toe amputation and 5th metatarsal partial amputation. No clear deep abscess is demonstrated. There is edema within the soft tissues and prominently in the subcutaneous tissue in the foot consistent with swelling or cellulitis. Venous duplex: Radiologist's impression: Right common femoral nonocclusive DVT Labs 07/30/23 14:07 07/30/23 14:07 Labs: Laboratory Results - last 24 hr 07/30/23 07/30/23 07/30/23 14:07 14:07 14:07 WBC 5.1 RBC 4.08 L Hgb 12.4 L Hct 36.9 L MCV 90.3 MCH 30.4 MCHC 33.7 RDW 13.7 Plt Count 278 Neut % (Auto) 63.4 Lymph % (Auto) 19.5 L [place] % (Auto) 8.2 Eos % (Auto) 8.2 H Baso % (Auto) 0.7 Neut # (Auto) 3200 Lymph # (Auto) 1000 L [place] # (Auto) 400 Eos # (Auto) 400 Baso # (Auto) 0 ESR 32 H Sodium 132 L Potassium 4.1 Chloride 97 L Carbon Dioxide 26 BUN 30 H Creatinine 1.33 H Estimated GFR 54 L BUN/Creatinine Ratio 22.6 H Glucose 64 L Hemoglobin A1c Lactate 1.1 Calcium 9.5 Total Bilirubin 0.5 AST 25 ALT 18 Alkaline Phosphatase 77 C-Reactive Protein 2.9 H Total Protein 7.7 Albumin 4.0 Globulin 3.7 Albumin/Globulin Ratio 1.1 Lipase 76 07/30/23 14:07 WBC RBC Hgb Hct MCV MCH MCHC RDW Plt Count Neut % (Auto) Lymph % (Auto) [place] % (Auto) Eos % (Auto) Baso % (Auto) Neut # (Auto) Lymph # (Auto) [place] # (Auto) Eos # (Auto) Baso # (Auto) ESR Sodium Potassium Chloride Carbon Dioxide BUN Creatinine Estimated GFR BUN/Creatinine Ratio Glucose Hemoglobin A1c 5.2 Lactate Calcium Total Bilirubin AST ALT Alkaline Phosphatase C-Reactive Protein Total Protein Albumin Globulin Albumin/Globulin Ratio Lipase [facility] Medical History Arthritis BPH (benign prostatic hyperplasia) Cataracts, bilateral Chronic cough (~2018) 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 Mother Diabetes mellitus Hyperlipidemia Social History marital status: household members: none lives independently: Yes caregiver/support person: No housing: house education level: college occupational status: previously employed Tobacco & Substance Use Smoking Status: Former smoker second hand exposure: No alcohol intake: current substance use type: does not use Assessment & Plan Assessment and plan (1) Cellulitis: Qualifiers: Site of cellulitis of extremity: lower extremity Laterality: right Status: Acute (2) Neuropathic ulcer of foot: Qualifiers: Laterality: right Non-pressure ulcer stage: with necrosis of bone Qualified Code(s): L97.514 - Non-pressure chronic ulcer of other part of right foot with necrosis of bone Status: Acute (3) Right femoral vein DVT: Qualifiers: Chronicity: acute Qualified Code(s): I82.411 - Acute embolism and thrombosis of right femoral vein Status: Acute (4) Lupus: Status: Acute (5) Right foot infection: Status: Acute Plan 1. 77-year-old gentleman with history of neuropathic ulcers on his foot and osteomyelitis. He would necrosis of the 2nd toe. And 5th metatarsal head incision necrosis and osteomyelitis. He is status post 2nd toe amputation and resection of the 5th metatarsal head. He has been treated with wound care with wet-to-dry and then application of a wound VAC. He has been on oral antibiotics. He has a 3 day history of increased swelling and pain in his entire right lower extremity emanating from the thigh distal and has global edema. He was seen in orthopedic clinic today and I suspected DVT and worsening cellulitis. He was sent to the ER. Vascular duplex demonstrated nonocclusive femoral DVT in the right common femoral veins consistent with his swelling and thigh pain. He is indicated for treatment of his acute deep venous thrombosis. I have called and discussed this patient with Dr. Ramos this evening will initiate therapeutic treatment. 2. Furthermore the patient received MRIs of his right foot and right lower extremity due to his swelling and history of infection surgery. No obvious deeper abscess was noted. The majority of his swelling appears to be subcutaneous edema. I do not see any requirements for further orthopedic surgery at this time. Agree with IV antibiotics. He was going to see infectious disease tomorrow but it has been hospitalized. He is increased swelling and redness may be from the DVT or worsening infection or both. At this time would agree with IV antibiotics and therapeutic anticoagulation for acute DVT treatment. The patient was getting wound VAC changes with [facility] wound care twice a week. Next change is due on . Ideally would have [facility] come and change this in the hospital if the patient is still admitted at that time. Otherwise see wound care as scheduled as an outpatient. May weight bear as tolerated and use the postoperative shoe. Can follow-up with Orthopedics with Dr. Klein in clinic in another 2 weeks or so for a progress check but he would in the interim be getting routine wound VAC changes with wound care and may require continued oral versus IV antibiotics depending on progress made with the acute treatment of DVT. This patient is indicated for hospital admission to treatment of his acute DVT. Patient 77 neuropathic with lupus and increased risk factors. He also had recent surgery requiring wound VAC with simultaneous concern for potential worsening infection. MRIs demonstrate no deep abscess but global subcutaneous edema should be consistent with the known DVT or cellulitis myositis. Agree with IV antibiotics. Creatinine is 1.3. Time Spent With Patient Time with patient: less than 30 minutes
[2023-07-30 20:35] VITALS: BP 155/73; PULSE 80; RESP 16; TEMP 36.8; O2SAT 97
[2023-07-30] MEDS: HYDROXYCHLOROQUINE 200 MG TABLET PO (20:46)
[2023-07-30] MEDS: ENOXAPARIN 100 MG/ML SYRINGE 85 MG SUBCUT (20:46)
[2023-07-30] MEDS: ACETAMINOPHEN 325 MG TABLET 650 MG PO (20:53)
[2023-07-30] MEDS: MEROPENEM 1 GM in SODIUM CHLORIDE 0.9% 100 ML IV (20:54)
[2023-07-30] MEDS: OXYCODONE IR 10 MG TABLET PO (23:51)
[2023-07-31 04:20] VITALS: BP 134/68; PULSE 73; RESP 16; TEMP 37.1; O2SAT 97
[2023-07-31] MEDS: MEROPENEM 1 GM in SODIUM CHLORIDE 0.9% 100 ML IV (04:40)
[2023-07-31 05:28] LABS: Add Manual Diff / Slide Review NO; Basophils Absolute Auto 0 /uL (0-100); Basophils Percent Auto 0.6 % (0-2); Eosinophils Absolute Auto 500 /uL (0-450); Hematocrit 32.5 % (41-53); Hemoglobin 10.9 g/dL (13.5-17.5); Lymphocytes Absolute Auto 1200 /uL (1100-4500); Mean Corpuscular HGB Conc 33.6 % (30-36); Mean Corpuscular Volume 89.4 fL (80-100); Monocytes Absolute Auto 400 /uL (0-900); Monocytes Percent Auto 7.7 % (3-14); Neutrophils Absolute Auto 2500 /uL (1500-7000); Neutrophils Percent Auto 53.7 % (50-75); Platelet Count 237 X10^3/uL (150-400); Red Blood Cell Count 3.64 X10^6/uL (4.5-5.9); Red Cell Distribution Width 13.6 % (11.6-14.8); White Blood Cell Count 4.6 X10^3/uL (4.5-11.0)
[2023-07-31 05:29] LABS: BUN Creatinine Ratio 20.3 (6-22); Blood Urea Nitrogen 26 mg/dL (9-20); C-Reactive Protein Quant 2.5 mg/dL (<1.0); Calcium 8.7 mg/dL (8.4-10.2); Carbon Dioxide 25 mmol/L (22-32); Chloride 102 mmol/L (98-107); Estimated Glomerular Filt Rate 57 mL/min (>60); Glucose 82 mg/dL (80-110); HEMOLYSIS < 15 (0-50); Potassium 4.1 mmol/L (3.4-5.1); Sodium 131 mmol/L (137-145)
[2023-07-31] MEDS: OXYCODONE IR 5 MG TABLET PO ×2 (06:46→18:30)
[2023-07-31 06:58] LABS: Erythrocyte Sedimentation Rate 24 MM/HR (0-15)
--- NOTE | 2023-07-31 08:14 | P.PN_ITS ---
Subjective <Cristal Baez - Last Filed: 07/31/23 16:54> Subjective Interval history: Lalo is a 77 year old male with a history of lupus, nephritic syndrome, hyperlipidemia, CVA, DVT, PE, peripheral neuropathy, and Agent [place] exposure who presented to the ER 07/30 for evaluation of post-operative infection in his right foot. Recent surgical history includes L great toe amputation d/t osteomyelitis 05/11/22, R foot neuropathic ulcer debridement d/t osteomyelitis and Rice procedure with Achilles tendon lengthening on 05/02/23, and R 2nd toe amputation and 5th metatarsal bone debridement d/t osteomyelitis on 07/04/23. His workup in the ER revealed non-occlusive DVT in right femoral vein, osteomyelitis in R 2nd and 5th metatarsals, and R foot full thickness neuropathic ulcer. He was started on enoxaparin for DVT prophylaxis and meropenem for osteomyelitis. There was a leak in his wound vac, vac was redone by his orthopedist Dr. Klein last night. No acute events overnight, vital signs stable and afebrile. Lalo is in good spirits and feels that the swelling and pain in his leg is improving. He denies numbness, tingling, or pain in his R foot, but feels deep muscular pain in his upper R thigh. His pain is well controlled with oxycodone 5mg PRN. He has a good appetite without nausea or vomiting. He has been able to ambulate to the bathroom for two BMs which were normal and nonbloody. He has been having progressive urinary incontinence for the past several months and is using a urinal in bed and using a diaper as well. He denies dysuria, hematuria, urinary frequency. He does not feel the urge to urinate throughout the day and becomes incontinent. He has a history of BPH and tried tamsulosin about two years ago without great improvement in his BPH sx. Exam <Cristal Baez - Last Filed: 07/31/23 16:54> Vital Signs (past 8 hours): - 07/31/23 04:20 Temperature 98.7 F Pulse Rate 73 Respiratory Rate 16 Blood Pressure 134/68 Pulse Oximetry 97 Oxygen Flow Rate 0 Oxygen Delivery Method Room Air Oxygen Flow Rate 0 Narrative Exam Narrative: General: 77 year old man, comfortable, cooperative, no acute distress. HEENT: Normocephalic, atraumatic. Anicteric sclera, extraocular muscles intact. CV: RRR, 2/6 systolic murmur. Pulm: Lungs clear to auscultation bilaterally. Normal respiratory effort. Abdomen: Soft, nondistended. Nontender to palpation in all quadrants, no masses or hepatosplenomegaly. Extremities: UE: L and R hands with MCP subluxation, ulnar deviation, swan neck deformity. LLE: No peripheral edema in L leg, L great toe amputated. Intact dorsalis pedis and posterior tibialis. RLE: 2+ pitting edema up to [place]. Foot swollen and erythematous with wound vac, good cap refill. Focal necrosis on 5th toe. 2nd toe amputated. Intact dorsalis pedis and posterior tibialis pulses. Nontender to palpation over proximal R thigh. Neuro: AOx3, moving all extremities. No focal deficits, CN grossly intact. Derm: Warm, dry, and intact without rashes or lesions. Psych: Appropriate mood and affect. Objective <Cristal Baez - Last Filed: 07/31/23 16:54> Labs 07/31/23 04:15 07/31/23 04:15 Labs: Laboratory Results - last 24 hr 07/30/23 07/31/23 14:07 04:15 WBC 5.1 4.6 RBC 4.08 L 3.64 L Hgb 12.4 L 10.9 L Hct 36.9 L 32.5 L MCV 90.3 89.4 MCH 30.4 30.0 MCHC 33.7 33.6 RDW 13.7 13.6 Plt Count 278 237 Neut % (Auto) 63.4 53.7 Lymph % (Auto) 19.5 L 27.0 [place] % (Auto) 8.2 7.7 Eos % (Auto) 8.2 H 11.0 H Baso % (Auto) 0.7 0.6 Neut # (Auto) 3200 2500 Lymph # (Auto) 1000 L 1200 [place] # (Auto) 400 400 Eos # (Auto) 400 500 H Baso # (Auto) 0 0 ESR 32 H 24 H D Sodium 132 L 131 L Potassium 4.1 4.1 Chloride 97 L 102 Carbon Dioxide 26 25 BUN 30 H 26 H Creatinine 1.33 H 1.28 H Estimated GFR 54 L 57 L BUN/Creatinine Ratio 22.6 H 20.3 Glucose 64 L 82 Hemoglobin A1c 5.2 Lactate 1.1 Calcium 9.5 8.7 Total Bilirubin 0.5 AST 25 ALT 18 Alkaline Phosphatase 77 C-Reactive Protein 2.9 H 2.5 H Total Protein 7.7 Albumin 4.0 Globulin 3.7 Albumin/Globulin Ratio 1.1 Lipase 76 PFSH <Cristal Baez - Last Filed: 07/31/23 16:54> Medical History Arthritis BPH (benign prostatic hyperplasia) Cataracts, bilateral Chronic cough (~2017) 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 Mother Diabetes mellitus Hyperlipidemia Social History (Updated 07/31/23 @ 08:15 by Cristal Baez) marital status: household members: none lives independently: Yes caregiver/support person: No housing: house education level: college occupational status: previously employed Smoking Status: Former smoker second hand exposure: No alcohol intake: current substance use type: does not use Assessment & Plan <Cristal Baez - Last Filed: 07/31/23 16:54> Assessment and plan (1) Right foot infection: Status: Acute (2) Right femoral vein DVT: Qualifiers: Chronicity: acute Qualified Code(s): I82.411 - Acute embolism and thrombosis of right femoral vein Status: Acute Plan R foot cellulitis: Lalo's cellulitis is improved from yesterday, with decreased erythema and swelling. Lab results do not show systemic infection and he remains afebrile His pain is currently well controlled with oxycodone. Switching from meropenem to cefepime 2g IV q12h and vancomycin 125 g PO q12h for C. diff prophylaxis as per ID consult. Will continue to monitor for increasing necrosis in metatarsals. Urinary incontinence: Bladder scan showed normal post-void residual (borderline; 299 mL instead of cutoff at 300 mL). UA showed probable UTI, which will be treated with current antibiotic regimen. R femoral vein DVT: Current prophylaxis with enoxaparin 85mg IM, will transition to oral DOAC before discharge. Dispo: Has son and [id number] at home to take care of him. Anticipate continuing stay in hospital for at least one more midnight. <Dionne Snow MD - Last Filed: 07/31/23 17:10> Assessment and plan (1) Right foot infection: (2) Right femoral vein DVT: Plan R foot cellulitis: Lalo's cellulitis is improved from yesterday, with decreased erythema and swelling. Lab results do not show systemic infection and he remains afebrile His pain is currently well controlled with oxycodone. Switching from meropenem to cefepime 2g IV q12h and vancomycin 125 g PO q12h for C. diff prophylaxis as per ID consult. Will continue to monitor for increasing necrosis in metatarsals. Urinary incontinence: Bladder scan showed normal post-void residual (borderline; 299 mL instead of cutoff at 300 mL). UA showed probable UTI, which will be treated with current antibiotic regimen. R femoral vein DVT: Current prophylaxis with enoxaparin 85mg IM, will transition to oral DOAC before discharge. Dispo: Has son and [id number] at home to take care of him. Anticipate continuing stay in hospital for at least one more midnight. Pt was seen and examined with the medical student. Plan of care reviewed. In short, pt is a 77yo man with lupus, chronic nephritis syndrome, neuropathy with recent first toe amputation, now s/p amputation of the right 2nd toe and partial amputation of the right 5th toe with nonhealing wound/ulcers and wound vac in place, here with cellulitis, likely osteomyelitis, and new right femoral nonocclusive DVT. Pt symptomatically appears significantly improved today from yesterday. Contacted Dr Verduzco, [place], today. She recommended Cefepime 2g q12hrs due to creatinine clearance, with plans to increase to q8hr if creatinine improves, in addition to C diff prophylaxis with Vancomycin due to hx of C diff with prior prolonged antibiotics. Pt will have wound vac change tomorrow by wound care team, with cultures obtained at that time as well. She will f/u with the patient after discharge to determine duration of therapy. Pt will require at least 3 months treatment with anticoagulation for DVT. Transitioned to Xarelto with renal dosing today. Pt does report ongoing urinary incontinence as well for the last several months. Normal post-void residual today. U/A with suggestion of UTI, which would be covered by current antibiotics. Will continue to monitor. May need outpatient Urology referral. Pt may be ready to d/c tomorrow dependent on leg appearance in the morning. He will need outpatient IV antibiotics ongoing. Will order for PICC line placement in anticipation of this.
[2023-07-31] MEDS: CHOLECALCIFEROL (VITAMIN D3) 1,000 UNIT TABLET 2000 UNIT PO (09:23)
[2023-07-31] MEDS: HYDROXYCHLOROQUINE 200 MG TABLET PO ×2 (09:23→21:16)
[2023-07-31] MEDS: ENOXAPARIN 100 MG/ML SYRINGE 85 MG SUBCUT (09:23)
--- NOTE | 2023-07-31 10:43 | CM.DANOTE ---
Addendum entered by Rina Bateman R.N. 07/31/23 11:32: CM team recieved message from Dr. Snow that patient will need IV Cefepime every 12 hours, with Dr. Verduzco following at [place] for future planning. Met with patient to discuss options. He states he has used [facility] previously and would like to pursue services again. Mentioned to Dr. Snow that Radha of [facility] wound care informed no current Cx from wound and vac is due for change tomorrow. Dr. Snow offers a new wound Cx is a good idea during vac change. Spoke with Radha at [facility] wound care and she states she will be here to evaluate toe wounds, and change wound vac tomorrow. Relayed info from Dr. Snow. Call to Phil at [facility] [phone] and will send him orders, packet and plan when available from MD team. Original Note: DCP: Chart review for case, met with patient at bedside, they agree to case management assessment. Completed DCP assessment based on information available. Patient is a 77 year old admitted for cellulitis, R/O osteomyelitis by MRI, but remains on IV ABX. States he is usually independent, drives own car, but has support from son Charan and his who will be moving in with him to provide additional help. Walks with cane which is at bedside. States he has been going to wound care at [facility] with LEANDRO Garcia. Call to wound care at [phone] and spoke with Rosa who relays they may be able to visit him in room 220 for wound vac change and relay toe care to bedside LEANDRO Wu. Patient states he has been on OP IV ABX previously in [place], but prefers not to use [facility] for any services. PCP: Dionne Snow Specialty MD: Yisel Klein Payer: , [employer]. 70 % service connection with [facility] with appeal for Agent [place] toxicity in process DME: Cane/at bedside DCP: Home with possible IV ABX, ongoing wound care, pending CX?s. Son hCaran will be catering driver home. Rina Bateman RN, CM Discharge Planning/Care Management CM Discharge Assessment Start: 07/31/23 10:39 Freq: Status: Active Protocol: Document 07/31/23 10:39 BQ (Rec: 07/31/23 10:42 BQ [id number]) Discharge Planning Assessment Assigned Endocrinology Teacher Rina Bateman RN CM Advance Directives? Yes Advance Directives on File Yes History Provided By Patient,Medical Record Has Patient been admitted in last 30 No days? Prior Living Arrangements House Household Members none Type of transporation used prior to Drives own vehicle admit Independent with ADL's Yes Is patient alert and oriented? Yes Caregiver for Another No DME Already Rented / Owned Cane Barriers to Discharge No Discharge Plan Home Community Services Wound Care Referrals Initiated None needed Medicare Choice List Provided No Whiteboard Updated in Patient Room with Yes name and ext. # of Endocrinology Teacher Review Status In Process Next Review Type Continued Stay Review
[2023-07-31] MEDS: SODIUM CHLORIDE 0.9% 1,000 ML 100 ML IV ×2 (11:44→21:17)
[2023-07-31] MEDS: ACETAMINOPHEN 325 MG TABLET 650 MG PO ×2 (11:45→21:16)
[2023-07-31] MEDS: DOCUSATE 100 MG CAPSULE PO (11:45)
--- NOTE | 2023-07-31 11:55 | PT.IIE ---
Current Diagnoses Acute embolism and thrombosis of right femoral vein (07/30/23) Cellulitis, unspecified (07/30/23) Local infection of the skin and subcutaneous tissue, unspecified (07/30/23) Non-pressure chronic ulcer of other part of right foot with necrosis of bone (07/30/23) Systemic lupus erythematosus, unspecified (07/30/23) Surgical History (Last Reviewed 05/02/23 @ 11:09 by Yisel Klein MD) History of arthroplasty of left knee History of arthroplasty of right knee History of orthopedic surgery (05/11/22) Hx of cataract extraction Medical History (Last Reviewed 07/30/23 @ 14:11 by Oneil Mcneill DO) Arthritis BPH (benign prostatic hyperplasia) Cataracts, bilateral Chronic cough (~2017) 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 Chronic UTI DVT (deep venous thrombosis) Foot pain (~2017) GI bleed (~03/2018) History of pulmonary embolism (~08/2015) HLD (hyperlipidemia) Lupus (systemic lupus erythematosus) Lymphocytopenia Osteomyelitis PICC (peripherally inserted central catheter) in place Pulmonary embolus Shoulder pain (~2014) Physical Therapy Inpatient Evaluation/Re-Eval M1 PT/OT-IP Prior Functional Status Start: 07/31/23 13:45 Freq: NEEDED Status: Active Protocol: Document 07/31/23 11:55 AB (Rec: 07/31/23 14:07 AB [id number]) Medical Review Prior Functional Status Medical History Reviewed Yes Communication able to make needs known Mobility and Gait pt stated that he is modified independent with all mobilities and ambulation without AD but started using an AD since 07/24/23 after 2nd toe amputation. pt has been using a knee scooter after but has switched into a 4WW or a tripod cane due to the knee scooter hurting his knee Prior Functional Level (Other details) pt s/p R 2nd toe amputation pt stated that he has balance issue and was supposed to see a neurologist and also PT for balance Social History Household Members none Living Arrangements House Number of Floors (Floors) Two Floors Number of Stairs To Enter/Railing? pt stays on the main level of the house has 15 steps to enter with R rail ascending Home Environment High Toilet,Walk in Shower Home Equipment Four Wheel Walker,Straight Cane,Grab Bars Near Toilet, Grab Bars In Shower Additional Social History Comment pt has a tripod cane and a knee scooter M2 PT-IP Current Condition Start: 07/31/23 13:45 Freq: NEEDED Status: Active Protocol: Document 07/31/23 11:55 AB (Rec: 07/31/23 14:07 AB [email or web address]) Physical Therapy Current Condition Current Condition Evaluation Date 07/31/23 Treatment Diagnosis RLE cellulitis; R femoral vein DVT; difficulty in walking Onset Date 07/30/23 M3 PT-IP Subjective Start: 07/31/23 13:45 Freq: NEEDED Status: Active Protocol: Document 07/31/23 11:55 AB (Rec: 07/31/23 14:07 AB [email or web address]) Subjective Physical Therapy Visit Type Type Initial Evaluation Visit Start Time 11:55 Visit Stop Time 12:30 Total Visit Minutes 35 Number of EXTRACTOR PULLER Visits 0 Physical Therapy Visit Comments Patient Comments agreeable to do PT Therapy Pain Assessment Pain When Pain Assessed During Mobility Location Right Lateral Thigh Intensity 10 Description Sharp,Stabbing Pain Management Techniques Distraction,Modification of Treatment,Re-positioning, Timing of Activity with Medications M4 PT-IP Mobility and Gait Start: 07/31/23 13:45 Freq: NEEDED Status: Active Protocol: Document 07/31/23 11:55 AB (Rec: 07/31/23 14:07 AB [email or web address]) PT-Bed Mobility Assessment Supine to Sit Supine to Sit Standby Assistance PT-Transfer Assessment Sit to and From Stand Sit to and from Stand Standby Assistance Equipment Transfer Assistive Device Gait Belt,Tripod Cane/Hurry Cane,Front Wheeled Walker,4 Wheeled Walker Transfers Transfer Destination Chair Transfer Technique Stand Step Pivot Transfer Ability Level of Assist Standby Assistance,Minimal Assistance Comments Mobility Comments pt supine in bed. R foot wound vac in place. pt stated that he does not need PT but agreed to do PT. completed supine to sit SBA. sit to stand SBA and initially instructed to ambulate with his tripod cane min A and pt needing to hold on to IV pole for support and only took 2 steps. FWW provided for ambulation and completed 35 ft SBA. pt stated that due to R thigh pain, needing more support at this time walking. Assessed ambulation usign 4WW and completed ~ 30 ft SBA. pt sat back on EOB. educated pt on importance of PT and goals and pt agreed to do PT while here in the hospital. pt completed sit to stand from EOB SBA and step transfer to chair using FWW SBA. set up pt on the chair. call light and table placed within reach. Gait Assessment Gait Gait Assistance Required: Standby Assistance Distance (Feet) 35 Assistive Devices Assistive Device Gait Belt,Front Wheeled Walker ,4 Wheeled Walker Orthotic/Prosthetic Devices or Brace: Yes Gait Deviations General Gait Pattern Decreased Stride Length, Decreased Feet Clearance Factors Limiting Gait Function Factors Limiting Gait Function Decreased Activity Tolerance, Decreased Sensation,Decreased Strength,Limited Range of Motion,Pain,Poor Balance,Poor Safety Awareness PT-Balance Assessment Sitting Balance and Reactions Static Sitting Balance Ability Normal Dynamic Sitting Balance Ability Normal Standing Balance and Reactions Static Standing Balance Ability Fair Dynamic Standing Balance Ability Fair Device Used tripod cane M5 PT-IP Objective Assessments Start: 07/31/23 13:45 Freq: NEEDED Status: Active Protocol: Document 07/31/23 11:55 AB (Rec: 07/31/23 14:07 [place] [id number]) Orientation Orientation/Cognition Level of Alertness Alert Orientation Name Language Function Ability No Deficits Noted Safety Awareness Decreased Safety Awareness Memory Description No Deficits Noted Gross Range of Motion Lower Extremity ROM Assessment Within Functional Limits Strength Lower Extremity Strength Assessment Right Impaired Hip 3-/5 Knee 3+/5 Sensation Assessment Sensation Gross Sensation Right LE Impaired,Left LE Impaired Sensation Description Numbness Comments Sensation Comments stated that he has chronic BLE neuropathy from the knee down to toes Muscle Tone Muscle Tone WNL Yes M6 PT-IP Treatment Start: 07/31/23 13:45 Freq: NEEDED Status: Active Protocol: Document 07/31/23 11:55 AB ([facility]: [email or web address] Physical Therapy Treatment Education Education Provided Safety M7 PT-IP Assessment and Plan Start: 07/31/23 13:45 Freq: NEEDED Status: Active Protocol: Document 07/31/23 11:55 AB (Rec: 07/31/23 14:07 [email or web address] PT Summary Assessment and Plan Potential Rehabilitation Potential Fair Status of Condition at Evaluation Evolving Summary Impairments Pain,ROM,Strength,Balance, Coordination,Sensation,Tone, Cognition,Bed Mobility, Transfers,Gait,Activity Tolerance Progress Towards Goals Safe For Discharge Assessment Summary pt s/p R 2nd toe amputation and 5th toe debridement with wound vac placement 07/24/23; presented to the ED with increase RLE swelling and redness. pt admitted for RLE cellulitis and DVT R femoral vein. pt able to ambulate using FWW/4WW SBA but needing min A using tripod cane with unsteadiness. pt with c/o R thigh pain affecting mobility. pt able to ambulate using tripod cane prior to admission . will continue PT in the hospital for mobility, balance and gait training as well as stair climbing training. will continue to assess progress. Goals Bed Mobility Goal Independent Transfer Goal Independent,Four Wheeled Walker Gait Goal Independent,Four Wheel Walker Gait Distance 200 Other Goals improve transfers and ambulation using tripod cane 250 ft mod I up/down 15 steps using R rail ascending mod I Days to Meet Goals 10 Frequency of Treatment Frequency Of Treatment Once a Day Treatment Plan Physical Therapy Treatment Plan Bed Mobility Training,Transfer Training,Gait Training, Therapeutic Exercise,Balance Retraining,Post Op Education, Discharge Planning,Hot or Cold Pack,Neuromuscular Re-ed, Coordination Retraining,Manual Therapy Precautions Brace post op shoe RLE: forefoot cutout Weight Bearing Status Weight Bearing Status Weight Bear as Tolerated Allowed Weight Bearing Amount (enter % RLE WBAT with post-op shoe or #) (%) with forefoot cutout Recommendations To Nursing Amount of Assist Needed Standby Assistance Discharge Recommendations PT Discharge Recommendations Home with Assistance, Outpatient PT Transportation Needs at Discharge Private Vehicle
[2023-07-31 12:00] VITALS: BP 159/60; PULSE 81; RESP 18; TEMP 36.7; O2SAT 97
[2023-07-31] MEDS: CEFEPIME 2 GM in SODIUM CHLORIDE 0.9% 100 ML IV ×2 (12:58→23:12)
[2023-07-31 16:07] LABS: Appearance Urine UA CLEAR; Bilirubin Urine UA NEGATIVE (NEGATIVE); Color Urine UA YELLOW; Glucose Urine UA NEGATIVE (Negative); Ketones Urine UA NEGATIVE (NEGATIVE); Leukocyte Esterase Urine UA 1+ (NEGATIVE); Nitrite Urine UA NEGATIVE (Negative); Occult Blood Urine UA 1+ (Negative); Protein Urine UA 1+ (Negative); Urobilinogen Urine UA 0.2 E.U./dL (0.2); pH Urine UA 5.5 (4.5-8.0)
[2023-07-31 16:18] LABS: Bacteria Urine Occasional (0-1); Culture Indicated Urine Specimen Cultured; RBC Urine 5-10/HPF (0-5/HPF); Squamous Epithelial Cell Urine None Seen (0-5/HPF); WBC Urine 10-30/HPF (0-5/HPF)
[2023-07-31 20:00] VITALS: BP 155/74; PULSE 87; RESP 16; TEMP 37.1; O2SAT 98
[2023-07-31] MEDS: VANCOMYCIN 125 MG CAPSULE PO (21:16)
[2023-08-01] MEDS: OXYCODONE IR 10 MG TABLET PO ×2 (02:07→13:39)
[2023-08-01 02:31] VITALS: BP 140/65; PULSE 82; RESP 20; TEMP 36.7; O2SAT 99
[2023-08-01] MEDS: OXYCODONE IR 5 MG TABLET PO ×2 (07:35→08:11)
[2023-08-01] MEDS: MAGNESIUM HYDROXIDE 30 ML UDC PO (07:52)
[2023-08-01] MEDS: SODIUM CHLORIDE 0.9% 1,000 ML 100 ML IV (07:52)
[2023-08-01] MEDS: RIVAROXABAN 10 MG TABLET 15 MG PO (07:52)
[2023-08-01 08:00] VITALS: BP 132/69; PULSE 79; RESP 17; TEMP 36.4; O2SAT 99
--- NOTE | 2023-08-01 08:08 | PM.PN.1 ---
Subjective Subjective Interval history: Lalo is a 77 year old male with a history of lupus, nephritic syndrome, hyperlipidemia, CVA, DVT, PE, peripheral neuropathy, and [place] exposure who presented to the ER 07/30 for evaluation of post-operative infection s/p amputation of R 2nd toe and partial amputation of R 5th toe with non-healing ulcers. No acute events overnight. VSS, afebrile. He was transitioned from enoxaparin to rivaroxaban 15mg PO QD yesterday and antibiotics switched from meropenem to cefepime and vancomycin. Wound care came yesterday afternoon to reapply dressing to his foot. He noticed mild hematuria yesterday that has since resolved. The pain in Lalo's right groin and thigh increased to 7-8/10 overnight with shooting pain down leg with movement, interrupting his sleep. He was treated with ice and oxycodone 10mg PRN which reduced pain to a 4-5/10. The swelling and erythema in his right lower leg continues to diminish. He has been experiencing constipation and has not had a BM in over a day and a half, was given stool softeners and milk of magnesia. Denies chest pain, SOB, palpitations, abdominal pain, dysuria. Exam Vital Signs (past 8 hours): - 08/01/23 02:31 Temperature 98.1 F Pulse Rate 82 Respiratory Rate 20 Blood Pressure 140/65 Pulse Oximetry 99 Oxygen Flow Rate 0 Oxygen Delivery Method Room Air Oxygen Flow Rate 0 Narrative Exam Narrative: General: 77 yo M, comfortable, cooperative, no acute distress. Appears stated age. HEENT: Normocephalic, atraumatic. Anicteric sclera, extraocular muscles intact. CV: RRR, 2/6 systolic murmur. Pulm: Lungs clear to auscultation bilaterally. Normal respiratory effort. Extremities: UE: L and R hands with MCP subluxation, ulnar deviation, swan neck deformity. LLE: No peripheral edema in L leg, L great toe amputated. Intact dorsalis pedis and posterior tibialis. RLE: 2+ pitting edema up to [place]. Foot swollen and erythematous with wound vac gauze dressing around forefoot and toes. Good cap refill. Non-erythematous, mildly tender to palpation over proximal R thigh/groin. Neuro: AOx3, moving all extremities. CN grossly intact. Derm: Warm, dry, and intact without rashes or lesions. Psych: Appropriate mood and affect. Objective Labs 07/31/23 04:15 08/01/23 07:55 Labs: Laboratory Results - last 24 hr 07/31/23 16:05 Urine Color Yellow Urine Appearance Clear Urine pH 5.5 Ur Specific [place] 1.020 Urine Protein 1+ H Urine Glucose (UA) Negative Urine Ketones Negative Urine Occult Blood 1+ H Urine Nitrate Negative Urine Bilirubin Negative Urine Urobilinogen 0.2 Ur Leukocyte Esterase 1+ H Urine RBC 5-10/hpf H Urine WBC 10-30/hpf H Ur Squamous Epith Cells None seen Urine Bacteria Occasional (0-1) Ur Culture Indicated? 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 Mother Diabetes mellitus Hyperlipidemia Social History (Updated 07/31/23 @ 08:15 by Cristal Baez) marital status: household members: none lives independently: Yes caregiver/support person: No housing: house education level: college occupational status: previously employed Smoking Status: Former smoker second hand exposure: No alcohol intake: current substance use type: does not use Assessment & Plan Assessment and plan Plan Cellulitis: Anibals infection continues to improve with decreased swelling and erythema. The pain in his thigh has worsened and is likely due to his non-occlusive DVT. He has been transitioned to Xarelto to prevent future DVT,. The pain is responsive to oxycodone PRN in the hospital. Lalo does not wish to use narcotics for an extended period of time, can manage pain with acetaminophen and oxycodone at home. PICC line is being placed today for continued IV antibiotic treatment at home with vancomycin and cefepime. Recommend follow up with wound care and PT to assist with walking as he continues to heal. Dispo: Anticipate discharge today to home, have son and [id number] to take care of him if needed.
[2023-08-01] MEDS: CHOLECALCIFEROL (VITAMIN D3) 1,000 UNIT TABLET 2000 UNIT PO (08:15)
[2023-08-01] MEDS: HYDROXYCHLOROQUINE 200 MG TABLET PO (08:15)
[2023-08-01] MEDS: DOCUSATE 100 MG CAPSULE PO (08:15)
[2023-08-01] MEDS: VANCOMYCIN 125 MG CAPSULE PO (08:15)
[2023-08-01 08:35] LABS: BUN Creatinine Ratio 20.7 (6-22); Blood Urea Nitrogen 25 mg/dL (9-20); Carbon Dioxide 26 mmol/L (22-32); Chloride 104 mmol/L (98-107); Estimated Glomerular Filt Rate > 60 mL/min (>60); Glucose 92 mg/dL (80-110); HEMOLYSIS < 15 (0-50); Potassium 4.8 mmol/L (3.4-5.1); Sodium 134 mmol/L (137-145)
--- NOTE | 2023-08-01 09:30 | PC.RNWOUND ---
Wound evaluation and VAC dressing change. Wound VAC and dressings CDI. Dressings removed and wounds cleansed with normal saline and gauze. Replaced VAC dressing to right 2nd toe amputation wound site and bridged to lateral foot wound. Duoderm to periwound. Hydrofera blue cut to cover all other wounds, covered with gauze and secured with kerlix. VAC canister changed, estimated 100cc serosanguineous drainage present in disposed canister. Patient aware of follow-up appointment at wound care center scheduled for 08/05/23 at 1315.
--- NOTE | 2023-08-01 10:43 | CM.DPC ---
DCP Cont. Reviewed EMR for d/c updates. Clinicals and script faxed to [facility]. Pt will d/c home later today after coordination w/[facility] teach. Pt will be transported by family in private vehicle, Dr. Verduzco will cont. to follow and provide parameters for 3-6 weeks of tx. No further needs identified at this time.
[2023-08-01] MEDS: CYCLOBENZAPRINE 10 MG TABLET PO (11:02)
--- NOTE | 2023-08-01 11:49 | DI.RAD.S_ITS ---
PROCEDURE: XR CHEST FOR PICC 1V INDICATIONS: PICC COMPARISON: [facility], [facility], XR CHEST 2V, 12/07/2020, 12:28. FINDINGS: PICC was placed by the intravenous therapy team from the right side. Fluoroscopic spot film demonstrates the tip of PICC projecting to the area of proximal SVC. IMPRESSION: Tip of PICC projects to the area of proximal SVC Dictated by: Rama Reyes M.D. on 08/01/2023 at 12:35 Approved by: Rama Reyes M.D. on 08/01/2023 at 12:35
[2023-08-01] MEDS: CEFEPIME 2 GM in SODIUM CHLORIDE 0.9% 100 ML IV (12:14)
--- NOTE | 2023-08-02 16:21 | PM.DS.1 ---
History of Present Illness History of Present Illness Chief complaint: dr ref/states needs MRI Narrative: Pt is a 77yo man with lupus, chronic nephritis syndrome, 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 The pt reports that approximately 2 days ago he noted a significant increase in his right leg swelling. The lower leg has not been painful. Around the same time, he also developed frequent cramping/shooting nerve pain in the right quadriceps muscle. He states that one time it was so severe he felt like he tore something, and now he has a difficult time moving the right leg. The leg has also appeared significantly more warm. He denies any recent fevers or chills. He denies any recent chest pain, SOB. He has otherwise been feeling well. The pt has been on Bactrim since his last surgery. He is also being followed by wound care. Discharge Providers Provider Date of admission: 07/30/23 14:26 Discharge Date: 08/01/23 Primary care physician: Dionne Snow MD Consults: 07/30/23 13:45 Consult to Orthopedic Surgery Stat Comment: Consulting Provider: Yisel Klein Reason for consultation: Cellulitis Has provider been notified: Yes 07/30/23 20:50 Consult to Physical Therapy Evaluate & Treat Comment: Physician Instructions: Evaluate and Treat 07/31/23 07:49 Consult to Wound Care Routine Comment: Consulting Provider: Markie- Wound Care Discharge provider: Dionne Snow MD Summary Hospital Course Discharge Diagnosis: DVT Osteomyelitis Cellulitis Neuropathy with chronic ulcerations Lupus Hospital Course: The pt presented with significant swelling and erythema of his right lower extremity. He was found to have a right sided DVT, and was initially placed on treatment dosing of Lovenox. He was transitioned to Xarelto, which he was discharged home on as well. The pt was also found on MRI to have osteomyelitis and cellulitis. He was initially treated with Meropenem. This was transitioned to IV Cefepime after ID consult with Dr Verduzco through [facility]. The pt will continue on this with the direction of Dr Verduzco. Ortho consulted, and did not feel surgical intervention was needed at this time. The pts leg improved in appearance significantly throughout his hospitalization. At the time of discharge, he had very minimal erythema and swelling he stated was at baseline. The pt also had significant ongoing right leg cramping throughout his hospitalization. Electrolytes were normal range. He was discharged on Flexeril. Status at Discharge Cognitive/behavioral status at discharge: oriented Functional status at discharge: independent ambulation Overall status at discharge: patient is back to baseline Exam Vital Signs (past 8 hours): Oxygen Delivery Method Room Air Oxygen Flow Rate 0 Narrative Exam Narrative: Gen: NAD, sitting comfortably in bed, appears well Ext: left lower extremity without erythema, trace edema; right lower extremity with 1+ pitting edema to ankle level, very mild erythema of the toes, wound vac in place Objective Labs 07/31/23 04:15 08/01/23 07:55 ON LICENSE OF [facility] Medical History Arthritis BPH (benign prostatic hyperplasia) Cataracts, bilateral Chronic cough (~2017) 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 Mother Diabetes mellitus Hyperlipidemia Social History (Updated 07/31/23 @ 08:15 by Cristal Baez) marital status: household members: none lives independently: Yes caregiver/support person: No housing: house education level: college occupational status: previously employed Smoking Status: Former smoker second hand exposure: No alcohol intake: current substance use type: does not use Discharge Plan Discharge Plan Patient Disposition: Home Discharge orders & Medications Prescriptions: New prednisone 5 mg Tablet 5 mg PO DAILY Qty: 30 0RF docusate sodium 100 mg Capsule 100 mg PO BID PRN (Reason: Constipation) Qty: 60 0RF oxycodone 5 mg Tablet 5 mg PO Q4HR PRN (Reason: Pain, Moderate (4-6)) Qty: 30 0RF Continued cholecalciferol (vitamin D3) 2,000 unit capsule 2,000 unit PO DAILY (DME) Disabled Parking Permit See Rx Instructions .ROUTE .MEDSUPPLY Qty: 1 0RF Rx Instructions: I find this person to be disabled hydroxychloroquine 200 mg Tablet 200 mg PO BID tramadol 50 mg tablet 50 mg PO Q6H PRN (Reason: pain) Qty: 30 0RF Rx Instructions: postop exempt Discontinued meloxicam 7.5 mg tablet 7.5 mg PO DAILY Qty: 30 0RF No Action cefepime 2 gram recon soln 2 g IV Q12H Rx Instructions: To continue at direction of Dr Verduzco cyclobenzaprine 10 mg tablet 10 mg PO Q8HR PRN (Reason: Spasms) Qty: 30 0RF vancomycin 125 mg capsule 125 mg PO BID Qty: 60 0RF Xarelto 15 mg tablet 15 mg PO BID Qty: 42 0RF Xarelto 20 mg tablet 20 mg PO DAILY Qty: 30 2RF Rx Instructions: must administer with evening meal. Take after completing 21 days at 15mg BID Follow up/Referrals: Samantha Verduzco MD [Non-Staff] - 1 Week Dionne Snow MD [Primary Care Provider] - 2 Weeks Diet/Activity/Treatments Diet: Diet as Tolerated and Regular Skin/Wound/Dressing Care Report to your healthcare provider any signs of infection, such as:: chills, fever Visit Report/Discharge Packet Instructions: DI for Deep Vein Thrombosis, How to Prevent Falls, DI for Prescription Opioid Use Stand Alone Forms: Patient Portal/API, Stroke Signs & Symptoms Discharge Data Primary Care Provider: Dionne Snow Discharges patient from system. Discharge Date/Time: 08/01/23 14:10
== END 2023-08-01 14:10 | disposition home or self-care (01) | DRG 300 ==
LOC: ED 13:54 → AC 14:28
PROVIDERS: Admitting Provider Family Medicine; Emergency Provider Emergency Medicine; PCP Family Medicine; Referring Provider Emergency Medicine; Visit Provider Family Medicine
DX: I82.411 Acute embolism and thrombosis of right femoral vein (principal); L03.115 Cellulitis of right lower limb; M86.8X7 Other osteomyelitis, ankle and foot; L97.514 Non-pressure chronic ulcer of other part of right foot with necrosis of bone; R32 Unspecified urinary incontinence; Z87.891 Personal history of nicotine dependence; Z89.421 Acquired absence of other right toe(s); T87.89 Other complications of amputation stump; R60.0 Localized edema; L53.9 Erythematous condition, unspecified; S91.301A Unspecified open wound, right foot, initial encounter; T81.89XA Other complications of procedures, not elsewhere classified, initial encounter; G60.3 Idiopathic progressive neuropathy; L97.512 Non-pressure chronic ulcer of other part of right foot with fat layer exposed
CPT/HCPCS: 11042; 36415; 36569; 73720; 80048; 80053; 81001; 83036; 83605; 83690; 85025; 85651; 86140; 87040; 87086; 93970; 97162; 97605; 99222; 99233; 99238; 99284; 99285; J0692; J1650; J2185

== ENCOUNTER 2023-08-05 03:31 | Emergency (ER) | payer MEDICARE, OTHER, SELFPAY ==
[2023-08-05] VITALS (22 sets, daily range): BP systolic 131–178; BP diastolic 64–91; PULSE 61–101; RESP 14–25; TEMP 36.4; O2SAT 95–100; BMI 25.0
--- NOTE | 2023-08-05 04:19 | ED_ITS ---
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 He was admitted hospital July 30 through the . He was found to have a partially occlusive right-sided DVT started Lovenox switched over to Xarelto. MRI showed osteomyelitis and cellulitis he now has wound VAC on his right foot. He has a PICC line he has been getting IV infusion antibiotics. He reports tonight he is having severe pain from groin down to his leg. It hurts to bend over. He denies any chest pain or shortness of breath. He is not had any fever. He reports that this pain is much worse than what it was previously Related Data Home Medications Medication Instructions Recorded Confirmed cholecalciferol (vitamin D3) 50 2,000 unit PO DAILY 11/07/18 08/16/23 mcg (2,000 unit) capsule hydroxychloroquine 200 mg tablet 200 mg PO BID 05/09/22 08/16/23 rivaroxaban 15 mg tablet (Xarelto) 15 mg PO BID 08/09/23 08/16/23 docusate sodium 100 mg capsule 100 mg PO BID 08/16/23 08/16/23 prednisone 5 mg tablet 5 mg PO DAILY 08/16/23 08/16/23 Previous Rx's Medication Instructions Recorded Disabled Parking Permit #1 ea 10/03/20 tramadol 50 mg tablet 50 mg PO Q6H PRN pain #30 tabs 07/04/23 cyclobenzaprine 10 mg tablet 10 mg PO Q8HR PRN Spasms #30 tabs 08/01/23 docusate sodium 100 mg capsule 100 mg PO BID #30 caps 08/12/23 ferrous sulfate 325 mg (65 mg 325 mg PO BIDWM #60 tabs 08/12/23 iron) tablet pantoprazole 40 mg tablet,delayed 40 mg PO 0700 #30 tabs 08/12/23 release piperacillin-tazobactam 4.5 4.5 g (112.5 mL) IV Q6H 08/12/23 gram/100 mL dextrose(iso-osm) IV piggyback (Zosyn) Allergies Allergy/AdvReac Type Severity Reaction Status Date / Time No Known Drug Allergies Allergy Verified 08/09/23 14:19 Review of Systems <Jennifer Adler DO - Last Filed: 08/16/23 07:08> Review of Systems ROS Unobtainable: All systems reviewed & are unremarkable except as noted in HPI and below Patient History <Jennifer Adler DO - Last Filed: 08/16/23 07:08> Medical History PICC (peripherally inserted central catheter) in place Osteomyelitis Lymphocytopenia Chronic UTI DVT (deep venous thrombosis) Pulmonary embolus HLD (hyperlipidemia) Arthritis 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 Mother Diabetes mellitus Hyperlipidemia Social History marital status: household members: family and children lives independently: Yes caregiver/support person: No housing: house education level: college occupational status: previously employed Smoking Status: Former smoker second hand exposure: No alcohol intake: current substance use type: does not use Smoking Status: Former smoker alcohol intake frequency: 0-2 drinks per day Substance Use Type: does not use Exam <Jennifer Adler DO - Last Filed: 08/16/23 07:08> Initial Vital Signs Initial Vital Signs: Vital Signs Temperature 97.6 F 08/05/23 03:37 Pulse Rate 61 08/05/23 03:37 Respiratory Rate 18 08/05/23 03:37 Blood Pressure 165/77 H 08/05/23 03:37 Pulse Oximetry 96 08/05/23 03:37 Oxygen Delivery Method Room Air 08/05/23 03:37 GENERAL: Alert 77-year-old male and in no acute distress. HEENT: Head atraumatic,EOMI, pupils reactive, face symmetric, moist mucous membranes CARDIOVASCULAR: Regular rate and rhythm without murmurs, rubs or gallops. RESPIRATORY: Breath sounds equal bilaterally, no wheezes rales or rhonchi. ABDOMEN: Soft, nontender. Normoactive bowel sounds all 4 quadrants. No guarding or rebound. EXTREMITIES: Normal range of motion, no clubbing or edema. Neurovascularly intact Right lower extremity significantly more swollen than the left. He has a dressing and wound VAC on the right toe and blood. Strong femoral pulse and distal pedal pulses felt as well. NEUROLOGICAL: Alert and oriented x4.Normal gait and speech. SKIN: Warm, dry, no laceration, no petechiae, no rashes or lesions. <Oneil cMneill DO - Last Filed: 08/05/23 13:42> Initial Vital Signs Initial Vital Signs: Vital Signs Temperature 97.6 F 08/05/23 03:37 Pulse Rate 61 08/05/23 03:37 Respiratory Rate 18 08/05/23 03:37 Blood Pressure 165/77 H 08/05/23 03:37 Pulse Oximetry 96 08/05/23 03:37 Oxygen Delivery Method Room Air 08/05/23 03:37 Course <Jennifer Adler DO - Last Filed: 08/16/23 07:08> Orders Ordered: Discontinued Medications Hydromorphone HCl (Hydromorphone 0.5 Mg Inj) 0.5 mg IV NOW ONE Stop: 08/05/23 04:32 Last Admin: 08/05/23 04:41 Dose: 0.5 mg Documented By: ES Hydromorphone HCl (Hydromorphone 0.5 Mg Inj) 0.5 mg IV NOW ONE Stop: 08/05/23 09:48 Last Admin: 08/05/23 09:51 Dose: 0.5 mg Documented By: SPF Hydromorphone HCl (Hydromorphone 0.5 Mg Inj) 0.5 mg IV NOW ONE Stop: 08/05/23 14:49 Last Admin: 08/05/23 14:54 Dose: 0.5 mg Documented By: SPF Vital Signs Vital signs: Vital Signs - 8 hr 08/05/23 08:48 08/05/23 08:52 08/05/23 08:52 Pulse Rate 88 93 H Respiratory Rate Blood Pressure 161/77 H Pulse Oximetry 95 97 Oxygen Delivery Method Room Air 08/05/23 09:00 08/05/23 09:00 08/05/23 09:30 Pulse Rate 92 H 91 H Respiratory Rate Blood Pressure 159/69 H Pulse Oximetry 96 97 Oxygen Delivery Method Room Air Room Air 08/05/23 09:30 08/05/23 09:58 08/05/23 10:00 Pulse Rate Respiratory Rate Blood Pressure 151/91 H 131/64 Pulse Oximetry 99 Oxygen Delivery Method 08/05/23 10:04 08/05/23 10:30 08/05/23 10:30 Pulse Rate 73 90 Respiratory Rate Blood Pressure 159/71 H Pulse Oximetry 96 Oxygen Delivery Method Room Air 08/05/23 11:25 08/05/23 11:25 08/05/23 11:30 Pulse Rate 101 H 96 H Respiratory Rate 16 Blood Pressure 178/83 H Pulse Oximetry 100 100 Oxygen Delivery Method Room Air 08/05/23 11:30 08/05/23 12:00 08/05/23 12:00 Pulse Rate 91 H Respiratory Rate 19 Blood Pressure 165/75 H 153/74 H Pulse Oximetry 96 Oxygen Delivery Method Room Air <Oneil Mcneill DO - Last Filed: 08/05/23 13:42> Orders Ordered: Discontinued Medications Hydromorphone HCl (Hydromorphone 0.5 Mg Inj) 0.5 mg IV NOW ONE Stop: 08/05/23 04:32 Last Admin: 08/05/23 04:41 Dose: 0.5 mg Documented By: ES Hydromorphone HCl (Hydromorphone 0.5 Mg Inj) 0.5 mg IV NOW ONE Stop: 08/05/23 09:48 Last Admin: 08/05/23 09:51 Dose: 0.5 mg Documented By: SPF Hydromorphone HCl (Hydromorphone 0.5 Mg Inj) 0.5 mg IV NOW ONE Stop: 08/05/23 14:49 Last Admin: 08/05/23 14:54 Dose: 0.5 mg Documented By: SPF Vital Signs Vital signs: Vital Signs - 8 hr 08/05/23 08:48 08/05/23 08:52 08/05/23 08:52 Pulse Rate 88 93 H Respiratory Rate Blood Pressure 161/77 H Pulse Oximetry 95 97 Oxygen Delivery Method Room Air 08/05/23 09:00 08/05/23 09:00 08/05/23 09:30 Pulse Rate 92 H 91 H Respiratory Rate Blood Pressure 159/69 H Pulse Oximetry 96 97 Oxygen Delivery Method Room Air Room Air 08/05/23 09:30 08/05/23 09:58 08/05/23 10:00 Pulse Rate Respiratory Rate Blood Pressure 151/91 H 131/64 Pulse Oximetry 99 Oxygen Delivery Method 08/05/23 10:04 08/05/23 10:30 08/05/23 10:30 Pulse Rate 73 90 Respiratory Rate Blood Pressure 159/71 H Pulse Oximetry 96 Oxygen Delivery Method Room Air 08/05/23 11:25 08/05/23 11:25 08/05/23 11:30 Pulse Rate 101 H 96 H Respiratory Rate 16 Blood Pressure 178/83 H Pulse Oximetry 100 100 Oxygen Delivery Method Room Air 08/05/23 11:30 08/05/23 12:00 08/05/23 12:00 Pulse Rate 91 H Respiratory Rate 19 Blood Pressure 165/75 H 153/74 H Pulse Oximetry 96 Oxygen Delivery Method Room Air MDM - Extremity (Nontraumatic) <Jennifer Adler, DO - Last Filed: 08/16/23 07:08> Lab Data 08/05/23 13:05 08/05/23 04:22 Labs: Lab Results 08/05/23 08/05/23 08/05/23 Range/Units 04:22 10:05 13:05 WBC 6.3 (4.5-11.0) X10^3/uL RBC 3.13 L (4.5-5.9) X10^6/uL Hgb 9.4 L 9.2 L (13.5-17.5) g/dL Hct 27.7 L 27.1 L (41-53) % MCV 88.3 (80-100) fL MCH 30.1 (26-34) PG MCHC 34.1 (30-36) % RDW 13.2 (11.6-14.8) % Plt Count 219 (150-400) X10^3/uL Neut % (Auto) 76.6 H (50-75) % Lymph % (Auto) 11.3 L (25-40) % Cooke % (Auto) 7.6 (3-14) % Eos % (Auto) 3.6 (2-4) % Baso % (Auto) 0.9 (0-2) % Neut # (Auto) 4800 (8487-1748) /uL Lymph # (Auto) 700 L (7067-3208) /uL Cooke # (Auto) 500 (0-900) /uL Eos # (Auto) 200 (0-450) /uL Baso # (Auto) 100 (0-100) /uL ESR 49 H (0-15) MM/HR Sodium 128 L (137-145) mmol/L Potassium 4.2 (3.4-5.1) mmol/L Chloride 96 L (98-107) mmol/L Carbon Dioxide 25 (22-32) mmol/L BUN 33 H (9-20) mg/dL Creatinine 1.26 H (0.66-1.25) mg/dL Estimated GFR 58 L (>60) mL/min BUN/Creatinine Ratio 26.2 H (6-22) Glucose 118 H (80-110) mg/dL Calcium 9.0 (8.4-10.2) mg/dL Total Bilirubin 0.4 (0.2-1.3) mg/dL AST 26 (17-59) IU/L ALT 18 (<50) IU/L Alkaline Phosphatase 57 (38-126) U/L C-Reactive Protein 2.7 H (<1.0) mg/dL Total Protein 6.8 (6.3-8.2) g/dL Albumin 3.4 L (3.5-5.0) g/dL Globulin 3.4 (1.7-4.1) g/dL Albumin/Globulin Ratio 1.0 (1.0-2.8) Imaging Data US - DVT: Radiologist's Impression: Negative right lower extremity DVT. No Welsh's cysts subcutaneous calf edema MDM Narrative Medical decision making narrative: Patient 77-year-old male who presents today with swelling of his right leg greater than left history of DVT with wound VAC. Ultrasound is negative for DVT blood work has been reviewed. No leukocytosis anemia stable, he has mild hyponatremia 128, mild elevation in creatinine of 1.26. Patient has complicated history due to significant swelling right lower extremity CT is ordered of abdomen pelvis. Patient signed out to Dr. Mcneill for further evaluation. Dr mcneill: Received turned over. Reviewed patient's history and physical exam. His right lower extremity ultrasound today is negative. CT scan of his abdomen pelvis is somewhat concerning about neurogenic bladder and hydronephrosis. Over the past couple days he has experienced urinary incontinence and frequent urination. Postvoid residual shows a urine of greater than 500 cc. A Bill catheter was placed. The rest of his CT scan does have some concern about fluid pockets in his right thigh. Dr. Klein with Orthopedic surgery was somewhat concerned about a iliopsoas abscess. An MRI was performed which shows a tear of the iliopsoas muscle and most likely hematoma but no signs of abscess in this area. Repeat H&H does show a slight drop however I have little concern that he is actively bleeding. I would a long discussion with him regarding all of the symptoms. I did discuss the case with Dr. Snow who is his primary doctor who will put in referrals for him to see Urology. Will have him continue to do his IV antibiotics. He is weight-bearing as tolerated with regard to the iliopsoas muscle tear. He does have pain medication at home which she states does work for him. Have him continue to take his anticoagulation. He was given return precautions. He expressed understanding and agreement. <Oneil Mcneill, DO - Last Filed: 08/05/23 13:42> Lab Data Labs: Lab Results 08/05/23 08/05/23 08/05/23 Range/Units 04:22 10:05 13:05 WBC 6.3 (4.5-11.0) X10^3/uL RBC 3.13 L (4.5-5.9) X10^6/uL Hgb 9.4 L 9.2 L (13.5-17.5) g/dL Hct 27.7 L 27.1 L (41-53) % MCV 88.3 (80-100) fL MCH 30.1 (26-34) PG MCHC 34.1 (30-36) % RDW 13.2 (11.6-14.8) % Plt Count 219 (150-400) X10^3/uL Neut % (Auto) 76.6 H (50-75) % Lymph % (Auto) 11.3 L (25-40) % Cooke % (Auto) 7.6 (3-14) % Eos % (Auto) 3.6 (2-4) % Baso % (Auto) 0.9 (0-2) % Neut # (Auto) 4800 (5122-4544) /uL Lymph # (Auto) 700 L (0890-4295) /uL Cooke # (Auto) 500 (0-900) /uL Eos # (Auto) 200 (0-450) /uL Baso # (Auto) 100 (0-100) /uL ESR 49 H (0-15) MM/HR Sodium 128 L (137-145) mmol/L Potassium 4.2 (3.4-5.1) mmol/L Chloride 96 L (98-107) mmol/L Carbon Dioxide 25 (22-32) mmol/L BUN 33 H (9-20) mg/dL Creatinine 1.26 H (0.66-1.25) mg/dL Estimated GFR 58 L (>60) mL/min BUN/Creatinine Ratio 26.2 H (6-22) Glucose 118 H (80-110) mg/dL Calcium 9.0 (8.4-10.2) mg/dL Total Bilirubin 0.4 (0.2-1.3) mg/dL AST 26 (17-59) IU/L ALT 18 (<50) IU/L Alkaline Phosphatase 57 (38-126) U/L C-Reactive Protein 2.7 H (<1.0) mg/dL Total Protein 6.8 (6.3-8.2) g/dL Albumin 3.4 L (3.5-5.0) g/dL Globulin 3.4 (1.7-4.1) g/dL Albumin/Globulin Ratio 1.0 (1.0-2.8) Imaging Data CT scan - abdomen/pelvis: Radiologist's Impression: PROCEDURE: CT ABDOMEN PELVIS W CON INDICATIONS: RLQ pain TECHNIQUE: After the administration of intravenous contrast, axial sections acquired from the lung bases to the pubic symphysis. Coronal and sagittal reformats were performed. For radiation dose reduction, the following was used: automated exposure control, adjustment of mA and/or kV according to patient size. COMPARISON: [facility], , PERIPH VENOUS LOW EXTREM RT, 08/05/2023, 4:58. [facility], MR, MR LOWER LEG RT WO/W CON, 07/30/2023, 15:07. [facility], CT, CT CHEST W CON, 11/06/2018, 10:46. FINDINGS: Image quality: Excellent. Lung bases: Pulmonary scarring is present at the lateral right lung base. The lung bases are otherwise clear. Heart: No significant findings. ABDOMEN: Liver: Normal in size and overall enhancement. Subcentimeter low-density cystic lesions are noted throughout. Gallbladder: Unremarkable. Biliary ducts: Unremarkable. Pancreas: Unremarkable. Spleen: Unremarkable. Adrenal Glands: Unremarkable. Kidneys and Ureters: There is moderate right and severe left hydronephrosis. There is moderate bilateral perinephric fat stranding. There is a delayed left nephrogram. The bilateral ureters are markedly dilated throughout their course. No nephrolithiasis or ureterolithiasis. There is a moderate amount of fluid tracking along the right pericolic gutter into the pelvis. Stomach and Bowel: Stomach, small bowel loops, and colon are unremarkable. The appendix is not visualized. Peritoneum: Right pericolic retroperitoneal fluid noted. No abnormal intraperitoneal fluid. No free air. Ventral Wall: No hernias. Abdominal Nodes: No retroperitoneal or mesenteric adenopathy by size criteria. Vessels: Aorta and inferior vena cava are normal in size. There are scattered atheromatous calcifications throughout the aorta and iliac arteries bilaterally. PELVIS: Pelvic Organs: Unremarkable. Bladder: The bladder is distended with urine and demonstrates severe trabeculation and multiple small fluid-filled diverticula. Pelvic Nodes: No enlarged lymph nodes. Miscellaneous: No hernias are seen. There is diffuse subcutaneous edema as well as edema within the visualized muscles of the right lower extremity. The ileo psoas musculature is edematous and appears enlarged with respect to the left pelvic musculature. Bones: Unremarkable. IMPRESSION: 1. Moderate right and severe left hydronephrosis with a delayed left nephrogram. 2. Moderate fluid tracking along the right pericolic gutter into the right retroperitoneal pelvis. Findings raise the suspicion for caliceal rupture and decompression of the obstructing kidney. 3. Distended, trabeculated bladder with multiple bladder diverticula. Findings raise the suspicion for chronic bladder outlet obstruction. 4. Marked edema throughout the subcutaneous tissues and the muscles of the right lower extremity and the right hemipelvis. The etiology of these findings are unclear but may be associated with the right lower extremity infection. femur MRI: Radiologist's Impression: PROCEDURE: MR FEMUR RT WO/W CON INDICATIONS: R thigh swelling would like MR pelvis-knee TECHNIQUE: Noncontrast coronal T1 spin echo and STIR, sagittal T1 spin echo with fat saturation and STIR, axial T1 spin echo and T2 fast spin echo with fat saturation. After the administration of contrast, axial/sagittal/coronal T1 spin echo with fat saturation through the right thigh. COMPARISON: [facility], CT, CT ABDOMEN PELVIS W CON, 08/05/2023, 6:42. FINDINGS: Image quality: Excellent. Bones: The visualized bone marrow demonstrates normal signal on all sequences. The overlying cortex appears intact. No abnormal intraosseous enhancement. Postsurgical changes are partially included from a right knee arthroplasty with associated metal artifact. Soft tissues: There is high-grade partial tearing of the distal iliopsoas tendon from its insertion onto the lesser trochanter. There is retraction of torn tendon fibers measuring approximately 4.7 cm. A few attenuated medial fibers remain in continuity. Prominent surrounding soft tissue edema and small amount of fluid or hemorrhage is present. Fluid and edema track proximally into the pelvis and retroperitoneum along the iliacus and psoas muscles. Bladder is decompressed by a Bill catheter. Bilateral hydroceles are present in the scrotum. No enhancing soft tissue mass. IMPRESSION: High-grade partial tearing of the iliopsoas tendon at its insertion onto the lesser trochanter with delamination and proximal retraction of torn tendon fibers by approximately 4.7 cm. A few attenuated tendon fibers remain in continuity. Extensive surrounding subcutaneous edema and mild intramuscular hemorrhage are seen in the surrounding tissues, as well as tracking proximally into the pelvis along the iliacus and psoas muscles. [facility] Narrative Medical decision making narrative: Dr mcneill: Received turned over. Reviewed patient's history and physical exam. His right lower extremity ultrasound today is negative. CT scan of his abdomen pelvis is somewhat concerning about neurogenic bladder and hydronephrosis. Over the past couple days he has experienced urinary incontinence and frequent urination. Postvoid residual shows a urine of greater than 500 cc. A Bill catheter was placed. The rest of his CT scan does have some concern about fluid pockets in his right thigh. Dr. Klein with Orthopedic surgery was somewhat concerned about a iliopsoas abscess. An MRI was performed which shows a tear of the iliopsoas muscle and most likely hematoma but no signs of abscess in this area. Repeat H&H does show a slight drop however I have little concern that he is actively bleeding. I would a long discussion with him regarding all of the symptoms. I did discuss the case with Dr. Snow who is his primary doctor who will put in referrals for him to see Urology. Will have him continue to do his IV antibiotics. He is weight-bearing as tolerated with regard to the iliopsoas muscle tear. He does have pain medication at home which she states does work for him. Have him continue to take his anticoagulation. He was given return precautions. He expressed understanding and agreement. Discharge Plan Departure Patient Disposition: Home Clinical Impression: Acute urinary retention, Hydronephrosis, Iliopsoas muscle hematoma Instructions: How to Care for Your Bill Catheter -- Male Activity Restrictions/Additional Instructions: Dr. Snow and Dr Klein are both aware of your visit today. We are not going to make any changes to any of your medicines and please continue to take all these as directed. You do have a tear of your right iliopsoas muscle. This is what is causing your pain in this area. This type of injury does not require surgery. You can walk on this as tolerated or use the walker that you have at home. Take your pain medication as directed. You do need follow-up with Urology. Dr. Snow is putting in a referral and I did give you their number to call for follow-up. Keep all of your scheduled medical appointments. Return to the emergency department for new or worsening symptoms. Prescriptions: No Action cholecalciferol (vitamin D3) 2,000 unit capsule 2,000 unit PO DAILY (DME) Disabled Parking Permit See Rx Instructions .ROUTE .MEDSUPPLY Qty: 1 0RF Rx Instructions: I find this person to be disabled cyclobenzaprine 10 mg tablet 10 mg PO Q8HR PRN (Reason: Spasms) Qty: 30 0RF hydroxychloroquine 200 mg Tablet 200 mg PO BID Xarelto 15 mg tablet 15 mg PO BID pantoprazole 40 mg Tablet,Delayed Release (Dr/Ec) 40 mg PO 0700 Qty: 30 0RF ferrous sulfate 325 mg (65 mg iron) Tablet 325 mg PO BIDWM Qty: 60 0RF docusate sodium 100 mg Capsule 100 mg PO BID Qty: 30 0RF Zosyn in dextrose (iso-osm) 4.5 gram/100 mL piggyback 4.5 g IV Q6H Rx Instructions: Duration to be determined by Dr Verduzco, Infectious Disease tramadol 50 mg tablet 50 mg PO Q6H PRN (Reason: pain) Qty: 30 0RF prednisone 5 mg tablet 5 mg PO DAILY docusate sodium 100 mg capsule 100 mg PO BID Referrals: Dionne Snow MD [Primary Care Provider] - Jhonathan Nuno MD [Physician] - Stand Alone Forms: Patient Portal/API
--- NOTE | 2023-08-05 04:31 | DI.US.S_ITS ---
PROCEDURE: US PERIPH VENOUS LOW EXTREM RT INDICATIONS: DVT TECHNIQUE: Real-time imaging, as well as color and pulse Doppler interrogation, were performed of the lower extremity deep veins from the inguinal ligament to the popliteal fossa, with documentation of the visualized calf veins. COMPARISON: [facility], CT, CT ABDOMEN PELVIS W CON, 08/05/2023, 6:42. FINDINGS: The common femoral, femoral, popliteal, and the visualized calf veins are normally compressible, and free of intraluminal thrombus. Peroneal veins are not well seen. Color and pulse Doppler demonstrate normal phasic intraluminal flow. There is normal augmentation response to distal compression maneuver. Greater saphenous vein junction is patent. IMPRESSION: No right lower extremity DVT. This report is concordant with the overnight preliminary interpretation. Dictated by: Aman Irvin M.D. on 08/05/2023 at 8:30 Approved by: Aman Irvin M.D. on 08/05/2023 at 8:32
[2023-08-05] MEDS: HYDROMORPHONE 0.5 MG INJ IV ×3 (04:41→14:54)
[2023-08-05 04:48] LABS: Add Manual Diff / Slide Review NO; Basophils Absolute Auto 100 /uL (0-100); Basophils Percent Auto 0.9 % (0-2); Eosinophils Absolute Auto 200 /uL (0-450); Eosinophils Percent Auto 3.6 % (2-4); Hematocrit 27.7 % (41-53); Hemoglobin 9.4 g/dL (13.5-17.5); Lymphocytes Absolute Auto 700 /uL (1100-4500); Lymphocytes Percent Auto 11.3 % (25-40); Mean Corpuscular HGB Conc 34.1 % (30-36); Mean Corpuscular Hemoglobin 30.1 PG (26-34); Mean Corpuscular Volume 88.3 fL (80-100); Monocytes Absolute Auto 500 /uL (0-900); Monocytes Percent Auto 7.6 % (3-14); Neutrophils Absolute Auto 4800 /uL (1500-7000); Neutrophils Percent Auto 76.6 % (50-75); Platelet Count 219 X10^3/uL (150-400); Red Blood Cell Count 3.13 X10^6/uL (4.5-5.9); Red Cell Distribution Width 13.2 % (11.6-14.8); White Blood Cell Count 6.3 X10^3/uL (4.5-11.0)
[2023-08-05 05:04] LABS: Alanine Aminotransferase 18 IU/L (<50); Albumin 3.4 g/dL (3.5-5.0); Alkaline Phosphatase 57 U/L (38-126); Aspartate Aminotransferase 26 IU/L (17-59); BUN Creatinine Ratio 26.2 (6-22); Bilirubin Total 0.4 mg/dL (0.2-1.3); Blood Urea Nitrogen 33 mg/dL (9-20); Carbon Dioxide 25 mmol/L (22-32); Chloride 96 mmol/L (98-107); Estimated Glomerular Filt Rate 58 mL/min (>60); Globulin 3.4 g/dL (1.7-4.1); Glucose 118 mg/dL (80-110); HEMOLYSIS < 15 (0-50); Potassium 4.2 mmol/L (3.4-5.1); Sodium 128 mmol/L (137-145); Total Protein 6.8 g/dL (6.3-8.2)
--- NOTE | 2023-08-05 06:31 | DI.CT.S_ITS ---
PROCEDURE: CT ABDOMEN PELVIS W CON INDICATIONS: RLQ pain TECHNIQUE: After the administration of intravenous contrast, axial sections acquired from the lung bases to the pubic symphysis. Coronal and sagittal reformats were performed. For radiation dose reduction, the following was used: automated exposure control, adjustment of mA and/or kV according to patient size. COMPARISON: [facility], US, US PERIPH VENOUS LOW EXTREM RT, 08/05/2023, 4:58. [facility], MR, MR LOWER LEG RT WO/W CON, 07/30/2023, 15:07. [facility], CT, CT CHEST W CON, 11/06/2018, 10:46. FINDINGS: Image quality: Excellent. Lung bases: Pulmonary scarring is present at the lateral right lung base. The lung bases are otherwise clear. Heart: No significant findings. ABDOMEN: Liver: Normal in size and overall enhancement. Subcentimeter low-density cystic lesions are noted throughout. Gallbladder: Unremarkable. Biliary ducts: Unremarkable. Pancreas: Unremarkable. Spleen: Unremarkable. Adrenal Glands: Unremarkable. Kidneys and Ureters: There is moderate right and severe left hydronephrosis. There is moderate bilateral perinephric fat stranding. There is a delayed left nephrogram. The bilateral ureters are markedly dilated throughout their course. No nephrolithiasis or ureterolithiasis. There is a moderate amount of fluid tracking along the right pericolic gutter into the pelvis. Stomach and Bowel: Stomach, small bowel loops, and colon are unremarkable. The appendix is not visualized. Peritoneum: Right pericolic retroperitoneal fluid noted. No abnormal intraperitoneal fluid. No free air. Ventral Wall: No hernias. Abdominal Nodes: No retroperitoneal or mesenteric adenopathy by size criteria. Vessels: Aorta and inferior vena cava are normal in size. There are scattered atheromatous calcifications throughout the aorta and iliac arteries bilaterally. PELVIS: Pelvic Organs: Unremarkable. Bladder: The bladder is distended with urine and demonstrates severe trabeculation and multiple small fluid-filled diverticula. Pelvic Nodes: No enlarged lymph nodes. Miscellaneous: No hernias are seen. There is diffuse subcutaneous edema as well as edema within the visualized muscles of the right lower extremity. The ileo psoas musculature is edematous and appears enlarged with respect to the left pelvic musculature. Bones: Unremarkable. IMPRESSION: 1. Moderate right and severe left hydronephrosis with a delayed left nephrogram. 2. Moderate fluid tracking along the right pericolic gutter into the right retroperitoneal pelvis. Findings raise the suspicion for caliceal rupture and decompression of the obstructing kidney. 3. Distended, trabeculated bladder with multiple bladder diverticula. Findings raise the suspicion for chronic bladder outlet obstruction. 4. Marked edema throughout the subcutaneous tissues and the muscles of the right lower extremity and the right hemipelvis. The etiology of these findings are unclear but may be associated with the right lower extremity infection. Dictated by: Cassia Myers M.D. on 08/05/2023 at 8:10 Approved by: Cassia Myers M.D. on 08/05/2023 at 8:25
--- NOTE | 2023-08-05 07:20 | PC.NURSE ---
Pt's PICC line is not a powerport. Pt requires IV access for CT contrast. 20G IV placed in Left AC.
--- NOTE | 2023-08-05 09:19 | PC.NURSE ---
Pt's family member came out to the nursing station and inquired if patient could be given his IV antibiotics infusion scheduled for 0900 today. I verified with Dr. Mcneill and patient can take their own infusion as scheduled.
--- NOTE | 2023-08-05 09:23 | DI.MRI.S_ITS ---
PROCEDURE: MR FEMUR RT WO/W CON INDICATIONS: R thigh swelling would like MR pelvis-knee TECHNIQUE: Noncontrast coronal T1 spin echo and STIR, sagittal T1 spin echo with fat saturation and STIR, axial T1 spin echo and T2 fast spin echo with fat saturation. After the administration of contrast, axial/sagittal/coronal T1 spin echo with fat saturation through the right thigh. COMPARISON: [facility], CT, CT ABDOMEN PELVIS W CON, 08/05/2023, 6:42. FINDINGS: Image quality: Excellent. Bones: The visualized bone marrow demonstrates normal signal on all sequences. The overlying cortex appears intact. No abnormal intraosseous enhancement. Postsurgical changes are partially included from a right knee arthroplasty with associated metal artifact. Soft tissues: There is high-grade partial tearing of the distal iliopsoas tendon from its insertion onto the lesser trochanter. There is retraction of torn tendon fibers measuring approximately 4.7 cm. A few attenuated medial fibers remain in continuity. Prominent surrounding soft tissue edema and small amount of fluid or hemorrhage is present. Fluid and edema track proximally into the pelvis and retroperitoneum along the iliacus and psoas muscles. Bladder is decompressed by a Bill catheter. Bilateral hydroceles are present in the scrotum. No enhancing soft tissue mass. IMPRESSION: High-grade partial tearing of the iliopsoas tendon at its insertion onto the lesser trochanter with delamination and proximal retraction of torn tendon fibers by approximately 4.7 cm. A few attenuated tendon fibers remain in continuity. Extensive surrounding subcutaneous edema and mild intramuscular hemorrhage are seen in the surrounding tissues, as well as tracking proximally into the pelvis along the iliacus and psoas muscles. Approved by: David Herrera M.D. on 08/05/2023 at 11:55
[2023-08-05 10:00] LABS: C-Reactive Protein Quant 2.7 mg/dL (<1.0)
--- NOTE | 2023-08-05 10:25 | PC.NURSE ---
Patient's family set up his PICC antibiotics before they left to go home to [place]. When his infusion was completed, I assisted patient to flush the line and saline lock his PICC.
--- NOTE | 2023-08-05 10:44 | PC.NURSE ---
Patient was disconnected from wound vac for transfer to MRI.
[2023-08-05 10:52] LABS: Erythrocyte Sedimentation Rate 49 MM/HR (0-15)
[2023-08-05 13:12] LABS: Hematocrit 27.1 % (41-53); Hemoglobin 9.2 g/dL (13.5-17.5)
--- NOTE | 2023-08-05 15:49 | CM.SWNOTE ---
ED FOUNDER PRESIDENT AND CEO Note Patient is 77 y/o male who presents to ED via POV with family due to concern for blood clots near groin to knee. Patient's PCP is Dr. Snow, patient has been seeing Dr. Gale for wound care, patient has wound vac and patient is receiving referral for urology with Dr. Nuno. Patient has [employer] and Medicare insurance. Patient was previously admitted on 07/30/23-08/01/23 regarding cellulitis and need for MRI. Patient was d[facility]c'd with [facility] referral. FOUNDER PRESIDENT AND CEO enters room to meet with patient. Patient presents as A/Ox4. Patient endorses he lives in [place] with son and daughter in law who recently moved in. Patient endorses at baseline he can drive and uses a FWW. Patient endorses he has been in so much pain and weakness he is worried about getting outpatient wound care and he missed appt today due to ED visit. Patient reports that [facility] has not met with patient yet and he is concerned about that. FOUNDER PRESIDENT AND CEO discusses HH with patient and patient endorses agreement for HH wound care with nurse if they can manage a wound vac. FOUNDER PRESIDENT AND CEO calls wound care regarding patient and informs them that patient will need HH wound care until he rebuilds strength and manages pain, they indicate understanding and will coordinate with HH agency. FOUNDER PRESIDENT AND CEO calls [facility] and leaves VM regarding patient and request for f/u appt scheduled. FOUNDER PRESIDENT AND CEO calls [facility] and leaves VM. FOUNDER PRESIDENT AND CEO calls [facility] and it is reported that they have an opening for RN for wound care and they can manage wound vacs. It is reported they will f/u with patient within 24-48 hours. FOUNDER PRESIDENT AND CEO has ED provider Dr. Mcneill sign F2F, FOUNDER PRESIDENT AND CEO faxes F2F, order and clinicals to [facility] for RN HH referral. Plan: Patient to d/c to home with son, [facility] to f/u with patient for wound care, [facility] to f/u with patient. [facility] to coordinate care with outpatient wound care clinic and [facility]. Juliann Freire, IMPLEMENTATION CONSULTANT
== END 2023-08-05 15:50 | disposition home or self-care (01) ==
PROVIDERS: Emergency Medicine; Emergency Provider Emergency Medicine; PCP Family Medicine
DX: R33.8 Other retention of urine (principal); N13.30 Unspecified hydronephrosis; S70.11XA Contusion of right thigh, initial encounter
CPT/HCPCS: 36415; 51798; 73720; 74177; 80053; 85014; 85018; 85025; 85651; 86140; 87040; 93971; 96374; 96376; 99284; J1170; Q9967

== ENCOUNTER 2023-08-09 14:05 | Inpatient (IN) | payer MEDICARE, OTHER, SELFPAY ==
[2023-08-09] VITALS (10 sets, daily range): BP systolic 97–171; BP diastolic 48–72; PULSE 85–104; RESP 18–21; TEMP 36.2–37; O2SAT 92–100; BMI 25.0
--- NOTE | 2023-08-09 14:18 | DI.CT.S_ITS ---
PROCEDURE: CT ANGIO HEAD AND NECK INDICATIONS: speech finding trouble, weakness TECHNIQUE: After the administration of intravenous contrast, 1 mm thick sections acquired from the aortic arch through the Hag[place] of [place]. 3-dimensional atnhjvq-zobicgwxk-ebedhjaepk (MIP) and/or volume rendering reformats were acquired of the central intracranial vasculature and neck separately. For radiation dose reduction, the following was used: automated exposure control, adjustment of mA and/or kV according to patient size. COMPARISON: [facility], MR, MR STROKE, 08/25/2020, 15:30. [facility], CT, CT HEAD/BRAIN WO CON, 08/25/2020, 12:39. [facility], CT, CT HEAD/BRAIN WO CON, 08/09/2023, 14:54. [facility], CT, CT ANGIO HEAD AND NECK, 08/25/2020, 12:39. FINDINGS: Image quality: Diagnostic. BRAIN: CSF spaces: Ventricles are normal in size and shape. Basal cisterns are patent. No extra-axial fluid collections. Brain: No significant abnormality of the brain can be seen. Skull and face: Calvarium and facial bones appear intact, without suspicious lesions. Orbits appear normal. Sinuses: Sinuses and mastoids are clear. HEAD CT ANGIOGRAPHY: Anterior circulation: Intracranial internal carotid arteries are normal in size and flow. Is There is a hypoplastic left A1 segment, with a corresponding robust right A1 segment. This is considered to be a normal developmental variant of the [place] of [place], of typically no clinical consequence. The flow within the paired anterior cerebral arteries is otherwise normal and symmetric. The flow within the middle cerebral arteries is normal and symmetric. The anterior communicating artery is seen. No aneurysms are seen. Posterior circulation: Visualized portions of the vertebral arteries demonstrate normal caliber, and join to form a normal appearing basilar artery. Flow within the posterior cerebral arteries is normal and symmetric. No aneurysms are seen. NECK CT ANGIOGRAPHY: Carotid system: The great vessels demonstrate a conventional anatomy as they arise from the aortic arch. Atherosclerotic calcification is noted. The origins of the common carotid arteries appear patent. The common carotid arteries demonstrate normal caliber and courses. The bifurcation regions demonstrate atherosclerotic irregularity and calcification, yet without a hemodynamically significant stenosis. The more distal internal carotid arteries demonstrate normal course and caliber. Posterior circulation: The origins of the vertebral arteries both appear widely patent. The more superior extracranial portions of both vertebral arteries also demonstrate normal courses and calibers. They join to form a normal appearing basilar artery. Soft tissues: Visualized neck soft tissues demonstrate no suspicious abnormalities. Bones: No suspicious bony lesions. Visualized cervical spine appears normally aligned. At least moderate cervical spine degenerative change can be seen. IMPRESSION: No significant intracranial arterial abnormality is seen. Within the arteries of the neck, no hemodynamically significant stenosis can be seen. Additional findings: Npwyei-mr-Kiczec developmental anomalies At least moderate cervical spine degenerative change Any quantitative measurements of stenosis were performed using NASCET criteria. Dictated by: Pranav Lopez M.D. on 08/09/2023 at 14:18 Approved by: Pranav Lopez M.D. on 08/09/2023 at 14:19
--- NOTE | 2023-08-09 14:19 | DI.CT.S_ITS ---
PROCEDURE: CT HEAD/BRAIN WO CON INDICATIONS: speech difficulty TECHNIQUE: Noncontrast 4.5 mm thick angled axial sections acquired from the foramen magnum to the vertex, with coronal and sagittal reformats. For radiation dose reduction, the following was used: automated exposure control, adjustment of mA and/or kV according to patient size. COMPARISON: [facility], MR, MR STROKE, 08/25/2020, 15:30. [facility], CT, CT ANGIO HEAD AND NECK, 08/09/2023, 14:54. [facility], CT, CT HEAD/BRAIN WO CON, 08/25/2020, 12:39. FINDINGS: Image quality: Excellent. CSF spaces: Basal cisterns are patent. No extra-axial fluid collections. The ventricles are symmetric in size and shape. Brain: No intracranial bleeds or masses. There is cerebral volume loss for age, with resultant ventricular and sulcal prominence. There are periventricular and deep white matter chronic small vessel ischemic changes. There is intracranial internal carotid artery atherosclerosis. Skull and face: Calvarium and visualized facial bones appear intact, without suspicious lesions. Sinuses: Visualized sinuses and mastoids are clear. IMPRESSION: Normal noncontrast head CT, without a cause of the patient's presenting symptoms identified. If there is strong clinical suspicion for an acute stroke, please consider a brain MRI for further evaluation, as it is more sensitive (assuming that there is no contraindication to MRI). No acute intracranial hemorrhage is seen. Dictated by: Pranav Lopez M.D. on 08/09/2023 at 14:15 Approved by: Pranav Lopez M.D. on 08/09/2023 at 14:18
--- NOTE | 2023-08-09 14:24 | ED.GENADULT ---
HPI - General Adult General Chief complaint: Neuro Symptoms/Deficit Stated complaint: poss stroke Time Seen by Provider: 08/09/23 14:12 Source: patient and family Mode of arrival: Wheelchair History of Present Illness HPI narrative: 77-year-old male former smoker with history of right femoral vein DVT, iliopsoas muscle hematoma, lupus, neuropathic ulcer, prior stroke presents with family in the chief complaint of worsening generalized weakness over least the past 2 days and difficulty with speech that he 1st noticed yesterday. He states that he knows what he wants to say but is unable to get the words out. He feels like there maybe increased numbness in his right leg but isn't fully sure. He denies any trauma or injury. Patient has been on Cefepime, was discharged on it from admission on 08/02. Sent by ID for stroke work up. Related Data Home Medications Medication Instructions Recorded Confirmed cholecalciferol (vitamin D3) 50 2,000 unit PO DAILY 11/07/18 08/09/23 mcg (2,000 unit) capsule hydroxychloroquine 200 mg tablet 200 mg PO BID 05/09/22 08/09/23 rivaroxaban 15 mg tablet (Xarelto) 15 mg PO BID 08/09/23 08/09/23 Previous Rx's Medication Instructions Recorded Disabled Parking Permit #1 ea 10/03/20 tramadol 50 mg tablet 50 mg PO Q6H PRN pain #30 tabs 07/04/23 cyclobenzaprine 10 mg tablet 10 mg PO Q8HR PRN Spasms #30 tabs 08/01/23 vancomycin 125 mg capsule 125 mg PO BID #60 caps 08/02/23 Allergies Allergy/AdvReac Type Severity Reaction Status Date / Time No Known Drug Allergies Allergy Verified 08/09/23 14:19 Review of Systems Review of Systems Narrative: GENERAL: Denies chills, fatigue, malaise, fever, sweats. HEENT: Denies sinus pain, ear pain, sore throat, difficulty swallowing, dizziness. RESPIRATORY: Denies dyspnea, cough, wheezing, hemoptysis, sputum. CARDIOVASCULAR: Denies chest pain, palpitations, orthopnea, edema, GASTROINTESTINAL: Denies nausea, vomiting, abdominal pain, diarrhea, constipation, melena. : Denies dysuria, frequency, incontinence, hematuria, urinary retention. MUSCULOSKELETAL: denies weakness, joint pain, or bony pain SKIN: Denies rash, skin lesions, or other NEUROLOGIC: See HPI PSYCHIATRIC: No concerning psychosocial issues. 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 Mother Diabetes mellitus Hyperlipidemia Social History marital status: household members: none lives independently: Yes caregiver/support person: No housing: house education level: college occupational status: previously employed Smoking Status: Former smoker second hand exposure: No alcohol intake: current substance use type: does not use Smoking Status: Former smoker alcohol intake frequency: 0-2 drinks per day Substance Use Type: does not use Exam Narrative Exam Narrative: GENERAL: [77] year old patient appears stated age. Well-developed patient, in mild distress. Pleasantly confused, trouble finding words HEAD: Atraumatic. Normocephalic. EYES: Pupils equal round and reactive. Extraocular motions intact. No scleral icterus. No injection or drainage. ENT: Nose without bleeding, purulent drainage. Throat without erythema, tonsillar hypertrophy or exudate. Airway patent. NECK: Trachea midline. Non tender CARDIOVASCULAR: Regular rate and rhythm without murmurs, gallops, or rubs. RESPIRATORY: Clear to auscultation. Breath sounds equal bilaterally. No wheezes, rales, or rhonchi. GASTROINTESTINAL: Abdomen soft, non-tender, nondistended. EXTREMITIES: Wound dressing and wound VAC in place right lower extremity, right thigh tender No edema or joint tenderness. BACK: Nontender without deformity or crepitance. No flank tenderness. NEURO: AOx3. Cranial nerves 2-12 grossly intact SKIN: No rash or erythema of visible areas Initial Vital Signs Initial Vital Signs: Vital Signs Pulse Rate 97 H 08/09/23 14:15 Pulse Oximetry 100 08/09/23 14:15 Course Orders Ordered: Acetaminophen (Acetaminophen 325 Mg Tablet) 650 mg PO Q6HR PRN PRN Reason: Fever Al Hydrox/Mg Hydrox/Simethicone (Mag Hydrox/Alum/Simeth 30 Ml Udc) 30 ml PO Q6HR PRN PRN Reason: Dyspepsia Cyclobenzaprine HCl (Cyclobenzaprine 10 Mg Tablet) 10 mg PO Q8HR PRN PRN Reason: Spasms Hydroxychloroquine Sulfate (Hydroxychloroquine 200 Mg Tablet) 200 mg PO BID [facility] Last Admin: 08/09/23 20:46 Dose: 200 mg Documented By: Meropenem 1 gm/ Sodium (Chloride) 100 mls @ 200 mls/hr IV Q12H [facility] Last Infusion: 08/10/23 04:38 Dose: Infused Documented By: Admin: 08/10/23 04:08 Dose: 200 mls/hr Documented By: Magnesium Hydroxide (Magnesium Hydroxide 30 Ml Udc) 30 ml PO DAILY PRN PRN Reason: Constipation Naloxone HCl (Naloxone 0.4 Mg/Ml Vial) 0.2 mg IV Q2MIN PRN PRN Reason: Opiate Reversal Ondansetron HCl (Ondansetron 4 Mg/2 Ml Inj) 4 mg IV Q8HR PRN PRN Reason: Nausea And Vomiting Rivaroxaban (Rivaroxaban 10 Mg Tablet) 15 mg PO BID [facility] Last Admin: 08/09/23 20:46 Dose: 15 mg Documented By: Tramadol HCl (Tramadol 50 Mg Tablet) 50 mg PO Q6H PRN PRN Reason: pain Last Admin: 08/10/23 04:07 Dose: 50 mg Documented By: Admin: 08/09/23 20:45 Dose: 50 mg Documented By: Vancomycin HCl (Vancomycin 125 Mg Capsule) 125 mg PO BID [facility] Last Admin: 08/09/23 20:47 Dose: 125 mg Documented By: Vitamin D (Cholecalciferol (Vitamin D3) 1,000 Unit Tablet) 2,000 unit PO DAILY [facility] Discontinued Medications Sodium Chloride (Normal Saline 0.9%) 1,000 mls @ 125 mls/hr IV CONT GINA Last Infusion: 08/09/23 16:46 Dose: 0 mls/hr Documented By: Infusion: 08/09/23 14:44 Dose: 125 mls/hr Documented By: Admin: 08/09/23 14:43 Dose: 125 mls/hr Documented By: SPF Meropenem 500 mg/ Sodium (Chloride) 100 mls @ 200 mls/hr IV NOW ONE Stop: 08/09/23 15:54 Last Infusion: 08/09/23 16:55 Dose: 200 mls/hr Documented By: Infusion: 08/09/23 16:45 Dose: 0 mls/hr Documented By: Admin: 08/09/23 16:11 Dose: 200 mls/hr Documented By: RL Sodium Chloride (Normal Saline 0.9%) 1,000 mls @ 125 mls/hr IV CONT GINA Last Admin: 08/09/23 18:33 Dose: 125 mls/hr Documented By: ROGELIO Consultations Consultation #1: Dr. Verduzco (ID at [facility]) called and stated there was some concern that the potential neuro change is related to neurotoxicity from cefepime. She states specifically that her recommendation would be to stop the cefepime and switch patient to meropenem. There is no intervention or levels or other specific criteria for the evaluation of possible neurotoxicity, only changing antibiotics and time will tell. Consultation #2: Dr. Og happy to accept Vital Signs Vital signs: Vital Signs - 8 hr 08/09/23 14:15 08/09/23 14:20 08/09/23 14:30 Temperature 98.5 F Pulse Rate 97 H 103 H 88 Respiratory Rate 18 20 Blood Pressure 160/69 H Pulse Oximetry 100 95 93 Oxygen Delivery Method Room Air Room Air 08/09/23 14:30 08/09/23 15:00 08/09/23 15:04 Temperature Pulse Rate 91 H 86 Respiratory Rate 21 18 Blood Pressure 171/72 H Pulse Oximetry 99 Oxygen Delivery Method Room Air 08/09/23 15:04 08/09/23 15:30 08/09/23 15:30 Temperature Pulse Rate 85 Respiratory Rate 18 Blood Pressure 150/70 H 161/72 H Pulse Oximetry 97 Oxygen Delivery Method Room Air Medical Decision Making Lab Data 08/10/23 05:10 08/09/23 14:39 Labs: Lab Results 08/09/23 Range/Units 14:39 WBC 5.8 (4.5-11.0) X10^3/uL RBC 2.87 L (4.5-5.9) X10^6/uL Hgb 8.5 L (13.5-17.5) g/dL Hct 25.1 L (41-53) % MCV 87.5 (80-100) fL MCH 29.7 (26-34) PG MCHC 33.9 (30-36) % RDW 13.2 (11.6-14.8) % Plt Count 249 (150-400) X10^3/uL Neut % (Auto) 77.6 H (50-75) % Lymph % (Auto) 9.1 L (25-40) % [place] % (Auto) 9.4 (3-14) % Eos % (Auto) 2.8 (2-4) % Baso % (Auto) 1.1 (0-2) % Neut # (Auto) 4500 (9766-9183) /uL Lymph # (Auto) 500 L (5120-2519) /uL [place] # (Auto) 500 (0-900) /uL Eos # (Auto) 200 (0-450) /uL Baso # (Auto) 100 (0-100) /uL PT 23.4 H (10.1-12.7) SECONDS INR 2.0 H (0.9-1.3) APTT 36 (26-36) SECONDS Sodium 127 L (137-145) mmol/L Potassium 5.2 H (3.4-5.1) mmol/L Chloride 95 L (98-107) mmol/L Carbon Dioxide 27 (22-32) mmol/L BUN 27 H (9-20) mg/dL Creatinine 1.07 (0.66-1.25) mg/dL Estimated GFR > 60 (>60) mL/min BUN/Creatinine Ratio 25.2 H (6-22) Glucose 126 H (80-110) mg/dL Calcium 9.2 (8.4-10.2) mg/dL Magnesium 2.0 (1.6-2.3) mg/dL Total Bilirubin 0.9 (0.2-1.3) mg/dL AST 29 (17-59) IU/L ALT 20 (<50) IU/L Alkaline Phosphatase 58 (38-126) U/L Total Creatine Kinase 54 L (55-170) U/L Troponin I < 0.012 (0.01-0.034) ng/mL NT-Pro-B Natriuret Pep 656 H (<450) pg/mL Total Protein 6.8 (6.3-8.2) g/dL Albumin 3.6 (3.5-5.0) g/dL Globulin 3.2 (1.7-4.1) g/dL Albumin/Globulin Ratio 1.1 (1.0-2.8) MDM Narrative Medical decision making narrative: [77] year old patient presents with trouble with word finding Multiple etiologies for patient's symptoms considered including, but not limited to: [Stroke versus TIA versus metabolic encephalopathy versus medication reaction] Prior Charts reviewed in our EMR Primary Historian: patient Labs reviewed and interpreted by myself: No leukocytosis or left shift, hemoglobin 8.5, is relative baseline, sodium 127, at his recent baseline, potassium 5.2, renal function at baseline, glucose 126 Imaging reviewed: CT of the head as well as CTA of the head and neck show no acute abnormality Consultations: Dr. Og happy to accept on his service. Discussed with his ID provider (Dax) see details above Patient with trouble with word finding presents for evaluation. Last known normal was at least yesterday, there is no indication for tPA and he does not meet any criteria for Code IR. Patient requires hospitalization for further workup including MRI and echocardiogram, also considering the potential of neurotoxicity from prior antibiotics Discharge Plan Departure Patient Disposition: Admitted As Inpatient Clinical Impression: Acute CVA (cerebrovascular accident) Admit Date/Time: 08/09/23 16:03 Admit Provider: Cristian Og
[2023-08-09] MEDS: SODIUM CHLORIDE 0.9% 1,000 ML 125 ML IV ×2 (14:43→18:33)
[2023-08-09 14:58] LABS: Add Manual Diff / Slide Review NO; Basophils Absolute Auto 100 /uL (0-100); Basophils Percent Auto 1.1 % (0-2); Eosinophils Absolute Auto 200 /uL (0-450); Eosinophils Percent Auto 2.8 % (2-4); Hematocrit 25.1 % (41-53); Hemoglobin 8.5 g/dL (13.5-17.5); Lymphocytes Absolute Auto 500 /uL (1100-4500); Lymphocytes Percent Auto 9.1 % (25-40); Mean Corpuscular HGB Conc 33.9 % (30-36); Mean Corpuscular Hemoglobin 29.7 PG (26-34); Mean Corpuscular Volume 87.5 fL (80-100); Monocytes Absolute Auto 500 /uL (0-900); Monocytes Percent Auto 9.4 % (3-14); Neutrophils Absolute Auto 4500 /uL (1500-7000); Neutrophils Percent Auto 77.6 % (50-75); Platelet Count 249 X10^3/uL (150-400); Red Blood Cell Count 2.87 X10^6/uL (4.5-5.9); Red Cell Distribution Width 13.2 % (11.6-14.8); White Blood Cell Count 5.8 X10^3/uL (4.5-11.0)
[2023-08-09 15:03] LABS: PTT Partial Thromboplastin Tim 36 SECONDS (26-36)
[2023-08-09 15:05] LABS: Alanine Aminotransferase 20 IU/L (<50); Albumin 3.6 g/dL (3.5-5.0); Albumin Globulin Ratio 1.1 (1.0-2.8); Alkaline Phosphatase 58 U/L (38-126); Aspartate Aminotransferase 29 IU/L (17-59); BUN Creatinine Ratio 25.2 (6-22); Bilirubin Total 0.9 mg/dL (0.2-1.3); Blood Urea Nitrogen 27 mg/dL (9-20); Calcium 9.2 mg/dL (8.4-10.2); Carbon Dioxide 27 mmol/L (22-32); Chloride 95 mmol/L (98-107); Creatine Kinase 54 U/L (55-170); Estimated Glomerular Filt Rate > 60 mL/min (>60); Globulin 3.2 g/dL (1.7-4.1); Glucose 126 mg/dL (80-110); HEMOLYSIS < 15 (0-50); Potassium 5.2 mmol/L (3.4-5.1); Sodium 127 mmol/L (137-145); Total Protein 6.8 g/dL (6.3-8.2)
[2023-08-09 15:11] LABS: Prothrombin Time 23.4 SECONDS (10.1-12.7)
[2023-08-09 15:16] LABS: NT-proBNP (BNP-Adult 18+) 656 pg/mL (<450); Troponin I < 0.012 ng/mL (0.01-0.034)
--- NOTE | 2023-08-09 15:36 | PC.NURSE ---
Patient has had difficulty moving his right leg due to torn muscle we diagnosed him with at [facility] earlier this week. Pt unable to move his right leg while in bed. Patients concern is in his left arm which he says is weak. Pt has a bad left shoulder that cracks and pops upon movement. Pt is able to lift his left arm up and hold it with no droop. Family states he has a hard time expressing what he is thinking, but here in the ER patient is able to communicate in full sentences without delay in word seeking.
[2023-08-09] MEDS: MEROPENEM 500 MG in SODIUM CHLORIDE 0.9% 100 ML 200 MG IV (16:11)
--- NOTE | 2023-08-09 16:44 | PC.NURSE ---
Day shift: In room from ED at approx 1630. He is A&Ox4 and is aware of his medical Hx. Wound vac to rt foot. Bill cath in place draining clear yellow. Rt leg is swollen. He states I have torn tendon in my rt leg. His upper right leg does appear to bruised. Hr 110. BP elevated. He does endorse rt leg pain with any movement. Family at bedside for support. Oriented to room and call light. Call light in reach.
--- NOTE | 2023-08-09 17:56 | PC.NURSE ---
Day shift: Per Pt Ok if Charan and/or Nat get info about my care. Son and Daughter
--- NOTE | 2023-08-09 18:35 | DI.MRI.S_ITS ---
PROCEDURE: MR HEAD/BRAIN WO CON INDICATIONS: aphasia TECHNIQUE: Non-contrast axial T1 spin echo, axial T2 fast spin echo, sagittal and axial FLAIR, coronal T2 fast spin echo, axial gradient echo, axial diffusion and ADC through the brain. COMPARISON: [facility], MR, MR STROKE, 08/25/2020, 15:30. [facility], CT, CT HEAD/BRAIN WO CON, 08/09/2023, 14:54. [facility], CT, CT ANGIO HEAD AND NECK, 08/09/2023, 14:54. FINDINGS: Image quality: Excellent. CSF spaces: Ventricles appear symmetric in size and shape. Basal cisterns are patent. No extra-axial fluid collections. Brain: No intracranial bleeds or mass effects. There is cerebral volume loss for age. There are periventricular and deep white matter chronic small vessel ischemic changes. Brainstem appears normal. Diffusion-weighted images show no acute ischemic insults. No chronic ischemic insults. Normal intravascular flow voids are present. Skull and face: Calvarial bone marrow is normal in signal. Orbits are normal. Note is made of bilateral lens replacements. Sinuses: Sinuses and mastoids are clear. IMPRESSION: No findings of acute or subacute infarction can be seen. Note is made of age-appropriate brain parenchymal volume loss and chronic small vessel ischemic changes. Dictated by: Pranav Lopez M.D. on 08/10/2023 at 9:32 Approved by: Pranav Lopez M.D. on 08/10/2023 at 9:33
--- NOTE | 2023-08-09 18:39 | DI.ECHO.S_ITS ---
[facility] +---------+ [facility] +---------+ : : [address] : [place] : : : : [id number] : : : : Phone: [phone]+ Echocardiogram Report + + :Name: JUAN SANDERS Study Date: 08/10/2023 Height: 72 in : :[facility] ReadingLocation: Weight: 185 lb : : Gender: Male BSA: 2.1 m2 : :: 1945 Age: 77 yrs BP: 127/56 mmHg: :Reason For Study: APHASIA : :Ordering Physician: PAVAN, : :MARITZA Performed By: Khadra Gomez : :Referring: MARITZA BROWNE : + + Interpretation Summary Normal sinus rhythm. Normal LV size, wall thickness, wall motion and LV systolic function. EF is 60-65%. Moderate LA enlargement and mild RA enlargement. Mild MAC with mild associated mitral stenosis; otherwise no significant valvular abnormalities. Mildly dilated ascending aorta. Compared to prior study 07/2020 no significant changes have occurred. Procedure: A two-dimensional transthoracic echocardiogram with color flow and Doppler was performed. The study quality was technically adequate. Comparison is made with the echocardiogram of 08/26/2020. The patient was in sinus rhythm with heart rates between 80-86 bpm during the exam. Left Ventricle: The left ventricle is normal in size and wall thickness. The ejection fraction is estimated to be 60-65%. Right Ventricle: The right ventricle is borderline dilated. The right ventricular systolic function is normal. Atria: The left atrium is moderately dilated. The right atrium is mildly dilated. There is no Doppler evidence for an interatrial shunt. Mitral Valve: There is mild mitral annular calcification. The mitral valve leaflets appear mildly thickened, but open well. The mitral valve mean gradient is 4.5 mmHg. There is mild mitral regurgitation. Aortic Valve: The aortic valve is trileaflet. The aortic valve opens well. There is no aortic valve stenosis. No aortic regurgitation is present. Tricuspid Valve: The tricuspid valve is normal in structure and function. There is mild tricuspid regurgitation. The right ventricular systolic pressure is estimated to be at least 31 mmHg based on an estimated right atrial pressure of 3 mm Hg. Pulmonic Valve: The pulmonic valve leaflets are thin and pliable; valve motion is normal. There is a trace or physiologic amount of pulmonic regurgitation. Great Vessels: The aortic root is normal size. The dimensions of the ascending aorta are normal. The IVC is of normal diameter and collapses greater than 50% with a sniff. This suggests a low right atrial pressure of 3 mm Hg. Pericardium/ Pleura There is no pericardial effusion. There is no pleural effusion. MMode/2D Measurements & Calculations LVIDd: 4.6 cm LVOT diam: 2.1 cm LVIDs: 2.5 cm Ao root diam: 4.0 cm FS: 45.6 % asc Aorta Diam: 3.4 cm IVSd: 0.70 cm Ao Arch Diam (Prox Trans): 3.2 cm LVPWd: 0.72 cm LV wooten. diameter/BSA (cm/m^2): 2.2 LV sys. diameter/BSA (cm/m^2): 1.2 LA A2 area: 32.6 cm2 RA long axis: 6.2 cm LA A4 area: 20.7 cm2 RA area: 24.3 cm2 LA length (vol): 5.8 cm RA vol: 80.9 ml LA vol: 98.1 ml RA : 39.2 ml/m2 LA vol index: 47.6 ml/m2 IVC diam: 1.3 cm RVD1 (basal): 4.1 cm TAPSE: 3.4 cm Doppler Measurements & Calculations Ao V2 max: 158.2 cm/sec LVOT Max Aron: 124.5 cm/sec Ao V2 mean: 109.8 cm/sec LV V1 max P.2 mmHg Ao max P.0 mmHg LV V1 VTI: 26.1 cm Ao mean P.3 mmHg ARMAAN(I,D): 3.1 cm2 Ao V2 VTI: 29.5 cm ARMAAN(V,D): 2.8 cm2 sev ratio: 0.89 ARMAAN indexed to BSA (cm^2/m^2): 1.5 MV E max aron: 129.0 cm/sec TR max aron: 266.4 cm/sec MV A max aron: 138.4 cm/sec TR max P.4 mmHg MV E/A: 0.93 PA V2 max: 122.8 cm/sec Med Peak E' Aron: 8.8 cm/sec PA V2 mean: 77.2 cm/sec E/E' med: 14.6 PA mean P.7 mmHg Lat Peak E' Aron: 10.4 cm/sec PA pr(Accel): 31.0 mmHg E/E' lat: 12.5 E/e' average: 13.5 MV dec time: 0.30 sec MVA(VTI): 2.1 cm2 MV V2 mean: 100.1 cm/sec SV(LVOT): 91.9 ml MV mean P.5 mmHg MV V2 VTI: 44.1 cm Electronically signed by: Talya Benavides M.D. on Reading Physician:08/10/2023 04:06 PM
[2023-08-09] MEDS: TRAMADOL 50 MG TABLET PO (20:45)
[2023-08-09] MEDS: HYDROXYCHLOROQUINE 200 MG TABLET PO (20:46)
[2023-08-09] MEDS: RIVAROXABAN 10 MG TABLET 15 MG PO (20:46)
[2023-08-09] MEDS: VANCOMYCIN 125 MG CAPSULE PO (20:47)
--- NOTE | 2023-08-09 20:58 | P.HP_ITS ---
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 Patient has had increasing swelling in that leg and was noted to have a significant cellulitis and then DVT was diagnosed. Patient was started on anticoagulation and has been on IV cefepime prior to discharge at his last hospitalization which was 08 02. Patient at that time was sent home on Xarelto. And antibiotics have been followed with Infectious Disease. And wound care. Apparently on the patient had increasing pain in his right leg and at that time there was concern about increase infection but was found to have a iliopsoas tear tendon with surrounding edema and swelling. Pain has been consistent since that time and he has been quite worried about that. Patient apparently was talking to his infectious disease specialist today in the last 24 hours he has been having difficulty finding words and some visual possible hallucinations. No headaches no chills no fevers no neck stiffness no chest pain shortness breath palpitations or other change. The patient apparently was sent to the emergency room for evaluation of this and to make sure both electrolytes and blood work was normal. During that. Infectious Disease called and said that the other possibility for mental status changes is a mental status issue with the cefepime. Patient had CT scans which did not show any definitive abnormality. Overall he seems to be doing better although apparently it waxes and wanes. Still seeing a ??visual change which feels like water on a exact straight line. But no other change. Does have a history of visual migraines but this seems different to him. No other changes. Patient was admitted for evaluation of possible stroke. 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 Mother Diabetes mellitus Hyperlipidemia Social History marital status: household members: none lives independently: Yes caregiver/support person: No housing: house education level: college occupational status: previously employed Smoking Status: Former smoker second hand exposure: No alcohol intake: current substance use type: does not use Meds Home Medications and Allergies Home Medications Medication Instructions Recorded Confirmed Type cholecalciferol (vitamin D3) 50 2,000 unit PO DAILY 11/07/18 08/09/23 History mcg (2,000 unit) capsule Disabled Parking Permit #1 ea 10/03/20 08/09/23 Rx hydroxychloroquine 200 mg tablet 200 mg PO BID 05/09/22 08/09/23 History tramadol 50 mg tablet 50 mg PO Q6H PRN pain #30 tabs 07/04/23 08/09/23 Rx cyclobenzaprine 10 mg tablet 10 mg PO Q8HR PRN Spasms #30 tabs 08/01/23 08/09/23 Rx vancomycin 125 mg capsule 125 mg PO BID #60 caps 08/02/23 08/09/23 Rx rivaroxaban 15 mg tablet (Xarelto) 15 mg PO BID 08/09/23 08/09/23 History Allergies Allergy/AdvReac Type Severity Reaction Status Date / Time No Known Drug Allergies Allergy Verified 08/09/23 14:19 Review of Systems Review of Systems Narrative: Negative as above Exam Vital Signs (past 8 hours): - 08/09/23 14:15 08/09/23 14:20 08/09/23 14:30 Temperature 98.5 F Pulse Rate 97 H 103 H 88 Respiratory Rate 18 20 Blood Pressure 160/69 H Pulse Oximetry 100 95 93 Oxygen Delivery Method Room Air Room Air Oxygen Flow Rate 08/09/23 14:30 08/09/23 15:00 08/09/23 15:04 Temperature Pulse Rate 91 H 86 Respiratory Rate 21 18 Blood Pressure 171/72 H Pulse Oximetry 99 Oxygen Delivery Method Room Air Oxygen Flow Rate 08/09/23 15:04 08/09/23 15:30 08/09/23 15:30 Temperature Pulse Rate 85 Respiratory Rate 18 Blood Pressure 150/70 H 161/72 H Pulse Oximetry 97 Oxygen Delivery Method Room Air Oxygen Flow Rate 08/09/23 16:00 08/09/23 16:00 08/09/23 16:44 Temperature 98.6 F Pulse Rate 85 92 H Respiratory Rate 20 19 Blood Pressure 155/70 H 152/68 H Pulse Oximetry 95 98 Oxygen Delivery Method Room Air Oxygen Flow Rate 0 08/09/23 18:39 Temperature 98.6 F Pulse Rate 92 H Respiratory Rate 19 Blood Pressure 152/68 H Pulse Oximetry 98 Oxygen Delivery Method Oxygen Flow Rate 0 Oxygen Delivery Method Room Air Oxygen Flow Rate 0 Narrative Exam Narrative: Alert somewhat irritated male lying in bed no acute distress. Mucous membranes moist neck supple without adenopathy lungs are clear heart is regular rate and rhythm abdomen is soft positive bowel sounds nontender. Right groin shows some edematous area in the femoral area but good pulse no swelling he has bruising and ecchymosis down to his knee. He is somewhat tender but markedly tender in the groin area. Hip itself seems to be moving well. No other changes. Neurologic exam patient is alert oriented interactive and nonfocal except for secondary to pain in his right leg. Objective Labs 08/09/23 14:39 08/09/23 14:39 Labs: Laboratory Results - last 24 hr 08/09/23 14:39 WBC 5.8 RBC 2.87 L Hgb 8.5 L Hct 25.1 L MCV 87.5 MCH 29.7 MCHC 33.9 RDW 13.2 Plt Count 249 Neut % (Auto) 77.6 H Lymph % (Auto) 9.1 L [place] % (Auto) 9.4 Eos % (Auto) 2.8 Baso % (Auto) 1.1 Neut # (Auto) 4500 Lymph # (Auto) 500 L [place] # (Auto) 500 Eos # (Auto) 200 Baso # (Auto) 100 PT 23.4 H INR 2.0 H APTT 36 Sodium 127 L Potassium 5.2 H Chloride 95 L Carbon Dioxide 27 BUN 27 H Creatinine 1.07 Estimated GFR > 60 BUN/Creatinine Ratio 25.2 H Glucose 126 H Calcium 9.2 Magnesium 2.0 Total Bilirubin 0.9 AST 29 ALT 20 Alkaline Phosphatase 58 Total Creatine Kinase 54 L Troponin I < 0.012 NT-Pro-B Natriuret Pep 656 H Total Protein 6.8 Albumin 3.6 Globulin 3.2 Albumin/Globulin Ratio 1.1 Assessment & Plan Assessment & Plan narrative: Patient complicated 77-year-old with history of multiple medical problems with recent hospitalization for infection DVT and status post multiple surgeries on his right foot with wound VAC. here for evaluation aphasia. Aphasia. Patient certainly does not have any definitive changes right now. CT scan was negative along with CT vascular study. Patient clinically is much better. There is some chance that this could be his antibiotic that he has been using which we made changes today. But will take time. Tomorrow will need echo and MRI. Placed on tele and will continue to follow. Patient is already on aspirin and anticoagulation. Certainly would be difficult to make this any better. At this time we do not see any definitive need for treatment otherwise. Right groin pain status post muscle tendon tear. Cause is unclear but maybe related to his connective tissue disease. At this point orthopedist has already evaluated at not a surgical issue needs to just continue to support with pain control and physical therapy we discussed it is going to take time. Clearly his decrease in hematocrit could be related to this. No other definitive source. He understands will call if change. Anemia. Probably blood loss. Do not see that he has been evaluated completely will add usual anemia labs. No evidence of significant bleeding GI. I suspect this is in his right leg. In his comes from the tear and his anticoagulation. Timeline seems to be that anticoagulation was started before this happened. It is unclear but at this point I think we can consider that. And will follow. Urinary retention. Etiology is unclear does have appointment with urologist. Continue catheter. Not going to make any changes at this time. Cellulitis and osteomyelitis right foot. As per wound care. Due to the fact that the previous antibiotic may have been affecting his mental status will switch to meropenem and follow from there. History of DVT right leg. On anticoagulation will continue to follow. Code status full. Disposition. Expect 48 hours. Will need to evaluate with PT and will need to make sure he is mobile. Make sure labs are stable and clears mental issues. Discussed with family and patient. 85 minutes spent chart review dictation orders time with family and patient. Quality VTE Deep Vein Thrombosis/Pulmonary Embolism Present on Admission: No
[2023-08-10 00:01] VITALS: BP 131/59; PULSE 93; RESP 18; TEMP 36.3; O2SAT 97
[2023-08-10] MEDS: TRAMADOL 50 MG TABLET PO ×2 (04:07→22:25)
[2023-08-10] MEDS: MEROPENEM 1 GM in SODIUM CHLORIDE 0.9% 100 ML IV ×2 (04:08→12:03)
[2023-08-10 05:05] VITALS: BP 127/56; RESP 17; TEMP 37.2; O2SAT 96
[2023-08-10 05:54] LABS: Add Manual Diff / Slide Review NO; Basophils Absolute Auto 100 /uL (0-100); Basophils Percent Auto 1.2 % (0-2); Eosinophils Absolute Auto 400 /uL (0-450); Hematocrit 21.1 % (41-53); Hemoglobin 7.2 g/dL (13.5-17.5); Lymphocytes Absolute Auto 1000 /uL (1100-4500); Lymphocytes Percent Auto 19.1 % (25-40); Mean Corpuscular HGB Conc 34.2 % (30-36); Mean Corpuscular Hemoglobin 29.7 PG (26-34); Mean Corpuscular Volume 86.9 fL (80-100); Monocytes Absolute Auto 500 /uL (0-900); Monocytes Percent Auto 9.7 % (3-14); Neutrophils Absolute Auto 3400 /uL (1500-7000); Platelet Count 246 X10^3/uL (150-400); Red Blood Cell Count 2.43 X10^6/uL (4.5-5.9); Red Cell Distribution Width 13.3 % (11.6-14.8); White Blood Cell Count 5.4 X10^3/uL (4.5-11.0)
[2023-08-10 06:12] LABS: Hemoglobin A1C% w Est Avg Glu 5.4 % (4.0-6.0)
[2023-08-10 06:22] LABS: HEMOLYSIS < 15 (0-50); Iron 45 ug/dL (49-181)
[2023-08-10 06:41] LABS: Percent Iron Saturation 18 % (20-50); Total Iron Binding Capacity 244 ug/dL (261-462); Transferrin 153 mg/dL (206-381)
[2023-08-10 07:23] LABS: Vitamin B12 435 pg/mL (239-931)
[2023-08-10 08:36] LABS: Folate 15.4 ng/mL (2.76-20.0)
--- NOTE | 2023-08-10 09:37 | PC.NURSE ---
Day shift: Off unit for imaging for approx 45 minutes. Back at 0930. Echo in room now. ICU/tele aware.
[2023-08-10 09:44] VITALS: BP 128/56; PULSE 80; RESP 16; TEMP 37; O2SAT 98
[2023-08-10] MEDS: HYDROXYCHLOROQUINE 200 MG TABLET PO ×2 (10:03→20:20)
[2023-08-10] MEDS: CHOLECALCIFEROL (VITAMIN D3) 1,000 UNIT TABLET 2000 UNIT PO (10:03)
[2023-08-10] MEDS: VANCOMYCIN 125 MG CAPSULE PO ×2 (10:03→20:21)
--- NOTE | 2023-08-10 10:29 | ST.IPIE ---
Visit Care Team Role Provider Type Dionne Snow MD Primary Care Provider Physician Specialty: Family Practice Address: [address] [place] [address], [address], [place], [address] Email: [email or web address] Benny Colby DO Emergency Provider Physician Referring Provider Specialty: Emergency Medicine Address: [address] [place] [address], [place], [address] Email: [email or web address] Cristian Og MD Admit Provider Physician Attending Provider Specialty: [facility] Practice Address: [facility], [address], [place], [address] Email: [email or web address] Current Diagnoses Aphasia (08/09/23) Past Medical History (Last Reviewed 08/09/23 @ 15:54 by Benny Colby DO) Arthritis (Medical) BPH (benign prostatic hyperplasia) (Medical) Cataracts, bilateral (Medical) Chronic cough (Medical ~2017) 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 (Medical) Cresenteric, small vessel vasculitis, on prednisone Chronic UTI (Medical) DVT (deep venous thrombosis) (Medical) Foot pain (Medical ~2017) GI bleed (Medical ~03/2018) Upper GI due to diffuse severe antral gastritis and diffuse duodenitis on upper endoscopy History of pulmonary embolism (Medical ~08/2015) Negative anti cardiolipin and beta 2 glycoprotein antibodies HLD (hyperlipidemia) (Medical) Lupus (systemic lupus erythematosus) (Medical) On HCQ, stopped MTX 2 PNA Lymphocytopenia (Medical) Osteomyelitis (Medical) Left, 1st metatarsal PICC (peripherally inserted central catheter) in place (Medical) Pulmonary embolus (Medical) s/p knee surgery Shoulder pain (Medical ~2014) ST IP Initial Evaluation Report SENIOR MARKETING ASSOCIATE Motor Speech Evaluation Start: 08/10/23 10:19 Freq: Status: Active Protocol: Document 08/10/23 10:20 MG (Rec: 08/10/23 10:29 MG [id number]) Motor Speech Evaluation Session Time Visit Start Time 10:05 Visit Stop Time 10:20 Total Visit Minutes 15 Visit Information Visit Number 1 Setting Setting Acute Care Patient History Source: [employer] ([employer]). 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 Patient apparently was talking to his infectious disease specialist today in the last 24 hours he has been having difficulty finding words and some visual possible hallucinations. No headaches no chills no fevers no neck stiffness no chest pain shortness breath palpitations or other change. The patient apparently was sent to the emergency room for evaluation of this and to make sure both electrolytes and blood work was normal. During that Infectious Disease called and said that the other possibility for mental status changes is a mental status issue with the cefepime. Patient had CT scans which did not show any definitive abnormality. Overall he seems to be doing better although apparently it waxes and wanes. Still seeing a ?visual change which feels like water on a exact straight line. But no other change. Does have a history of visual migraines but this seems different to him. No other changes. Patient was admitted for evaluation of possible stroke. Mental Status Mental Status Alert,Responsive,Cooperative Subjective Observations Subjective Pt was reclined in bed with TOY ASSEMBLY SUPERVISOR next to bed helping him adjust after ECHO was performed. Pt's nurse also entered the room to deliver medication. Pt was agreeable to ST performing an evaluation due to doctor's concerns for aphasia, slurring and word finding difficulties making him hard to understand when communicating with others. Pt reported what he ate for breakfast (sami toast, sausage, fruit) and did not have any swallowing concerns at that time. Pt reports no speech concerns at this time as well; the pt feels that it has resolved. Pt's nurse reported to this SENIOR MARKETING ASSOCIATE that there were no overt concerns for speech or swallowing this morning. Oral Motor Lips Function WFL Tongue Function WFL Jaw Function WFL Soft Palate Function WFL Respiration/Phonation Conversation Quality WFL Diadochokinetic Rates P^T^K^ Quality WFL Speech Intelligibility Awareness/Strategy Use Description Type of awareness/use Uses consistently Findings Details Motor Speech Function WFL Type of Impairment No impairment noted at this time Assessment Details Assessment Pt named 10/10 items and identified various actions and people on a picture scene. No slurring or word finding difficulties noted. SENIOR MARKETING ASSOCIATE observed this pt to take medication with thin liquid and no overt s/sx of aspiration noted. Pt reports no concerns. This SENIOR MARKETING ASSOCIATE went over word finding strategies and provided information if the pt experiences these again . Pt had no further questions/ concerns prior to SENIOR MARKETING ASSOCIATE exiting the room. Recommendations Treatment Recommended No
[2023-08-10] MEDS: SODIUM CHLORIDE 0.9% FLUSH 10 ML IV ×2 (10:46→21:02)
[2023-08-10 11:23] LABS: NT-proBNP (BNP-Adult 18+) 1250 pg/mL (<450)
[2023-08-10] MEDS: MAGNESIUM HYDROXIDE 30 ML UDC PO (12:11)
[2023-08-10] MEDS: RIVAROXABAN 10 MG TABLET 15 MG PO ×2 (12:12→20:22)
[2023-08-10 12:56] LABS: BUN Creatinine Ratio 24.2 (6-22); Blood Urea Nitrogen 24 mg/dL (9-20); Calcium 8.7 mg/dL (8.4-10.2); Carbon Dioxide 26 mmol/L (22-32); Chloride 98 mmol/L (98-107); Estimated Glomerular Filt Rate > 60 mL/min (>60); Glucose 86 mg/dL (80-110); HEMOLYSIS 31 (0-50); Potassium 4.5 mmol/L (3.4-5.1); Sodium 129 mmol/L (137-145)
--- NOTE | 2023-08-10 12:57 | PT-IP ANOTE ---
PT eval received and pt with Hgb 7.2 and HCt 21.1. spoke with nurse and pt planning to get blood transfusion. pt on hold for PT at this time.
[2023-08-10] MEDS: polyethylene glycoL 3350 17 GM POWD.PACK PO (12:59)
--- NOTE | 2023-08-10 13:07 | PM.PN.1 ---
Subjective Subjective Date Patient Seen: 08/10/23 Time Patient Seen: 13:09 Interval history: Patient seen in follow-up of multiple issues including anemia right leg pain cellulitis and aphasia. Overall feeling much better today. Has not felt this well in some time. He is not noticed any black or tarry stools over the last week. Maybe a little darker but nothing too impressive he has not had any blood in his stool. His pain in his right leg is improved although he still has weakness. Does not have any other significant new changes or complaints. No headache no chest pain no shortness of breath no abdominal pain. Feels like he is talking normally and visual symptoms have normalized Exam Vital Signs (past 8 hours): - 08/10/23 09:44 Temperature 98.6 F Pulse Rate 80 Respiratory Rate 16 Blood Pressure 128/56 L Pulse Oximetry 98 Oxygen Flow Rate 0 Oxygen Delivery Method Room Air Oxygen Flow Rate 0 Narrative Exam Narrative: Alert male in no acute distress smiling this morning. Lungs are clear heart is regular rate and rhythm abdomen is soft positive bowel sounds nontender. Right groin shows no worsening of swelling has leg actually is maybe slightly smaller. Ecchymosis is slightly lower on his leg but not more swollen. Objective Labs 08/10/23 05:10 08/10/23 05:10 Labs: Laboratory Results - last 24 hr 08/09/23 08/10/23 08/10/23 14:39 05:10 10:45 WBC 5.8 5.4 RBC 2.87 L 2.43 L Hgb 8.5 L 7.2 L Hct 25.1 L 21.1 L MCV 87.5 86.9 MCH 29.7 29.7 MCHC 33.9 34.2 RDW 13.2 13.3 Plt Count 249 246 Neut % (Auto) 77.6 H 63.0 Lymph % (Auto) 9.1 L 19.1 L [place] % (Auto) 9.4 9.7 Eos % (Auto) 2.8 7.0 H Baso % (Auto) 1.1 1.2 Neut # (Auto) 4500 3400 Lymph # (Auto) 500 L 1000 L [place] # (Auto) 500 500 Eos # (Auto) 200 400 Baso # (Auto) 100 100 PT 23.4 H INR 2.0 H APTT 36 Sodium 127 L 129 L Potassium 5.2 H 4.5 Chloride 95 L 98 Carbon Dioxide 27 26 BUN 27 H 24 H Creatinine 1.07 0.99 Estimated GFR > 60 > 60 BUN/Creatinine Ratio 25.2 H 24.2 H Glucose 126 H 86 Hemoglobin A1c 5.4 Calcium 9.2 8.7 Magnesium 2.0 Iron 45 L TIBC 244 L % Saturation 18 L Transferrin 153 L Total Bilirubin 0.9 AST 29 ALT 20 Alkaline Phosphatase 58 Total Creatine Kinase 54 L Troponin I < 0.012 NT-Pro-B Natriuret Pep 656 H 1250 H Total Protein 6.8 Albumin 3.6 Globulin 3.2 Albumin/Globulin Ratio 1.1 Vitamin B12 435 Folate 15.4 Blood Type O Positive Antibody Screen Negative [facility] Medical History PICC (peripherally inserted central catheter) in place Osteomyelitis Lymphocytopenia Chronic UTI DVT (deep venous thrombosis) Pulmonary embolus HLD (hyperlipidemia) Arthritis 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 Mother Diabetes mellitus Hyperlipidemia Social History marital status: household members: none lives independently: Yes caregiver/support person: No housing: house education level: college occupational status: previously employed Smoking Status: Former smoker second hand exposure: No alcohol intake: current substance use type: does not use Assessment & Plan Assessment & Plan narrative: Anemia. Appears to be iron deficiency. Has been a slow progress since the 30 of July. Certainly 21 this morning. No evidence of significant loss but has not had a bowel movement. Will see what guaiac shows. But certainly no evidence of black tarry stools. Does have the leg issue in his right iliopsoas which he tore which did have some bleeding but it does not look worse today and certainly is clinically better so it seems unlikely although he could be bleeding into the posterior abdomen. Other than that source there is nothing that I can see. Seems unlikely to be hemolysis with normal bilirubin although could it be related to his antibiotic he has been on longstanding I guess it is possible. Will obtain LDH. Difficult question is if it continues to go down does require blood products and possibly stopping his anticoagulation. We are going to sit on it now. Maybe secondary to some fluid dilution but I do not think as much as we are currently dropped I do not think that is the primary cause. But will stop his fluids. Will start him on a PPI in case this is gastric and will follow up guaiac follow-up H&H and make decision. History of right leg DVT. Patient with severe anemia and the question is whether or not we can continue his anticoagulation. At this point I am going to continue it because I do not have a definitive source for bleeding but if things continue to get worse may need to consider [place] filter which I discussed with the patient. Certainly that would require transfer. Will see what the next 24 hour brings. He understands. He is comfortable with that. Aphasia. Actually seems to be better. He is lost his visual symptoms he is lost his aphasia and seems to be doing extremely well. Neurologic exam is normal today and we will continue to follow question whether this is TIA related or whether or not this is secondary to his cefepime which I think is probably more likely. He seems to be doing well at this point. We have made transfer doing well. Echo is pending but MRI was normal and tele showed no abnormality as far as arrhythmia goes Hyperkalemia. Awaiting BMP for today. There is some question of peaked T-waves on his tele and will have to see what that shows. May need to treat depending on what that is. Should be returning in the near future. Hyponatremia. Will see what it is today. We are going to hold his saline. And will readdress depending on how he does. Has been a slow trend and will have to follow. Cellulitis and osteomyelitis. As per ID switch to meropenem and will see how things go. Continue for now. Will need to go home on that. Urinary retention. Continue cook catheter. As per Urology which hopefully will have in the near future Code status full. Disposition clearly where in a position where he is not going home anytime in the near future. Saturday would be the earliest will see how things go. Have severe issues going on with his anemia and is DVT which will have to figure out and will go from there. Patient understands questions answered 60 minutes spent with the patient staff reviewing records imaging and dictation and orders Quality VTE Deep Vein Thrombosis/Pulmonary Embolism Present on Admission: No
--- NOTE | 2023-08-10 15:15 | PT.IIE ---
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 Chronic UTI DVT (deep venous thrombosis) Foot pain (~2017) GI bleed (~03/2018) History of pulmonary embolism (~08/2015) HLD (hyperlipidemia) Lupus (systemic lupus erythematosus) Lymphocytopenia Osteomyelitis PICC (peripherally inserted central catheter) in place Pulmonary embolus Shoulder pain (~2014) Physical Therapy Inpatient Evaluation/Re-Eval M1 PT/OT-IP Prior Functional Status Start: 08/10/23 16:31 Freq: NEEDED Status: Active Protocol: Document 08/10/23 15:15 AB (Rec: 08/10/23 16:56 AB [id number]) Medical Review Prior Functional Status Medical History Reviewed Yes Communication able to make needs known Mobility and Gait pt stated that he is modified independent with all mobilities and ambulation using a 4WW Prior Functional Level (Other details) pt stated that he has balance issues and has an appointment with a neurologist Social History Household Members family Living Arrangements House Number of Floors (Floors) Two Floors Number of Stairs To Enter/Railing? pt stays on main level of the house has 15 steps with R rail ascending to get into the house Home Environment High Toilet,Walk in Shower Home Equipment Four Wheel Walker,Grab Bars Near Toilet,Grab Bars In Shower Additional Social History Comment pt stated that his son and DIL just moved in with him and can assist him if needed pt has a tripod cane M2 PT-IP Current Condition Start: 08/10/23 16:31 Freq: NEEDED Status: Active Protocol: Document 08/10/23 15:15 AB (Rec: 08/10/23 16:56 AB [id number]) Physical Therapy Current Condition Current Condition Evaluation Date 08/10/23 Treatment Diagnosis r/o CVA; iliopsoas muscle tear ; difficulty in walking Onset Date 08/09/23 M3 PT-IP Subjective Start: 08/10/23 16:31 Freq: NEEDED Status: Active Protocol: Document 08/10/23 15:15 AB (Rec: 08/10/23 16:56 AB [id number]) Subjective Physical Therapy Visit Type Type Initial Evaluation Visit Start Time 15:15 Visit Stop Time 16:08 Total Visit Minutes 53 Notes doctor consult with pt completed this afternoon and EMR reviewed. pt now is not going to get blood transfusion at this time per doctor's note and that pt received IV fluid and may have caused dilution. nurse confirmed. Number of OPTOMETRIST PRESIDENT/PRACTICE OWNER Visits 0 Physical Therapy Visit Comments Patient Comments agreeable to do PT Therapy Pain Assessment Pain When Pain Assessed During Mobility Location Right Anterior Hip Intensity 2 Scale Used with movement M4 PT-IP Mobility and Gait Start: 08/10/23 16:31 Freq: NEEDED Status: Active Protocol: Document 08/10/23 15:15 AB (Rec: 08/10/23 16:56 AB [id number]) PT-Bed Mobility Assessment Supine to Sit Supine to Sit Standby Assistance PT-Transfer Assessment Sit to and From Stand Sit to and from Stand Standby Assistance Equipment Transfer Assistive Device Gait Belt,4 Wheeled Walker Orthotic/Prosthetic Devices or Brace: No Transfers Transfer Destination Toilet Transfer Technique ambulated Transfer Ability Level of Assist Standby Assistance,Contact Guard Assistance,1 Person Assistance,Use of Upper Extremities Comments Mobility Comments pt supine in bed. agreeable to do PT. pt with wound vac on but stated that he can disconnect it for a few minutes. pt able to completed supine to sit SBA. able to sit on EOB SBA. able to put shoes on. R post-op shoe with forefoot cutoff donned with assist needed. BP: 163/58, AR 93, O2 sat: 93-94%. pt without c/o dizziness/lightheadedness . pt completed sit to stand sBA and ambulated in room using 4WW SBA ~ 40 ft. pt also completed up/down step stool holding on to L rail with B hands SBA to CGA. pt stated that he needs to use the toilet. ambulated to the toilet using 4WW SBA. left pt with call light. nurse and NAC aware that pt is using the toilet. Gait Assessment Gait Gait Assistance Required: Standby Assistance Distance (Feet) 40 Able to Maintain Weight Bearing Status Yes During Gait Assistive Devices Assistive Device Gait Belt,4 Wheeled Walker Gait Deviations General Gait Pattern Antalgic Factors Limiting Gait Function Factors Limiting Gait Function Decreased Activity Tolerance, Decreased Strength,Limited Range of Motion,Pain,Poor Balance Stair Climbing Assessment Evaluation Level of Assist On Stairs Standby Assistance,Contact Guard Assistance Devices Stair Climbing Assistive Devices Left Railing Technique/Endurance Stair Climbing Direction Ascend and Descend Stair Climbing Technique Step to Step Number of Steps Climbed 1 Query Text: PT-Balance Assessment Sitting Balance and Reactions Static Sitting Balance Ability Normal Dynamic Sitting Balance Ability Good Standing Balance and Reactions Static Standing Balance Ability Fair Dynamic Standing Balance Ability Fair Device Used 4WW M5 PT-IP Objective Assessments Start: 08/10/23 16:31 Freq: NEEDED Status: Active Protocol: Document 08/10/23 15:15 AB (Rec: 08/10/23 16:56 AB [id number]) Orientation Orientation/Cognition Level of Alertness Alert Orientation Name,Situation Language Function Ability No Deficits Noted Safety Awareness Decreased Safety Awareness Memory Description No Deficits Noted Gross Range of Motion Lower Extremity ROM Assessment Within Functional Limits Strength Lower Extremity Strength Assessment Right Impaired Hip 3-/5 Coordination Assessment Gross Coordination Gross Coordination WNL Sensation Assessment Sensation Gross Sensation Right LE Impaired,Left LE Impaired Sensation Description Numbness,Tingling Muscle Tone Muscle Tone WNL Yes M6 PT-IP Treatment Start: 08/10/23 16:31 Freq: NEEDED Status: Active Protocol: Document 08/10/23 15:15 AB (Rec: 08/10/23 16:56 AB [id number]) Physical Therapy Treatment Education Education Provided Safety M7 PT-IP Assessment and Plan Start: 08/10/23 16:31 Freq: NEEDED Status: Active Protocol: Document 08/10/23 15:15 AB (Rec: 08/10/23 16:56 AB [email or web address]) PT Summary Assessment and Plan Potential Rehabilitation Potential Fair Status of Condition at Evaluation Evolving Summary Impairments Pain,ROM,Strength,Balance, Coordination,Sensation,Tone, Cognition,Bed Mobility, Transfers,Gait,Activity Tolerance Assessment Summary pt is a 77 y/o male who was just admitted in the hospital 07/30/23 to 08/01/23 for RLE cellulitis. 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 pt now presented to the ED with c /o weakness and difficulty with speech. pt admitted to r /o CVA and also has R iliopsoas muscle tear and anemia. pt requiring SBA to CGA with mobility using 4WW. pt plans to go home with son and DIL to assist him. pt to do PT here in the hospital to improve mobility independence and prevent further deconditioning. Goals Bed Mobility Goal Independent Transfer Goal Independent,Front Wheeled Walker Gait Goal Independent,Four Wheel Walker Gait Distance 250 Other Goals improve transfers and ambulation 250 ft using tripod cane/LRAD mod I up/down 15 steps R rail ascending mod I Days to Meet Goals 10 Frequency of Treatment Frequency Of Treatment Once a Day Treatment Plan Physical Therapy Treatment Plan Bed Mobility Training,Transfer Training,Gait Training, Therapeutic Exercise,Balance Retraining,Discharge Planning, Hot or Cold Pack,Neuromuscular Re-ed,Coordination Retraining ,Manual Therapy Recommendations To Nursing Amount of Assist Needed Standby Assistance Discharge Recommendations PT Discharge Recommendations Home with Assistance Transportation Needs at Discharge Private Vehicle
--- NOTE | 2023-08-10 15:17 | CM.DANOTE ---
Initial DCP Assessment Note Pt is a 77 yo male, resident of [place], arrives with stroke like sx, admitted for further work up and stroke r/o. Sx have improved, Imaging neg for stroke. Patient with anemia being monitored. Patient with multiple medical problems with recent hospitalization for infection and status post multiple surgeries on his right foot with wound VAC, patient was discharged home w/ ongoing IV Cefepime every [address] [facility] [address] Og indicates patient will likely need to return home w/IV meropenem, CM team will need to follow closely for coordination. PCP: Dionne Snow Payer: [facility]/[employer] Reviewed chart, pt discussed w/Dr Og. According to prior CM note, Patient indp at baseline, drives, has support from son and DIL who will be moving in with him to provide additional assist. Plan: Anticipate return home w/family, possibly continuation of IV abx via [facility], final determination re drug, dosing, duration needed from the provider. LISA Kim Discharge Planning/Care Management CM Discharge Assessment Start: 08/10/23 15:14 Freq: Status: Active Protocol: Document 08/10/23 15:15 FRANCIS (Rec: 08/10/23 15:17 [id number]) Discharge Planning Assessment Assigned Link Knitting Machine Operator LISA Doran DPOA/Assigned Designee Name jhony Multani Contact Information [phone] Advance Directives? Yes: Advance Directive: POA Advance Directives on File Yes History Provided By Patient,Medical Record Has Patient been admitted in last 30 Yes days? Comment Here [id number] for significant swelling and erythema of his right LE Prior Living Arrangements House Household Members none Type of transporation used prior to Relies on Others admit Independent with ADL's Yes Is patient alert and oriented? Yes Needs Assistance With Home Chores / Shopping Barriers to Discharge No Discharge Plan Home Transportation Arrangement family Referrals Initiated None needed
[2023-08-10 15:26] LABS: Lactate Dehydrogenase 218 U/L (120-246)
[2023-08-10 15:55] VITALS: BP 163/58; PULSE 93; RESP 18; O2SAT 94
[2023-08-10] MEDS: FERROUS SULFATE 325 MG TABLET PO (16:03)
[2023-08-10 19:00] VITALS: BP 148/66; PULSE 89; RESP 17; TEMP 36.1; O2SAT 98
[2023-08-10] MEDS: DOCUSATE 100 MG CAPSULE PO (20:20)
--- NOTE | 2023-08-10 22:03 | PC.NURSE ---
When RN was about to start Meropenem infusion patient refused med, stating I'm feeling like I did when I was on the previous antibiotic (Cefepime). Patient c/o not feeling right, very dry mouth, a metallic taste, and difficulty finding words. Patient became flustered while on the phone with his son and he had difficulty finding a couple words. However he was A&Ox4 and his speech was clear when assessed by RN. RN talked with Rigo pharmacist at [facility], and discussed patient's concerns. Pharmacist said Meropenem is similar to Cefepime so if he didn't do well with that one there might be a connection and the Dr might want to consider another ABX such as Levaquin or Clindamycin. Dr Cristian Og notified of above, orders received to hold Meropenem and he will see patient tomorrow and re-evaluate.
[2023-08-10 23:00] VITALS: BP 134/60; PULSE 86; RESP 16; TEMP 36.3; O2SAT 97
[2023-08-11 03:00] VITALS: BP 140/60; PULSE 90; RESP 17; TEMP 35.9; O2SAT 96
--- NOTE | 2023-08-11 04:18 | PC.NURSE ---
Patient's wound Vac to right foot developed a leak. Bertrand REEVES removed outer drsg and applied a small pressure drsg over leak and wrapped with Coban. Toes loosely wrapped with gauze drsg. Patient c/o toes hurting from drsg and requested it be removed. Toes CHACHA. Patient declined analgesic.
[2023-08-11] MEDS: SODIUM CHLORIDE 0.9% FLUSH 10 ML IV ×5 (04:55→23:18)
[2023-08-11 05:11] LABS: Add Manual Diff / Slide Review NO; Basophils Absolute Auto 100 /uL (0-100); Basophils Percent Auto 0.9 % (0-2); Eosinophils Absolute Auto 400 /uL (0-450); Eosinophils Percent Auto 7.5 % (2-4); Hemoglobin 7.5 g/dL (13.5-17.5); Lymphocytes Absolute Auto 1100 /uL (1100-4500); Lymphocytes Percent Auto 19.4 % (25-40); Mean Corpuscular HGB Conc 34.1 % (30-36); Mean Corpuscular Hemoglobin 29.5 PG (26-34); Mean Corpuscular Volume 86.7 fL (80-100); Monocytes Absolute Auto 400 /uL (0-900); Monocytes Percent Auto 6.4 % (3-14); Neutrophils Absolute Auto 3700 /uL (1500-7000); Neutrophils Percent Auto 65.8 % (50-75); Platelet Count 252 X10^3/uL (150-400); Red Blood Cell Count 2.54 X10^6/uL (4.5-5.9); White Blood Cell Count 5.6 X10^3/uL (4.5-11.0)
[2023-08-11 05:19] LABS: Alanine Aminotransferase 18 IU/L (<50); Alkaline Phosphatase 50 U/L (38-126); Aspartate Aminotransferase 24 IU/L (17-59); Bilirubin Total 0.7 mg/dL (0.2-1.3); Blood Urea Nitrogen 25 mg/dL (9-20); Calcium 8.8 mg/dL (8.4-10.2); Carbon Dioxide 28 mmol/L (22-32); Chloride 96 mmol/L (98-107); Estimated Glomerular Filt Rate > 60 mL/min (>60); Globulin 2.9 g/dL (1.7-4.1); Glucose 115 mg/dL (80-110); HEMOLYSIS < 15 (0-50); Potassium 4.4 mmol/L (3.4-5.1); Sodium 128 mmol/L (137-145); Total Protein 5.9 g/dL (6.3-8.2)
[2023-08-11] MEDS: TRAMADOL 50 MG TABLET PO ×3 (06:48→20:21)
[2023-08-11] MEDS: PANTOPRAZOLE DR 40 MG TABLET PO (06:49)
[2023-08-11 09:00] VITALS: BP 134/51; PULSE 90; RESP 16; TEMP 36.2; O2SAT 97
[2023-08-11] MEDS: CHOLECALCIFEROL (VITAMIN D3) 1,000 UNIT TABLET 2000 UNIT PO (09:17)
[2023-08-11] MEDS: FERROUS SULFATE 325 MG TABLET PO ×2 (09:17→16:04)
[2023-08-11] MEDS: DOCUSATE 100 MG CAPSULE PO ×2 (09:17→20:22)
[2023-08-11] MEDS: HYDROXYCHLOROQUINE 200 MG TABLET PO ×2 (09:18→20:22)
[2023-08-11] MEDS: RIVAROXABAN 10 MG TABLET 15 MG PO ×2 (09:18→20:22)
[2023-08-11] MEDS: VANCOMYCIN 125 MG CAPSULE PO ×2 (09:19→20:22)
--- NOTE | 2023-08-11 10:05 | P.PN_ITS ---
Subjective Subjective Date Patient Seen: 08/11/23 Time Patient Seen: 10:05 Interval history: Patient seen in follow-up of multiple issues including anemia aphasia history of right leg DVT and osteomyelitis right foot. Patient feeling well this morning. With no other changes. Started having dry mouth some aphasia again last night although nursing could not really documented in his speech. He feels great this morning. Having no other change. Otherwise feeling well. Exam Vital Signs (past 8 hours): - 08/11/23 03:00 08/11/23 09:00 Temperature 96.6 F L 97.2 F L Pulse Rate 90 90 Respiratory Rate 17 16 Blood Pressure 140/60 134/51 L Pulse Oximetry 96 97 Oxygen Flow Rate 0 Oxygen Delivery Method Room Air Oxygen Flow Rate 0 Narrative Exam Narrative: Alert elderly male in no acute distress Lungs are clear heart is regular rate and rhythm abdomen is benign. Right leg actually less swollen. Less ecchymosis. Less tenderness. Neurologic exam appears completely nonfocal today Objective Labs 08/11/23 04:55 08/11/23 04:55 Labs: Laboratory Results - last 24 hr 08/10/23 08/10/23 08/11/23 05:10 10:45 04:55 WBC 5.6 RBC 2.54 L Hgb 7.5 L Hct 22.0 L MCV 86.7 MCH 29.5 MCHC 34.1 RDW 13.0 Plt Count 252 Neut % (Auto) 65.8 Lymph % (Auto) 19.4 L [place] % (Auto) 6.4 Eos % (Auto) 7.5 H Baso % (Auto) 0.9 Neut # (Auto) 3700 Lymph # (Auto) 1100 [place] # (Auto) 400 Eos # (Auto) 400 Baso # (Auto) 100 Sodium 129 L 128 L Potassium 4.5 4.4 Chloride 98 96 L Carbon Dioxide 26 28 BUN 24 H 25 H Creatinine 0.99 1.04 Estimated GFR > 60 > 60 BUN/Creatinine Ratio 24.2 H 24.0 H Glucose 86 115 H Calcium 8.7 8.8 Total Bilirubin 0.7 AST 24 ALT 18 Alkaline Phosphatase 50 Lactate Dehydrogenase 218 NT-Pro-B Natriuret Pep 1250 H Total Protein 5.9 L Albumin 3.0 L Globulin 2.9 Albumin/Globulin Ratio 1.0 Blood Type O Positive Antibody Screen Negative [facility] Medical History PICC (peripherally inserted central catheter) in place Osteomyelitis Lymphocytopenia Chronic UTI DVT (deep venous thrombosis) Pulmonary embolus HLD (hyperlipidemia) Arthritis 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 Mother Diabetes mellitus Hyperlipidemia Social History marital status: household members: family lives independently: Yes caregiver/support person: No housing: house education level: college occupational status: previously employed Smoking Status: Former smoker second hand exposure: No alcohol intake: current substance use type: does not use Assessment & Plan Assessment & Plan narrative: Anemia. Clearly seems to be iron deficiency although what the total issue is unclear at this time. Does not appear to be actively bleeding. Guaiac negative. And some of which may have been secondary to delusional. Leg looks better. Clearly not bleeding into his leg actively. I think at this point we are okay. Started iron yesterday. Did place on PPI. Decision on whether he needs that long-term will be made. Although no blood in his stool. Will continue for now. At this point will continue anticoagulation. Will continue to follow closely on rechecked tomorrow. If stable maybe able to go home. Aphasia. Workup is negative. Patient maybe having reaction to antibiotic. Discussed with pharmacist. Mirapex item is close to cefepime and the question is are they cross reacting question is as if they have in the issue at all. Certainly normal today. Did not get dose of antibiotic last night. Attempted to call ID. Could not get through on weight so will start clindamycin after discussion with pharmacist. This will not be the long-term solution due to the frequency of applications but we can call tomorrow. Should not cross react for today and make sure were stable. I do not think he is having a central event and will have to see how things go. History of right leg DVT. It seems to be doing well. Anemia is stable. Will continue anticoagulation. Cellulitis and osteomyelitis. Leg is improved between both the bleed and the cellulitis. Wound VAC as per Wound Care. Antibiotic at this point will be clindamycin but will not be a long-term. Will have to decide tomorrow if stable with no further episodes of aphasia. Patient otherwise seems to be doing well and will follow. Hyperkalemia. Patient is stable without significant issues. Will recheck a.m.. Urinary retention. Continue catheter until Urology evaluation. Code status full. Disposition. Hopefully tomorrow we can go home if everything is stable. Will have to decide on antibiotic long-term. He understands questions answered 50 minutes spent with patient dictation orders chart review discussion with nursing and social service an attempt at ID Quality VTE Deep Vein Thrombosis/Pulmonary Embolism Present on Admission: No
[2023-08-11] MEDS: CLINDAMYCIN 900 MG/50 ML PIGGYBACK 50 MG IV ×3 (10:22→21:36)
--- NOTE | 2023-08-11 11:50 | PT.IPTN ---
Current Diagnoses Aphasia (08/09/23) Physical Therapy Treatment Note M2 PT-IP Current Condition Start: 08/10/23 16:31 Freq: NEEDED Status: Active Protocol: Document 08/10/23 15:15 AB (Rec: 08/10/23 16:56 AB [id number]) Physical Therapy Current Condition Current Condition Evaluation Date 08/10/23 Treatment Diagnosis r/o CVA; iliopsoas muscle tear ; difficulty in walking Onset Date 08/09/23 M3 PT-IP Subjective Start: 08/10/23 16:31 Freq: NEEDED Status: Active Protocol: Document 08/11/23 11:30 KS (Rec: 08/11/23 12:36 KS [id number]) Subjective Physical Therapy Visit Type Type Treatment Note Visit Start Time 11:30 Visit Stop Time 11:50 Total Visit Minutes 20 Notes Pt w/ low H&H but slowly increasing so RN encouraged to work w/ pt. Number of [employer] Visits 1 Physical Therapy Visit Comments Patient Comments agreeable to do PT, has gotten up to bathroom several times. Therapy Pain Assessment Pain When Pain Assessed During Mobility Pain Present Pain Present Pain Reported Location Right Anterior Hip Scale Used not quantified Description Throbbing Pain Management Techniques Modification of Treatment,Re- positioning M4 PT-IP Mobility and Gait Start: 08/10/23 16:31 Freq: NEEDED Status: Active Protocol: Document 08/11/23 11:30 KS (Rec: 08/11/23 12:36 KS [id number]) PT-Transfer Assessment Sit to and From Stand Sit to and from Stand Minimal Assistance,1 Person Assistance,Use of Upper Extremities Equipment Transfer Assistive Device Gait Belt,4 Wheeled Walker Orthotic/Prosthetic Devices or Brace: No Transfers Transfer Destination Chair Transfer Technique ambulated Transfer Ability Level of Assist Contact Guard Assistance, Minimal Assistance,1 Person Assistance,Use of Upper Extremities Comments Mobility Comments Pt Min A for sit<>stand from chair. Amublated ~60 ft w/ CGA and 4WW but then complained of fuzziness and increased pain in R hip flexor. Pt returned to chair, refused further assistance. RN notified of how pt was feelign and agreed to check on him. Gait Assessment Gait Gait Assistance Required: Contact Guard Assist,1 Person Assist Distance (Feet) 60 Able to Maintain Weight Bearing Status Yes During Gait Assistive Devices Assistive Device Gait Belt,4 Wheeled Walker Gait Deviations General Gait Pattern Antalgic,Flexed Trunk Factors Limiting Gait Function Factors Limiting Gait Function Decreased Activity Tolerance, Decreased Strength,Limited Range of Motion,Pain,Poor Balance Comments Gait Comments See mobility section for details. PT-Balance Assessment Sitting Balance and Reactions Static Sitting Balance Ability Normal Dynamic Sitting Balance Ability Good Standing Balance and Reactions Static Standing Balance Ability Fair Dynamic Standing Balance Ability Fair Device Used 4WW M5 PT-IP Objective Assessments Start: 08/10/23 16:31 Freq: NEEDED Status: Active Protocol: Document 08/10/23 15:15 AB (Rec: 08/10/23 16:56 AB [id number]) Orientation Orientation/Cognition Level of Alertness Alert Orientation Name,Situation Language Function Ability No Deficits Noted Safety Awareness Decreased Safety Awareness Memory Description No Deficits Noted Gross Range of Motion Lower Extremity ROM Assessment Within Functional Limits Strength Lower Extremity Strength Assessment Right Impaired Hip 3-/5 Coordination Assessment Gross Coordination Gross Coordination WNL Sensation Assessment Sensation Gross Sensation Right LE Impaired,Left LE Impaired Sensation Description Numbness,Tingling Muscle Tone Muscle Tone WNL Yes M6 PT-IP Treatment Start: 08/10/23 16:31 Freq: NEEDED Status: Active Protocol: Document 08/11/23 11:30 KS (Rec: 08/11/23 12:36 KS [id number]) Physical Therapy Treatment Education Education Provided Safety M7 PT-IP Assessment and Plan Start: 08/10/23 16:31 Freq: NEEDED Status: Active Protocol: Document 08/11/23 11:30 KS (Rec: 08/11/23 12:36 KS [id number]) PT Summary Assessment and Plan Potential Rehabilitation Potential Fair Summary Impairments Pain,ROM,Strength,Balance, Coordination,Sensation,Tone, Cognition,Bed Mobility, Transfers,Gait,Activity Tolerance Progress Towards Goals Slow Progress due to Pain,Slow Progress due to Medical Issues,Slow Progress due to Activity Tolerance Assessment Summary Pt still w/ low but stable H&H . nursing reports pt has been mobilizing w/ them to bahtroom /around room w/o difficulty. This PM, pt required Min A for transfers and CGA for short distance ambulation. Limited by fuzziness and increasing pain in R hip flexor. RN aware . Will continue to assess progress. Will benefit from continued skilled rehab. Goals Bed Mobility Goal Independent Transfer Goal Independent,Front Wheeled Walker Gait Goal Independent,Four Wheel Walker Gait Distance 250 Other Goals improve transfers and ambulation 250 ft using tripod cane/LRAD mod I up/down 15 steps R rail ascending mod I Days to Meet Goals 10 Frequency of Treatment Frequency Of Treatment Once a Day Treatment Plan Physical Therapy Treatment Plan Bed Mobility Training,Transfer Training,Gait Training, Therapeutic Exercise,Balance Retraining,Discharge Planning, Hot or Cold Pack,Neuromuscular Re-ed,Coordination Retraining ,Manual Therapy Recommendations To Nursing Amount of Assist Needed 1 Person Assist Discharge Recommendations PT Discharge Recommendations Home with Assistance Transportation Needs at Discharge Private Vehicle
[2023-08-11] MEDS: CYCLOBENZAPRINE 10 MG TABLET PO (12:02)
[2023-08-11] MEDS: HYDROMORPHONE 4 MG TABLET PO ×2 (15:32→21:35)
--- NOTE | 2023-08-11 16:51 | PC.NURSE ---
Day shift note: Patient alert and oriented x 4. No sensory or motor deficits. Speech clear and coherent, no difficulty with word finding. Up OOB in room and hallway with physical therapy. C/O pain to right upper thigh, pain medication adjustment made by Dr. Og. Bill cath in place to gravity, good urine output amount, BM this shift. Wound vac to right foot, secured. Afebrile. Call light within reach, bed alarm active, high fall risk precautions maintained.
[2023-08-11 17:00] VITALS: BP 144/62; PULSE 86; RESP 18; TEMP 37; O2SAT 100
[2023-08-11 20:41] VITALS: BP 145/64; PULSE 97; RESP 20; TEMP 36.4; O2SAT 98
[2023-08-11 23:26] VITALS: BP 117/52; PULSE 89; RESP 20; TEMP 36.8; O2SAT 94
[2023-08-12] MEDS: SODIUM CHLORIDE 0.9% FLUSH 10 ML IV ×3 (04:00→10:33)
[2023-08-12] MEDS: CLINDAMYCIN 900 MG/50 ML PIGGYBACK 50 MG IV (04:00)
[2023-08-12 04:05] VITALS: BP 125/56; PULSE 91; RESP 18; TEMP 36.7; O2SAT 97
[2023-08-12 04:26] LABS: Add Manual Diff / Slide Review NO; Basophils Absolute Auto 0 /uL (0-100); Basophils Percent Auto 0.8 % (0-2); Eosinophils Absolute Auto 400 /uL (0-450); Eosinophils Percent Auto 6.7 % (2-4); Hemoglobin 7.2 g/dL (13.5-17.5); Lymphocytes Absolute Auto 900 /uL (1100-4500); Lymphocytes Percent Auto 16.8 % (25-40); Mean Corpuscular HGB Conc 34.4 % (30-36); Mean Corpuscular Hemoglobin 29.6 PG (26-34); Mean Corpuscular Volume 86.2 fL (80-100); Monocytes Absolute Auto 400 /uL (0-900); Monocytes Percent Auto 7.6 % (3-14); Neutrophils Absolute Auto 3800 /uL (1500-7000); Neutrophils Percent Auto 68.1 % (50-75); Platelet Count 269 X10^3/uL (150-400); Red Blood Cell Count 2.43 X10^6/uL (4.5-5.9); Red Cell Distribution Width 13.3 % (11.6-14.8); White Blood Cell Count 5.6 X10^3/uL (4.5-11.0)
[2023-08-12 04:41] LABS: Alanine Aminotransferase 16 IU/L (<50); Albumin 2.7 g/dL (3.5-5.0); Alkaline Phosphatase 49 U/L (38-126); Aspartate Aminotransferase 23 IU/L (17-59); Bilirubin Total 0.6 mg/dL (0.2-1.3); Blood Urea Nitrogen 26 mg/dL (9-20); Calcium 8.8 mg/dL (8.4-10.2); Carbon Dioxide 28 mmol/L (22-32); Chloride 94 mmol/L (98-107); Estimated Glomerular Filt Rate > 60 mL/min (>60); Globulin 2.7 g/dL (1.7-4.1); Glucose 87 mg/dL (80-110); HEMOLYSIS < 15 (0-50); Potassium 4.6 mmol/L (3.4-5.1); Sodium 126 mmol/L (137-145); Total Protein 5.4 g/dL (6.3-8.2)
[2023-08-12] MEDS: ACETAMINOPHEN 325 MG TABLET 650 MG PO (05:42)
[2023-08-12] MEDS: PANTOPRAZOLE DR 40 MG TABLET PO (06:09)
--- NOTE | 2023-08-12 08:20 | PM.DS.1 ---
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 Patient has had increasing swelling in that leg and was noted to have a significant cellulitis and then DVT was diagnosed. Patient was started on anticoagulation and has been on IV cefepime prior to discharge at his last hospitalization which was 10 6. Patient at that time was sent home on Xarelto. And antibiotics have been followed with Infectious Disease. And wound care. Apparently on the patient had increasing pain in his right leg and at that time there was concern about increase infection but was found to have a iliopsoas tear tendon with surrounding edema and swelling. Pain has been consistent since that time and he has been quite worried about that. Patient apparently was talking to his infectious disease specialist today in the last 24 hours he has been having difficulty finding words and some visual possible hallucinations. No headaches no chills no fevers no neck stiffness no chest pain shortness breath palpitations or other change. The patient apparently was sent to the emergency room for evaluation of this and to make sure both electrolytes and blood work was normal. During that. Infectious Disease called and said that the other possibility for mental status changes is a mental status issue with the cefepime. Patient had CT scans which did not show any definitive abnormality. Overall he seems to be doing better although apparently it waxes and wanes. Still seeing a ??visual change which feels like water on a exact straight line. But no other change. Does have a history of visual migraines but this seems different to him. No other changes. Patient was admitted for evaluation of possible stroke. Discharge Providers Provider Date of admission: 08/09/23 16:03 Discharge Date: 08/12/23 Primary care physician: Dionne Snow MD Consults: 08/09/23 18:39 Consult to Discharge Planning Routine Comment: Consult to Occupational Therapy Evaluate & Treat Comment: Physician Instructions: Evaluate and treat Consult to Physical Therapy Evaluate & Treat Comment: Physician Instructions: Evaluate and Treat Consult to Speech Therapy Evaluate & Treat Comment: Physician Instructions: Evaluate and treat Discharge provider: Dionne Snow MD Summary Hospital Course Discharge Diagnosis: Aphasia Right groin pain s/p tendon tear Anemia Urinary retention Osteomyelitis of the right foot DVT Hospital Course: The pt was admitted due to aphasia. He had a complete stroke work-up including MRI, CT/CTA, and Echocardiogram which were all reassuring. Telemetry was unrevealing. The pt was continued on his anticoagulation throughout his hospitalization. His Cefepime was determined to be the most likely cause of his aphasia, and was discontinued. He was then initiated on Meropenem, and his symptoms resolved for approximately 12 hrs, only to return again after his first dose of Meropenem was hung. The Meropenem was then discontinued as well, and his symptoms again resolved. The pt was then started on IV Clindamycin, after attempting unsuccessfully to contact ID. On the day of discharge, ID was able to be reached. They recommended Zosyn via extended infusion, however the pt declined this. He was transitioned to IV Zosyn 4.5g q6hrs, which will be continued at home via [facility]. The pt worked with PT while in the hospital as well, with some improvement in his ambulation. He was stable for discharge home. Status at Discharge Cognitive/behavioral status at discharge: oriented Functional status at discharge: uses cane/walker Overall status at discharge: patient is progressing back to baseline Exam Vital Signs (past 8 hours): - 08/12/23 04:05 Temperature 98.0 F Pulse Rate 91 H Respiratory Rate 18 Blood Pressure 125/56 L Pulse Oximetry 97 Oxygen Flow Rate 0 Oxygen Delivery Method Room Air Oxygen Flow Rate 0 Narrative Exam Narrative: Gen: NAD, sitting comfortably in bed, appears well CV: RRR Resp: clear to auscultation bilaterally Abd: soft, nontender, nondistended Ext: right LE with 1+ pitting edema, no erythema, wound vac in place; left LE without swelling Neuro: speaking fluently in complete sentences, CN grossly intact Objective Labs 08/12/23 04:00 08/12/23 04:00 Labs: Laboratory Results - last 24 hr 08/12/23 04:00 WBC 5.6 RBC 2.43 L Hgb 7.2 L Hct 21.0 L MCV 86.2 MCH 29.6 MCHC 34.4 RDW 13.3 Plt Count 269 Neut % (Auto) 68.1 Lymph % (Auto) 16.8 L [place] % (Auto) 7.6 Eos % (Auto) 6.7 H Baso % (Auto) 0.8 Neut # (Auto) 3800 Lymph # (Auto) 900 L [place] # (Auto) 400 Eos # (Auto) 400 Baso # (Auto) 0 Sodium 126 L Potassium 4.6 Chloride 94 L Carbon Dioxide 28 BUN 26 H Creatinine 0.93 Estimated GFR > 60 BUN/Creatinine Ratio 28.0 H Glucose 87 Calcium 8.8 Total Bilirubin 0.6 AST 23 ALT 16 Alkaline Phosphatase 49 Total Protein 5.4 L Albumin 2.7 L Globulin 2.7 Albumin/Globulin Ratio 1.0 PFSH Medical History PICC (peripherally inserted central catheter) in place Osteomyelitis Lymphocytopenia Chronic UTI DVT (deep venous thrombosis) Pulmonary embolus HLD (hyperlipidemia) Arthritis 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 Mother Diabetes mellitus Hyperlipidemia Social History marital status: household members: family lives independently: Yes caregiver/support person: No housing: house education level: college occupational status: previously employed Smoking Status: Former smoker second hand exposure: No alcohol intake: current substance use type: does not use Discharge Plan Discharge Plan Patient Disposition: Home Provider Discharge Comment: Please dose your next dose of Zosyn for 6 hours after your infusion in the hospital. Antibiotic for left foot (that I can see in the system): IV Ceftriaxone Antibiotics you have been on for your right foot: Oral Bactrim IV Cefepime IV Meropenem IV Clindamycin Discharging on IV Zosyn Please get a BMP (to check your sodium) and a CBC (to check your blood count) drawn at the hospital lab on 08/14/23. Discharge orders & Medications Prescriptions: New pantoprazole 40 mg Tablet,Delayed Release (Dr/Ec) 40 mg PO 0700 Qty: 30 0RF ferrous sulfate 325 mg (65 mg iron) Tablet 325 mg PO BIDWM Qty: 60 0RF docusate sodium 100 mg Capsule 100 mg PO BID Qty: 30 0RF Zosyn in dextrose (iso-osm) 4.5 gram/100 mL piggyback 4.5 g IV Q6H Rx Instructions: Duration to be determined by Dr Verduzco, Infectious Disease Continued cholecalciferol (vitamin D3) 2,000 unit capsule 2,000 unit PO DAILY (DME) Disabled Parking Permit See Rx Instructions .ROUTE .MEDSUPPLY Qty: 1 0RF Rx Instructions: I find this person to be disabled cyclobenzaprine 10 mg tablet 10 mg PO Q8HR PRN (Reason: Spasms) Qty: 30 0RF vancomycin 125 mg capsule 125 mg PO BID Qty: 60 0RF hydroxychloroquine 200 mg Tablet 200 mg PO BID Xarelto 15 mg tablet 15 mg PO BID tramadol 50 mg tablet 50 mg PO Q6H PRN (Reason: pain) Qty: 30 0RF Rx Instructions: postop exempt Medication counseling provided by Pharmacist: Yes Follow up/Referrals: Dionne Snow MD [Primary Care Provider] - 2 Weeks Diet/Activity/Treatments Diet: Diet as Tolerated and Regular Diet comment: Please limit water to no more than 1.5L/day Visit Report/Discharge Packet Stand Alone Forms: Patient Portal/API, Stroke Signs & Symptoms Discharge Data Primary Care Provider: Dionne Snow Discharges patient from system. Discharge Date/Time: 08/12/23 14:00 Quality VTE Deep Vein Thrombosis/Pulmonary Embolism Present on Admission: No
[2023-08-12] MEDS: FERROUS SULFATE 325 MG TABLET PO (08:28)
[2023-08-12] MEDS: RIVAROXABAN 10 MG TABLET 15 MG PO (08:28)
[2023-08-12] MEDS: DOCUSATE 100 MG CAPSULE PO (08:28)
[2023-08-12] MEDS: HYDROXYCHLOROQUINE 200 MG TABLET PO (08:29)
[2023-08-12] MEDS: CHOLECALCIFEROL (VITAMIN D3) 1,000 UNIT TABLET 2000 UNIT PO (08:29)
[2023-08-12] MEDS: VANCOMYCIN 125 MG CAPSULE PO (08:29)
[2023-08-12 09:01] VITALS: BP 114/50; PULSE 106; RESP 16; TEMP 36.4; O2SAT 98
--- NOTE | 2023-08-12 10:28 | PT-IP ANOTE ---
Attempted to work with pt this AM but he adamantly refused, stating he overdid it yesterday and had increased pain after therapy. PT explained concern that pt has not yet demonstrated ability to manage a full flight of stairs but pt explained he tends to face the rail, hold it with two hands, and ascend two feet to a step leading with LLE. He will have son, DIL, and neighbor standing by to assist with stairs. Pt further explains he has a mink rancher and a lift recliner at home. He denies concerns about his ability to access his home or to mobilize within it once there. In spite of education on the role of PT in the acute care setting, pt adamantly refuses and PT acquiesces. Pt to discharge today. PT will follow up if he remains hospitalized.
[2023-08-12] MEDS: PIPERACILLIN/TAZO 4.5 GM in SODIUM CHLORIDE 0.9% 100 ML IV (10:32)
--- NOTE | 2023-08-12 11:37 | CM.DPC ---
Addendum entered by Kim Alcaraz CONVENTION SERVICES MANAGER 08/12/23 13:49: ADD: SW spoke to Rosa at [facility] and she states pt's out of pocket expense increased with the Zosyn but that she called pt and confirmed he is agreeable to pay the cost and wants to d/c. [facility] will have RN to the house by pt's next Zosyn dose around 1630. Per RN, pt's son is bedside and d/c instructions provided and son agreeable to transport pt home now. SW faxed d/c summary to [facility], [facility] and [facility]. BF Original Note: DCP Discharge Home Infusion and HH Per MD, consulted with ID MD and currently the recommended IV-Abx is Zosyn Q6 for undetermined amount of time and to be followed and managed by ID MD Dr. Verduzco. Pt has had negative med interactions/symptoms with prior attempted IV-Abx. If pt tolerates a dose of Zosyn today then he can d/c home with home infusion and HH. DESIRE met bedside with pt and explained role and he confirms he is hopeful to tolerate Zosyn dose today so that he can d/c home via son POV. Pt has PICC in place from prior admission and confirms he would like to [facility]. Pt also states referral had been made to [facility] but they were just getting first intake scheduled when pt was admitted and he would like [facility] RN at d/c for the recommended wound vac dressing changes in combination with [facility]. Pt states he ambulates well and does not feel he need HH PT just RN at d/c. DESIRE contacted [facility] and faxed updated clinicals along with Zosyn script to review and awaiting call back from Rosa at [facility] to confirm they are set. SW called [facility] and they confirm they need new referral, F2F and orders. SW faxed [facility] clinicals to review along with F2F and HH orders and awaiting confirmation that pt safe for d/c home today and will then send d/c summary. DESIRE called [facility] and updated on possible d/c today if no reactions to the new IV-Abx and they will make sure to get pt on their schedule and SW will fax d/c summ when available. Plan: SW to follow for likely d/c home today with new IV-Abx Zosyn and [facility] to follow and ID MD Dr. Verduzco with [facility] and [facility]. SW to fax all the d/c summary when available. LISA Barragan
--- NOTE | 2023-08-12 11:48 | OT.IPNOTE ---
Attempted to see pt for OT services. Pt adamantly refuses any out of bed activity d/t his torn iliopsoas tendon. Pt states that he has peope standing by to carry him into his house at discharge if needed. Pt requests to be discharged from therapy services. Will d/c per pt request.
[2023-08-12] MEDS: TRAMADOL 50 MG TABLET PO (13:24)
--- NOTE | 2023-08-12 16:04 | PC.NURSE ---
Pt is A&OX4. VSS, afebrile on RA. He tolerates breakfast well. PICC line to R UE flushing and drawikng well. Wound vac to R foot, portable to continuous suction. Patient declines PT/OT today. He declines PICC line dressing change. He verbalizes understanding of discharge plan to go home on IV zosyn. MD Snow at bedside discussing plan for home on IV antibiotics with [facility] today. He tolerates zosyn well (first dose, loading dose) without any c/o of a reaction. He is cleared for discharge home. Son arrived this afternoon to help transport patient. Patient verbalizes understanding of his medications, activity, wound care follow up, as well as blood work recommendation follow up. He is escorted via w/ch at 2 pm to private vehicle with his son with his wound vac and all of his belongings for discharge home. Plan for [facility] to meet patient at his home this afternoon.
== END 2023-08-12 14:00 | disposition home or self-care (01) | DRG 92 ==
LOC: ED 14:12 → AC 16:04
PROVIDERS: Admitting Provider Family Medicine; Emergency Provider Emergency Medicine; PCP Family Medicine; Referring Provider Emergency Medicine; Visit Provider Family Medicine
DX: R47.01 Aphasia (principal); L03.115 Cellulitis of right lower limb; M86.8X7 Other osteomyelitis, ankle and foot; S39.011A Strain of muscle, fascia and tendon of abdomen, initial encounter; X58.XXXA Exposure to other specified factors, initial encounter; R33.9 Retention of urine, unspecified; D50.8 Other iron deficiency anemias; H53.8 Other visual disturbances; Z86.718 Personal history of other venous thrombosis and embolism; Z87.891 Personal history of nicotine dependence; Z79.01 Long term (current) use of anticoagulants; R03.0 Elevated blood-pressure reading, without diagnosis of hypertension
CPT/HCPCS: 36415; 70450; 70496; 70498; 70551; 80048; 80053; 82550; 82607; 82746; 83036; 83540; 83550; 83615; 83735; 83880; 84484; 85025; 85610; 85730; 86850; 86900; 86901; 92523; 93005; 93010; 93306; 96365; 97116; 97162; 97530; 99238; 99284; 99285; J1642; J2185; J2543; Q9967

== ENCOUNTER 2023-08-15 17:19 | Inpatient (IN) | payer MEDICARE, OTHER, SELFPAY ==
[2023-08-09 16:27] VITALS: BMI 25.0
[2023-08-15] VITALS (29 sets, daily range): BP systolic 133–159; BP diastolic 59–69; PULSE 80–88; RESP 16–20; TEMP 36.6–37; O2SAT 93–99; BMI 25.0
--- NOTE | 2023-08-15 17:58 | PC.NURSE ---
PICC placed prior to arrival to ED. Patient states it was placed at [facility] two days ago and he is using it for antibiotic infusions every 6 hours at home. I suki blood off of the PICC and flushed with saline per the patient's protocol.
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
[2023-08-15 18:13] LABS: Add Manual Diff / Slide Review NO; Basophils Absolute Auto 0 /uL (0-100); Basophils Percent Auto 0.7 % (0-2); Eosinophils Absolute Auto 100 /uL (0-450); Eosinophils Percent Auto 2.2 % (2-4); Lymphocytes Absolute Auto 700 /uL (1100-4500); Lymphocytes Percent Auto 12.2 % (25-40); Mean Corpuscular HGB Conc 34.4 % (30-36); Mean Corpuscular Hemoglobin 29.5 PG (26-34); Mean Corpuscular Volume 85.8 fL (80-100); Monocytes Absolute Auto 400 /uL (0-900); Monocytes Percent Auto 6.9 % (3-14); Neutrophils Absolute Auto 4600 /uL (1500-7000); Platelet Count 311 X10^3/uL (150-400); Red Blood Cell Count 2.26 X10^6/uL (4.5-5.9); Red Cell Distribution Width 13.7 % (11.6-14.8); White Blood Cell Count 5.9 X10^3/uL (4.5-11.0)
[2023-08-15 18:15] LABS: Hematocrit 19.4 % (41-53); Hemoglobin 6.7 g/dL (13.5-17.5)
[2023-08-15 18:18] LABS: Alanine Aminotransferase 23 IU/L (<50); Albumin 3.4 g/dL (3.5-5.0); Albumin Globulin Ratio 1.1 (1.0-2.8); Alkaline Phosphatase 68 U/L (38-126); Aspartate Aminotransferase 34 IU/L (17-59); BUN Creatinine Ratio 24.8 (6-22); Bilirubin Total 0.8 mg/dL (0.2-1.3); Blood Urea Nitrogen 28 mg/dL (9-20); Carbon Dioxide 25 mmol/L (22-32); Chloride 97 mmol/L (98-107); Estimated Glomerular Filt Rate > 60 mL/min (>60); Globulin 3.1 g/dL (1.7-4.1); Glucose 192 mg/dL (80-110); HEMOLYSIS < 15 (0-50); Potassium 4.3 mmol/L (3.4-5.1); Sodium 128 mmol/L (137-145); Total Protein 6.5 g/dL (6.3-8.2)
[2023-08-15] MEDS: PIPERACILLIN/TAZO 4.5 GM in SODIUM CHLORIDE 0.9% 100 ML IV (18:40)
--- NOTE | 2023-08-15 19:03 | DI.CT.S_ITS ---
PROCEDURE: CT ANGIO ABD AORTA RUNOFF INDICATIONS: worsening hematoma R groin, now anemic TECHNIQUE: After the administration of intravenous contrast, 2.5 mm sections acquired from T12 to the feet, with optional delayed image acquisition from the knees to the feet. 3-dimensional maximum intensity projection (MIP) coronal and sagittal reformats, and/or 3-dimensional volume rendering reformatting was then performed. For radiation dose reduction, the following was used: automated exposure control. COMPARISON: None. FINDINGS: Image quality: Excellent. Extravascular tissues: Bibasilar atelectasis. Heart size is mildly enlarged. Atherosclerosis. Liver is normal in size and enhancement. Gallbladder is unremarkable . Biliary system is non dilated. Pancreas enhances normally. Spleen is normal in size and enhancement. No adrenal nodules. Kidneys are normal in size and enhancement, without hydronephrosis. Non opacified bowel loops demonstrate normal wall thickness and enhancement. Normal appendix. No free fluid or air. No retroperitoneal or mesenteric adenopathy. No ventral hernias. Urinary bladder is decompressed by Bill catheter. Mild perivesicular inflammation. There is suggestion of mild enhancement of the left ureter. No inguinal hernias or adenopathy. No acute vertebral body compression fractures. Multilevel spondylitic changes throughout the imaged spine. No suspicious osseous lesions. There is abnormal appearance of the right psoas muscle and iliopsoas compatible with intramuscular hematoma. A few foci of faint ill-defined hyperdensities may represent areas of more acute hemorrhage. Small focus of ill-defined somewhat brush like hyperdensity near the insertion site of the distal iliopsoas on the lesser trochanter (image 97/series 8) possibly representing a small focus of active extravasation. Status post bilateral total knee arthroplasties. Abdominal aorta: No aneurysmal dilatation. Scattered atherosclerotic calcifications. Iliac vessels are non dilated. No evidence for high-grade stenosis. No evidence for dissection. No surrounding inflammatory changes of the imaged aortic vessels or iliac arteries. Right lower extremity: Atherosclerosis. No evidence for aneurysmal dilatation. No high-grade stenosis or occlusion identified. No findings to suggest dissection. Left lower extremity: Atherosclerosis. No evidence for aneurysmal dilatation. No high-grade stenosis or occlusion identified. No findings to suggest dissection. IMPRESSION: Moderate-sized right psoas and right iliopsoas intramuscular hematoma with areas of acute hemorrhage and possible focus of tiny active extravasation at the distal iliopsoas near its insertion onto the lesser trochanter of the proximal femur. Mild enhancement of the left ureter possibly related to infectious uropathy. Recommend clinical and laboratory correlation. Other chronic findings as above. Findings were discussed with Dr. Colby at 2041 hrs. Dictated by: Alex Sullivan M.D. on 08/15/2023 at 20:21 Approved by: Alex Sullivan M.D. on 08/15/2023 at 20:43
[2023-08-15] MEDS: PROTHROMBIN CPLX(PCC)4FACT 2,500 UNIT in ISOOSMOTIC VEHICLE 0 ML 604.188 UNIT IV (22:52)
[2023-08-16] VITALS (17 sets, daily range): BP systolic 133–155; BP diastolic 61–82; PULSE 77–84; RESP 16–19; TEMP 36.4–37.5; O2SAT 95–99; BMI 25.0
[2023-08-16 01:43] LABS: Hematocrit 22.8 % (41-53)
[2023-08-16] MEDS: SODIUM CHLORIDE 0.9% FLUSH 10 ML IV (05:59)
[2023-08-16] MEDS: TRAMADOL 50 MG TABLET 25 MG PO (06:30)
[2023-08-16] MEDS: CYCLOBENZAPRINE 10 MG TABLET PO ×3 (06:32→18:31)
[2023-08-16] MEDS: SODIUM CHLORIDE 0.9% 1,000 ML 75 ML IV (06:33)
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
[2023-08-16 07:47] LABS: Hematocrit 22.8 % (41-53); Hemoglobin 7.8 g/dL (13.5-17.5)
--- NOTE | 2023-08-16 09:24 | P.HP_ITS ---
History of Present Illness <Cristal Baez - Last Filed: 08/16/23 16:34> History of Present Illness Chief complaint: sent by MD for Blood, abn labs Narrative: Mr. 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 His lab work in the ER showed a hemoglobin level of 6.7 and Hct of 19.4. His vital signs were stable and he was afebrile. He denies hematuria, hematochezia, or melena. He felt dizzy and weak. He has had 6-7/10 pain in his R groin for several weeks that radiates zapping pain down his R leg. CTA showed an intramuscular iliopsoas hematoma with small sites of active hemorrhage. He was taken off his Xarelto and given PCC to reverse anticoagulation and transfused with PRBC. Repeat H&H showed Hgb of 7.8 and Hct of 22.8. This morning, Mr. Hyde's pain was 0/10 with cyclobenzaprine and tramadol. He did not sleep last night and is feeling very frustrated this morning. He feels that the pain in his leg was not taken care of appropriately during his initial visits and it led to his hematoma and anemia. The groin pain has been slowly subsiding over the last two weeks but is still quite painful if he does not take cyclobenzaprine and tramadol and he has trouble putting weight on his right leg. He can raise it from the bed without pain but has limited movement otherwise. His wound vac was scheduled to be changed on Saturday with a home health worker, but they never came and wound care changed his vac this morning. He has not had pain in his foot and he feels that it is improving. In the afternoon, Mr. Hyde was having an ocular aura with spots in the center of his vision. Denied headache. 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 <Dionne Snow MD - Last Filed: 08/16/23 16:46> History of Present Illness Date Patient Seen: 08/16/23 Narrative: Mr. 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 His lab work in the ER showed a hemoglobin level of 6.7 and Hct of 19.4. His vital signs were stable and he was afebrile. He denies hematuria, hematochezia, or melena. He felt dizzy and weak. He denies any chest pain, SOB, or palpitations. He has had 6-7/10 pain in his R groin for several weeks that radiates zapping pain down his R leg. CTA showed an intramuscular iliopsoas hematoma with small sites of active hemorrhage. He was taken off his Xarelto and given PCC to reverse anticoagulation and transfused with PRBC. Repeat H&H showed Hgb of 7.8 and Hct of 22.8. This morning, Mr. Hyde's pain was 0/10 with cyclobenzaprine and tramadol. He did not sleep last night and is feeling very frustrated this morning. He feels that the pain in his leg was not taken care of appropriately during his initial visits and it led to his hematoma and anemia. The groin pain has been slowly subsiding over the last two weeks but is still quite painful if he does not take cyclobenzaprine and tramadol and he has trouble putting weight on his right leg. He can raise it from the bed without pain but has limited movement otherwise. His wound vac was scheduled to be changed on Saturday with a home health worker, but they never came and wound care changed his vac this morning. He has not had pain in his foot and he feels that it is improving. In the afternoon, Mr. Hyde was having an ocular aura with spots in the center of his vision. Denied headache. 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 Mother Diabetes mellitus Hyperlipidemia Social History marital status: household members: family and children lives independently: Yes caregiver/support person: No housing: house education level: college occupational status: previously employed Smoking Status: Former smoker second hand exposure: No alcohol intake: current substance use type: does not use Meds <Cristal Baez - Last Filed: 08/16/23 16:34> Home Medications and Allergies Home Medications Medication Instructions Recorded Confirmed Type cholecalciferol (vitamin D3) 50 2,000 unit PO DAILY 11/07/18 08/16/23 History mcg (2,000 unit) capsule Disabled Parking Permit #1 ea 10/03/20 08/16/23 Rx hydroxychloroquine 200 mg tablet 200 mg PO BID 05/09/22 08/16/23 History tramadol 50 mg tablet 50 mg PO Q6H PRN pain #30 tabs 07/04/23 08/16/23 Rx cyclobenzaprine 10 mg tablet 10 mg PO Q8HR PRN Spasms #30 tabs 08/01/23 08/16/23 Rx rivaroxaban 15 mg tablet (Xarelto) 15 mg PO BID 08/09/23 08/16/23 History docusate sodium 100 mg capsule 100 mg PO BID #30 caps 08/12/23 08/16/23 Rx ferrous sulfate 325 mg (65 mg 325 mg PO BIDWM #60 tabs 08/12/23 08/16/23 Rx iron) tablet pantoprazole 40 mg tablet,delayed 40 mg PO 0700 #30 tabs 08/12/23 08/16/23 Rx release piperacillin-tazobactam 4.5 4.5 g (112.5 mL) IV Q6H 08/12/23 08/16/23 Rx gram/100 mL dextrose(iso-osm) IV piggyback (Zosyn) docusate sodium 100 mg capsule 100 mg PO BID 08/16/23 08/16/23 History prednisone 5 mg tablet 5 mg PO DAILY 08/16/23 08/16/23 History Allergies Allergy/AdvReac Type Severity Reaction Status Date / Time cefepime AdvReac aphasia Verified 08/16/23 12:31 meropenem AdvReac Weakness Verified 08/16/23 12:31 Review of Systems <Cristal Baez - Last Filed: 08/16/23 16:34> Review of Systems Narrative: General: Lack of energy, headache, 10 lb weight loss. Denies fever, change in appetite, change in sleep. HEENT: Ocular migraine aura, spot in the center of his vision. Denies congestion, sore throat. CV: Denies chest pain, palpitations, swelling in legs/feet Pulm: Denies shortness of breath, cough GI: Loose stool. Denies abdominal pain, heartburn, nausea, vomiting, blood/mucus in stool : Urinary retention, intermittent incontinence. Denies dysuria, hematuria. MSK: Mild pain in R back. Severe pain in R groin with neuropathic pain radiating down leg. Denies pain in R foot. Extremities: Tingling, pain going down R leg from groin. Denies tingling, pain, or numbness in other extremities. Neuro: Dizziness. Denies vertigo, tremor Derm: Denies rash, skin lesion, hives, mole changes Psych: Denies anxiety, depression, panic attacks Exam <Cristal Baez - Last Filed: 08/16/23 16:34> Vital Signs (past 8 hours): - 08/16/23 01:30 08/16/23 01:32 08/16/23 01:32 Temperature Pulse Rate 84 84 Respiratory Rate Blood Pressure 143/64 H Pulse Oximetry 98 98 Oxygen Delivery Method Room Air Room Air Oxygen Flow Rate 08/16/23 01:45 08/16/23 01:45 08/16/23 02:00 Temperature Pulse Rate 84 84 Respiratory Rate Blood Pressure 149/69 H Pulse Oximetry 96 97 Oxygen Delivery Method Room Air Room Air Oxygen Flow Rate 08/16/23 02:00 08/16/23 02:15 08/16/23 02:15 Temperature Pulse Rate 79 Respiratory Rate Blood Pressure 149/68 H 147/66 H Pulse Oximetry 96 Oxygen Delivery Method Room Air Oxygen Flow Rate 08/16/23 02:30 08/16/23 02:30 08/16/23 02:45 Temperature Pulse Rate 81 82 Respiratory Rate Blood Pressure 154/72 H Pulse Oximetry 99 99 Oxygen Delivery Method Nasal Cannula Nasal Cannula Oxygen Flow Rate 2 2 08/16/23 02:45 08/16/23 03:00 08/16/23 03:00 Temperature Pulse Rate 77 Respiratory Rate Blood Pressure 155/70 H 144/67 H Pulse Oximetry 99 Oxygen Delivery Method Nasal Cannula Oxygen Flow Rate 2 08/16/23 03:15 08/16/23 03:15 08/16/23 03:30 Temperature Pulse Rate 78 77 Respiratory Rate Blood Pressure 142/65 H Pulse Oximetry 99 99 Oxygen Delivery Method Oxygen Flow Rate 08/16/23 03:30 08/16/23 04:00 08/16/23 04:00 Temperature 97.5 F L Pulse Rate 81 Respiratory Rate 16 18 Blood Pressure 153/73 H 152/61 H Pulse Oximetry 97 Oxygen Delivery Method Room Air Oxygen Flow Rate 0 08/16/23 08:00 Temperature 98.0 F Pulse Rate 83 Respiratory Rate 17 Blood Pressure 142/70 H Pulse Oximetry 97 Oxygen Delivery Method Oxygen Flow Rate 0 Oxygen Delivery Method Room Air Oxygen Flow Rate 0 Narrative Exam Narrative: General: 77 yo M, comfortable, cooperative, no acute distress. Appears to have lost weight since last hospital encounter. HEENT: Normocephalic, atraumatic. Anicteric sclera, extraocular muscles intact. Wears glasses. CV: RRR, no murmurs, rubs, or gallops. No peripheral edema. Pulm: Lungs clear to auscultation bilaterally. Normal respiratory effort. Abdomen: Soft, nondistended. Nontender to palpation in all quadrants. Extremities: No lower extremity edema, warm and well-perfused. Radial and pedal pulses strong and equal. R foot with 2nd toe amputation and wound vac in place, non-erythematous, mild swelling. Small focal areas of necrosis on the tips of his 3rd and 4th toes. Neuro: AOx3. No focal deficits, CN grossly intact. Derm: Warm, dry, and intact without rashes or lesions. Psych: Appropriate mood and affect. <Dionne Snow MD - Last Filed: 08/16/23 16:46> Narrative Exam Narrative: General: 77 yo M, comfortable, cooperative, no acute distress. Appears to have lost weight since last hospital encounter. HEENT: Normocephalic, atraumatic. Anicteric sclera, extraocular muscles intact. Wears glasses. CV: RRR, no murmurs, rubs, or gallops. No peripheral edema. Pulm: Lungs clear to auscultation bilaterally. Normal respiratory effort. Abdomen: Soft, nondistended. Nontender to palpation in all quadrants. Extremities: No lower extremity edema, warm and well-perfused. Radial and pedal pulses strong and equal. R foot with 2nd toe amputation and wound vac in place, non-erythematous, mild swelling. Small focal areas of necrosis on the tips of his 3rd and 4th toes. Left 1st toe s/p amputation. Neuro: AOx3. No focal deficits, CN grossly intact. Derm: Warm, dry, and intact without rashes or lesions. Psych: Appropriate mood and affect. Objective <Cristal Baez - Last Filed: 08/16/23 16:34> Labs 08/16/23 15:00 08/15/23 17:30 Labs: Laboratory Results - last 24 hr 08/15/23 08/16/23 08/16/23 17:30 01:30 07:30 WBC 5.9 RBC 2.26 L Hgb 6.7 L* 8.0 L 7.8 L Hct 19.4 L* 22.8 L 22.8 L MCV 85.8 MCH 29.5 MCHC 34.4 RDW 13.7 Plt Count 311 Neut % (Auto) 78.0 H Lymph % (Auto) 12.2 L Evans % (Auto) 6.9 Eos % (Auto) 2.2 Baso % (Auto) 0.7 Neut # (Auto) 4600 Lymph # (Auto) 700 L Evans # (Auto) 400 Eos # (Auto) 100 Baso # (Auto) 0 Sodium 128 L Potassium 4.3 Chloride 97 L Carbon Dioxide 25 BUN 28 H Creatinine 1.13 Estimated GFR > 60 BUN/Creatinine Ratio 24.8 H Glucose 192 H D Calcium 9.0 Total Bilirubin 0.8 AST 34 ALT 23 Alkaline Phosphatase 68 Total Protein 6.5 Albumin 3.4 L Globulin 3.1 Albumin/Globulin Ratio 1.1 Blood Type O Positive Antibody Screen Negative Crossmatch See Detail Assessment & Plan <Cristal Baez - Last Filed: 08/16/23 16:34> Assessment and plan (1) Anemia: Qualifiers: Anemia type: iron deficiency Iron deficiency anemia type: unspecified iron deficiency Qualified Code(s): D50.9 - Iron deficiency anemia, unspecified Status: Acute (2) Iliopsoas muscle hematoma: Qualifiers: Laterality: right Encounter type: subsequent encounter Qualified Code(s): S70.11XD - Contusion of right thigh, subsequent encounter Status: Acute (3) Right foot infection: Status: Acute Plan Iliopsoas hematoma, anemia d/t blood loss: - D/t the risk of continued bleeding into his retroperitoneum, Mr. Hyde's rivaroxaban 15mg was stopped, reversed with PCC, and was transfused with PRBC. His H&H has risen since then but is still quite low. He feels his dizziness has improved since the transfusion. - Will get H&H twice a day, if it is stable for two tests in a row it is indicative that his hematoma has clotted and is no longer actively bleeding. - If it is still falling, will likely need the vessel embolized with IR, which would require a transfer to a different facility. Treatment team has been in contact with specialists at [facility] to evaluate necessity of embolization at this point. - Contiue 325mg ferrous sulfate PO QD to support RBC proliferation Iliopsoas tendon tear: - It appears that his iliopsoas tendon injury is improving as his mobility improves and pain slowly decreases. - Continue with cyclobenzaprine 10mg Q8h and tramadol 50mg Q6h for pain control and will provide prescriptions for cyclobenzaprine and tramadol after discharge. - Lumbar MRI shows mild foraminal stenosis L1 - S1 but no nerve entrapment that would explain his R leg radiculopathy. - Will place referral for physical therapy to help with his recovery after discharge R femoral DVT: - Stopped rivaroxaban 15mg QD due to expanding hematoma - Will get RLE Doppler to see whether previous clot is still present to evaluate how quickly he should restart Xarelto once his active bleeding is controlled Urinary incontinence: - High PVR with intermittent urinary incontinence with a history of peripheral neuropathy suggests neurogenic bladder. Bill in place at this time to prevent urinary retention. - Consulted urology who will see him outpatient Osteomyelitis: - Switched to Zosyn from cefepime d/t aphasia side effects last Saturday, will continue for 2-3 more weeks - Wound vac changed today, previous erythema and swelling has subsided significantly and his wound is healing appropriately - F/u with Infectious Disease after discharge Disposition: - Lives with son and [id number] who can support him when he is discharged home - Anticipate that Mr. Hyde will be in the hospital for one more midnight <Dionne Snow MD - Last Filed: 08/16/23 16:46> Assessment and plan (1) Anemia: (2) Iliopsoas muscle hematoma: (3) Right foot infection: Plan Iliopsoas hematoma, anemia d/t blood loss: - D/t the risk of continued bleeding into his retroperitoneum, Mr. Hyde's rivaroxaban 15mg was stopped, reversed with PCC, and was transfused with PRBC. His H&H has risen since then but is still quite low. He feels his dizziness has improved since the transfusion. - Will get H&H twice a day, if it is stable for two tests in a row it is indicative that his hematoma has clotted and is no longer actively bleeding. - If it is still falling, will likely need the vessel embolized with IR, which would require a transfer to a different facility. Treatment team has been in contact with specialists at [facility] to evaluate necessity of embolization at this point. - Contiue 325mg ferrous sulfate PO QD to support RBC proliferation Iliopsoas tendon tear: - It appears that his iliopsoas tendon injury is improving as his mobility improves and pain slowly decreases. - Continue with cyclobenzaprine 10mg Q8h and tramadol 50mg Q6h for pain control and will provide prescriptions for cyclobenzaprine and tramadol after discharge. - Lumbar MRI shows mild foraminal stenosis L1 - S1 but no nerve entrapment that would explain his R leg radiculopathy. - Will place referral for physical therapy to help with his recovery after discharge R femoral DVT: - Stopped rivaroxaban 15mg QD due to expanding hematoma - Will get RLE Doppler to see whether previous clot is still present help with decision making regarding restarting anticoagulation Urinary incontinence: - High PVR with intermittent urinary incontinence with a history of peripheral neuropathy suggests neurogenic bladder. Bill in place at this time to prevent urinary retention. - Urology aware and will see him outpatient Osteomyelitis: - Switched to Zosyn from cefepime d/t aphasia side effects last Saturday, will continue for 2-3 more weeks - Wound vac changed today, previous erythema and swelling has subsided significantly and his wound is healing appropriately - F/u with Infectious Disease after discharge Disposition: - Lives with son and [id number] who can support him when he is discharged home - Anticipate that Mr. Hyde will be in the hospital for one more midnight FEN: General diet Code: Full DVT ppx: Hold due to bleeding concern I verified the medical student?s documentation in the medical record. I personally performed a physical exam and medical decision making. I made appropriate changes to the documentation and the assessment and plan based on my verification, exam and medical decision making.
--- NOTE | 2023-08-16 10:02 | DI.MRI.S_ITS ---
PROCEDURE: MR LUMBAR SPINE WO CON INDICATIONS: radiculopathy right leg, severe pain TECHNIQUE: Noncontrast sagittal T1 spin echo and T2 fast echo, sagittal STIR, and T2 fast spin echo through the lumbar spine. In cases with scoliosis, additional coronal T2 fast spin echo may be performed. COMPARISON: [facility], CT, CT ABDOMEN PELVIS W CON, 08/05/2023, 6:42. FINDINGS: Image quality: Excellent. Alignment and Curvature: Degenerative grade 1 anterior spondylolisthesis L5-S1 Bone Marrow: Multilevel degenerative endplate changes Spinal Cord: Conus medullaris terminates at the L1 level. Visualized cord demonstrates normal signal and size. Paraspinous Soft Tissues: Right iliopsoas muscle is enlarged with multifocal irregular heterogenous internal lesions T12-L1: Normal appearance. L1-L2: Circumferential disc bulge results in mild central stenosis. Hypertrophic facet joints present. Mild bilateral foraminal stenosis L2-L3: Disc space narrowing and circumferential disc bulge results in [id number] central stenosis. Moderate bilateral foraminal stenosis associated with hypertrophic facet joints L3-L4: Disc space is relatively preserved. Circumferential disc bulge with hypertrophic facet joints and ligamentum flavum laxity results in moderate central stenosis. Moderate bilateral foraminal stenosis L4-L5: Disc space narrowing with hypertrophic facet joints and broad-based disc bulge results in [id number] central stenosis. Moderate bilateral foraminal stenosis L5-S1: Disc space narrowing with circumferential disc bulge and significantly hypertrophic facet joints present. Grade 1 anterior spondylolisthesis degenerative. No central stenosis. Moderate bilateral foraminal stenosis IMPRESSION: 1. Swollen, enlarged iliopsoas muscle with internal heterogenous complex cystic change is partially imaged. Differential includes of multifocal abscess and soft tissue hematoma, similar to the prior CT given differences in modality. Consider follow-up contrast CT abdomen and pelvis to assess interval change. 2. Multilevel degenerative disc disease and arthropathy results in varying degrees of central and foraminal stenosis including moderate central stenosis L3-4 and multilevel moderate foraminal stenosis as above Approved by: Todd Linda M.D. on 08/16/2023 at 10:26
[2023-08-16] MEDS: PIPERACILLIN/TAZO 3.375 GM in SODIUM CHLORIDE 0.9% 100 ML IV ×2 (11:11→18:30)
[2023-08-16] MEDS: CHOLECALCIFEROL (VITAMIN D3) 1,000 UNIT TABLET 2000 UNIT PO (11:12)
[2023-08-16] MEDS: DOCUSATE 100 MG CAPSULE PO ×2 (11:13→22:22)
[2023-08-16] MEDS: HYDROXYCHLOROQUINE 200 MG TABLET PO ×2 (11:13→22:22)
[2023-08-16] MEDS: predniSONE 5 MG TABLET PO (11:13)
[2023-08-16] MEDS: TRAMADOL 50 MG TABLET PO ×2 (11:56→18:31)
[2023-08-16 15:27] LABS: Add Manual Diff / Slide Review NO; Basophils Absolute Auto 100 /uL (0-100); Basophils Percent Auto 0.8 % (0-2); Eosinophils Absolute Auto 200 /uL (0-450); Eosinophils Percent Auto 3.5 % (2-4); Hemoglobin 7.9 g/dL (13.5-17.5); Lymphocytes Absolute Auto 500 /uL (1100-4500); Lymphocytes Percent Auto 8.4 % (25-40); Mean Corpuscular HGB Conc 34.2 % (30-36); Mean Corpuscular Hemoglobin 29.6 PG (26-34); Mean Corpuscular Volume 86.4 fL (80-100); Monocytes Absolute Auto 500 /uL (0-900); Monocytes Percent Auto 7.1 % (3-14); Neutrophils Absolute Auto 5200 /uL (1500-7000); Neutrophils Percent Auto 80.2 % (50-75); Platelet Count 298 X10^3/uL (150-400); Red Blood Cell Count 2.66 X10^6/uL (4.5-5.9); Red Cell Distribution Width 13.9 % (11.6-14.8); White Blood Cell Count 6.5 X10^3/uL (4.5-11.0)
--- NOTE | 2023-08-16 16:21 | DI.US.S_ITS ---
PROCEDURE: US PERIPH VENOUS LOW EXTREM RT INDICATIONS: FOLLOW UP DEEP VEIN THROMBOSIS TECHNIQUE: Real-time imaging, as well as color and pulse Doppler interrogation, were performed of the lower extremity deep veins from the inguinal ligament to the popliteal fossa, with documentation of the visualized calf veins. COMPARISON: [facility], CT, CT ANGIO ABD AORTA RUNOFF, 08/15/2023, 19:11. [facility], US, US PERIPH VENOUS LOW EXTREM RT, 08/05/2023, 4:58. FINDINGS: The common femoral, femoral, popliteal, and the visualized calf veins are normally compressible, and free of intraluminal thrombus. Color and pulse Doppler demonstrate normal phasic intraluminal flow. There is normal augmentation response to distal compression maneuver. Note is made that the femoral vein is duplicated from its proximal to midportion. An enlarged right groin lymph node is seen that measures 2.5 x 1.2 x 2.3 cm. IMPRESSION: No findings of lower extremity deep venous thrombosis. Dictated by: Pranav Lopez M.D. on 08/16/2023 at 16:22 Approved by: Pranav Lopez M.D. on 08/16/2023 at 16:23
--- NOTE | 2023-08-16 16:27 | CM.DANOTE ---
Initial DCP Assessment Note Pt is a 77 yo male, resident of [place], sent by MD for abnormal labs(blood counts dropping). 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 Patient's son Charan and MISAEL Johns now live with him and can assist him as needed. Patient is indp at baseline, currently requiring assist with shopping, chores and driving r/t his medical condition. Patient plans to be in touch with rafael VASQUES RN and with [facility] as his discharge nears, this [employer] offered CM team assistance with this coordination and patient stated appreciation. Patient unsure he will need outpatient wound care if the CAPRICE RN and his family can complete necessary wound dressing changes (?) Plan: Discharge home w/family, resumption of [facility]fael [facility]ASQUES RN for wound care and [facility], likely follow up at wound care clinic as well, TBD CM team will plan to follow closely to assist in discharge plan coordination. LISA Kim Discharge Planning/Care Management CM Discharge Assessment Start: 08/16/23 16:25 Freq: Status: Active Protocol: Document 08/16/23 16:25 FRANCIS (Rec: 08/16/23 16:27 FRANCIS [id number]) Discharge Planning Assessment Assigned [employer] LISA Doran DPOA/Assigned Designee Name Zaina Multani Contact Information [phone] Advance Directives? Yes: Advance Directive: POA Advance Directives on File Yes History Provided By Patient,Medical Record Prior Living Arrangements House Household Members family,children Type of transporation used prior to Drives own vehicle admit Comment Has not driven recently r/t current medical condition Independent with ADL's Yes Is patient alert and oriented? Yes Needs Assistance With Meal Prep,Home Chores / Shopping Patient/Family Preference Home with Home Health Barriers to Discharge No Discharge Plan Home Transportation Arrangement family Referrals Initiated None needed
[2023-08-16] MEDS: ACETAMINOPHEN 325 MG TABLET 650 MG PO (16:43)
[2023-08-16] MEDS: FERROUS SULFATE 325 MG TABLET PO (16:43)
[2023-08-17] MEDS: CYCLOBENZAPRINE 10 MG TABLET PO (02:22)
[2023-08-17] MEDS: TRAMADOL 50 MG TABLET PO (02:22)
[2023-08-17] MEDS: PIPERACILLIN/TAZO 3.375 GM in SODIUM CHLORIDE 0.9% 100 ML IV ×2 (02:23→09:59)
[2023-08-17 03:00] VITALS: BP 130/71; PULSE 81; RESP 17; TEMP 36.9; O2SAT 95
[2023-08-17 05:24] LABS: Add Manual Diff / Slide Review NO; Basophils Absolute Auto 100 /uL (0-100); Eosinophils Absolute Auto 500 /uL (0-450); Eosinophils Percent Auto 7.9 % (2-4); Hematocrit 23.7 % (41-53); Hemoglobin 8.1 g/dL (13.5-17.5); Lymphocytes Absolute Auto 1000 /uL (1100-4500); Lymphocytes Percent Auto 15.9 % (25-40); Mean Corpuscular HGB Conc 34.2 % (30-36); Mean Corpuscular Hemoglobin 29.4 PG (26-34); Monocytes Absolute Auto 600 /uL (0-900); Monocytes Percent Auto 8.6 % (3-14); Neutrophils Absolute Auto 4400 /uL (1500-7000); Neutrophils Percent Auto 66.6 % (50-75); Platelet Count 292 X10^3/uL (150-400); Red Blood Cell Count 2.76 X10^6/uL (4.5-5.9); Red Cell Distribution Width 13.7 % (11.6-14.8); White Blood Cell Count 6.6 X10^3/uL (4.5-11.0)
[2023-08-17 05:33] LABS: BUN Creatinine Ratio 19.8 (6-22); Blood Urea Nitrogen 21 mg/dL (9-20); Calcium 8.6 mg/dL (8.4-10.2); Carbon Dioxide 27 mmol/L (22-32); Chloride 98 mmol/L (98-107); Estimated Glomerular Filt Rate > 60 mL/min (>60); Glucose 79 mg/dL (80-110); HEMOLYSIS < 15 (0-50); Potassium 3.9 mmol/L (3.4-5.1); Sodium 131 mmol/L (137-145)
--- NOTE | 2023-08-17 06:54 | CM.MNRNOTE ---
pt H/H has been stable throughout the night, no s/o bleeding. pt had his wound vac when admitted and is taking care of it himself. no air leak noted. bey cath intact.
[2023-08-17] MEDS: DOCUSATE 100 MG CAPSULE PO (08:39)
[2023-08-17] MEDS: FERROUS SULFATE 325 MG TABLET PO (08:39)
[2023-08-17] MEDS: CHOLECALCIFEROL (VITAMIN D3) 1,000 UNIT TABLET 2000 UNIT PO (08:39)
[2023-08-17] MEDS: HYDROXYCHLOROQUINE 200 MG TABLET PO (08:39)
[2023-08-17] MEDS: predniSONE 5 MG TABLET PO (08:39)
--- NOTE | 2023-08-17 09:00 | PM.DS.1 ---
History of Present Illness History of Present Illness Date Patient Seen: 08/17/23 Time Patient Seen: 09:00 Chief complaint: sent by MD for Blood, abn labs Discharge Providers Provider Date of admission: 08/16/23 02:46 Discharge Date: 08/17/23 Primary care physician: Dionne Snow MD Consults: 08/16/23 14:59 Consult to Physical Therapy Evaluate & Treat Comment: Physician Instructions: Evaluate and Treat Discharge provider: Leanna Mcmahon MD Summary Hospital Course Discharge Diagnosis: liopsoas hematoma, anemia d/t blood loss: - D/t the risk of continued bleeding into his retroperitoneum, Mr. Hyde's rivaroxaban 15mg was stopped, reversed with PCC, and was transfused with PRBC. -H&H has risen. Patient clinically is markedly better. - Contiue 325mg ferrous sulfate PO QD to support RBC proliferation -DC to home. He will continue off the rivaroxaban due to the bleed and will follow-up with his PCP next week to discuss when to reinitiate this. Iliopsoas tendon tear: - It appears that his iliopsoas tendon injury is improving as his mobility improves and pain slowly decreases. - Continue with cyclobenzaprine 10mg Q8h and tramadol 50mg Q6h for pain control and will provide prescriptions for cyclobenzaprine and tramadol after discharge. Patient has tramadol at home already provided by Dr. Gonzalez and we will go ahead and give a prescription of cyclobenzaprine. This was printed for him. - Lumbar MRI shows mild foraminal stenosis L1 - S1 but no nerve entrapment that would explain his R leg radiculopathy. -follow-up with PCP and will start physical therapy R femoral DVT: - Stopped rivaroxaban 15mg QD due to expanding hematoma Urinary incontinence: - High PVR with intermittent urinary incontinence with a history of peripheral neuropathy suggests neurogenic bladder. Bill in place at this time to prevent urinary retention. Patient will be discharged home with Bill catheter in place - Consulted urology who will see him outpatient Osteomyelitis: - Switched to Zosyn from cefepime d/t aphasia side effects last Saturday, will continue for 2-3 more weeks. Patient has supplies at home. - Wound vac changed today, previous erythema and swelling has subsided significantly and his wound is healing appropriately - F/u with Infectious Disease after discharge Disposition: - Lives with son and [id number] who can support him when he is discharged home - Anticipate that Mr. Hyde will be in the hospital for one more midnight Hospital Course: Patient admitted to the hospital due to iliopsoas hematoma with suspected active bleeding. Patient received 2 units packed red blood cells on the night of admission and has maintained stable. In fact his hemoglobin is up today. He is feeling good. He will be discharged home. He will continue on IV Zosyn at home for which he has a supplies. He will continue with tramadol and cyclobenzaprine as needed for his pain in his right lower extremity. He will start physical therapy as an outpatient. He will continue off the Xarelto until instructed further by his PCP. He will follow-up with Dr. Gonzalez next week. He will follow-up with infectious disease as outpatient and Neurology as outpatient. He will continue his other same medications. Only new prescription printed today is for cyclobenzaprine. He only has 6 or 7 tablets remaining at home. 35 minutes spent in discharge of this patient Status at Discharge Cognitive/behavioral status at discharge: oriented Functional status at discharge: independent ambulation Overall status at discharge: patient is progressing back to baseline Time Spent with Patient Time spent: Greater than 30 minutes Exam Vital Signs (past 8 hours): - 08/17/23 03:00 Temperature 98.4 F Pulse Rate 81 Respiratory Rate 17 Blood Pressure 130/71 Pulse Oximetry 95 Oxygen Delivery Method Room Air Oxygen Flow Rate 0 Narrative Exam Narrative: Afebrile vital signs are stable HEENT is unremarkable Neck is supple Chest: Clear to auscultation without wheezes rhonchi or crackles Cor: Regular rate and rhythm without a murmur Abdomen: Positive bowel sounds, soft, nontender Extremities he has a short boot on the right foot. He is no lower extremity edema. Bruising right lateral lumbosacral area reportedly resolving and no significant tenderness or hematoma Neurologic exam is nonfocal Objective Labs 08/17/23 05:03 08/17/23 05:03 Labs: Laboratory Results - last 24 hr 08/16/23 08/17/23 15:00 05:03 WBC 6.5 6.6 RBC 2.66 L 2.76 L Hgb 7.9 L 8.1 L Hct 23.0 L 23.7 L MCV 86.4 86.0 MCH 29.6 29.4 MCHC 34.2 34.2 RDW 13.9 13.7 Plt Count 298 292 Neut % (Auto) 80.2 H 66.6 Lymph % (Auto) 8.4 L 15.9 L [place] % (Auto) 7.1 8.6 Eos % (Auto) 3.5 7.9 H Baso % (Auto) 0.8 1.0 Neut # (Auto) 5200 4400 Lymph # (Auto) 500 L 1000 L [place] # (Auto) 500 600 Eos # (Auto) 200 500 H Baso # (Auto) 100 100 Sodium 131 L Potassium 3.9 Chloride 98 Carbon Dioxide 27 BUN 21 H Creatinine 1.06 Estimated GFR > 60 BUN/Creatinine Ratio 19.8 Glucose 79 L D Calcium 8.6 PFSH Medical History PICC (peripherally inserted central catheter) in place Osteomyelitis Lymphocytopenia Chronic UTI DVT (deep venous thrombosis) Pulmonary embolus HLD (hyperlipidemia) Arthritis 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 Mother Diabetes mellitus Hyperlipidemia Social History marital status: household members: family and children lives independently: Yes caregiver/support person: No housing: house education level: college occupational status: previously employed Smoking Status: Former smoker second hand exposure: No alcohol intake: current substance use type: does not use Discharge Assessment & Plan Assessment and Plan Assessment: liopsoas hematoma, anemia d/t blood loss: - D/t the risk of continued bleeding into his retroperitoneum, Mr. Hyde's rivaroxaban 15mg was stopped, reversed with PCC, and was transfused with PRBC. -H&H has risen. Patient clinically is markedly better. - Contiue 325mg ferrous sulfate PO QD to support RBC proliferation -DC to home. He will continue off the rivaroxaban due to the bleed and will follow-up with his PCP next week to discuss when to reinitiate this. Iliopsoas tendon tear: - It appears that his iliopsoas tendon injury is improving as his mobility improves and pain slowly decreases. - Continue with cyclobenzaprine 10mg Q8h and tramadol 50mg Q6h for pain control and will provide prescriptions for cyclobenzaprine and tramadol after discharge. Patient has tramadol at home already provided by Dr. Gonzalez and we will go ahead and give a prescription of cyclobenzaprine. This was printed for him. - Lumbar MRI shows mild foraminal stenosis L1 - S1 but no nerve entrapment that would explain his R leg radiculopathy. -follow-up with PCP and will start physical therapy R femoral DVT: - Stopped rivaroxaban 15mg QD due to expanding hematoma Urinary incontinence: - High PVR with intermittent urinary incontinence with a history of peripheral neuropathy suggests neurogenic bladder. Bill in place at this time to prevent urinary retention. Patient will be discharged home with Bill catheter in place - Consulted urology who will see him outpatient Osteomyelitis: - Switched to Zosyn from cefepime d/t aphasia side effects last Saturday, will continue for 2-3 more weeks. Patient has supplies at home. - Wound vac changed today, previous erythema and swelling has subsided significantly and his wound is healing appropriately - F/u with Infectious Disease after discharge Disposition: - Lives with son and [id number] who can support him when he is discharged home - Anticipate that Mr. Hyde will be in the hospital for one more midnight Discharge Plan Discharge Plan Patient Disposition: Home Health Service Discharge orders & Medications Prescriptions: New cyclobenzaprine 10 mg Tablet 10 mg PO Q8HR PRN (Reason: Spasms) Qty: 30 0RF Continued cholecalciferol (vitamin D3) 2,000 unit capsule 2,000 unit PO DAILY (DME) Disabled Parking Permit See Rx Instructions .ROUTE .MEDSUPPLY Qty: 1 0RF Rx Instructions: I find this person to be disabled cyclobenzaprine 10 mg tablet 10 mg PO Q8HR PRN (Reason: Spasms) Qty: 30 0RF hydroxychloroquine 200 mg Tablet 200 mg PO BID pantoprazole 40 mg Tablet,Delayed Release (Dr/Ec) 40 mg PO 0700 Qty: 30 0RF ferrous sulfate 325 mg (65 mg iron) Tablet 325 mg PO BIDWM Qty: 60 0RF docusate sodium 100 mg Capsule 100 mg PO BID Qty: 30 0RF Zosyn in dextrose (iso-osm) 4.5 gram/100 mL piggyback 4.5 g IV Q6H Rx Instructions: Duration to be determined by Dr Verduzco, Infectious Disease tramadol 50 mg tablet 50 mg PO Q6H PRN (Reason: pain) Qty: 30 0RF prednisone 5 mg tablet 5 mg PO DAILY docusate sodium 100 mg capsule 100 mg PO BID Discontinued Xarelto 15 mg tablet 15 mg PO BID Follow up/Referrals: Dionne Snow MD [Primary Care Provider] - Diet/Activity/Treatments Diet: Diet as Tolerated Catheter: 2-way Bill Visit Report/Discharge Packet Stand Alone Forms: Patient Portal/API, Stroke Signs & Symptoms Discharge Data Primary Care Provider: Dionne Snow
--- NOTE | 2023-08-17 11:56 | PC.NURSE ---
a/o, voices needs. SBA ADLs, transfers to manage tubes of bey, IV, wound vac. wound vac patent, cont sx at 125mm/hg, canister is empty. single lumen power picc to MONISHA is patent, has a long thin extension that is left in place after PICC drawback, flushed w/ 10cc NS. dressings to Right foot are CDI. d/c orders received. son Charan transporting in private vehicle. will received zosyn prior to d/c per Dr Mcmahon. see dc.
--- NOTE | 2023-08-17 13:43 | PT-IP ANOTE ---
PT eval order received. Checked on pt and pt was about to leave and d/c. pt stated that he does not need PT and is moving around fine.
--- NOTE | 2023-08-17 15:41 | CM.DPC ---
DCP Continued: Per Dr. Mcmahon, patient cleared to d/c home today. [employer] S[employer] spoke with [facility] pharmacist. Confirmed they needed patient to get infusion today and were able to continue care. All needed was signed d/c summary. TAL[employer] AC[employer]ISITION S[employer]CER faxed signed d/c summary to [facility]. TAL[employer] AC[employer]ITION S[employer]CER spoke with Nelli at [facility]. Nelli confirmed they needed new face to face, order, and signed d/c summary. TAL[employer]ITION S[employer]CER completed verbal read back order for . [employer]AL[employer]ITION S[employer]CER completed face to face. TAL[employer] AC[employer]ISITION SOURCER faced face to face, order, and signed d/c summary to [facility]. Plan: patient d/c home with family support, [facility], and [facility] to follow. CM team will continue to follow as needed. LISA Gray
== END 2023-08-17 11:20 | disposition home health service (06) | DRG 556 ==
LOC: ED 08-16 01:26 → AC 08-16 02:47
PROVIDERS: Emergency Medicine; Admitting Provider Family Medicine; Emergency Provider Emergency Medicine; PCP Family Medicine; Referring Provider Emergency Medicine; Visit Provider Family Medicine
DX: M79.81 Nontraumatic hematoma of soft tissue (principal); D62 Acute posthemorrhagic anemia; M86.8X7 Other osteomyelitis, ankle and foot; D84.821 Immunodeficiency due to drugs; S76.011A Strain of muscle, fascia and tendon of right hip, initial encounter; N31.9 Neuromuscular dysfunction of bladder, unspecified; N39.498 Other specified urinary incontinence; M32.9 Systemic lupus erythematosus, unspecified; X58.XXXA Exposure to other specified factors, initial encounter; Z79.52 Long term (current) use of systemic steroids; Z87.891 Personal history of nicotine dependence; Z79.01 Long term (current) use of anticoagulants; Z86.718 Personal history of other venous thrombosis and embolism; Z89.421 Acquired absence of other right toe(s); Z79.899 Other long term (current) drug therapy
CPT/HCPCS: 36415; 36430; 72148; 75635; 80048; 80053; 85014; 85018; 85025; 86850; 86900; 86901; 93971; 96365; 96375; 99285; 99291; P9016; J1642; J2543; J7168; Q9967

== ENCOUNTER → 2023-08-29 10:30 | Outpatient (CLI) | payer MEDICARE, OTHER, SELFPAY ==
[2023-08-16 04:00] VITALS: BMI 25.0
== END ==
PROVIDERS: PCP Family Medicine; Referring Provider Orthopaedic Surgery Foot and Ankle Surgery; Visit Provider Surgery
DX: T87.89 Other complications of amputation stump (principal); L97.512 Non-pressure chronic ulcer of other part of right foot with fat layer exposed; T81.89XA Other complications of procedures, not elsewhere classified, initial encounter; S91.301A Unspecified open wound, right foot, initial encounter; G60.3 Idiopathic progressive neuropathy; M86.171 Other acute osteomyelitis, right ankle and foot
CPT/HCPCS: 11042; 97605; 99212; 99214

== ENCOUNTER → 2023-09-05 10:01 | Outpatient (CLI) | payer MEDICARE, OTHER, SELFPAY ==
[2023-08-16 04:00] VITALS: BMI 25.0
--- NOTE | 2023-09-05 10:02 | DI.US.S_ITS ---
PROCEDURE: US RENAL COMPLETE INDICATIONS: BILATERAL HYDRONPHROSIS TECHNIQUE: Real-time scanning was performed of the kidneys and bladder, with image documentation. COMPARISON: None. FINDINGS: Kidneys: Kidneys are normal in size. Right kidney measures 10.5 cm long; left kidney measures 9.9 cm long. Right renal cortical thickness is 1.3 cm; left renal cortical thickness is 1.7 cm. Renal cortical echotexture is normal. No hydronephrosis or nephrolithiasis. No suspicious solid mass lesions. Bladder: Bladder is not distended at the time of imaging. Bill catheter was removed just prior to the examination. Miscellaneous: No free pelvic fluid. IMPRESSION: Unremarkable renal ultrasound. Dictated by: Oneil Gonsalez M.D. on 09/05/2023 at 12:06 Approved by: Oneil Gonsalez M.D. on 09/05/2023 at 12:10
== END ==
PROVIDERS: PCP Family Medicine; Referring Provider Urology; Visit Provider Urology
DX: N13.30 Unspecified hydronephrosis (principal); N39.0 Urinary tract infection, site not specified; R33.9 Retention of urine, unspecified; R39.9 Unspecified symptoms and signs involving the genitourinary system; N40.1 Benign prostatic hyperplasia with lower urinary tract symptoms; R33.8 Other retention of urine
CPT/HCPCS: 51702; 51798; 76770; 81001; 87086; 99214

== ENCOUNTER → 2023-09-05 16:47 | Outpatient (CLI) | payer MEDICARE, OTHER, SELFPAY ==
[2023-08-16 04:00] VITALS: BMI 25.0
[2023-09-05 17:56] LABS: Appearance Urine UA CLEAR; Bilirubin Urine UA NEGATIVE (NEGATIVE); Color Urine UA YELLOW; Glucose Urine UA NEGATIVE (Negative); Ketones Urine UA NEGATIVE (NEGATIVE); Leukocyte Esterase Urine UA NEGATIVE (NEGATIVE); Nitrite Urine UA NEGATIVE (Negative); Occult Blood Urine UA NEGATIVE (Negative); Protein Urine UA 3+ (Negative); Specific Gravity Urine UA 1.025 (1.000-1.035); Urobilinogen Urine UA 0.2 E.U./dL (0.2); pH Urine UA 5.5 (4.5-8.0)
[2023-09-05 18:03] LABS: Amorphous Sediment Urine 3+; Bacteria Urine None Seen; RBC Urine None Seen (0-5/HPF); Renal Epithelial Cells Urine 0-1/HPF (0-1/HPF); WBC Urine 0-1/HPF (0-5/HPF)
[2023-09-05 19:26] LABS: Culture Indicated Urine Cult Not Indicated
[2023-09-05 19:34] LABS: Squamous Epithelial Cell Urine None Seen (0-5/HPF)
== END ==
PROVIDERS: PCP Family Medicine; Visit Provider Urology
DX: N39.0 Urinary tract infection, site not specified (principal)
CPT/HCPCS: 81001; 87086

== ENCOUNTER → 2023-09-09 10:37 | Outpatient (CLI) | payer MEDICARE, OTHER, SELFPAY ==
[2023-08-16 04:00] VITALS: BMI 25.0
== END ==
PROVIDERS: PCP Family Medicine; Referring Provider Orthopaedic Surgery Foot and Ankle Surgery; Visit Provider Surgery
DX: T81.31XA Disruption of external operation (surgical) wound, not elsewhere classified, initial encounter (principal); S98.131A Complete traumatic amputation of one right lesser toe, initial encounter; M86.171 Other acute osteomyelitis, right ankle and foot
CPT/HCPCS: 11042; 97605; 99213

== ENCOUNTER → 2023-09-16 10:34 | Outpatient (CLI) | payer MEDICARE, OTHER, SELFPAY ==
[2023-08-16 04:00] VITALS: BMI 25.0
== END ==
PROVIDERS: PCP Family Medicine; Referring Provider Orthopaedic Surgery Foot and Ankle Surgery; Visit Provider Surgery
DX: L97.512 Non-pressure chronic ulcer of other part of right foot with fat layer exposed (principal); M86.171 Other acute osteomyelitis, right ankle and foot; T81.31XD Disruption of external operation (surgical) wound, not elsewhere classified, subsequent encounter
CPT/HCPCS: 11042; 97605; 99212; 99213

== ENCOUNTER → 2023-09-23 15:28 | Outpatient (CLI) | payer MEDICARE, OTHER, SELFPAY ==
[2023-08-16 04:00] VITALS: BMI 25.0
== END ==
PROVIDERS: PCP Family Medicine; Referring Provider Orthopaedic Surgery Foot and Ankle Surgery; Visit Provider Physician Assistant
DX: L97.512 Non-pressure chronic ulcer of other part of right foot with fat layer exposed (principal); M86.171 Other acute osteomyelitis, right ankle and foot; T81.31XD Disruption of external operation (surgical) wound, not elsewhere classified, subsequent encounter; S98.131D Complete traumatic amputation of one right lesser toe, subsequent encounter
CPT/HCPCS: 11042; 99212; 99214

== ENCOUNTER → 2023-10-07 13:43 | Outpatient (CLI) | payer MEDICARE, OTHER, SELFPAY ==
[2023-08-16 04:00] VITALS: BMI 25.0
== END ==
PROVIDERS: PCP Family Medicine; Referring Provider Orthopaedic Surgery Foot and Ankle Surgery; Visit Provider Surgery
DX: T81.31XA Disruption of external operation (surgical) wound, not elsewhere classified, initial encounter (principal); S98.131A Complete traumatic amputation of one right lesser toe, initial encounter; G60.9 Hereditary and idiopathic neuropathy, unspecified; R60.0 Localized edema; L97.512 Non-pressure chronic ulcer of other part of right foot with fat layer exposed
CPT/HCPCS: 11042; 99212; 99213

== ENCOUNTER → 2023-10-07 15:15 | Outpatient (CLI) | payer MEDICARE, OTHER, SELFPAY ==
[2023-08-16 04:00] VITALS: BMI 25.0
--- NOTE | 2023-10-07 15:16 | DI.US.S_ITS ---
PROCEDURE: US [facility] VENOUS LOW EXTREM RT INDICATIONS: Right Lower Extremity doppler for f/u DVT TECHNIQUE: Real-time imaging, as well as color and pulse Doppler interrogation, were performed of the lower extremity deep veins from the inguinal ligament to the popliteal fossa, with documentation of the visualized calf veins. COMPARISON: [facility], [facility] VENOUS LOW EXTREM RT, 08/16/2023, 16:55. FINDINGS: The common femoral, femoral, popliteal, and the visualized calf veins are normally compressible, and free of intraluminal thrombus. Color and pulse Doppler demonstrate normal phasic intraluminal flow. There is normal augmentation response to distal compression maneuver. Of note, the posterior tibial vein at the ankle was not well characterized. IMPRESSION: No findings of lower extremity deep venous thrombosis where visualized. Dictated by: Cassia Myers M.D. on 10/07/2023 at 16:24 Approved by: Cassia Myers M.D. on 10/07/2023 at 16:24
== END ==
PROVIDERS: PCP Family Medicine; Referring Provider Family Medicine; Visit Provider Family Medicine
DX: I82.401 Acute embolism and thrombosis of unspecified deep veins of right lower extremity (principal); T81.31XA Disruption of external operation (surgical) wound, not elsewhere classified, initial encounter; S98.131A Complete traumatic amputation of one right lesser toe, initial encounter; G09 Sequelae of inflammatory diseases of central nervous system; R60.0 Localized edema; L97.512 Non-pressure chronic ulcer of other part of right foot with fat layer exposed
CPT/HCPCS: 11042; 93971; 99212

== ENCOUNTER → 2023-10-14 13:34 | Outpatient (CLI) | payer MEDICARE, OTHER, SELFPAY ==
[2023-08-16 04:00] VITALS: BMI 25.0
== END ==
PROVIDERS: PCP Family Medicine; Referring Provider Orthopaedic Surgery Foot and Ankle Surgery; Visit Provider Surgery
DX: L97.512 Non-pressure chronic ulcer of other part of right foot with fat layer exposed (principal); T81.31XD Disruption of external operation (surgical) wound, not elsewhere classified, subsequent encounter; S98.131D Complete traumatic amputation of one right lesser toe, subsequent encounter; R60.0 Localized edema
CPT/HCPCS: 11042

== ENCOUNTER → 2023-10-29 13:32 | Outpatient (CLI) | payer MEDICARE, OTHER, SELFPAY ==
[2023-08-16 04:00] VITALS: BMI 25.0
== END ==
LOC: WC 13:33
PROVIDERS: PCP Family Medicine; Referring Provider Orthopaedic Surgery Foot and Ankle Surgery; Visit Provider Surgery
DX: T87.89 Other complications of amputation stump (principal); S91.301A Unspecified open wound, right foot, initial encounter; Z89.421 Acquired absence of other right toe(s); R60.0 Localized edema; M86.171 Other acute osteomyelitis, right ankle and foot
CPT/HCPCS: 11042

== ENCOUNTER → 2023-11-25 13:18 | Outpatient (CLI) | payer MEDICARE, OTHER, SELFPAY ==
[2023-08-16 04:00] VITALS: BMI 25.0
== END ==
LOC: WC 13:19
PROVIDERS: PCP Family Medicine; Referring Provider Orthopaedic Surgery Foot and Ankle Surgery; Visit Provider Surgery
DX: R60.0 Localized edema (principal); Z89.421 Acquired absence of other right toe(s); M32.10 Systemic lupus erythematosus, organ or system involvement unspecified; G62.9 Polyneuropathy, unspecified
CPT/HCPCS: 99212; 99213

== ENCOUNTER → 2024-02-21 06:42 | Outpatient (CLI) | payer MEDICARE, OTHER, SELFPAY ==
[2023-08-16 04:00] VITALS: BMI 25.0
--- NOTE | 2024-02-21 06:43 | DI.US.S_ITS ---
PROCEDURE: US RENAL COMPLETE INDICATIONS: flank pain, bilateral TECHNIQUE: Real-time scanning was performed of the kidneys and bladder, with image documentation. COMPARISON: [facility], , US RENAL COMPLETE, 09/05/2023, 10:15. FINDINGS: Kidneys: Kidneys are normal in size. Right kidney measures 10.5 cm long; left kidney measures 10.8 cm long. Right renal cortical thickness is 1.2 cm; left renal cortical thickness is 1.2 cm. Renal cortical echotexture is normal. Severe left-sided hydronephrosis. Bladder: Pre-void bladder volume is 427 mL. Post-void residual is 253 mL. Pre-void images demonstrate no intraluminal masses or stones. On pre-void images, the left ureteral jets are noted with color Doppler interrogation. (Of note, ureteral jets may not be detectable in up to 25% of cases due to insufficient differences in specific gravity between ureteral and bladder urine). Bladder wall trabeculation. Miscellaneous: Prostate measures 3.0 x 3.8 x 2.4 cm. Small nodularity at the base of the prostate measuring 2.2 x 2.1 x 1.4 cm. IMPRESSION: Severe left-sided hydronephrosis, new from prior. Consider CT abdomen pelvis to exclude an obstructing pathology. Prostatomegaly and chronic outlet obstruction, with a trabeculated bladder wall. Postvoid residual of 253 mL, abnormal. Nodularity within the prostate measuring 2.2 x 2.1 x 1.4 cm. Correlate with PSA and consider prostate MRI. Call report was initiated for this exam. A enrollment eligibility representative from the call center will alert the ordering provider's office of these results yolanda. Dictated by: Johan Whiting M.D. on 02/21/2024 at 14:11 Approved by: Johan Whiting M.D. on 02/21/2024 at 14:16
== END ==
LOC: US 06:42
PROVIDERS: PCP Family Medicine; Referring Provider Family Medicine; Visit Provider Family Medicine
DX: N13.30 Unspecified hydronephrosis (principal); N40.2 Nodular prostate without lower urinary tract symptoms; N13.8 Other obstructive and reflux uropathy; N32.89 Other specified disorders of bladder; R10.9 Unspecified abdominal pain
CPT/HCPCS: 76770

== ENCOUNTER → 2024-02-26 11:08 | Outpatient (CLI) | payer MEDICARE, OTHER, SELFPAY ==
[2023-08-16 04:00] VITALS: BMI 25.0
--- NOTE | 2024-02-26 11:09 | DI.CT.S_ITS ---
PROCEDURE: CT KIDNEY URETER BLADDER (KUB) INDICATIONS: follow up renal US, obstruction TECHNIQUE: Axial sections were acquired from the lung bases to the pubic symphysis. Coronal and sagittal reformats were performed. For radiation dose reduction, the following was used: automated exposure control, adjustment of mA and/or kV according to patient size. COMPARISON: [facility], CT, CT ABDOMEN PELVIS W CON, 08/05/2023, 6:42. [facility], US, US RENAL COMPLETE, 02/21/2024, 6:51. FINDINGS: Image quality: Diagnostic. Lower Chest: No significant findings. URINARY: Right Kidney: No stones or hydronephrosis. Right Ureter: No hydroureter. Left Kidney: Severe left hydronephrosis is similar to prior CT. Left Ureter: Moderate left hydroureter decreased compared to prior CT. No obstructing stones. Bladder: Wall thickening and trabeculated appearance of the urinary bladder is similar to prior ABDOMEN: Liver: No contour-deforming solid mass. Gallbladder: No radiopaque gallstones or wall thickening. Biliary ducts: No biliary dilation. Pancreas: No ductal dilation. Spleen: Size is within normal limits. Adrenal Glands: No adrenal nodules. Stomach and Bowel: Normal colonic caliber, without significant wall thickening. Few scattered diverticula without evidence of diverticulitis. Normal appendix. Peritoneum: No abnormal intraperitoneal fluid. No free air. Ventral Wall: No hernia. Abdominal Nodes: No enlarged retroperitoneal or mesenteric lymph nodes. Vessels: Aorta and inferior vena cava are normal in size. Atherosclerotic vascular calcifications. PELVIS: Pelvic Organs: Coarse calcifications within the prostate. Right hydrocele is partially visualized.. Pelvic Nodes: Unremarkable. Miscellaneous: No inguinal hernias are seen. Bones: Degenerative changes of the spine. Decreased osseous mineralization. IMPRESSION: 1. Stable appearance of severe left hydronephrosis. Left hydroureter is decreased compared to prior CT. No right hydronephrosis or hydroureter, improved compared to prior CT. 2. Trabeculated appearance of the urinary bladder with wall thickening and multiple diverticula, consistent with chronic bladder outlet obstruction. Dictated by: Ravi Montero M.D. on 02/26/2024 at 12:33 Approved by: Ravi Montero M.D. on 02/26/2024 at 12:39
[2024-02-26 11:57] LABS: BUN Creatinine Ratio 26.1 (6-22); Blood Urea Nitrogen 29 mg/dL (9-20); Calcium 9.3 mg/dL (8.4-10.2); Carbon Dioxide 29 mmol/L (22-32); Chloride 103 mmol/L (98-107); Estimated Glomerular Filt Rate > 60 mL/min (>60); Glucose 119 mg/dL (80-110); HEMOLYSIS < 15 (0-50); Potassium 4.6 mmol/L (3.4-5.1); Sodium 135 mmol/L (137-145)
[2024-02-26 12:46] LABS: Appearance Urine UA CLOUDY; Bilirubin Urine UA NEGATIVE (NEGATIVE); Color Urine UA YELLOW; Glucose Urine UA NEGATIVE (Negative); Ketones Urine UA NEGATIVE (NEGATIVE); Leukocyte Esterase Urine UA 3+ (NEGATIVE); Nitrite Urine UA POSITIVE (Negative); Occult Blood Urine UA 2+ (Negative); Protein Urine UA 2+ (Negative); Urobilinogen Urine UA 0.2 E.U./dL (0.2)
[2024-02-26 12:54] LABS: Bacteria Urine Moderate (10-30); Culture Indicated Urine Specimen Cultured; RBC Urine 1-5/HPF (0-5/HPF); Squamous Epithelial Cell Urine None Seen (0-5/HPF); Urine Volume 10mL (spun); WBC Urine 30-100/HPF (0-5/HPF)
== END ==
PROVIDERS: PCP Family Medicine; Referring Provider Family Medicine; Visit Provider Family Medicine
DX: N13.30 Unspecified hydronephrosis (principal); N13.5 Crossing vessel and stricture of ureter without hydronephrosis; N03.0 Chronic nephritic syndrome with minor glomerular abnormality; N39.0 Urinary tract infection, site not specified; R33.9 Retention of urine, unspecified; R10.9 Unspecified abdominal pain
CPT/HCPCS: 36415; 74176; 80048; 81001; 87086

== ENCOUNTER 2024-03-19 12:42 | Emergency (ER) | payer MEDICARE, OTHER, SELFPAY ==
[2023-08-16 04:00] VITALS: BMI 25.0
[2024-03-19 12:54] VITALS: BP 151/67; PULSE 89; RESP 18; TEMP 37.2; O2SAT 98; BMI 25.7
--- NOTE | 2024-03-19 12:58 | DI.RAD.S_ITS ---
PROCEDURE: XR KNEE RT 3V INDICATIONS: pain TECHNIQUE: 3 views of the knee were acquired. COMPARISON: [facility], , KNEE 1-2 VIEWS LEFT, 08/12/2007, 16:15. FINDINGS: Bones: Lateral shifting of the tibial component of the knee arthroplasty. Soft tissues: Moderate joint effusion. No suspicious soft tissue calcifications. IMPRESSION: Loosening of the tibial component of the knee arthroplasty, with lateral shift of the base. Dictated by: Johan Whiting M.D. on 03/19/2024 at 13:52 Approved by: Johan Whiting M.D. on 03/19/2024 at 13:52
--- NOTE | 2024-03-19 13:58 | ED_ITS ---
HPI - Extremity Problem <Leanna George PA-C - Last Filed: 03/19/24 15:18> General Chief complaint: Extremity Problem,Nontraumatic Stated complaint: Right knee pain Time Seen by Provider: 03/19/24 13:31 Source: patient Mode of arrival: Wheelchair History of Present Illness HPI Narrative: 78-year-old male presents with concern for right knee pain and inner thigh pain. Patient states for the past month his right knee has become more and more bothersome he normally ambulates with a cane and walker all the time because of gait instability issues but in the past month he is noticed his knee is painful with standing bearing weight and walking. He has no pain when he is sitting and moves his knee forward or back or moves the joint he does not feel like it has a joint issue although he notes the pain is mostly a burning sensation on the inside of his right knee. He also states he was hospitalized last fall after he had a blood clot or large blood collection in his inner thigh. Since that time he is continued to have some thigh pain on the inside and since his knee has been acting up in the past month he is noticed pains on the inside of his thigh as well in the muscles just above his knee. He denies shortness of breath, constant thigh pain or ache, numbness or tingling of the affected leg, new swelling of the affected leg or any other complaints or concerns. He takes Tylenol and ibuprofen once daily each for pain Related Data Home Medications Medication Instructions Recorded Confirmed cholecalciferol (vitamin D3) 50 2,000 unit PO DAILY 11/07/18 02/17/24 mcg (2,000 unit) capsule hydroxychloroquine 200 mg tablet 200 mg PO BID 05/09/22 02/17/24 prednisone 5 mg tablet 5 mg PO DAILY 08/16/23 02/17/24 Previous Rx's Medication Instructions Recorded Disabled Parking Permit #1 ea 10/03/20 Allergies Allergy/AdvReac Type Severity Reaction Status Date / Time cefepime AdvReac aphasia Verified 02/17/24 14:01 meropenem AdvReac Weakness Verified 02/17/24 14:01 Review of Systems <ENRIQUE Parks Last Filed: 03/19/24 15:18> Review of Systems Narrative: See HPI Patient History <Leanna George PA-C - Last Filed: 03/19/24 15:18> Medical History Lower urinary tract symptoms Urine retention PICC (peripherally inserted central catheter) in place Osteomyelitis Lymphocytopenia Chronic UTI DVT (deep venous thrombosis) Pulmonary embolus HLD (hyperlipidemia) Arthritis 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 Mother Diabetes mellitus Hyperlipidemia Sister Diabetes mellitus Social History marital status: number of children: 2 household members: family and children lives independently: Yes caregiver/support person: No housing: house education level: college occupational status: previously employed Smoking Status: Former smoker Tobacco: How many years used: 25 second hand exposure: No alcohol intake: current substance use type: does not use caffeine: Yes Type(s) of exercise: bicycling and weight lifting Smoking Status: Former smoker alcohol intake frequency: 0-2 drinks per day Substance Use Type: does not use Exam <Leanna George PA-C - Last Filed: 03/19/24 15:18> Narrative Exam Narrative: GENERAL: [78] year old patient appears stated age. Well-developed patient, in mild distress. HEAD: Atraumatic. Normocephalic. EYES: Pupils equal round and reactive. Extraocular motions intact. No scleral icterus. No injection or drainage. ENT: Nose without bleeding, purulent drainage. Airway patent. NECK: Trachea midline. Non tender CARDIOVASCULAR: Regular rate and rhythm without murmurs, gallops, or rubs. RESPIRATORY: Clear to auscultation. Breath sounds equal bilaterally. No wheezes, rales, or rhonchi. EXTREMITIES: Lower legs are slim with reduced muscle mass, there is tenderness on the medial aspect of the right knee. No appreciable swelling noted. Some tenderness medial and proximal to the right knee over the soft tissue/muscle, no bruising noted. Passive and active range of motion at the knee is pain-free. Distal pulses intact. No edema or joint tenderness. NEURO: AOx3. SKIN: No rash or erythema of visible areas Initial Vital Signs Initial Vital Signs: Vital Signs Temperature 99 F 03/19/24 12:54 Pulse Rate 89 03/19/24 12:54 Respiratory Rate 18 03/19/24 12:54 Blood Pressure 151/67 H 03/19/24 12:54 Pulse Oximetry 98 03/19/24 12:54 Oxygen Delivery Method Room Air 03/19/24 12:54 <Jennifer Adler DO - Last Filed: 03/20/24 08:54> Initial Vital Signs Initial Vital Signs: Vital Signs Temperature 99 F 03/19/24 12:54 Pulse Rate 89 03/19/24 12:54 Respiratory Rate 18 03/19/24 12:54 Blood Pressure 151/67 H 03/19/24 12:54 Pulse Oximetry 98 03/19/24 12:54 Oxygen Delivery Method Room Air 03/19/24 12:54 Course <Leanna George PA-C - Last Filed: 03/19/24 15:18> Orders Ordered: ED Orders 03/19/24 12:58 XR knee RT 3V Stat Vital Signs Vital signs: Vital Signs - 8 hr 03/19/24 12:54 Temperature 99 F Pulse Rate 89 Respiratory Rate 18 Blood Pressure 151/67 H Pulse Oximetry 98 Oxygen Delivery Method Room Air <Jennifer Adler DO - Last Filed: 03/20/24 08:54> Orders Ordered: ED Orders 03/19/24 12:58 XR knee RT 3V Stat Vital Signs Vital signs: Vital Signs - 8 hr 03/19/24 12:54 Temperature 99 F Pulse Rate 89 Respiratory Rate 18 Blood Pressure 151/67 H Pulse Oximetry 98 Oxygen Delivery Method Room Air MDM - Extremity (Nontraumatic) <Leanna George PA-C - Last Filed: 03/19/24 15:18> Differential Diagnosis Differential diagnosis: Likely other (Acute on chronic knee pain, prosthesis derangement, abnormal x-ray, muscle strain/mild sprain) Imaging Data Extremity x-ray #1: Radiologist's Impression: [address] [address] XRay Report Signed Patient: Lalo Hyde MR#: [id number] : 1945 Acct:[id number] Age/Sex: 78 / M Date of Service: 03/19/24 Loc: ED Accession Number: [id number] Procedure: XR knee RT 3V Ordering Provider: Jennifer Adler D.O. PROCEDURE: XR KNEE RT 3V INDICATIONS: pain TECHNIQUE: 3 views of the knee were acquired. COMPARISON: [facility], , KNEE 1-2 VIEWS LEFT, 08/12/2007, 16:15. FINDINGS: Bones: Lateral shifting of the tibial component of the knee arthroplasty. Soft tissues: Moderate joint effusion. No suspicious soft tissue calcifications. IMPRESSION: Loosening of the tibial component of the knee arthroplasty, with lateral shift of the base. Dictated by: Johan Whiting M.D. on 03/19/2024 at 13:52 Approved by: Johan Whiting M.D. on 03/19/2024 at 13:52 [facility] Narrative Medical decision making narrative: This is an 78-year-old male presenting with concern for worsening right knee pain with standing and ambulation for the past month with history of right knee replacement in 1999 and gait instability walks with cane and walker. X-ray shows a slight lateral displacement of the patient's tibial component of his right knee replacement, he also has some increasing pain of his medial thigh muscles in the past month. Suspect that he is putting additional strain on soft tissues due to the change in knee dynamics from the malposition of his knee replacement. Discussed this with the patient. He declines any stronger pain medicine will continue Tylenol ibuprofen, he is advised he can ambulate with walker and cane but encouraged to use primarily walker and minimize excessive ambulation if it causes pain. Follow up closely with Orthopedics for further recommendations. Return precautions provided, follow-up plan discussed, all questions answered. Discharge Plan Departure Patient Disposition: Home Clinical Impression: Abnormal x-ray of bone, History of knee joint replacement Acute knee pain Qualifiers: Laterality: right Qualified Code(s): M25.561 - Pain in right knee Activity Restrictions/Additional Instructions: *You have been diagnosed with [knee pain, abnormal x-ray of knee replacement] *What to do: *Please continue to take your regular medications as directed. [ ] New medication prescriptions sent to your pharmacy: [ ] [ ] New medication written as a paper prescription [ X] No new medications given *Please follow up with your primary care provider in 2-3 days, call for an appointment. Let them know you were seen in the Emergency Department and that we ask that you be seen in follow up. We will electronically transmit a record of today's note if your PCP is in our system. You came in today with concern for worsening right knee pain over the past month and some pain on the inside of your right thigh as well. X-rays of your knee show that your knee prosthesis at the top of your tibia has shifted slightly. I suspect that this may be the cause of your recent increasing knee pain and that the muscles tendons and ligaments on the inside of your knee and thigh that help to support your knee are under increased strain because of this change in the dynamic of your knee. You should continue to use your walker and if you are having a lot of pain with standing or ambulating try to minimize this. I think it is unrealistic for you to be in crutches as we discussed, I considered placing you in a knee brace however again with your mobility issues and gait instability I think this would not be ideal as you might be at higher risk of falls. Hopefully you can get into see Orthopedics soon for further evaluation and make a plan with them as far as next steps. Continue with Tylenol and ibuprofen as you usually take it, we discussed stronger pain medicines but you declined these which I definitely think is reasonable. You can try topical diclofenac gel as well which she is available [id number]. Follow up with her primary care provider and you should call the office number listed below to get scheduled with Orthopedics. *If you do not have a primary care provider please contact the [facility] Resource line at [phone]. They will ask some questions about your medical history and help get you set up with a doctor in the community. *Return to Emergency Department if you should have any new, worsening or concerning symptoms, such as [fever greater than 101 F, shaking chills, worsening pain, persistent vomiting or other bothersome symptoms] Prescriptions: No Action cholecalciferol (vitamin D3) 2,000 unit capsule 2,000 unit PO DAILY (DME) Disabled Parking Permit See Rx Instructions .ROUTE .MEDSUPPLY Qty: 1 0RF Rx Instructions: I find this person to be disabled hydroxychloroquine 200 mg Tablet 200 mg PO BID prednisone 5 mg tablet 5 mg PO DAILY Referrals: Abraham Akhtar MD [Physician] - (Lateral displacement of tibial aspect of knee replacement (circa 1999). Worsening knee pain/medial x1 mo) Dionne Snow MD [Primary Care Provider] - Stand Alone Forms: Patient Portal/API ED Sign-out <Jennifer Adler DO - Last Filed: 03/20/24 08:54> Cosign ED Attending Cosignature Attestation: I was available for consultation.
[2024-03-19 15:23] VITALS: BP 148/66; PULSE 85; RESP 17; O2SAT 99
== END 2024-03-19 15:24 | disposition home or self-care (01) ==
PROVIDERS: Emergency Provider Student in an Organized Health Care Education/Training Program; PCP Family Medicine
DX: M25.561 Pain in right knee (principal); R93.6 Abnormal findings on diagnostic imaging of limbs; Z96.651 Presence of right artificial knee joint
CPT/HCPCS: 73562; 99281; 99282

== ENCOUNTER → 2024-04-20 16:36 | Outpatient (CLI) | payer MEDICARE, OTHER, SELFPAY ==
[2023-08-16 04:00] VITALS: BMI 25.0
--- NOTE | 2024-04-20 16:42 | EKG_ITS ---
[place] [id number] [address] [place] [id number] Test Date: 2024-04-20 Pat Name: Lalo Hyde Department: Room: Gender: Male Ambulance Driver: AFSANEH : 1945 Requested By: Order Number: [id number] Reading MD: Devante Landa Measurements Intervals Cascade Rate: 86 P: -59 ME: 198 QRS: 42 QRSD: 82 T: 35 QT: 360 QTc: 430 Interpretive Statements Unusual P axis, possible ectopic atrial rhythm Electronically Signed On 04-22-2024 19:41:56 PDT by Devante Landa
[2024-04-20 17:33] LABS: Add Manual Diff / Slide Review NO; Basophils Absolute Auto 0 /uL (0-100); Basophils Percent Auto 0.7 % (0-2); Eosinophils Absolute Auto 200 /uL (0-450); Eosinophils Percent Auto 3.2 % (2-4); Hematocrit 38.2 % (41-53); Lymphocytes Absolute Auto 800 /uL (1100-4500); Lymphocytes Percent Auto 16.8 % (25-40); Mean Corpuscular Hemoglobin 32.9 PG (26-34); Mean Corpuscular Volume 96.7 fL (80-100); Monocytes Absolute Auto 300 /uL (0-900); Monocytes Percent Auto 5.4 % (3-14); Neutrophils Absolute Auto 3600 /uL (1500-7000); Neutrophils Percent Auto 73.9 % (50-75); Platelet Count 209 X10^3/uL (150-400); Red Blood Cell Count 3.95 X10^6/uL (4.5-5.9); Red Cell Distribution Width 14.4 % (11.6-14.8); White Blood Cell Count 4.9 X10^3/uL (4.5-11.0)
[2024-04-20 17:48] LABS: Albumin 3.9 g/dL (3.5-5.0); BUN Creatinine Ratio 24.4 (6-22); Blood Urea Nitrogen 29 mg/dL (9-20); C-Reactive Protein Quant 0.7 mg/dL (<1.0); Calcium 8.5 mg/dL (8.4-10.2); Carbon Dioxide 28 mmol/L (22-32); Chloride 102 mmol/L (98-107); Estimated Glomerular Filt Rate > 60 mL/min (>60); Glucose 97 mg/dL (80-110); HEMOLYSIS < 15 (0-50); Potassium 4.4 mmol/L (3.4-5.1); Sodium 133 mmol/L (137-145)
[2024-04-20 17:52] LABS: Prealbumin 23.3 mg/dL (17.6-36.0)
[2024-04-20 18:03] LABS: Vitamin D 25 Hydroxy (D3) 66.6 ng/mL (30.0-100.0)
[2024-04-20 18:26] LABS: Erythrocyte Sedimentation Rate 8 MM/HR (0-15)
== END ==
PROVIDERS: PCP Family Medicine; Referring Provider Orthopaedic Surgery Adult Reconstructive Orthopaedic Surgery; Visit Provider Orthopaedic Surgery Adult Reconstructive Orthopaedic Surgery
DX: Z01.818 Encounter for other preprocedural examination (principal); Z01.812 Encounter for preprocedural laboratory examination; R77.0 Abnormality of albumin; R73.9 Hyperglycemia, unspecified; E55.9 Vitamin D deficiency, unspecified; R70.0 Elevated erythrocyte sedimentation rate; R79.82 Elevated C-reactive protein (CRP)
CPT/HCPCS: 36415; 80048; 82040; 82306; 83036; 84134; 85025; 85651; 86140; 93005

== ENCOUNTER 2024-05-22 08:41 | Inpatient (IN) | payer MEDICARE, OTHER, SELFPAY ==
[2023-08-16 04:00] VITALS: BMI 25.0
[2024-05-12 12:51] VITALS: BMI 25.7
[2024-05-22] VITALS (8 sets, daily range): BP systolic 107–152; BP diastolic 58–86; PULSE 75–96; RESP 13–18; TEMP 36.4–37.1; O2SAT 93–99; BMI 25.0
--- NOTE | 2024-05-22 06:00 | DI.RAD.S_ITS ---
PROCEDURE: XR KNEE RT 1TO2V INDICATIONS: tka TECHNIQUE: 2 view(s) of the knee acquired. COMPARISON: [facility], , XR KNEE RT 3V, 03/19/2024, 13:07. FINDINGS: Bones: Patient is status post total right knee revision arthroplasty. Hardware components are in expected positions. Visualized bony structures are intact. Soft tissues: Overlying postoperative changes are noted. IMPRESSION: Expected immediate postoperative appearance, status post total right knee revision arthroplasty. Dictated by: Daniel Monahan M.D. on 05/22/2024 at 20:31 Approved by: Daniel Monahan M.D. on 05/22/2024 at 20:32
[2024-05-22] MEDS: LACTATED RINGERS 1,000 ML 42 ML IV ×2 (09:29→12:49)
[2024-05-22] MEDS: ACETAMINOPHEN 325 MG TABLET 975 MG PO (09:32)
--- NOTE | 2024-05-22 09:34 | PM.PREOP ---
Pre-operative Note Interval Note History & Physical reviewed/Exam performed by Physician: Yes Changes to H&P: No
[2024-05-22] MEDS: CEFAZOLIN 2 GM/100 ML PREMIX 100 ML IV ×2 (10:58→14:43)
[2024-05-22] MEDS: TRANEXAMIC ACID 1,000 MG VIAL 2000 MG INJ ×2 (11:10→14:36)
--- NOTE | 2024-05-22 12:20 | SUR.OPER ---
Supine on padded OR bed. Pillow under head, arms secured on padded armboards <90 degree abduction. Safety belt across torso. Non-operative leg secured with tape over blanket over lower leg. Operative leg secured in Efe positioner. Foam padded brace at thigh of operative leg.
[2024-05-22] MEDS: VANCOMYCIN 1,000 MG VIAL 1000 MG INTRA-ARTI (12:28)
[2024-05-22] MEDS: ROPIVACAINE/EPI/CLONIDINE/KET 50 ML SYRINGE INJ (12:47)
--- NOTE | 2024-05-22 16:31 | PT.IIE ---
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, initial encounter (05/22/24) Presence of right artificial knee joint (05/22/24) Surgery Performed Operation Date: 05/22/24 10:45 Actual Procedures p Total Knee Arthroplasty Revision Robot- of femoral and tibial components(Right) - Todd Hirsch MD Surgical History (Last Reviewed 05/22/24 @ 09:10 by Dea Cannon, RN) History of arthroplasty of left knee History of arthroplasty of right knee History of orthopedic surgery (05/11/22) History of orthopedic surgery (07/04/23) Hx of cataract extraction Hx of elbow surgery (~2019) Medical History (Last Reviewed 05/22/24 @ 09:10 by Dea Cannon, LEANDRO) Agent orange exposure Arthritis BPH (benign prostatic hyperplasia) Cataracts, bilateral Chronic cough (~2017) 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 Chronic UTI DVT (deep venous thrombosis) Foot pain (~2017) GI bleed (~03/2018) History of pulmonary embolism (~08/2015) HLD (hyperlipidemia) Lower urinary tract symptoms Lupus (systemic lupus erythematosus) Lymphocytopenia Osteomyelitis Pulmonary embolus Shoulder pain (~2014) Urine retention Physical Therapy Inpatient Evaluation/Re-Eval M1 PT/OT-IP Prior Functional Status Start: 05/22/24 17:18 Freq: NEEDED Status: Active Protocol: Document 05/22/24 16:31 AB (Rec: 05/22/24 17:35 AB [id number]) Medical Review Prior Functional Status Medical History Reviewed Yes Communication able to make needs known Mobility and Gait pt stated that he was modified independent with all mobilities using his 4WW Prior Functional Level (Other details) pt with recent R iliopsoas tear but pt stated that he has recovered from that, has balance issues per pt for the last 2 years presenting with double vision with unknow cause per pt. pt also has multiple feet/ankle sx affecting balance as well as peripheral neuropathy. Social History Household Members children Living Arrangements House Number of Floors (Floors) Two Floors Number of Stairs To Enter/Railing? pt stays on main level (2nd level) of the house no steps to enter but has 7 steps L rail ascending + 7 steps R rail ascending (pt stated that he uses the rail + hurrycane to do stairs) Home Environment High Toilet,Walk in Shower Home Equipment Four Wheel Walker,Leg Carburetor Expert, Grab Bars Near Toilet,Grab Bars In Shower Additional Social History Comment pt has his son and DIL to assist him at home pt has a hurrycane and has (2) 4WW (one for downstairs and another for upstairs) M2 PT-IP Current Condition Start: 05/22/24 17:18 Freq: NEEDED Status: Active Protocol: Document 05/22/24 16:31 AB (Rec: 05/22/24 17:35 AB [id number]) Physical Therapy Current Condition Current Condition Evaluation Date 05/22/24 Treatment Diagnosis s/p R TKA revision; difficulty in walking Onset Date 05/22/24 M3 PT-IP Subjective Start: 05/22/24 17:18 Freq: NEEDED Status: Active Protocol: Document 05/22/24 16:31 AB (Rec: 05/22/24 17:35 AB [id number]) Subjective Physical Therapy Visit Type Type Initial Evaluation Visit Start Time 16:31 Visit Stop Time 17:15 Number of FURNITURE MECHANIC Visits 0 Therapy Pain Assessment Pain When Pain Assessed At Rest Pain Present Pain Present Pain Reported Location Right Knee Intensity 5 Scale Used Numeric (0 - 10) Pain Behaviors Guarding Pain Management Techniques Distraction,Modification of Treatment,Re-positioning, Timing of Activity with Medications M4 PT-IP Mobility and Gait Start: 05/22/24 17:18 Freq: NEEDED Status: Active Protocol: Document 05/22/24 16:31 AB (Rec: 05/22/24 17:35 [id number]) PT-Bed Mobility Assessment Supine to Sit Supine to Sit Standby Assistance PT-Transfer Assessment Sit to and From Stand Sit to and from Stand Minimal Assistance,1 Person Assistance,Use of Upper Extremities Equipment Transfer Assistive Device Gait Belt,Front Wheeled Walker Orthotic/Prosthetic Devices or Brace: No Transfers Transfer Destination Chair Transfer Technique ambulated Transfer Ability Level of Assist Minimal Assistance,1 Person Assistance,Use of Upper Extremities Comments Mobility Comments pt supine in bed and agreeable to do PT. obtained PLOf and home set up from pt. post-op folder provided and reviewed contents. educated on HEP. BP in supine: 168/85. completed supine to sit SBA. able to sit on EOB SBA. sit to stand min A and ambulated in room ~ 20 ft using FWW. c/o feeling clammy towards end of ambulation and pt sat on the chair. BP checked: 131/84. positioned pt on the chair. nursing staff informed. set up pt for dinner. call light within reach. caregiver training set up at 9 am tomorrow. Gait Assessment Gait Gait Assistance Required: Minimum Assistance Distance (Feet) 20 Able to Maintain Weight Bearing Status Yes During Gait Assistive Devices Assistive Device Gait Belt,Front Wheeled Walker Orthotic/Prosthetic Devices or Brace: No Gait Deviations General Gait Pattern Antalgic,Decreased Stride Length,Decreased Feet Clearance Factors Limiting Gait Function Factors Limiting Gait Function Decreased Activity Tolerance, Decreased Sensation,Decreased Strength,Limited Range of Motion,Pain,Poor Balance,Poor Safety Awareness PT-Balance Assessment Sitting Balance and Reactions Static Sitting Balance Ability Normal Dynamic Sitting Balance Ability Good Standing Balance and Reactions Static Standing Balance Ability Fair Dynamic Standing Balance Ability Fair Device Used FWW M5 PT-IP Objective Assessments Start: 05/22/24 17:18 Freq: NEEDED Status: Active Protocol: Document 05/22/24 16:31 AB (Rec: 05/22/24 17:35 [id number]) Orientation Orientation/Cognition Level of Alertness Alert Orientation Name,Place,Situation Language Function Ability No Deficits Noted Safety Awareness Decreased Safety Awareness Memory Description No Deficits Noted Gross Range of Motion Lower Extremity ROM Assessment Right Impaired Impairments R knee flexion: ~ 90 deg Strength Lower Extremity Strength Assessment Right Impaired Hip 4-/5 Knee 4-/5 Sensation Assessment Sensation Sensation Description Numbness Comments Sensation Comments chronic LE neuropathy Muscle Tone Muscle Tone WNL Yes M6 PT-IP Treatment Start: 05/22/24 17:18 Freq: NEEDED Status: Active Protocol: Document 05/22/24 16:31 AB (Rec: 05/22/24 17:35 [id number]) Physical Therapy Treatment Exercises Exercises Heel Slides Education Education Provided Precautions,Weight Bearing Status,Post-Op Packet,Safety M7 PT-IP Assessment and Plan Start: 05/22/24 17:18 Freq: NEEDED Status: Active Protocol: Document 05/22/24 16:31 AB (Rec: 05/22/24 17:35 [id number]) PT Summary Assessment and Plan Potential Rehabilitation Potential Fair Status of Condition at Evaluation Evolving Summary Impairments Pain,ROM,Strength,Balance, Coordination,Sensation,Tone, Cognition,Bed Mobility, Transfers,Gait,Activity Tolerance Assessment Summary pt is an 78 y/o M s/p R TKA revision POD 0. pt requiring min A with mobility using FWW at this time and will likely progress during hospital stay. caregiver training set up for tomorrow at 9 am. will continue to assess progress. Goals Bed Mobility Goal Independent Transfer Goal Independent,Front Wheeled Walker,Four Wheeled Walker Gait Goal Independent,Front Wheel Walker ,Four Wheel Walker Gait Distance 200 Other Goals up/down 7 steps L rail + 7 steps R rail ascending SBA Days to Meet Goals 5 Frequency of Treatment Frequency Of Treatment Twice a Day Treatment Plan Physical Therapy Treatment Plan Bed Mobility Training,Transfer Training,Gait Training, Therapeutic Exercise,Balance Retraining,Post Op Education, Discharge Planning,Hot or Cold Pack,Neuromuscular Re-ed, Coordination Retraining,Manual Therapy Weight Bearing Status Weight Bearing Status Weight Bear as Tolerated Allowed Weight Bearing Amount (enter % RLE WBAT or #) (%) Recommendations To Nursing Amount of Assist Needed 1 Person Assist Discharge Recommendations PT Discharge Recommendations Home with Assistance, Outpatient PT Equipment Needed for Home Before FWW if not safe with 4WW Discharge Transportation Needs at Discharge Private Vehicle
[2024-05-22] MEDS: LACTATED RINGERS 1,000 ML 100 ML IV (16:42)
[2024-05-22] MEDS: IBUPROFEN 600 MG TABLET PO (16:42)
[2024-05-22] MEDS: ACETAMINOPHEN 325 MG TABLET 650 MG PO (16:42)
--- NOTE | 2024-05-22 17:24 | P.OP_ITS ---
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 Post-op diagnosis: same Procedure & Clinicians Procedure: Robotic assisted revision of femoral and tibial components of right total knee arthroplasty with cone and stem placement Same procedure as scheduled: Yes Surgeon: Todd Hirsch Metallography Teacher: Aminata Reyes Anesthesia Type: General, Spinal and Peripheral nerve block Operative Notes Estimated Blood Loss (mL): 200 Tourniquet time (min): 120 Procedure in detail: Right dual component revision of total knee arthroplasty with robotic assistance, preservation of prior patellar button, stemmed femur and tibia, cones in femur and tibia Implants: * Size 8 Revision Oxinium Femoral Component with Symmetric L shaped augments (10 distal, 5 posterior) on both the medial and lateral side and a 12mm X 120mm stem extension * Size 7 Tibial Component with 12 mm X 120 mm stem extension * Size 18 40 mm long Tibial Cone * Size 18 Femoral Cone * Size 18 High-Flex Posterior Stabilized Polyethylene Insert * Retained Patellar Button Procedure Summary: This 78-year-old male patient had a prior total knee arthroplasty performed by a partner of [employer] who has since retired. It was performed approximately 2 decades ago in an area in which there were non highly cross-linked polyethylene inserts. He went onto develop loosening of his tibial component with collapse. 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 I did aspirate his knee which returned negative for infection. I therefore discussed revision of his total knee arthroplasty with him in order to provide him with diminished symptoms. He wished to proceed. Intraoperatively I utilized robotic assistance for balancing of the prosthesis. The tibial component was completely detached from the cement. The femoral component remained well fixed, as shown in the photograph. Robotic assistance was used to plan the alignment of the eventual implants and resections were made according to planned augment sizes. I resected significant additional bone off of the tibia and planned to use a larger polyethylene insert in order to accommodate this additional resection. The trialed parameters for the range of motion and tension of the gaps can be seen in the photograph below from the robotic system. Procedure in Detail: This patient was seen preoperatively and evaluated for knee pain which was refractory to numerous nonoperative treatment modalities. Their pain correlated with radiographic changes demonstrating failure of a prior total knee arthroplasty. The risks and benefits of continued nonoperative management versus operative management were discussed at length and all of the patient?s questions were answered. Additional educational materials providing further details beyond our discussion in clinic were provided via a publicly available patient education video which included the incidence of medical complications associated with total knee arthroplasty, reasons for revision following total knee arthroplasty, and patient satisfaction rates following total knee arthroplasty. That video can be accessed at [email or web address] . With this understanding of the risks inherent to the procedure, the patient elected to move forward with operative management. Following preoperative optimization, the patient was scheduled for surgery. The patient was met in the preoperative holding area the day of the procedure and all questions were answered. The patient?s nares were swabbed with betadine in order to decolonize them from MRSA. Informed consent was signed and the right limb was marked with indelible ink.? The patient was brought back to the operating room where anesthesia was induced. The patient was transferred to the operating table and all bony prominences were padded. The operative site was prepped and draped in the usual sterile fashion. A second prep stick was utilized following drape placement. The incision was marked corresponding to the medial aspect of the tibial tubercle and the patella. Ioban was wrapped circumferentially around the knee. Prior to incision, tranexamic acid and cefazolin were administered. Templating images were displayed. A timeout procedure was performed verifying the patient?s identity, medical comorbidities, allergies, relevant medications, anesthesia type and the surgical plan. All present were in agreement. The assistance of a physician orthotic assistant was required for positioning, room setup, soft tissue retraction and wound closure. Without this assistance, the procedure would have been significantly more challenging and time consuming.?? Tourniquet was inflated. I began by excising the old scar. I dissected through the subcutaneous tissues down to the old arthrotomy and was able to identify it by the presence of nonresorbable stitches in the arthrotomy. I reused the initial trajectory of the arthrotomy. I performed a medial peel and excised the medial and lateral gutters. I sent these for culture. I inserted an intraosseous needle into the tibia and infiltrated 50 mL of dilute vancomycin into the tibia intending to infiltrate the soft tissues of the entire wound with dilute vancomycin by way of venous backflow. I everted the patella and inspected it to ensure it remained well fixed which it did. I excised hypertrophic bone from around the patellar implant and excised overgrown synovium around the patellar button as well. I did note some a chaidez debris in the synovial tissues. This was included in the sample that was sent for culture from the medial and lateral gutters respectively. I then inserted the pins for the robotic system into the femur and the tibia. The femoral pins were inserted through the wound and the tibial pins were inserted separately. I used the robotic system to map out the hip center, ankle center, and the knee. This involved registration of known landmarks and tracing of the old implants as well as the bony interfaces surrounding them. I then constructed a plan for eventual component positioning which would result in gap symmetry and balance. I then moved onto component resection. I began with the femur. I found that it remained well fixed and used a TTS saw to disrupt the interface between the implant and the cement. I passed this around circumferentially in the bone cement interface and then removed it using a back slapping device. I found that cement had remained attached to the femoral component and largely detached from the bone at the cement bone interface without significant bone loss with the exception of the anterior flange of the femur. I then moved onto the tibia. The tibia was grossly loose. I was able to tap it out with a blunt device after obtaining adequate retraction of the tibia. With the components both removed I then move forward with preparation of the femur. I planned for 10 mm distal augments and resected these areas using a bur both medially and laterally. I then planned for 5 mm augments posteromedially and posterolaterally and likewise removed them with a bur. I then inserted a femoral component. I found that the old intramedullary paloma hole from the initial total knee arthroplasty aligned well with the position of the housing for the stem in this revision knee. I was therefore able to insert it along with a 12 mm x 120 mm stem trial in my intended position along with the augments for the posterior and distal femur. I then prepped the femoral cone. This involved inserting a trial stem in the intended trajectory of the eventual implant and reaming over it before broaching over it. I used the smallest size femoral cone. I placed a femoral cone trial as well as the complete femoral trial including augments and the stem and found that it was able to fit appropriately. I then removed the femur and moved to the tibia. On the tibial side I removed the cement which had been left behind after the implant had been removed. I worked down the tibial canal to get the distal extent of the cement plug and removed this as well. I then obtained specimens from the intramedullary canal of the tibia which were sent for culture. Used the robotic bur to resect additional tibia planning to use a larger polyethylene insert to accommodate the bone loss in the tibia. I did not use any augments on the tibia so that I would be able to preserve the rotational control provided by the keel of the implant which becomes covered up when augments are used on the tibial side. I burred away this bone which required a new bur attachment because the 1st 1 became dull as it worked through the combination of bone and cement which had been left behind in the tibia. I then inserted the tibial trial. I had initially planned to use a 120 mm trial but the tibial pins were too close to the area to allow this so I initially trialed with an 80 mm stem instead, planning to switch this later in the case. I prepped a cone using a Reamer and then inserted a cone in place. I then performed a complete trial of both the tibial and femoral implants. The trial is included in the picture above. I was satisfied with these parameters as well as my gross assessment of the medial lateral balance and flexion-extension gap symmetry. I therefore move forward with component insertion. Components were assembled on the back table and while this was done I copiously irrigated the wound and soaked it in a dilute mixture of Betadine and peroxide. Cement was placed on the entirety of the undersurface of both the tibial and femoral components. Cement was placed onto the dry tibia and pressurized into the cancellous bone. I impacted the tibial component into place. Cement was removed. The tibia was reduced underneath the femur and placed cement onto the dry surface of the resected femur. I placed the femoral component as well as the intended polyethylene trial. Cement was removed from around the femur. I brought the knee into extension and manually pressurized the construct by pushing on the heel while the cement dried. The knee was bathed in a dilute mixture of betadine and peroxide. A mixture of Ropivacaine, Epinephrine, Clonidine and Toradol was infiltrated throughout the soft tissues into structures including the VMO, patellar tendon, quadriceps tendon, MCL and femoral periosteum. A low adductor canal block was also performed using this mixture unless one had been placed preoperatively by anesthesia. The knee was copiously irrigated with pulse lavage. Once cement had been allowed to dry the knee was again trialed. Range of motion was assessed by ensuring the knee could achieve full extension and assessing maximum passive knee flexion by elevating the femur and allowing the heel to passively fall towards the buttock. Gap symmetry was assessed by stressing the medial and lateral compartments in both extension and flexion. Laxity was assessed in both extension and flexion and the polyethylene trial was adjusted with shims as necessary. Patellar tracking was assessed with knee flexion. The tourniquet was let down and the polyethylene trial was removed. I inspected the knee inspected for excess cement and any residual bleeding. Once hemostasis was achieved I inserted the final polyethylene and ensured appropriate engagement of the dovetail locking mechanism.?? The arthrotomy was closed with absorbable interrupted suture ensuring that this extended to the top of the arthrotomy. This was backed up with running barbed suture throughout the arthrotomy. The skin was closed with 2-0 and 3-0 sutures. Surgical glue was applied and a soft dressing was placed.?The sponge, instrument and needle counts were reported as being correct at the end of the case.??No obvious complications occurred. The patient was transferred from the operating table back to a stretcher. The patient emerged from anesthesia without difficulty and was taken to the PACU in a stable condition.? Plan for aftercare: * Weightbearing as tolerated * Mobilization as soon as the patient has recovered from anesthesia. If physical therapists are unavailable at the time the patient is ready to ambulate, then nursing staff should help patient ambulate * Lovenox 30 mg b.i.d. for DVT prophylaxis given history of pulmonary embolism remotely * Continue with baseline corticosteroid regimen. Stress dose steroids were provided during today's procedure * Noah dressing to remain in place for 2 weeks. It will after 1 week at which time the cord can be removed and it can be used as normal dressing until follow-up * Multimodal pain regimen with no IV opioids ordered * Anticipate discharge home tomorrow * Follow up at [facility] in 2 weeks * Detailed postoperative instructions available at [email or web address]
--- NOTE | 2024-05-22 18:45 | PM.PN.1 ---
Subjective Subjective Interval history: Patient seen postoperatively following his knee revision. He is sitting in a chair in his room with his knee bent at approximately 80?. He reports he has no pain at this point in time. He has not had any opioids since surgery. He reports that he ambulated well with physical therapy and is eager to go home. The physical therapy note states that he required minimal assistance and was able to ambulate without any support. He does have stairs to enter his home and has 2 family members who will be able to help him up the stairs. We will move forward with plans for discharge home this evening given his quicker than expected recovery following this major surgery. We had initially planned for him to remain in the hospital for at least 1 evening however given his relatively expedited recovery we will allow him to recover at home per his wishes. Exam Vital Signs (past 8 hours): - 05/22/24 15:41 05/22/24 15:46 05/22/24 15:51 Temperature 98.2 F Pulse Rate 75 91 H 91 H Respiratory Rate 13 16 18 Blood Pressure 131/86 139/73 133/75 Pulse Oximetry 94 94 93 Oxygen Delivery Method Room Air Room Air Room Air Oxygen Flow Rate 05/22/24 16:28 05/22/24 17:17 05/22/24 18:13 Temperature 98.1 F 97.6 F 98.2 F Pulse Rate 92 H 93 H 96 H Respiratory Rate 18 18 18 Blood Pressure 139/58 L 131/84 118/71 Pulse Oximetry 96 96 95 Oxygen Delivery Method Oxygen Flow Rate 0 0 Oxygen Delivery Method Room Air Oxygen Flow Rate 0 PFSH Medical History Agent orange exposure Lower urinary tract symptoms Urine retention Osteomyelitis Lymphocytopenia Chronic UTI DVT (deep venous thrombosis) Pulmonary embolus HLD (hyperlipidemia) Arthritis 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 Mother Diabetes mellitus Hyperlipidemia Sister Diabetes mellitus Social History marital status: number of children: 2 household members: children lives independently: Yes caregiver/support person: No housing: house education level: college occupational status: previously employed Smoking Status: Former smoker Tobacco: How many years used: 25 second hand exposure: No alcohol intake: current substance use type: does not use caffeine: Yes Type(s) of exercise: bicycling and weight lifting Assessment & Plan Time-Based Coding :: [TOTAL MINUTES] spent with patient and on the chart (including review of chart, obtaining history, exam, reviewing outside data, placing orders, documenting exam and treatment plan, and counseling patient) on [DATE]. Quality VTE Deep Vein Thrombosis/Pulmonary Embolism Present on Admission: No
[2024-05-22] MEDS: HYDROXYCHLOROQUINE 200 MG TABLET PO (20:22)
[2024-05-22] MEDS: DOCUSATE 100 MG CAPSULE PO (20:22)
[2024-05-22] MEDS: ENOXAPARIN 30 MG/0.3 ML SYRINGE SUBCUT (20:22)
== END 2024-05-22 21:00 | disposition home or self-care (01) | DRG 468 ==
PROVIDERS: Admitting Provider Orthopaedic Surgery Adult Reconstructive Orthopaedic Surgery; PCP Family Medicine; Referring Provider Orthopaedic Surgery Adult Reconstructive Orthopaedic Surgery; Visit Provider Orthopaedic Surgery Adult Reconstructive Orthopaedic Surgery
PROC: 0SPC0JZ Removal of Synthetic Substitute from Right Knee Joint, Open Approach (ICD-10-PCS; principal; 2024-05-22 10:45)
DX: T84.052A Periprosthetic osteolysis of internal prosthetic right knee joint, initial encounter (principal); T84.032A Mechanical loosening of internal right knee prosthetic joint, initial encounter
CPT/HCPCS: 73560; 87070; 87075; 87176; 87205; 97162; 97530; C1776; J0330; J0690; J1100; J1170; J1650; J2405; J2704

== ENCOUNTER → 2024-06-05 14:59 | Outpatient (CLI) | payer MEDICARE, OTHER, SELFPAY ==
[2024-05-22 08:44] VITALS: BMI 25.0
--- NOTE | 2024-06-05 15:00 | DI.US.S_ITS ---
PROCEDURE: US PERIP VENOUS LOW EXTREM LT INDICATIONS: S/P RIGHT KNEE REPLACMENT / please evaluate for DVT TECHNIQUE: Real-time imaging, as well as color and pulse Doppler interrogation, were performed of the lower extremity deep veins from the inguinal ligament to the popliteal fossa, with documentation of the visualized calf veins. COMPARISON: [facility], , US PERIP VENOUS LOW EXTREM BI, 07/30/2023, 16:04. FINDINGS: The common femoral, femoral, popliteal, and the visualized calf veins are normally compressible, and free of intraluminal thrombus. Color and pulse Doppler demonstrate normal phasic intraluminal flow. There is normal augmentation response to distal compression maneuver. A Welsh's cyst is seen measuring 2.5 x 1.5 x 0.7 cm. IMPRESSION: No findings of lower extremity deep venous thrombosis. Dictated by: Pranav Lopez M.D. on 06/05/2024 at 15:23 Approved by: Pranav Lopez M.D. on 06/05/2024 at 15:24
== END ==
PROVIDERS: PCP Family Medicine; Referring Provider Physician Assistant; Visit Provider Physician Assistant
DX: M71.22 Synovial cyst of popliteal space [Baker], left knee (principal); Z96.651 Presence of right artificial knee joint
CPT/HCPCS: 93971

== ENCOUNTER → 2024-06-18 12:04 | Outpatient (CLI) | payer MEDICARE, OTHER, SELFPAY ==
[2024-05-22 08:44] VITALS: BMI 25.0
== END ==
PROVIDERS: PCP Family Medicine; Referring Provider Family Medicine; Visit Provider Surgery
DX: L84 Corns and callosities (principal); G62.9 Polyneuropathy, unspecified; M32.9 Systemic lupus erythematosus, unspecified
CPT/HCPCS: 99212; 99213

== ENCOUNTER → 2024-07-26 13:20 | Outpatient (CLI) | payer MEDICARE, OTHER, SELFPAY ==
[2024-05-22 08:44] VITALS: BMI 25.0
[2024-07-26 14:05] LABS: Influenza A - CEPHEID Flu A NEGATIVE (NEGATIVE); Influenza B - CEPHEID Flu B NEGATIVE (NEGATIVE); Respiratory Syncytial Virus Negative (Negative)
[2024-07-26 14:07] LABS: COVID-19 CEPHEID 4-PLEX PCR Negative (Negative)
== END ==
PROVIDERS: PCP Family Medicine; Visit Provider Nurse Practitioner Family
DX: R05.9 Cough, unspecified (principal)
CPT/HCPCS: 0241U

== ENCOUNTER → 2024-07-26 13:43 | Outpatient (CLI) | payer MEDICARE, OTHER, SELFPAY ==
[2024-05-22 08:44] VITALS: BMI 25.0
--- NOTE | 2024-07-26 13:44 | DI.RAD.S_ITS ---
PROCEDURE: XR CHEST 2V INDICATIONS: Cough TECHNIQUE: 2 views of the chest were acquired. COMPARISON: [facility], CR, XR CHEST FOR PICC 1V, 08/01/2023, 11:44. FINDINGS: Surgical changes and devices: None. Lungs and pleura: Lungs are clear. No pneumothorax. Blunting of the right costophrenic angle likely reflecting trace pleural effusion. Streaky opacities at the lung bases favored to represent atelectasis versus aspiration. Mediastinum: Mediastinal contours are normal. Heart size is normal. Bones and chest wall: No suspicious bony abnormalities. Soft tissues appear unremarkable. IMPRESSION: Probable right trace pleural effusion. Streaky opacities the lung bases favored to represent atelectasis versus aspiration. Approved by: Alyx Kahn M.D.,Ph.D. on 07/26/2024 at 23:46
== END ==
PROVIDERS: PCP Family Medicine; Referring Provider Nurse Practitioner Family; Visit Provider Nurse Practitioner Family
DX: R05.9 Cough, unspecified (principal)
CPT/HCPCS: 0241U; 71046

== ENCOUNTER → 2024-08-03 10:08 | Outpatient (CLI) | payer MEDICARE, OTHER, SELFPAY ==
[2024-05-22 08:44] VITALS: BMI 25.0
--- NOTE | 2024-08-03 10:10 | DI.RAD.S_ITS ---
PROCEDURE: XR CHEST 2V INDICATIONS: SOB, recent tx for pneumonia TECHNIQUE: 2 views of the chest were acquired. COMPARISON: [facility], CR, XR CHEST 2V, 07/26/2024, 13:42. FINDINGS: Surgical changes and devices: None. Lungs and pleura: Persistent blunting of the right costophrenic angle. Mediastinum: Mediastinal contours are normal. Heart size is normal. Bones and chest wall: No suspicious bony abnormalities. Soft tissues appear unremarkable. IMPRESSION: Persistent right costophrenic angle blunting suggestive of scarring versus effusion. Dictated by: Rama Reyes M.D. on 08/03/2024 at 13:18 Approved by: Rama Reyes M.D. on 08/03/2024 at 13:19
== END ==
LOC: RAD 10:10
PROVIDERS: PCP Family Medicine; Referring Provider Family Medicine; Visit Provider Family Medicine
DX: R06.02 Shortness of breath (principal)
CPT/HCPCS: 71046

== ENCOUNTER 2024-09-04 12:30 | Inpatient (IN) | payer MEDICARE, OTHER, SELFPAY ==
[2024-05-22 08:44] VITALS: BMI 25.0
[2024-09-04] VITALS (20 sets, daily range): BP systolic 131–170; BP diastolic 61–78; PULSE 79–97; RESP 13–24; TEMP 36.3–37.6; O2SAT 96–100; BMI 25.0; BMI 25.1
--- NOTE | 2024-09-04 12:52 | DI.RAD.S_ITS ---
PROCEDURE: XR CHEST 2V INDICATIONS: cough/hx of pnuemonia TECHNIQUE: 2 views of the chest were acquired. COMPARISON: [facility], CR, XR CHEST 2V, 08/03/2024, 10:08. FINDINGS: Surgical changes and devices: None. Lungs and pleura: Lungs are clear. Persistent blunting of the right costophrenic angle. Mediastinum: Mediastinal contours are normal. Heart size is normal. Bones and chest wall: No suspicious bony abnormalities. Soft tissues appear unremarkable. IMPRESSION: Persistent blunting of the right costophrenic angle. No focal infiltrates. Dictated by: Daniel Monahan M.D. on 09/04/2024 at 13:18 Approved by: Daniel Monahan M.D. on 09/04/2024 at 13:19
[2024-09-04 13:13] LABS: Add Manual Diff / Slide Review NO; Basophils Absolute Auto 0 /uL (0-100); Basophils Percent Auto 0.7 % (0-2); Eosinophils Absolute Auto 100 /uL (0-450); Eosinophils Percent Auto 4.1 % (2-4); Lymphocytes Absolute Auto 500 /uL (1100-4500); Mean Corpuscular HGB Conc 32.8 % (30-36); Mean Corpuscular Hemoglobin 27.9 PG (26-34); Mean Corpuscular Volume 85.2 fL (80-100); Monocytes Absolute Auto 200 /uL (0-900); Neutrophils Absolute Auto 2400 /uL (1500-7000); Neutrophils Percent Auto 74.2 % (50-75); Platelet Count 218 X10^3/uL (150-400); Red Blood Cell Count 2.17 X10^6/uL (4.5-5.9); Red Cell Distribution Width 17.6 % (11.6-14.8); White Blood Cell Count 3.2 X10^3/uL (4.5-11.0)
[2024-09-04 13:14] LABS: Hematocrit 18.5 % (41-53); Hemoglobin 6.1 g/dL (13.5-17.5)
[2024-09-04 13:21] LABS: INR 1.1 (0.9-1.3)
--- NOTE | 2024-09-04 13:23 | EKG_ITS ---
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
[2024-09-04 13:29] LABS: Lactate (Lactic Acid) 1.5 mmol/L (0.7-2.1)
[2024-09-04 13:30] LABS: Alanine Aminotransferase 30 IU/L (<50); Albumin 3.1 g/dL (3.5-5.0); Albumin Globulin Ratio 1.1 (1.0-2.8); Alkaline Phosphatase 58 U/L (38-126); Aspartate Aminotransferase 45 IU/L (17-59); BUN Creatinine Ratio 27.1 (6-22); Bilirubin Total 0.3 mg/dL (0.2-1.3); Blood Urea Nitrogen 32 mg/dL (9-20); Calcium 8.2 mg/dL (8.4-10.2); Carbon Dioxide 26 mmol/L (22-32); Chloride 103 mmol/L (98-107); Estimated Glomerular Filt Rate > 60 mL/min (>60); Globulin 2.7 g/dL (1.7-4.1); Glucose 95 mg/dL (80-110); HEMOLYSIS < 15 (0-50); Potassium 4.1 mmol/L (3.4-5.1); Sodium 133 mmol/L (137-145); Total Protein 5.8 g/dL (6.3-8.2)
[2024-09-04 13:42] LABS: NT-proBNP (BNP-Adult 18+) 1040 pg/mL (<450); Troponin I < 0.012 ng/mL (0.01-0.034)
[2024-09-04] MEDS: PANTOPRAZOLE 40 MG VIAL 80 MG IV (14:01)
--- NOTE | 2024-09-04 14:17 | ED_ITS ---
HPI - SOB/Dyspnea General Chief Complaint: Shortness of Breath/Dyspnea Stated Complaint: SOB, weakness, cough, recovering from Pneumonia Time Seen by Provider: 09/04/24 13:15 Source: patient, RN notes reviewed and old records reviewed Limitations: no limitations History of Present Illness HPI Narrative: 78-year-old male history of lupus on prednisone 5 mg daily, hydroxychloroquine with history of prior GI bleed requiring blood transfusion and negative upper and lower scopes who presents with complaint of shortness of breath with increased exertion and fatigue. He also notes some black tarry stools for the past week. States no fevers. No active chest pain. Short of breath particularly with exertion at rest he states he feels okay denies any orthopnea. Denies any nausea or vomiting today. States he has had loose stools for the past week several times daily that has been black and tarry. Denies any swelling of his extremities. Patient did note that he was treated for pneumonia with antibiotics fairly recently completed those. Related Data Home Medications Medication Instructions Recorded Confirmed cholecalciferol (vitamin D3) 50 2,000 unit PO DAILY 11/07/18 08/25/24 mcg (2,000 unit) capsule hydroxychloroquine 200 mg tablet 200 mg PO BID 05/09/22 08/25/24 prednisone 5 mg tablet 5 mg PO DAILY 08/16/23 08/25/24 Previous Rx's Medication Instructions Recorded Disabled Parking Permit #1 ea 10/03/20 acetaminophen 325 mg tablet 650 mg (2 x 325 mg) PO Q6H #90 tabs 05/22/24 cefadroxil 500 mg capsule 500 mg PO BID #30 caps 05/22/24 benzonatate 200 mg capsule 200 mg PO BID PRN cough #28 caps 07/26/24 Allergies Allergy/AdvReac Type Severity Reaction Status Date / Time cefepime AdvReac Severe aphasia Verified 08/25/24 11:00 meropenem AdvReac Severe Aphasia Verified 08/25/24 11:00 Review of Systems Review of Systems ROS Unobtainable: All systems reviewed & are unremarkable except as noted in HPI and below Patient History Medical History Agent orange exposure Lower urinary tract symptoms Urine retention Osteomyelitis Lymphocytopenia Chronic UTI DVT (deep venous thrombosis) Pulmonary embolus HLD (hyperlipidemia) Arthritis 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 Mother Diabetes mellitus Hyperlipidemia Sister Diabetes mellitus Social History marital status: number of children: 2 household members: children lives independently: Yes caregiver/support person: No housing: house education level: college occupational status: previously employed Smoking Status: Former smoker Tobacco: How many years used: 25 second hand exposure: No alcohol intake: current substance use type: does not use caffeine: Yes Type(s) of exercise: bicycling and weight lifting Smoking Status: Former smoker alcohol intake frequency: 3 or more drinks per day Substance Use Type: does not use Exam Narrative Exam Narrative: GENERAL: Alert and oriented x three, well-appearing elderly male in mild distress patient does not appear pale HEENT: Head normocephalic, atraumatic, EOMI, pupils reactive, face symmetric, moist mucous membranes NECK: Supple, full range of motion CARDIOVASCULAR: Regular rate and rhythm without murmurs, rubs or gallops. Edema bilateral lower extremities. RESPIRATORY: Breath sounds equal bilaterally, no wheezes rales or rhonchi. No tachypnea accessory muscle use. ABDOMEN: Soft, nontender. Normoactive bowel sounds all 4 quadrants. No guarding or rebound, rigidity, no mass : No CVA tenderness EXTREMITIES: Normal range of motion, no clubbing or edema. Neurovascularly intact NEUROLOGICAL: Cranial nerves II through XII grossly intact. Moving all extremities SKIN: Warm, dry, no petechiae, no rashes or lesions. Initial Vital Signs Initial Vital Signs: Vital Signs Temperature 97.4 F L 09/04/24 12:35 Pulse Rate 85 09/04/24 12:35 Respiratory Rate 20 09/04/24 12:35 Blood Pressure 131/62 09/04/24 12:35 Pulse Oximetry 100 09/04/24 12:35 Oxygen Delivery Method Room Air 09/04/24 12:35 Course Orders Ordered: ED Orders 09/04/24 12:51 EKG-12 Lead Stat Measure peak expiratory flow ONCE RT Consult Eval and Treat NOW 09/04/24 12:52 XR chest 2V Stat 09/04/24 13:00 Complete Blood Count AUTO DIFF Stat Comprehensive Metabolic Panel Stat Lactate (Lactic Acid) Stat NT-proBNP (BNP-Adult 18+) Stat Prothrombin Time INR Stat Troponin I Stat 09/04/24 13:43 PRBC [Packed Cells] Stat Type and Screen Stat Discontinued Medications Pantoprazole Sodium (Pantoprazole 40 Mg Vial) 80 mg IV NOW ONE Stop: 09/04/24 13:50 Last Admin: 09/04/24 14:01 Dose: 80 mg Documented By: MICHAEL Vital Signs Vital signs: Vital Signs - 8 hr 09/04/24 12:35 09/04/24 13:29 09/04/24 13:30 Temperature 97.4 F L Pulse Rate 85 81 80 Respiratory Rate 20 Blood Pressure 131/62 Pulse Oximetry 100 99 99 Oxygen Delivery Method Room Air 09/04/24 13:45 09/04/24 13:45 09/04/24 14:00 Temperature Pulse Rate 80 80 Respiratory Rate 20 18 Blood Pressure 164/72 H Pulse Oximetry 99 96 Oxygen Delivery Method Room Air Room Air 09/04/24 14:00 09/04/24 14:30 09/04/24 14:30 Temperature Pulse Rate 79 Respiratory Rate 13 Blood Pressure 151/72 H 157/70 H Pulse Oximetry 99 Oxygen Delivery Method 09/04/24 14:59 09/04/24 14:59 09/04/24 15:00 Temperature Pulse Rate 80 80 Respiratory Rate 19 23 Blood Pressure 147/65 H Pulse Oximetry 98 98 Oxygen Delivery Method 09/04/24 15:01 09/04/24 15:01 09/04/24 15:01 Temperature 98 F Pulse Rate 80 80 Respiratory Rate 16 17 Blood Pressure 159/72 H 159/72 H Pulse Oximetry 98 Oxygen Delivery Method 09/04/24 15:16 09/04/24 15:17 09/04/24 15:17 Temperature 97.8 F Pulse Rate 79 79 Respiratory Rate 16 21 Blood Pressure 152/67 H 152/67 H Pulse Oximetry 96 Oxygen Delivery Method MDM - SOB/Dyspnea Lab Data 09/04/24 13:00 09/04/24 13:00 Labs: Lab Results 09/04/24 09/04/24 Range/Units 13:00 13:43 WBC 3.2 L (4.5-11.0) X10^3/uL RBC 2.17 L (4.5-5.9) X10^6/uL Hgb 6.1 L* (13.5-17.5) g/dL Hct 18.5 L* (41-53) % MCV 85.2 (80-100) fL MCH 27.9 (26-34) PG MCHC 32.8 (30-36) % RDW 17.6 H (11.6-14.8) % Plt Count 218 (150-400) X10^3/uL Neut % (Auto) 74.2 (50-75) % Lymph % (Auto) 15.0 L (25-40) % [place] % (Auto) 6.0 (3-14) % Eos % (Auto) 4.1 H (2-4) % Baso % (Auto) 0.7 (0-2) % Neut # (Auto) 2400 (9352-2981) /uL Lymph # (Auto) 500 L (6524-2470) /uL [place] # (Auto) 200 (0-900) /uL Eos # (Auto) 100 (0-450) /uL Baso # (Auto) 0 (0-100) /uL PT 12.0 (9.4-12.5) SECONDS INR 1.1 (0.9-1.3) Sodium 133 L (137-145) mmol/L Potassium 4.1 (3.4-5.1) mmol/L Chloride 103 (98-107) mmol/L Carbon Dioxide 26 (22-32) mmol/L BUN 32 H (9-20) mg/dL Creatinine 1.18 (0.66-1.25) mg/dL Estimated GFR > 60 (>60) mL/min BUN/Creatinine Ratio 27.1 H (6-22) Glucose 95 (80-110) mg/dL Lactate 1.5 (0.7-2.1) mmol/L Calcium 8.2 L (8.4-10.2) mg/dL Total Bilirubin 0.3 (0.2-1.3) mg/dL AST 45 (17-59) IU/L ALT 30 (<50) IU/L Alkaline Phosphatase 58 (38-126) U/L Troponin I < 0.012 (0.01-0.034) ng/mL NT-Pro-B Natriuret Pep 1040 H (<450) pg/mL Total Protein 5.8 L (6.3-8.2) g/dL Albumin 3.1 L (3.5-5.0) g/dL Globulin 2.7 (1.7-4.1) g/dL Albumin/Globulin Ratio 1.1 (1.0-2.8) Blood Type O Positive Antibody Screen Negative Crossmatch See Detail Imaging Data Chest x-ray: Radiologist's Impression: [address] [address] XRay Report Signed Patient: Lalo Hyde MR#: [id number] : 1945 Acct:[id number] Age/Sex: 78 / M Date of Service: 09/04/24 Loc: ED Accession Number: [id number] Procedure: XR chest 2V Ordering Provider: Indigo Moss D.O. PROCEDURE: XR CHEST 2V INDICATIONS: cough/hx of pnuemonia TECHNIQUE: 2 views of the chest were acquired. COMPARISON: [facility], , XR CHEST 2V, 08/03/2024, 10:08. FINDINGS: Surgical changes and devices: None. Lungs and pleura: Lungs are clear. Persistent blunting of the right costophrenic angle. Mediastinum: Mediastinal contours are normal. Heart size is normal. Bones and chest wall: No suspicious bony abnormalities. Soft tissues appear unremarkable. IMPRESSION: Persistent blunting of the right costophrenic angle. No focal infiltrates. Dictated by: Daniel Monahan M.D. on 09/04/2024 at 13:18 Approved by: Daniel Monahan M.D. on 09/04/2024 at 13:19 ECG Data Attestation: I personally reviewed and interpreted this ECG as follows: Interpretation: Of 78 DC 222, QRS 82 QTC of 433. Patient has what looks to be a little bit of motion artifact lateral leads otherwise appears to be sinus rhythm but inverted P wave. Patient has prior from 04/20/2024 with P waves inverted. MDM Narrative Medical decision making narrative: Year-old male with increasing shortness of breath, patient has also noted black tarry stools for about 2 weeks. Hemoglobin is down quite a bit from March of 2024 no priors for comparison likely source he does have a slightly elevated BNP but do not think this is has been in source of shortness of breath today. Patient does note he has had a prior bleed once before did receive blood transfusion and got scoped upper and lower with no clear source found at that time was on medications to protect his stomach for a period of time afterwards. EKG sinus rhythm, inverted P wave. Labs show white count of 3.2, hemoglobin is 6.1 down from 13 in March of 2024 with hematocrit of 18.5 and platelets of 218. INR is 1, sodium is 133 potassium 4.1 chloride 103 CO2 is 26 BUN 32 with a creatinine of 1.18 glucose is 95 lactate is 1.5 with negative troponin less than 0.012 and a BNP of 1040. Past BNP was 1250 in July 2023. Patient's chest x-ray shows persistent blunting right costophrenic angle, no focal infiltrates. Patient received Protonix 80 mg IV. Was type and screened. Patient is agreeable for transfusion. Aware of current plan for inpatient stay, transfusion and possible EGD and scope. Spoke with Dr. Salter, we will see patient reviewed patient's findings. We will consult for potential scope. Spoke with Dr. Mendoza, who accepts for inpatient. Critical Care Time Critical Care Time Critical Care Time: Yes Total Critical Care Time: 35 Attestation: The high probability of a clinically significant, sudden or life threatening deterioration of the cardiac system(s) required my full and direct attention, intervention and personal management. The aggregate critical care time was [--] minutes. This time is in addition to time spent performing reported procedures but includes the following: [x] Data Review and interpretation [x] Patient assessment and monitoring of vital signs [x] Documentation [x] Medication orders and management Discharge Plan Departure Patient Disposition: Admitted As Inpatient Clinical Impression: GI bleed, Symptomatic anemia Prescriptions: No Action benzonatate 200 mg capsule 200 mg PO BID PRN (Reason: cough) Qty: 28 0RF cholecalciferol (vitamin D3) 2,000 unit capsule 2,000 unit PO DAILY (DME) Disabled Parking Permit See Rx Instructions .ROUTE .MEDSUPPLY Qty: 1 0RF Rx Instructions: I find this person to be disabled hydroxychloroquine 200 mg Tablet 200 mg PO BID acetaminophen 325 mg Tablet 650 mg PO Q6H Qty: 90 0RF cefadroxil 500 mg capsule 500 mg PO BID Qty: 30 0RF prednisone 5 mg tablet 5 mg PO DAILY Referrals: Dionne Snow MD [Primary Care Provider] -
--- NOTE | 2024-09-04 18:01 | PM.HP.1 ---
History of Present Illness History of Present Illness Date Patient Seen: 09/04/24 Time Patient Seen: 18:30 Chief complaint: SOB, weakness, cough, recovering from Pneumonia Narrative: 78-year-old male history of lupus (on hydroxychloroquine), chronic nephritic syndrome (on prednisone), prior GI bleed requiring blood transfusion (negative upper and lower endoscopies at the time) who presents with complaint of fatigue, SOB, increased dyspnea on exertion. He also notes some black tarry stools for the past week, which he initially attributed to antibiotics for a recent pneumonia. Symptoms initially were noted 2-3 weeks ago, was evaluated by his primary physician and found to have a pneumonia for which he was treated with antibiotics. Repeat CXR showed improvement of lung infiltrate but continued to experience persistent cough, SOB, and pleuritic chest pain. No fever, chills, nausea, vomiting, abdominal pain BRB per rectum. No significant change in appetite or early satiety, though he has been less inclined to eat over the past couple of weeks while feeling ill. He does note an unintentional loss of about 10 lb over the past month, typically has maintain a weight of about 190 lb for the past 10 years. ER evaluation notable for WBC 3.2, hemoglobin 6.1 (down from 13 in March of this year), hematocrit 18.5, platelets 218, INR 1, sodium 133, electrolytes otherwise normal, creatinine at baseline 1.18, lactate 1.5, troponin negative, BNP 1040 (previously 1250 07/2023). CXR shows persistent blunting of right costophrenic angle (present in 3 sets of imaging over past 6 weeks), no focal infiltrates. 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 Mother Diabetes mellitus Hyperlipidemia Sister Diabetes mellitus Social History marital status: number of children: 2 household members: children lives independently: Yes caregiver/support person: No housing: house education level: college occupational status: previously employed Smoking Status: Former smoker Tobacco: How many years used: 25 second hand exposure: No alcohol intake: current substance use type: does not use caffeine: Yes Type(s) of exercise: bicycling and weight lifting Meds Home Medications and Allergies Home Medications Medication Instructions Recorded Confirmed Type cholecalciferol (vitamin D3) 50 2,000 unit PO DAILY 11/07/18 09/04/24 History mcg (2,000 unit) capsule Disabled Parking Permit #1 ea 10/03/20 09/04/24 Rx hydroxychloroquine 200 mg tablet 200 mg PO BID 05/09/22 09/04/24 History prednisone 5 mg tablet 5 mg PO DAILY 08/16/23 09/04/24 History acetaminophen 325 mg tablet 650 mg (2 x 325 mg) PO Q6H #90 tabs 05/22/24 09/04/24 Rx Allergies Allergy/AdvReac Type Severity Reaction Status Date / Time cefepime AdvReac Severe aphasia Verified 08/25/24 11:00 meropenem AdvReac Severe Aphasia Verified 08/25/24 11:00 Review of Systems Review of Systems ROS: Yes All systems reviewed with the patient and are negative except as otherwise documented Exam Vital Signs (past 8 hours): - 09/04/24 12:35 09/04/24 13:29 09/04/24 13:30 Temperature 97.4 F L Pulse Rate 85 81 80 Respiratory Rate 20 Blood Pressure 131/62 Pulse Oximetry 100 99 99 Oxygen Delivery Method Room Air Oxygen Flow Rate 09/04/24 13:45 09/04/24 13:45 09/04/24 14:00 Temperature Pulse Rate 80 80 Respiratory Rate 20 18 Blood Pressure 164/72 H Pulse Oximetry 99 96 Oxygen Delivery Method Room Air Room Air Oxygen Flow Rate 09/04/24 14:00 11/08/24 14:30 09/04/24 14:30 Temperature Pulse Rate 79 Respiratory Rate 13 Blood Pressure 151/72 H 157/70 H Pulse Oximetry 99 Oxygen Delivery Method Oxygen Flow Rate 09/04/24 14:59 09/04/24 14:59 09/04/24 15:00 Temperature Pulse Rate 80 80 Respiratory Rate 19 23 Blood Pressure 147/65 H Pulse Oximetry 98 98 Oxygen Delivery Method Oxygen Flow Rate 09/04/24 15:01 09/04/24 15:01 09/04/24 15:01 Temperature 98 F Pulse Rate 80 80 Respiratory Rate 16 17 Blood Pressure 159/72 H 159/72 H Pulse Oximetry 98 Oxygen Delivery Method Oxygen Flow Rate 09/04/24 15:16 09/04/24 15:17 09/04/24 15:17 Temperature 97.8 F Pulse Rate 79 79 Respiratory Rate 16 21 Blood Pressure 152/67 H 152/67 H Pulse Oximetry 96 Oxygen Delivery Method Oxygen Flow Rate 09/04/24 15:30 09/04/24 15:30 09/04/24 16:00 Temperature Pulse Rate 83 97 H Respiratory Rate 24 24 Blood Pressure 148/61 H Pulse Oximetry 96 96 Oxygen Delivery Method Room Air Room Air Oxygen Flow Rate 09/04/24 16:00 09/04/24 16:30 09/04/24 16:30 Temperature Pulse Rate 81 Respiratory Rate 22 Blood Pressure 165/71 H 170/76 H Pulse Oximetry 97 Oxygen Delivery Method Oxygen Flow Rate 09/04/24 17:00 09/04/24 17:00 09/04/24 17:21 Temperature 98.1 F Pulse Rate 80 92 H Respiratory Rate 15 18 Blood Pressure 154/70 H 144/78 H Pulse Oximetry 99 Oxygen Delivery Method Room Air Oxygen Flow Rate 09/04/24 17:30 Temperature 98.1 F Pulse Rate 92 H Respiratory Rate 18 Blood Pressure 144/78 H Pulse Oximetry 98 Oxygen Delivery Method Oxygen Flow Rate 0 Oxygen Delivery Method Room Air Oxygen Flow Rate 0 Narrative Exam Narrative: General: Pleasant, NAD HEENT: NC/AT, EOMI, moist membranes CV: RRR, normal S1-S2, no m/g/r Resp: CTAB, comfortable WOB Abd: Soft, NTND, +BS Ext: No edema Skin: Mild bruising/hyperpigmentation on dorsal aspect of bilateral hands Neuro: A&O x3, moves all extremities, no focal deficits Objective Labs 09/04/24 13:00 09/04/24 13:00 Labs: Laboratory Results - last 24 hr 09/04/24 09/04/24 13:00 13:43 WBC 3.2 L RBC 2.17 L Hgb 6.1 L* Hct 18.5 L* MCV 85.2 MCH 27.9 MCHC 32.8 RDW 17.6 H Plt Count 218 Neut % (Auto) 74.2 Lymph % (Auto) 15.0 L [place] % (Auto) 6.0 Eos % (Auto) 4.1 H Baso % (Auto) 0.7 Neut # (Auto) 2400 Lymph # (Auto) 500 L [place] # (Auto) 200 Eos # (Auto) 100 Baso # (Auto) 0 PT 12.0 INR 1.1 Sodium 133 L Potassium 4.1 Chloride 103 Carbon Dioxide 26 BUN 32 H Creatinine 1.18 Estimated GFR > 60 BUN/Creatinine Ratio 27.1 H Glucose 95 Lactate 1.5 Calcium 8.2 L Total Bilirubin 0.3 AST 45 ALT 30 Alkaline Phosphatase 58 Troponin I < 0.012 NT-Pro-B Natriuret Pep 1040 H Total Protein 5.8 L Albumin 3.1 L Globulin 2.7 Albumin/Globulin Ratio 1.1 Blood Type O Positive Antibody Screen Negative Crossmatch See Detail Assessment & Plan Assessment and plan (1) GI bleed: Qualifiers: GI bleed type/associated pathology: unspecified gastrointestinal hemorrhage type Qualified Code(s): K92.2 - Gastrointestinal hemorrhage, unspecified Status: Acute (2) Symptomatic anemia: Status: Acute (3) Lupus: Status: Acute (4) 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 #UGIB #anemia Likely upper GI source given dark, tarry stools. No anticoagulation or regular NSAID use, may be result of chronic prednisone use. -s/p protonix 80 mg IV -1 unit PRBC transfused in ER -Dr. Joie consulted and will review for possible endoscopy -NPO after midnight -mIVF: NS 125 cc/hour #SLE -continue home hydroxychloroquine #chronic nephritic syndrome -hold home prednisone given possible contribution to bleed #elevated BNP 1040, below age specific cut off 1800 pg/mL for age > 75. No clinical or radiologic findings consistent with significant volume overload. -monitor symptoms s/p blood transfusion Dispo: Acute care Diet: Clear liquids, NPO AM GI ppx: IV PPI DVT ppx: SCDs Code: Full PCP: Edy MDM: Charan Hyde (son, ) Time-Based Coding :: 45 minutes spent with patient and on the chart (including review of chart, obtaining history, exam, reviewing outside data, placing orders, documenting exam and treatment plan, and counseling patient) on 09/04/2024. Quality VTE Deep Vein Thrombosis/Pulmonary Embolism Present on Admission: No IH PROFEE Charge Codes Initial inpatient/observation care: 53481
--- NOTE | 2024-09-04 18:19 | PC.NURSE ---
Patient admitted to the floor a bit earlier, he denies pain or discomfort. He had one unit of blood that finished up in the ER and vss. Dr dorman into see patient now and round on him. 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 He denies feeling dizzy and is comfortable in bed.
[2024-09-04] MEDS: SODIUM CHLORIDE 0.9% 1,000 ML 125 ML IV (21:09)
[2024-09-04] MEDS: HYDROXYCHLOROQUINE 200 MG TABLET PO (21:09)
[2024-09-04 21:24] LABS: Hematocrit 20.6 % (41-53); Hemoglobin 6.8 g/dL (13.5-17.5)
[2024-09-05] VITALS (17 sets, daily range): BP systolic 127–163; BP diastolic 64–101; PULSE 73–94; RESP 14–22; TEMP 36.4–37.7; O2SAT 91–100
--- NOTE | 2024-09-05 | PATH_ITS ---
[facility] Accession Number: [id number] No. of containers..01 Tissue . 01 Material submitted: . duodenum - DUODENITIS . 01 Diagnosis: DUODENITIS: Duodenal mucosa with prominent benign Valentine's glands and mild reactive changes suggestive of peptic duodenitis. No active inflammation identified. . Specimen Comments: Evaluation is slightly limited by tangential sectioning. No definite villous blunting is seen. STO 09/08/20241815 Local . 01 Electronically signed: . Jerod Wood MD, Pathologist NPI- [id number] . 01 Gross description: . DUODENITIS: Received in formalin are 2 fragment(s) of frye, soft tissue measuring 0.2 x 0.2 x 0.2 cm to 0.3 x 0.3 x 0.2 cm submitted entirely in 1 cassette(s) /ADA 09/08/20241815 Local . 01 Pathologist provided ICD-10: K29.80 . 01 CPT . 456765 Specimen Comment: A courtesy copy of this report has been sent to [phone] Performed at: [address] [id number] MD Jerod Wood MD Phone: [phone]
[2024-09-05 02:29] LABS: Hematocrit 22.8 % (41-53); Hemoglobin 7.7 g/dL (13.5-17.5)
[2024-09-05 07:15] LABS: Hematocrit 21.6 % (41-53); Hemoglobin 7.4 g/dL (13.5-17.5)
[2024-09-05] MEDS: SODIUM CHLORIDE 0.9% 1,000 ML 125 ML IV (08:33)
[2024-09-05] MEDS: HYDROXYCHLOROQUINE 200 MG TABLET PO ×2 (08:33→20:20)
--- NOTE | 2024-09-05 10:46 | P.PN_ITS ---
Subjective Subjective Date Patient Seen: 09/05/24 Time Patient Seen: 10:46 Interval history: Patient seen resting in bed. Reports sore throat is most bothersome symptom at this time, wonders if he can get something for this. Evaluated by Dr. Salter and planning for upper endoscopy this afternoon. Exam Vital Signs (past 8 hours): - 09/05/24 05:00 Temperature 98.5 F Pulse Rate 86 Respiratory Rate 16 Blood Pressure 128/66 Pulse Oximetry 97 Oxygen Flow Rate 0 Oxygen Delivery Method Room Air Oxygen Flow Rate 0 Narrative Exam Narrative: General: Pleasant, NAD HEENT: NC/AT, EOMI, moist membranes CV: RRR, normal S1-S2, no m/g/r Resp: CTAB, comfortable WOB Abd: Soft, NTND, +BS Ext: No edema Skin: Mild bruising/hyperpigmentation on dorsal aspect of bilateral hands Neuro: A&O x3, moves all extremities, no focal deficits Objective Labs 09/05/24 06:10 09/04/24 13:00 Labs: Laboratory Results - last 24 hr 09/04/24 09/04/24 09/04/24 13:00 13:43 21:10 WBC 3.2 L RBC 2.17 L Hgb 6.1 L* 6.8 L* Hct 18.5 L* 20.6 L* MCV 85.2 MCH 27.9 MCHC 32.8 RDW 17.6 H Plt Count 218 Neut % (Auto) 74.2 Lymph % (Auto) 15.0 L [place] % (Auto) 6.0 Eos % (Auto) 4.1 H Baso % (Auto) 0.7 Neut # (Auto) 2400 Lymph # (Auto) 500 L [place] # (Auto) 200 Eos # (Auto) 100 Baso # (Auto) 0 PT 12.0 INR 1.1 Sodium 133 L Potassium 4.1 Chloride 103 Carbon Dioxide 26 BUN 32 H Creatinine 1.18 Estimated GFR > 60 BUN/Creatinine Ratio 27.1 H Glucose 95 Lactate 1.5 Calcium 8.2 L Total Bilirubin 0.3 AST 45 ALT 30 Alkaline Phosphatase 58 Troponin I < 0.012 NT-Pro-B Natriuret Pep 1040 H Total Protein 5.8 L Albumin 3.1 L Globulin 2.7 Albumin/Globulin Ratio 1.1 Blood Type O Positive Antibody Screen Negative Crossmatch See Detail 09/05/24 09/05/24 02:10 06:10 WBC RBC Hgb 7.7 L 7.4 L Hct 22.8 L 21.6 L MCV MCH MCHC RDW Plt Count Neut % (Auto) Lymph % (Auto) [place] % (Auto) Eos % (Auto) Baso % (Auto) Neut # (Auto) Lymph # (Auto) [place] # (Auto) Eos # (Auto) Baso # (Auto) PT INR Sodium Potassium Chloride Carbon Dioxide BUN Creatinine Estimated GFR BUN/Creatinine Ratio Glucose Lactate Calcium Total Bilirubin AST ALT Alkaline Phosphatase Troponin I NT-Pro-B Natriuret Pep Total Protein Albumin Globulin Albumin/Globulin Ratio Blood Type Antibody Screen Crossmatch [facility] Medical History Agent orange exposure Lower urinary tract symptoms Urine retention Osteomyelitis Lymphocytopenia Chronic UTI DVT (deep venous thrombosis) Pulmonary embolus HLD (hyperlipidemia) Arthritis 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 Mother Diabetes mellitus Hyperlipidemia Sister Diabetes mellitus Social History marital status: number of children: 2 household members: children lives independently: Yes caregiver/support person: No housing: house education level: college occupational status: previously employed Smoking Status: Former smoker Tobacco: How many years used: 25 second hand exposure: No alcohol intake: current substance use type: does not use caffeine: Yes Type(s) of exercise: bicycling and weight lifting Assessment & Plan Assessment and plan (1) GI bleed: Qualifiers: GI bleed type/associated pathology: unspecified gastrointestinal hemorrhage type Qualified Code(s): K92.2 - Gastrointestinal hemorrhage, unspecified Status: Acute (2) Symptomatic anemia: Status: Acute (3) Lupus: Status: Acute (4) 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 #UGIB #anemia Likely upper GI source given dark, tarry stools. No anticoagulation or regular NSAID use, may be result of chronic prednisone use. -s/p protonix 80 mg IV x2 -s/p 2 unit PRBC transfused -H/H slightly improved 6.8/20.6 -> 7.4/21.6 -mIVF: NS 125 cc/hour -Dr. Salter consulted, EGD planned for today at 1400 -okay for clears until noon, then NPO for procedure #sore throat Likely due to persistent cough from recent pneumonia/respiratory infection. -cepacol lozenge prn #SLE -continue home hydroxychloroquine #chronic nephritic syndrome -hold home prednisone given possible contribution to bleed #elevated BNP 1040, below age specific cut off 1800 pg/mL for age > 75. No clinical or radiologic findings consistent with significant volume overload. -monitor symptoms s/p blood transfusion Dispo: Acute care Diet: Clear liquids, NPO for procedure GI ppx: IV PPI DVT ppx: SCDs Code: Full PCP: Edy MDM: Cahran Hyde (son, ) Time-Based Coding :: 30 minutes spent with patient and on the chart (including review of chart, obtaining history, exam, reviewing outside data, placing orders, documenting exam and treatment plan, and counseling patient) on 09/05/2024. Quality VTE Deep Vein Thrombosis/Pulmonary Embolism Present on Admission: No IH PROFEE Charge codes Subsequent inpatient/observation care: 08210
--- NOTE | 2024-09-05 10:51 | P.CONS_ITS ---
History of Present Illness Consult details Date Patient Seen: 09/05/24 Time Patient Seen: 10:52 Chief complaint: SOB, weakness, cough, recovering from Pneumonia Narrative: 78-year-old man PMH lupus on chronic prednisone, CVA admitted for GI bleed. One week of melena and progressive weakness. At admission hematocrit 19 baseline 38 received 2 units PRBC currently 22. Not on anticoagulation or NSAIDs. No hematemesis or abdominal pain. Had a previous GI bleed several years ago had both upper and lower endoscopy which were unremarkable. Consulted for upper endoscopy. Meds Home Medications and Allergies Home Medications Medication Instructions Recorded Confirmed Type cholecalciferol (vitamin D3) 50 2,000 unit PO DAILY 11/07/18 09/04/24 History mcg (2,000 unit) capsule Disabled Parking Permit #1 ea 10/03/20 09/04/24 Rx hydroxychloroquine 200 mg tablet 200 mg PO BID 05/09/22 09/04/24 History prednisone 5 mg tablet 5 mg PO DAILY 08/16/23 09/04/24 History acetaminophen 325 mg tablet 650 mg (2 x 325 mg) PO Q6H #90 tabs 05/22/24 09/04/24 Rx Allergies Allergy/AdvReac Type Severity Reaction Status Date / Time cefepime AdvReac Severe aphasia Verified 08/25/24 11:00 meropenem AdvReac Severe Aphasia Verified 08/25/24 11:00 Exam Vital Signs (past 8 hours): - 09/05/24 05:00 Temperature 98.5 F Pulse Rate 86 Respiratory Rate 16 Blood Pressure 128/66 Pulse Oximetry 97 Oxygen Flow Rate 0 Oxygen Delivery Method Room Air Oxygen Flow Rate 0 Narrative Exam Narrative: General adult man alert oriented no acute distress Chest nonlabored respiration Abdomen soft nontender nondistended Extremities warm well perfused Objective Labs 09/05/24 06:10 09/04/24 13:00 Labs: Laboratory Results - last 24 hr 09/04/24 09/04/24 09/04/24 13:00 13:43 21:10 WBC 3.2 L RBC 2.17 L Hgb 6.1 L* 6.8 L* Hct 18.5 L* 20.6 L* MCV 85.2 MCH 27.9 MCHC 32.8 RDW 17.6 H Plt Count 218 Neut % (Auto) 74.2 Lymph % (Auto) 15.0 L [place] % (Auto) 6.0 Eos % (Auto) 4.1 H Baso % (Auto) 0.7 Neut # (Auto) 2400 Lymph # (Auto) 500 L [place] # (Auto) 200 Eos # (Auto) 100 Baso # (Auto) 0 PT 12.0 INR 1.1 Sodium 133 L Potassium 4.1 Chloride 103 Carbon Dioxide 26 BUN 32 H Creatinine 1.18 Estimated GFR > 60 BUN/Creatinine Ratio 27.1 H Glucose 95 Lactate 1.5 Calcium 8.2 L Total Bilirubin 0.3 AST 45 ALT 30 Alkaline Phosphatase 58 Troponin I < 0.012 NT-Pro-B Natriuret Pep 1040 H Total Protein 5.8 L Albumin 3.1 L Globulin 2.7 Albumin/Globulin Ratio 1.1 Blood Type O Positive Antibody Screen Negative Crossmatch See Detail 09/05/24 09/05/24 02:10 06:10 WBC RBC Hgb 7.7 L 7.4 L Hct 22.8 L 21.6 L MCV MCH MCHC RDW Plt Count Neut % (Auto) Lymph % (Auto) [place] % (Auto) Eos % (Auto) Baso % (Auto) Neut # (Auto) Lymph # (Auto) [place] # (Auto) Eos # (Auto) Baso # (Auto) PT INR Sodium Potassium Chloride Carbon Dioxide BUN Creatinine Estimated GFR BUN/Creatinine Ratio Glucose Lactate Calcium Total Bilirubin AST ALT Alkaline Phosphatase Troponin I NT-Pro-B Natriuret Pep Total Protein Albumin Globulin Albumin/Globulin Ratio Blood Type Antibody Screen Crossmatch [facility] Medical History Agent orange exposure Lower urinary tract symptoms Urine retention Osteomyelitis Lymphocytopenia Chronic UTI DVT (deep venous thrombosis) Pulmonary embolus HLD (hyperlipidemia) Arthritis 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 Mother Diabetes mellitus Hyperlipidemia Sister Diabetes mellitus Social History marital status: number of children: 2 household members: children lives independently: Yes caregiver/support person: No housing: house education level: college occupational status: previously employed Tobacco & Substance Use Smoking Status: Former smoker Tobacco: How many years used: 25 second hand exposure: No alcohol intake: current substance use type: does not use Diet and Exercise caffeine: Yes Type(s) of exercise: bicycling and weight lifting Assessment & Plan Assessment and plan (1) GI bleed: Qualifiers: GI bleed type/associated pathology: unspecified gastrointestinal hemorrhage type Qualified Code(s): K92.2 - Gastrointestinal hemorrhage, unspecified Status: Acute Assessment & Plan narrative: 78M with hemodynamically stable GIB presumebuly upper. Will proceed with upper endoscopy. Overview of the procedure risks benefits alternatives reviewed. Questions answered and he provides his informed consent to proceed. 1400 09/05/24 EGD Time-Based Coding :: [TOTAL MINUTES] spent with patient and on the chart (including review of chart, obtaining history, exam, reviewing outside data, placing orders, documenting exam and treatment plan, and counseling patient) on [DATE].
[2024-09-05] MEDS: PANTOPRAZOLE 40 MG VIAL 80 MG IV (13:27)
--- NOTE | 2024-09-05 14:20 | PM.OP.EGD ---
Operative Date/Time/Diagnoses Date of procedure: 09/05/24 Time of procedure: 14:20 Pre-op diagnosis: GI bleed Post-op diagnosis: other (Duodenitis) Procedure & Clinicians Study performed: Esophagogastroduodenoscopy Same procedure as scheduled: Yes Indications: 78-year-old man on chronic prednisone presents with a hemodynamically stable GI bleed presumably upper taken for upper endoscopy Surgeon: Dario Salter Procedure Notes Procedure in detail: The history and physical was performed/updated and the patient is ASA class is 3. The procedure was discussed in detail with the patient. Potential risks complications including infection, bleeding, missed diagnosis, perforation, need for surgery, and were explained. Their questions were answered and informed consent was obtained. Patient placed in left lateral decubitus position. Time out was performed. Procedural sedation was administered by Anesthesia. A bite block was placed. the scope was inserted into the mouth and advanced through the esophagus and into the stomach. The pylorus was intubated and the duodenum was examined to the 2nd portion. Multiple biopsies of the duodenum were performed with forceps. The scope was then withdrawn into the stomach and was retroflexed. The stomach was decompressed and scope was withdrawn slowly through the esophagus. FINDINGS -Diffuse duodenitis without active hemorrhage. -No distinct ulcer The patient tolerated the procedure well and will be discharged when they meet criteria. Specimen(s): other (Duodenum) Impression: Duodenitis Post-procedure Plan for aftercare: Protonix 40 mg b.i.d. Disposition: Acute Care
[2024-09-05] MEDS: PANTOPRAZOLE DR 40 MG TABLET PO (20:20)
[2024-09-06] VITALS: BP 134/73; PULSE 94; RESP 18; TEMP 37.3; O2SAT 95
[2024-09-06] MEDS: SODIUM CHLORIDE 0.9% 1,000 ML 125 ML IV (03:02)
[2024-09-06 04:00] VITALS: BP 124/78; PULSE 83; RESP 22; TEMP 37.1; O2SAT 92
--- NOTE | 2024-09-06 05:59 | PM.DS.1 ---
History of Present Illness History of Present Illness Date Patient Seen: 09/06/24 Chief complaint: SOB, weakness, cough, recovering from Pneumonia Narrative: 78-year-old male history of lupus (on hydroxychloroquine), chronic nephritic syndrome (on prednisone), prior GI bleed requiring blood transfusion (negative upper and lower endoscopies at the time) who presents with complaint of fatigue, SOB, increased dyspnea on exertion. He also notes some black tarry stools for the past week, which he initially attributed to antibiotics for a recent pneumonia. Symptoms initially were noted 2-3 weeks ago, was evaluated by his primary physician and found to have a pneumonia for which he was treated with antibiotics. Repeat CXR showed improvement of lung infiltrate but continued to experience persistent cough, SOB, and pleuritic chest pain. No fever, chills, nausea, vomiting, abdominal pain BRB per rectum. No significant change in appetite or early satiety, though he has been less inclined to eat over the past couple of weeks while feeling ill. He does note an unintentional loss of about 10 lb over the past month, typically has maintain a weight of about 190 lb for the past 10 years. ER evaluation notable for WBC 3.2, hemoglobin 6.1 (down from 13 in March of this year), hematocrit 18.5, platelets 218, INR 1, sodium 133, electrolytes otherwise normal, creatinine at baseline 1.18, lactate 1.5, troponin negative, BNP 1040 (previously 1250 07/2023). CXR shows persistent blunting of right costophrenic angle (present in 3 sets of imaging over past 6 weeks), no focal infiltrates. Discharge Providers Provider Date of admission: 09/04/24 16:11 Discharge Date: 09/06/24 Primary care physician: Dionne Snow MD Consults: 09/05/24 10:28 Consult to General Surgery Routine Comment: Consulting Provider: Dario Salter Reason for consultation: Upper GI bleed Has provider been notified: Yes Discharge provider: Robin Mendoza MD Summary Hospital Course Discharge Diagnosis: #upper GI bleed #duodenitis #symptomatic anemia # SLE #chronic nephritic syndrome #elevated BNP Hospital Course: Admitted for symptomatic anemia with hemoglobin < 7. Received 2 units PRBC with improvement of hemoglobin to 7.4. Underwent upper endoscopy which was notable for diffuse duodenitis without active hemorrhage or distinct ulcer. Discharged home with Protonix 40 mg b.i.d., advised follow-up with primary physician regarding long-term use of prednisone given potential contribution to bleeding. Status at Discharge Cognitive/behavioral status at discharge: oriented Functional status at discharge: independent ambulation Overall status at discharge: patient is back to baseline Time Spent with Patient Time spent: Less than 30 minutes Exam Vital Signs (past 8 hours): - 09/06/24 00:00 09/06/24 04:00 Temperature 99.2 F 98.7 F Pulse Rate 94 H 83 Respiratory Rate 18 22 Blood Pressure 134/73 124/78 Pulse Oximetry 95 92 Oxygen Flow Rate 0 0 Oxygen Delivery Method Room Air Oxygen Flow Rate 0 Narrative Exam Narrative: General: Pleasant, NAD HEENT: NC/AT, EOMI, moist membranes CV: RRR, normal S1-S2, no m/g/r Resp: CTAB, comfortable WOB Abd: Soft, NTND, +BS Ext: No edema Skin: Mild bruising/hyperpigmentation on dorsal aspect of bilateral hands Neuro: A&O x3, moves all extremities, no focal deficits Objective Labs 09/06/24 06:50 09/04/24 13:00 Labs: Laboratory Results - last 24 hr 09/05/24 06:10 Hgb 7.4 L Hct 21.6 L PFSH Medical History Agent orange exposure Lower urinary tract symptoms Urine retention Osteomyelitis Lymphocytopenia Chronic UTI DVT (deep venous thrombosis) Pulmonary embolus HLD (hyperlipidemia) Arthritis 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 Mother Diabetes mellitus Hyperlipidemia Sister Diabetes mellitus Social History marital status: number of children: 2 household members: children lives independently: Yes caregiver/support person: No housing: house education level: college occupational status: previously employed Smoking Status: Former smoker Tobacco: How many years used: 25 second hand exposure: No alcohol intake: current substance use type: does not use caffeine: Yes Type(s) of exercise: bicycling and weight lifting Discharge Assessment & Plan Assessment and Plan Assessment: 78-year-old male with a history of lupus (on HCQ), chronic nephritic syndrome (on prednisone), previous GI bleed requiring transfusion without identified source admitted for likely upper GI bleed. Plan of Treatment: #UGIB #anemia #duodenitis Likely upper GI source given dark, tarry stools. No anticoagulation or regular NSAID use, may be result of chronic prednisone use. S/p 2 unit PRBC transfused with slight improvement of H/H 6.8/20.6 -> 7.4/21.6 -> 7.3/21.4; EGD findings notable for diffuse duodenitis without active hemorrhage or distinct ulcer. -protonix 40 mg b.i.d. #SLE #chronic nephritic syndrome -continue home hydroxychloroquine -hold home prednisone given possible contribution to bleed #elevated BNP 1040, below age specific cut off 1800 pg/mL for age > 75. Persistent right costophrenic angle blunting on serial x-rays the with a past 6 weeks, no clinical or other radiologic findings consistent with significant volume overload. -monitor symptoms Discharge Plan Discharge Plan Patient Disposition: Home Discharge orders & Medications Prescriptions: New pantoprazole 40 mg Tablet,Delayed Release (Dr/Ec) 40 mg PO BID Qty: 60 2RF ferrous sulfate 325 mg (65 mg iron) Tablet 325 mg PO DAILY Qty: 90 0RF Continued cholecalciferol (vitamin D3) 2,000 unit capsule 2,000 unit PO DAILY (DME) Disabled Parking Permit See Rx Instructions .ROUTE .MEDSUPPLY Qty: 1 0RF Rx Instructions: I find this person to be disabled hydroxychloroquine 200 mg Tablet 200 mg PO BID acetaminophen 325 mg Tablet 650 mg PO Q6H Qty: 90 0RF prednisone 5 mg tablet 5 mg PO DAILY Follow up/Referrals: Dionne Snow MD [Primary Care Provider] - Diet/Activity/Treatments Diet: Regular Visit Report/Discharge Packet Instructions: DI for Gastritis Stand Alone Forms: Patient Portal/API, Stroke Signs & Symptoms, EGD Result: [facility] Surg Discharge Data Primary Care Provider: Dionne Snow Quality VTE Deep Vein Thrombosis/Pulmonary Embolism Present on Admission: No IH PROFEE Charge Codes Discharge inpatient/observation: [id number]
[2024-09-06] MEDS: PANTOPRAZOLE DR 40 MG TABLET PO (06:23)
--- NOTE | 2024-09-06 06:54 | PC.NURSE ---
^ R eye bruise noted this morning. patient denies falling or hitting eye. denies vision changes or pain. no external bleeding noted. VSS.
[2024-09-06 07:36] LABS: Hematocrit 22.5 % (41-53); Hemoglobin 7.3 g/dL (13.5-17.5); Mean Corpuscular HGB Conc 32.5 % (30-36); Mean Corpuscular Hemoglobin 28.3 PG (26-34); Mean Corpuscular Volume 87.1 fL (80-100); Platelet Count 200 X10^3/uL (150-400); Red Blood Cell Count 2.59 X10^6/uL (4.5-5.9); Red Cell Distribution Width 16.9 % (11.6-14.8); White Blood Cell Count 3.4 X10^3/uL (4.5-11.0)
[2024-09-06 08:00] VITALS: BP 116/45; PULSE 90; RESP 15; TEMP 36.8; O2SAT 99
[2024-09-06] MEDS: HYDROXYCHLOROQUINE 200 MG TABLET PO (08:50)
[2024-09-06] MEDS: FERROUS SULFATE 325 MG TABLET PO (08:50)
--- NOTE | 2024-09-06 11:19 | PC.NURSE ---
Discharge note: Discharge instructions given to patient, discussed importance of F/U with , Rx adherence, dietary changes, and signs of worsening symptoms. Patient verbalized understanding of instructions. Home via private vehicle accompanied by son. Rx to be picked up on way home.
== END 2024-09-06 11:45 | disposition home or self-care (01) | DRG 379 ==
LOC: ED 16:07 → AC 16:11
PROVIDERS: Surgery; Admitting Provider Family Medicine; Emergency Provider Emergency Medicine; PCP Family Medicine; Referring Provider Emergency Medicine; Visit Provider Family Medicine
PROC: 0DJ08ZZ Inspection of Upper Intestinal Tract, Via Natural or Artificial Opening Endoscopic (ICD-10-PCS; principal; 2024-09-05 14:00)
DX: K29.81 Duodenitis with bleeding (principal); N05.0 Unspecified nephritic syndrome with minor glomerular abnormality; I77.6 Arteritis, unspecified; D64.89 Other specified anemias; M32.9 Systemic lupus erythematosus, unspecified; R79.89 Other specified abnormal findings of blood chemistry; R06.02 Shortness of breath; Z79.52 Long term (current) use of systemic steroids; Z87.891 Personal history of nicotine dependence; Z86.73 Personal history of transient ischemic attack (TIA), and cerebral infarction without residual deficits; Z79.69 Long term (current) use of other immunomodulators and immunosuppressants
CPT/HCPCS: 36415; 36430; 43235; 71046; 80053; 83605; 83880; 84484; 85014; 85018; 85025; 85027; 85610; 86850; 86900; 86901; 93005; 93010; 96374; 99222; 99232; 99238; 99285; 99291; P9016; J0330; J2405; J2470; J2704; J3010

== ENCOUNTER → 2024-09-08 11:05 | Outpatient (CLI) | payer MEDICARE, OTHER, SELFPAY ==
[2024-05-22 08:44] VITALS: BMI 25.0
[2024-09-04 17:46] VITALS: BMI 25.1
== END ==
LOC: RESP 11:07
PROVIDERS: PCP Family Medicine; Referring Provider Family Medicine; Visit Provider Family Medicine
DX: R06.02 Shortness of breath (principal); Z87.891 Personal history of nicotine dependence; R94.2 Abnormal results of pulmonary function studies
CPT/HCPCS: 94060; 94726; 94729

== ENCOUNTER → 2024-09-22 10:26 | Outpatient (CLI) | payer MEDICARE, OTHER, SELFPAY ==
[2024-09-04 17:46] VITALS: BMI 25.1
[2024-09-22 12:19] LABS: Add Manual Diff / Slide Review NO; Basophils Absolute Auto 0 /uL (0-100); Basophils Percent Auto 0.8 % (0-2); Eosinophils Absolute Auto 100 /uL (0-450); Eosinophils Percent Auto 1.7 % (2-4); Lymphocytes Absolute Auto 600 /uL (1100-4500); Lymphocytes Percent Auto 17.2 % (25-40); Mean Corpuscular HGB Conc 31.6 % (30-36); Mean Corpuscular Hemoglobin 26.1 PG (26-34); Mean Corpuscular Volume 82.5 fL (80-100); Monocytes Absolute Auto 200 /uL (0-900); Monocytes Percent Auto 4.7 % (3-14); Neutrophils Absolute Auto 2700 /uL (1500-7000); Neutrophils Percent Auto 75.6 % (50-75); Platelet Count 249 X10^3/uL (150-400); Red Blood Cell Count 2.36 X10^6/uL (4.5-5.9); Red Cell Distribution Width 16.7 % (11.6-14.8); White Blood Cell Count 3.6 X10^3/uL (4.5-11.0)
[2024-09-22 12:34] LABS: Hematocrit 19.5 % (41-53); Hemoglobin 6.1 g/dL (13.5-17.5)
[2024-09-22 12:49] LABS: Alanine Aminotransferase 27 IU/L (<50); Albumin 3.3 g/dL (3.5-5.0); Albumin Globulin Ratio 1.2 (1.0-2.8); Alkaline Phosphatase 76 U/L (38-126); Appearance Urine UA CLEAR; Aspartate Aminotransferase 38 IU/L (17-59); BUN Creatinine Ratio 22.2 (6-22); Bilirubin Total 0.4 mg/dL (0.2-1.3); Bilirubin Urine UA NEGATIVE (NEGATIVE); Blood Urea Nitrogen 32 mg/dL (9-20); Calcium 8.5 mg/dL (8.4-10.2); Carbon Dioxide 23 mmol/L (22-32); Chloride 101 mmol/L (98-107); Color Urine UA YELLOW; Estimated Glomerular Filt Rate 49 mL/min (>60); Globulin 2.7 g/dL (1.7-4.1); Glucose 102 mg/dL (80-110); Glucose Urine UA NEGATIVE (Negative); HEMOLYSIS < 15 (0-50); Ketones Urine UA NEGATIVE (NEGATIVE); Leukocyte Esterase Urine UA NEGATIVE (NEGATIVE); Nitrite Urine UA NEGATIVE (Negative); Occult Blood Urine UA NEGATIVE (Negative); Potassium 4.7 mmol/L (3.4-5.1); Protein Urine UA 1+ (Negative); Sodium 131 mmol/L (137-145); Urobilinogen Urine UA 0.2 E.U./dL (0.2)
[2024-09-22 12:52] LABS: Iron 153 ug/dL (49-181)
[2024-09-22 13:06] LABS: Bacteria Urine Occasional (0-1); Culture Indicated Urine Cult Not Indicated; RBC Urine None Seen (0-5/HPF); Squamous Epithelial Cell Urine None Seen (0-5/HPF); Urine Volume 10mL (spun); WBC Urine 0-1/HPF (0-5/HPF)
[2024-09-22 13:24] LABS: TSH w/ Reflex to FT4 1.77 uIU/mL (0.47-4.68)
[2024-09-22 13:26] LABS: Ferritin 38 ng/mL (18-464)
[2024-09-22 14:00] LABS: Folate 13.9 ng/mL (2.76-20.0); Vitamin B12 706 pg/mL (239-931)
== END ==
PROVIDERS: PCP Family Medicine; Referring Provider Family Medicine; Visit Provider Family Medicine
DX: R53.83 Other fatigue (principal); R50.9 Fever, unspecified
CPT/HCPCS: 36415; 80053; 81001; 82607; 82728; 82746; 83540; 84443; 85025; 87040

== ENCOUNTER → 2024-09-29 10:31 | Outpatient (CLI) | payer MEDICARE, OTHER, SELFPAY ==
[2024-09-04 17:46] VITALS: BMI 25.1
[2024-09-29 11:08] LABS: Add Manual Diff / Slide Review NO; Basophils Absolute Auto 0 /uL (0-100); Basophils Percent Auto 0.5 % (0-2); Eosinophils Absolute Auto 100 /uL (0-450); Eosinophils Percent Auto 3.1 % (2-4); Hemoglobin 8.3 g/dL (13.5-17.5); Lymphocytes Absolute Auto 400 /uL (1100-4500); Lymphocytes Percent Auto 9.5 % (25-40); Mean Corpuscular HGB Conc 31.9 % (30-36); Mean Corpuscular Hemoglobin 27.3 PG (26-34); Mean Corpuscular Volume 85.4 fL (80-100); Monocytes Absolute Auto 200 /uL (0-900); Monocytes Percent Auto 5.2 % (3-14); Neutrophils Absolute Auto 3700 /uL (1500-7000); Neutrophils Percent Auto 81.7 % (50-75); Platelet Count 259 X10^3/uL (150-400); Red Blood Cell Count 3.05 X10^6/uL (4.5-5.9); Red Cell Distribution Width 17.3 % (11.6-14.8); White Blood Cell Count 4.5 X10^3/uL (4.5-11.0)
[2024-09-29 11:54] LABS: Alanine Aminotransferase 37 IU/L (<50); Albumin 3.3 g/dL (3.5-5.0); Albumin Globulin Ratio 1.2 (1.0-2.8); Alkaline Phosphatase 73 U/L (38-126); Aspartate Aminotransferase 49 IU/L (17-59); BUN Creatinine Ratio 18.9 (6-22); Bilirubin Total 0.4 mg/dL (0.2-1.3); Blood Urea Nitrogen 23 mg/dL (9-20); Calcium 8.6 mg/dL (8.4-10.2); Carbon Dioxide 24 mmol/L (22-32); Chloride 102 mmol/L (98-107); Estimated Glomerular Filt Rate 60 mL/min (>60); Globulin 2.7 g/dL (1.7-4.1); Glucose 84 mg/dL (80-110); HEMOLYSIS < 15 (0-50); Potassium 4.6 mmol/L (3.4-5.1); Sodium 132 mmol/L (137-145)
== END ==
PROVIDERS: PCP Family Medicine; Referring Provider Family Medicine; Visit Provider Family Medicine
DX: D64.9 Anemia, unspecified (principal); J02.9 Acute pharyngitis, unspecified
CPT/HCPCS: 36415; 80053; 85025; 87070

== ENCOUNTER 2024-10-20 13:45 | Emergency (ER) | payer MEDICARE, OTHER, SELFPAY ==
[2024-09-04 17:46] VITALS: BMI 25.1
[2024-10-20] VITALS (20 sets, daily range): BP systolic 146–175; BP diastolic 65–77; PULSE 86–107; RESP 12–20; TEMP 36.6; O2SAT 92–100; BMI 25.0
--- NOTE | 2024-10-20 14:13 | EKG_ITS ---
[facility] [address] [place] [address] Test Date: 2024-10-20 Pat Name: Lalo Hyde Department: [facility] Room: Gender: Male Director Staffing: ZAC : 1945 Requested By: Order Number: [id number] Reading MD: Steve Hercules Measurements Intervals [place] Rate: 87 P: 75 CA: 188 QRS: 7 QRSD: 80 T: 49 QT: 366 QTc: 440 Interpretive Statements Sinus rhythm with premature supraventricular complexes Electronically Signed On 10-20-2024 17:52:19 PST by Steve Hercules
[2024-10-20] MEDS: PANTOPRAZOLE 40 MG VIAL 80 MG IV (14:33)
[2024-10-20 14:39] LABS: Prothrombin Time 11.1 SECONDS (9.4-12.5)
[2024-10-20 14:41] LABS: Add Manual Diff / Slide Review NO; Basophils Absolute Auto 0 /uL (0-100); Basophils Percent Auto 0.4 % (0-2); Eosinophils Absolute Auto 0 /uL (0-450); Eosinophils Percent Auto 0.7 % (2-4); Hemoglobin 8.5 g/dL (13.5-17.5); Lymphocytes Absolute Auto 300 /uL (1100-4500); Lymphocytes Percent Auto 5.1 % (25-40); Mean Corpuscular HGB Conc 32.7 % (30-36); Mean Corpuscular Hemoglobin 27.7 PG (26-34); Mean Corpuscular Volume 84.7 fL (80-100); Monocytes Absolute Auto 400 /uL (0-900); Neutrophils Absolute Auto 4300 /uL (1500-7000); Neutrophils Percent Auto 85.8 % (50-75); PTT Partial Thromboplastin Tim 28 SECONDS (25.1-36.5); Platelet Count 198 X10^3/uL (150-400); Red Blood Cell Count 3.08 X10^6/uL (4.5-5.9); Red Cell Distribution Width 19.7 % (11.6-14.8)
[2024-10-20 14:46] LABS: Alanine Aminotransferase 44 IU/L (<50); Albumin 3.1 g/dL (3.5-5.0); Alkaline Phosphatase 73 U/L (38-126); Aspartate Aminotransferase 66 IU/L (17-59); BUN Creatinine Ratio 21.2 (6-22); Bilirubin Total 0.3 mg/dL (0.2-1.3); Blood Urea Nitrogen 33 mg/dL (9-20); Calcium 8.6 mg/dL (8.4-10.2); Carbon Dioxide 20 mmol/L (22-32); Chloride 103 mmol/L (98-107); Estimated Glomerular Filt Rate 44 mL/min (>60); Globulin 3.1 g/dL (1.7-4.1); Glucose 96 mg/dL (80-110); HEMOLYSIS < 15 (0-50); Potassium 4.7 mmol/L (3.4-5.1); Sodium 131 mmol/L (137-145); Total Protein 6.2 g/dL (6.3-8.2)
--- NOTE | 2024-10-20 15:24 | DI.CT.S_ITS ---
PROCEDURE: CT ANGIO ABD/PEL GI BLEED INDICATIONS: GI bleed protocol TECHNIQUE: After the administration of intravenous contrast, 2.5 mm thick sections acquired from the diaphragm to the symphysis. 10 mm maximum-intensity projection (MIP) reformats were then acquired. For radiation dose reduction, the following was used: automated exposure control. COMPARISON: [facility], CT, CT KIDNEY URETER BLADDER (KUB), 02/26/2024, 11:14. FINDINGS: Image Quality: Diagnostic. Abdominal aorta: [id number] aortic atherosclerotic calcifications. No aortic aneurysm or evidence of acute aortic syndrome. Mesenteric arteries: Atherosclerotic calcifications are present without hemodynamically significant stenosis. Renal arteries: Atherosclerotic calcifications are seen at the origins without hemodynamically significant stenosis. OTHER: Lower Chest: Heart is mildly enlarged. Mitral annular calcifications are present. Liver: No solid mass. Gallbladder: No radiopaque gallstones or wall thickening. Biliary ducts: No biliary dilation. Pancreas: No ductal dilation. Spleen: Size is within normal limits. Adrenal Glands: No adrenal nodules. Kidneys and Ureters: Severe left hydronephrosis and hydroureter similar when compared to the CT from 02/26/2024. No obstructing calculus. Stomach and Bowel: Moderate stool is seen throughout the colon. A few scattered colonic diverticular present. Normal appendix. Small bowel loops and stomach are unremarkable. No active contrast extravasation is seen into the bowel lumen. Peritoneum: No abnormal intraperitoneal fluid. No free air. Ventral Wall: No hernia. Abdominal Nodes: No retroperitoneal or mesenteric adenopathy by size criteria. Vessels: Aorta and inferior vena cava are normal in size. PELVIS: Pelvic Organs: Coarse calcifications throughout the prostate. Bladder: Trabeculated bladder with multiple diverticula. No bladder calculus. Pelvic Nodes: No enlarged lymph nodes. Miscellaneous: No inguinal hernias are seen. Bones: No aggressive osseous abnormality. Multilevel degenerative changes in the included spine. Old healed left lateral rib fractures. IMPRESSION: 1. No acute arterial abnormality is seen. No active contrast extravasation into the bowel lumen. 2. Colonic diverticulosis without signs of acute diverticulitis. Moderate colonic stool. 3. Stable severe left hydronephrosis and hydroureter when compared to the CT from 02/26/2024. No obstructing calculus. Trabeculated bladder wall with multiple diverticula. Approved by: David Herrera M.D. on 10/20/2024 at 15:58
[2024-10-20 15:26] LABS: Adenovirus Not Detected (Not Detect); B. parapertussis Not Detected (Not Detecte); Bordetella pertussis Not Detected (Not Detect); Chlamydophila pneumoniae Not Detected (Not Detect); Coronavirus 229E Not Detected (Not Detect); Coronavirus HKU1 Not Detected (Not Detect); Coronavirus NL 63 Not Detected (Not Detect); Coronavirus OC43 Not Detected (Not Detect); Human Metapneumovirus Not Detected (Not Detect); Human Rhinovirus/Enterovirus Not Detected (Not Detect); Influenza A Not Detected (Not Detect); Influenza B Not Detected (Not Detect); Mycoplasma pneumoniae Not Detected (Not Detect); Parainfluenza Virus 1 Not Detected (Not Detect); Parainfluenza Virus 2 Not Detected (Not Detect); Parainfluenza Virus 3 Not Detected (Not Detect); Parainfluenza Virus 4 Not Detected (Not Detect); Respiratory Syncytial Virus Not Detected (Not Detect); SARS- CoV-2 Not Detected (Not Detecte)
--- NOTE | 2024-10-20 15:26 | ED.GIBLEED ---
HPI - GI Bleed General Chief complaint: GI Bleed Stated complaint: lupus flare and rash Time Seen by Provider: 10/20/24 15:24 Source: patient Mode of arrival: Wheelchair History of Present Illness HPI Narrative: 79-year-old male with history of lupus, recent flare, taking chronic prednisone steroid, which had been variably dose 4 mg daily and 5 mg daily, a few days ago had higher dose 10 mg for 2 days and resuming 5 mg daily dosing, followed by Rheumatology Dr. Charles at [facility], having ongoing flare of his lupus related rash over the scalp, neck, face, chest, trunk, upper extremities, lower extremities to the knees, with patchy areas of desquamation. Related Data Home Medications Medication Instructions Recorded Confirmed cholecalciferol (vitamin D3) 50 2,000 unit PO DAILY 11/07/18 09/29/24 mcg (2,000 unit) capsule hydroxychloroquine 200 mg tablet 200 mg PO BID 05/09/22 09/29/24 prednisone 5 mg tablet 5 mg PO DAILY 08/16/23 09/29/24 Previous Rx's Medication Instructions Recorded Disabled Parking Permit #1 ea 10/03/20 acetaminophen 325 mg tablet 650 mg (2 x 325 mg) PO Q6H #90 tabs 05/22/24 ferrous sulfate 325 mg (65 mg 325 mg PO DAILY #90 tabs 09/06/24 iron) tablet pantoprazole 40 mg tablet,delayed 40 mg PO BID #60 tabs 09/06/24 release tramadol 50 mg tablet 50 mg PO Q6H PRN pain #30 tabs 09/29/24 Allergies Allergy/AdvReac Type Severity Reaction Status Date / Time cefepime AdvReac Severe aphasia Verified 09/29/24 09:57 meropenem AdvReac Severe Aphasia Verified 09/29/24 09:57 Patient History Medical History Agent orange exposure Lower urinary tract symptoms Urine retention Osteomyelitis Lymphocytopenia Chronic UTI DVT (deep venous thrombosis) Pulmonary embolus HLD (hyperlipidemia) Arthritis 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 Mother Diabetes mellitus Hyperlipidemia Sister Diabetes mellitus Social History marital status: number of children: 2 household members: children lives independently: Yes caregiver/support person: No housing: house education level: college occupational status: previously employed Smoking Status: Former smoker Tobacco: How many years used: 25 second hand exposure: No alcohol intake: current substance use type: does not use caffeine: Yes Type(s) of exercise: bicycling and weight lifting Smoking Status: Former smoker alcohol intake frequency: 3 or more drinks per day Exam Narrative Exam Narrative: GENERAL: Well-developed patient, in mild distress. HEAD: Atraumatic. Normocephalic. EYES: Pupils equal round and reactive. Extraocular motions intact. No scleral icterus. No injection or drainage. ENT: Nose without bleeding, purulent drainage. Throat without erythema, tonsillar hypertrophy or exudate. Airway patent. NECK: Trachea midline. Non tender CARDIOVASCULAR: Regular rate and rhythm without murmurs, gallops, or rubs. RESPIRATORY: Clear to auscultation. Breath sounds equal bilaterally. No wheezes, rales, or rhonchi. GASTROINTESTINAL: Abdomen soft, non-tender, nondistended. EXTREMITIES: No edema or joint tenderness. BACK: Nontender without deformity or crepitance. No flank tenderness. NEURO: AOx3. Motor functions grossly nonfocal SKIN: Diffuse erythematous macules head face BUE BLE trunk, sparing distal forelegs feet hands palms, no vesicles, scattered areas skin peeling, no blisters or bullae Initial Vital Signs Initial Vital Signs: Vital Signs Temperature 97.8 F 10/20/24 13:47 Pulse Rate 90 10/20/24 13:47 Respiratory Rate 20 10/20/24 13:47 Blood Pressure 148/67 H 10/20/24 13:47 Pulse Oximetry 100 10/20/24 13:47 Oxygen Delivery Method Room Air 10/20/24 13:47 Course Orders Ordered: ED Orders 10/20/24 13:55 EKG-12 Lead Stat 10/20/24 14:18 Complete Blood Count AUTO DIFF Stat Comprehensive Metabolic Panel Stat PTT Partial Thromboplastin Sunil Stat Prothrombin Time INR Stat Type and Screen Stat 10/20/24 14:19 Respiratory Panel (Film Array) Stat 10/20/24 15:24 CT angio Abd/Pel GI Bleed Stat 10/20/24 19:30 Urine Culture Stat Urine Microscopic Stat Ondansetron HCl (Ondansetron 4 Mg/2 Ml Inj) 4 mg IV NOW PRN PRN Reason: Nausea And Vomiting Ondansetron HCl (Ondansetron 4 Mg Odt) 4 mg SL NOW PRN PRN Reason: Nausea And Vomiting Discontinued Medications Sodium Chloride (Normal Saline 0.9%) 1,000 mls @ 1,000 mls/hr IV BOLUS ONE Stop: 10/20/24 17:41 Last Infusion: 10/20/24 18:24 Dose: Infused Documented By: Admin: 10/20/24 16:53 Dose: 1,000 mls/hr Documented By: ANASTACIA Morphine Sulfate (Morphine 4 Mg/Ml Inj) 4 mg IV NOW ONE Stop: 10/20/24 16:43 Last Admin: 10/20/24 16:53 Dose: 4 mg Documented By: ANASTACIA Pantoprazole Sodium (Pantoprazole 40 Mg Vial) 80 mg IV NOW ONE Stop: 10/20/24 13:55 Last Admin: 10/20/24 14:33 Dose: 80 mg Documented By: ANASTACIA Vital Signs Vital signs: Vital Signs - 8 hr 10/20/24 13:47 10/20/24 14:35 10/20/24 15:00 Temperature 97.8 F Pulse Rate 90 86 Respiratory Rate 20 13 Blood Pressure 148/67 H 148/68 H Pulse Oximetry 100 96 Oxygen Delivery Method Room Air 10/20/24 15:00 10/20/24 15:41 10/20/24 15:42 Temperature Pulse Rate 86 100 H 91 H Respiratory Rate 20 15 Blood Pressure Pulse Oximetry 95 92 98 Oxygen Delivery Method 10/20/24 15:42 10/20/24 16:00 10/20/24 16:00 Temperature Pulse Rate 90 Respiratory Rate 17 Blood Pressure 162/73 H 156/69 H Pulse Oximetry 95 Oxygen Delivery Method 10/20/24 16:30 10/20/24 16:30 10/20/24 17:00 Temperature Pulse Rate 98 H Respiratory Rate 19 Blood Pressure 154/70 H 152/67 H Pulse Oximetry 96 Oxygen Delivery Method 10/20/24 17:00 10/20/24 17:30 10/20/24 17:30 Temperature Pulse Rate 93 H 90 Respiratory Rate 12 18 Blood Pressure 156/68 H Pulse Oximetry 95 93 Oxygen Delivery Method 10/20/24 18:00 10/20/24 18:00 10/20/24 18:27 Temperature Pulse Rate 92 H Respiratory Rate 19 Blood Pressure 155/71 H 175/77 H Pulse Oximetry 93 Oxygen Delivery Method 10/20/24 18:27 10/20/24 18:30 10/20/24 18:30 Temperature Pulse Rate 93 H 90 Respiratory Rate 15 15 Blood Pressure 167/77 H Pulse Oximetry 97 96 Oxygen Delivery Method 10/20/24 19:00 10/20/24 19:00 10/20/24 19:30 Temperature Pulse Rate 91 H Respiratory Rate 18 Blood Pressure 153/69 H 159/69 H Pulse Oximetry 94 Oxygen Delivery Method 10/20/24 19:30 10/20/24 20:00 10/20/24 20:00 Temperature Pulse Rate 91 H 88 Respiratory Rate 18 17 Blood Pressure 166/70 H Pulse Oximetry 95 95 Oxygen Delivery Method MDM - GI Bleed Lab Data Attestation: I reviewed the patient's lab results. Lab results narrative: White blood cell count 5000, hemoglobin 8.5, platelets [id number]. Sodium 131, potassium 4.7, serum CO2 20. BUN 33 with creatinine 1.56, glucose 96. AST 66 slight elevation, other liver functions unremarkable. Respiratory panel negative. 10/20/24 14:18 10/20/24 14:18 Labs: Lab Results 10/20/24 10/20/24 10/20/24 Range/Units 14:18 14:19 19:30 WBC 5.0 (4.5-11.0) X10^3/uL RBC 3.08 L (4.5-5.9) X10^6/uL Hgb 8.5 L (13.5-17.5) g/dL Hct 26.0 L (41-53) % MCV 84.7 (80-100) fL MCH 27.7 (26-34) PG MCHC 32.7 (30-36) % RDW 19.7 H (11.6-14.8) % Plt Count 198 (150-400) X10^3/uL Neut % (Auto) 85.8 H (50-75) % Lymph % (Auto) 5.1 L (25-40) % Clinch % (Auto) 8.0 (3-14) % Eos % (Auto) 0.7 L (2-4) % Baso % (Auto) 0.4 (0-2) % Neut # (Auto) 4300 (4136-1531) /uL Lymph # (Auto) 300 L (3474-0344) /uL Clinch # (Auto) 400 (0-900) /uL Eos # (Auto) 0 (0-450) /uL Baso # (Auto) 0 (0-100) /uL PT 11.1 (9.4-12.5) SECONDS INR 1.0 (0.9-1.3) APTT 28 (25.1-36.5) SECONDS Sodium 131 L (137-145) mmol/L Potassium 4.7 (3.4-5.1) mmol/L Chloride 103 (98-107) mmol/L Carbon Dioxide 20 L (22-32) mmol/L BUN 33 H (9-20) mg/dL Creatinine 1.56 H (0.66-1.25) mg/dL Estimated GFR 44 L (>60) mL/min BUN/Creatinine Ratio 21.2 (6-22) Glucose 96 (80-110) mg/dL Calcium 8.6 (8.4-10.2) mg/dL Total Bilirubin 0.3 (0.2-1.3) mg/dL AST 66 H (17-59) IU/L ALT 44 (<50) IU/L Alkaline Phosphatase 73 (38-126) U/L Total Protein 6.2 L (6.3-8.2) g/dL Albumin 3.1 L (3.5-5.0) g/dL Globulin 3.1 (1.7-4.1) g/dL Albumin/Globulin Ratio 1.0 (1.0-2.8) Urine RBC 0-1/hpf (0-5/HPF) Urine WBC 30-100/hpf H (0-5/HPF) Ur Squamous Epith Cells 0-1 /hpf (0-5/HPF) Amorphous Sediment 1+ Urine Bacteria Moderate (10-30) H (None) Ur Culture Indicated? Specimen cultured Vol Urine Centrifuged 10ml (spun) Chlamy pneumoniae PCR Not detected (Not Detect) Adenovirus (PCR) Not detected (Not Detect) B. pertussis DNA (PCR) Not detected (Not Detect) B.parapertussis DNA PCR Not detected (Not Detecte) Coronavirus OC43 (PCR) Not detected (Not Detect) Coronavirus HKU1 (PCR) Not detected (Not Detect) Coronavirus 229E (PCR) Not detected (Not Detect) SARS-CoV-2 (PCR) Not detected (Not Detecte) Coronavirus NL63 (PCR) Not detected (Not Detect) Human Metapneumovir PCR Not detected (Not Detect) Influenza Type A (PCR) Not detected (Not Detect) Influenza Type B (PCR) Not detected (Not Detect) M. pneumoniae (PCR) Not detected (Not Detect) Parainfluenza 1 (PCR) Not detected (Not Detect) Parainfluenza 2 (PCR) Not detected (Not Detect) Parainfluenza 3 (PCR) Not detected (Not Detect) Parainfluenza 4 (PCR) Not detected (Not Detect) RSV (PCR) Not detected (Not Detect) Entero/Rhino (PCR) Not detected (Not Detect) Blood Type O Positive Antibody Screen Negative Urine Dip Bedside Urine Glucose Negative Bedside Urine Bilirubin - Negative Bedside Urine Ketone - Negative Urine Specific Jayess 1.010 Bedside Urine Occult Blood ++ Bedside Urine pH 6.0 Bedside Urine Protein + 30 Bedside Urine Urobilinogen - Negative Bedside Urine Nitrite - Negative Bedside Urine Leukocytes +++ [address] abdomen and pelvis GI bleeding protocol: Radiologist's Impression: [address] [address] [address] Scan Report Signed Patient: Lalo Hyde MR#: [id number] : 1945 Acct:[id number] Age/Sex: 79 / M Date of Service: 10/20/24 Loc: ED Accession Number: [id number] Procedure: CT angio Abd/Pel GI Bleed Ordering Provider: Hermann Pham MD PROCEDURE: CT ANGIO ABD/PEL GI BLEED INDICATIONS: GI bleed protocol TECHNIQUE: After the administration of intravenous contrast, 2.5 mm thick sections acquired from the diaphragm to the symphysis. 10 mm maximum-intensity projection (MIP) reformats were then acquired. For radiation dose reduction, the following was used: automated exposure control. COMPARISON: [facility], CT, CT KIDNEY URETER BLADDER (KUB), 02/26/2024, 11:14. FINDINGS: Image Quality: Diagnostic. Abdominal aorta: [id number] aortic atherosclerotic calcifications. No aortic aneurysm or evidence of acute aortic syndrome. Mesenteric arteries: Atherosclerotic calcifications are present without hemodynamically significant stenosis. Renal arteries: Atherosclerotic calcifications are seen at the origins without hemodynamically significant stenosis. OTHER: Lower Chest: Heart is mildly enlarged. Mitral annular calcifications are present. Liver: No solid mass. Gallbladder: No radiopaque gallstones or wall thickening. Biliary ducts: No biliary dilation. Pancreas: No ductal dilation. Spleen: Size is within normal limits. Adrenal Glands: No adrenal nodules. Kidneys and Ureters: Severe left hydronephrosis and hydroureter similar when compared to the CT from 02/26/2024. No obstructing calculus. Stomach and Bowel: Moderate stool is seen throughout the colon. A few scattered colonic diverticular present. Normal appendix. Small bowel loops and stomach are unremarkable. No active contrast extravasation is seen into the bowel lumen. Peritoneum: No abnormal intraperitoneal fluid. No free air. Ventral Wall: No hernia. Abdominal Nodes: No retroperitoneal or mesenteric adenopathy by size criteria. Vessels: Aorta and inferior vena cava are normal in size. PELVIS: Pelvic Organs: Coarse calcifications throughout the prostate. Bladder: Trabeculated bladder with multiple diverticula. No bladder calculus. Pelvic Nodes: No enlarged lymph nodes. Miscellaneous: No inguinal hernias are seen. Bones: No aggressive osseous abnormality. Multilevel degenerative changes in the included spine. Old healed left lateral rib fractures. IMPRESSION: 1. No acute arterial abnormality is seen. No active contrast extravasation into the bowel lumen. 2. Colonic diverticulosis without signs of acute diverticulitis. Moderate colonic stool. 3. Stable severe left hydronephrosis and hydroureter when compared to the CT from 02/26/2024. No obstructing calculus. Trabeculated bladder wall with multiple diverticula. Approved by: David Herrera M.D. on 10/20/2024 at 15:58 ECG Data Attestation: I personally reviewed and interpreted this ECG as follows: Interpretation: Normal sinus rhythm with rate 87, no obvious ST segment elevation or depression changes. MA 188, QRS 80, QTC 440. MDM Narrative Medical decision making narrative: 79-year-old male with lupus and recent flare with extensive cutaneous involvement head trunk upper extremities and proximal portion lower extremities, taking oral prednisone, followed by [facility], also has had ongoing black stools, recent admission upper and lower endoscopy studies at [facility] last month reportedly unrevealing. Still having black stools, has increased pain from the rash, requesting pain medications. IV fluid bolus, IV morphine. Labs pending White blood cell count 5000, Hemoglobin 8.5, platelets adequate, GFR 45. CT abdomen and pelvis GI bleeding protocol ordered CT abdomen showed no definite source of bleeding, did show diverticulosis, stable left hydronephrosis incidentally noted. Moderate colonic stool. No obstructive changes, no perforations. See radiology report. Copy of the report provided for patient/family Family query about being admitted, possibly here. However here there are no credit card clerk or rheumatologists or genetics nurse if needed, consider transfer to [facility] or other tertiary center. They would like me to contact hospitalist here for an opinion. 164, discussed with hospitalist Dr. Hercules here, believes patient would benefit from further evaluation at a tertiary center with Gastroenterology and rheumatology and dermatology services, he suggested [facility] where he has rheumatology consultation in the past, as was previously recommended to patient and family. 1730, discussed with [facility] intake, await call back 1800, case discussed with [facility] dermatology Dr. Orr, she can consult, hold any steroid bolus, anticipates dermatology consultation with biopsy (or surgery consult for skin biopsy) at their facility, await call back from hospitalist 1850, case discussed with [facility] hospitalist Dr. Negrete, accepts for admission Critical Care Time Critical Care Time Critical Care Time: Yes Total Critical Care Time: 35 Attestation: The high probability of a clinically significant, sudden or life threatening deterioration of the [dermatologic, gastrointestinal, abdominopelvic, vascular, rheumatologic] system(s) required my full and direct attention, intervention and personal management. The aggregate critical care time was [35] minutes. This time is in addition to time spent performing reported procedures but includes the following: [x] Data Review and interpretation [x] Patient assessment and monitoring of vital signs [x] Documentation [x] Medication orders and management Discharge Plan Departure Patient Disposition: [facility] Clinical Impression: Skin rash, Melanotic stools, History of lupus, History of GI bleed Prescriptions: No Action tramadol 50 mg tablet 50 mg PO Q6H PRN (Reason: pain) Qty: 30 1RF cholecalciferol (vitamin D3) 2,000 unit capsule 2,000 unit PO DAILY (DME) Disabled Parking Permit See Rx Instructions .ROUTE .MEDSUPPLY Qty: 1 0RF Rx Instructions: I find this person to be disabled hydroxychloroquine 200 mg Tablet 200 mg PO BID acetaminophen 325 mg Tablet 650 mg PO Q6H Qty: 90 0RF prednisone 5 mg tablet 5 mg PO DAILY pantoprazole 40 mg Tablet,Delayed Release (Dr/Ec) 40 mg PO BID Qty: 60 2RF ferrous sulfate 325 mg (65 mg iron) Tablet 325 mg PO DAILY Qty: 90 0RF Referrals: Dionne Snow MD [Primary Care Provider] -
[2024-10-20] MEDS: SODIUM CHLORIDE 0.9% 1,000 ML 1000 ML IV (16:53)
[2024-10-20] MEDS: MORPHINE 4 MG/ML INJ IV ×2 (16:53→22:23)
[2024-10-20 19:57] LABS: Amorphous Sediment Urine 1+; Bacteria Urine Moderate (10-30); Culture Indicated Urine Specimen Cultured; RBC Urine 0-1/HPF (0-5/HPF); Squamous Epithelial Cell Urine 0-1 /HPF (0-5/HPF); Urine Volume 10mL (spun); WBC Urine 30-100/HPF (0-5/HPF)
== END 2024-10-20 22:42 | disposition short-term general hospital (02) ==
PROVIDERS: Emergency Provider Emergency Medicine; PCP Family Medicine
DX: R21 Rash and other nonspecific skin eruption (principal); K92.1 Melena; M32.9 Systemic lupus erythematosus, unspecified; Z87.19 Personal history of other diseases of the digestive system
CPT/HCPCS: 36415; 74174; 80053; 81003; 81015; 85025; 85610; 85730; 86850; 86900; 86901; 87086; 87633; 93005; 96361; 96374; 96375; 96376; 99284; 99285; J2270; J2470; Q9967

== ENCOUNTER → 2024-11-27 11:54 | Outpatient (CLI) | payer MEDICARE, OTHER, SELFPAY ==
[2024-11-24 17:14] VITALS: BMI 25.1
== END ==
PROVIDERS: PCP Family Medicine; Visit Provider Urology
DX: N39.0 Urinary tract infection, site not specified (principal)
CPT/HCPCS: 87086

== ENCOUNTER → 2024-11-27 11:59 | Outpatient (CLI) | payer MEDICARE, OTHER, SELFPAY ==
[2024-11-24 17:14] VITALS: BMI 25.1
[2024-11-27 13:21] LABS: BUN Creatinine Ratio 24.1 (6-22); Blood Urea Nitrogen 27 mg/dL (9-20); Calcium 9.3 mg/dL (8.4-10.2); Carbon Dioxide 26 mmol/L (22-32); Chloride 96 mmol/L (98-107); Estimated Glomerular Filt Rate > 60 mL/min (>60); Glucose 133 mg/dL (80-110); HEMOLYSIS < 15 (0-50); Potassium 4.3 mmol/L (3.4-5.1); Sodium 129 mmol/L (137-145)
== END ==
PROVIDERS: PCP Family Medicine; Referring Provider Urology; Visit Provider Urology
DX: R79.89 Other specified abnormal findings of blood chemistry (principal)
CPT/HCPCS: 36415; 80048

== ENCOUNTER → 2024-11-30 14:59 | Outpatient (CLI) | payer MEDICARE, OTHER, SELFPAY ==
[2024-11-24 17:14] VITALS: BMI 25.1
[2024-11-30 15:46] LABS: Creatinine Urine Random 73.22 mg/dL; Sodium Urine Random 97 mmol/L (30-90)
[2024-11-30 16:40] LABS: Hematocrit 35.6 % (41-53); Hemoglobin 11.7 g/dL (13.5-17.5); Mean Corpuscular HGB Conc 32.7 % (30-36); Mean Corpuscular Hemoglobin 29.7 PG (26-34); Mean Corpuscular Volume 90.7 fL (80-100); Platelet Count 259 X10^3/uL (150-400); Red Blood Cell Count 3.93 X10^6/uL (4.5-5.9); Red Cell Distribution Width 19.8 % (11.6-14.8); White Blood Cell Count 7.8 X10^3/uL (4.5-11.0)
[2024-11-30 16:59] LABS: BUN Creatinine Ratio 21.7 (6-22); Blood Urea Nitrogen 28 mg/dL (9-20); Calcium 9.2 mg/dL (8.4-10.2); Carbon Dioxide 29 mmol/L (22-32); Chloride 96 mmol/L (98-107); Estimated Glomerular Filt Rate 56 mL/min (>60); Glucose 134 mg/dL (80-110); HEMOLYSIS < 15 (0-50); Potassium 4.3 mmol/L (3.4-5.1); Sodium 131 mmol/L (137-145)
[2024-12-02 14:08] LABS: Osmolality, Serum 284 mOsmol/kg (280-301)
== END ==
PROVIDERS: PCP Family Medicine; Referring Provider Family Medicine; Visit Provider Family Medicine
DX: D64.9 Anemia, unspecified (principal); E87.1 Hypo-osmolality and hyponatremia
CPT/HCPCS: 36415; 80048; 82570; 83930; 84300; 85027

== ENCOUNTER → 2024-12-01 09:11 | Outpatient (CLI) | payer MEDICARE, OTHER, SELFPAY ==
[2024-11-24 17:14] VITALS: BMI 25.1
[2024-12-01 10:02] LABS: Appearance Urine UA SL CLOUDY; Bilirubin Urine UA NEGATIVE (NEGATIVE); Color Urine UA YELLOW; Glucose Urine UA NEGATIVE (Negative); Ketones Urine UA NEGATIVE (NEGATIVE); Leukocyte Esterase Urine UA 1+ (NEGATIVE); Nitrite Urine UA POSITIVE (Negative); Occult Blood Urine UA 2+ (Negative); Protein Urine UA 2+ (Negative); Specific Gravity Urine UA 1.025 (1.000-1.035); Urobilinogen Urine UA 0.2 E.U./dL (0.2)
[2024-12-01 10:11] LABS: RBC Urine 5-10/HPF (0-5/HPF); Urine Volume 10mL (spun); WBC Urine 5-10/HPF (0-5/HPF)
[2024-12-01 10:12] LABS: Bacteria Urine Occasional (0-1); Squamous Epithelial Cell Urine 0-1 /HPF (0-5/HPF)
[2024-12-01 10:13] LABS: Calcium Oxalate Crystals Urine Few; Culture Indicated Urine Specimen Cultured
== END ==
PROVIDERS: PCP Family Medicine; Visit Provider Urology
DX: R33.9 Retention of urine, unspecified (principal); N39.0 Urinary tract infection, site not specified
CPT/HCPCS: 81001; 87086

== ENCOUNTER → 2024-12-08 11:44 | Outpatient (CLI) | payer MEDICARE, OTHER, SELFPAY ==
[2024-11-24 17:14] VITALS: BMI 25.1
== END ==
PROVIDERS: PCP Family Medicine; Referring Provider Family Medicine; Visit Provider Surgery
DX: G60.3 Idiopathic progressive neuropathy (principal); L97.512 Non-pressure chronic ulcer of other part of right foot with fat layer exposed; L97.522 Non-pressure chronic ulcer of other part of left foot with fat layer exposed; R60.0 Localized edema; L84 Corns and callosities
CPT/HCPCS: 11042; 87070; 87075; 87077; 87205; 99214

== ENCOUNTER → 2024-12-08 12:12 | Outpatient (CLI) | payer MEDICARE, OTHER, SELFPAY ==
[2024-11-24 17:14] VITALS: BMI 25.1
--- NOTE | 2024-12-08 12:14 | DI.RAD.S_ITS ---
PROCEDURE: XR FOOT RT MIN 3V INDICATIONS: non-healing ulcer on plantar foot TECHNIQUE: Three views of the foot were acquired. COMPARISON: None. FINDINGS: Bones: There has been arthrodesis and fusion of the 1st, 3rd, and 4th IP joints. The screws appear intact. 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 Decreased mineralization in the digits. No evidence of cortical loss or definite erosive changes along the plantar surface. Moderate tibiotalar degeneration. Soft tissues: No tibiotalar joint effusion. Achilles tendon appears normal. Moderate peripheral vascular calcification. No visible soft tissue gas. Probable soft tissue defect at the MTP plantar surface. IMPRESSION: Probable soft tissue defect at the MTP plantar surface without underlying cortical erosion or soft tissue gas. No radiographic evidence of osteomyelitis, however radiographs are insensitive in the early phase, and if there is further concern for osteomyelitis, MR imaging is recommended. Dictated by: Liseth Lopez M.D. on 12/08/2024 at 23:15 Approved by: Liseth Lopez M.D. on 12/08/2024 at 23:19
--- NOTE | 2024-12-08 12:14 | DI.RAD.S_ITS ---
PROCEDURE: XR FOOT LT MIN 3V INDICATIONS: non-healing ulcer on plantar foot TECHNIQUE: Three views of the foot were acquired. COMPARISON: None. 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 Hammertoe deformities two through five. Severe joint space loss at the TMT joints two through five. Pes planus deformity. Probable soft tissue defect along the plantar surface at the 1st metatarsal head. Degenerative dorsal surface irregularity of the midfoot. Plantar calcaneal spur with possible spur fracture. Soft tissues: No radiodense foreign bodies or soft tissue gas. Moderate peripheral vascular calcification. IMPRESSION: No radiographic evidence of osteomyelitis, however radiographs are insensitive in the early phase, and if there is further concern for osteomyelitis, MR imaging is recommended. Pes planus deformity. Possible plantar calcaneal spur fracture. Peripheral vascular calcification. Dictated by: Liseth Lopez M.D. on 12/08/2024 at 23:19 Approved by: Liseth Lopez M.D. on 12/08/2024 at 23:21
== END ==
PROVIDERS: PCP Family Medicine; Referring Provider Surgery; Visit Provider Surgery
DX: L97.509 Non-pressure chronic ulcer of other part of unspecified foot with unspecified severity (principal); M20.42 Other hammer toe(s) (acquired), left foot; M21.42 Flat foot [pes planus] (acquired), left foot; Z98.1 Arthrodesis status; Z89.412 Acquired absence of left great toe; Z89.421 Acquired absence of other right toe(s); G60.3 Idiopathic progressive neuropathy; L97.512 Non-pressure chronic ulcer of other part of right foot with fat layer exposed; L97.522 Non-pressure chronic ulcer of other part of left foot with fat layer exposed; R60.0 Localized edema; L84 Corns and callosities
CPT/HCPCS: 11042; 73630; 87070; 87077; 87205; 99214

== ENCOUNTER → 2024-12-11 13:42 | Outpatient (CLI) | payer MEDICARE, OTHER, SELFPAY ==
[2024-11-24 17:14] VITALS: BMI 25.1
== END ==
PROVIDERS: PCP Family Medicine; Visit Provider Urology
DX: N40.1 Benign prostatic hyperplasia with lower urinary tract symptoms (principal); N13.8 Other obstructive and reflux uropathy
CPT/HCPCS: 87077; 87086

== ENCOUNTER → 2024-12-16 11:15 | Outpatient (CLI) | payer MEDICARE, OTHER, SELFPAY ==
[2024-12-11 15:01] VITALS: BMI 25.1
== END ==
PROVIDERS: PCP Family Medicine; Referring Provider Family Medicine; Visit Provider Surgery
DX: L97.512 Non-pressure chronic ulcer of other part of right foot with fat layer exposed (principal); L97.422 Non-pressure chronic ulcer of left heel and midfoot with fat layer exposed; G62.9 Polyneuropathy, unspecified; L84 Corns and callosities; R60.0 Localized edema; M62.81 Muscle weakness (generalized); Z79.52 Long term (current) use of systemic steroids
CPT/HCPCS: 11042

== ENCOUNTER → 2024-12-16 14:28 | Outpatient (CLI) | payer MEDICARE, OTHER, SELFPAY ==
[2024-12-11 15:01] VITALS: BMI 25.1
--- NOTE | 2024-12-16 14:29 | DI.US.S_ITS ---
PROCEDURE: US ARTERIAL DUPLEX LE BI INDICATIONS: non-healing ulcer on plantar foot TECHNIQUE: Color and pulse Doppler interrogation was performed of both lower extremity arterial systems, with image documentation. COMPARISON: [facility], , US ARTERIAL DUPLEX LE RT, 04/10/2023, 10:27. FINDINGS: Right lower extremity: Common femoral artery: 118 cm/sec, with triphasic flow. Deep femoral artery: 99 cm/sec, with biphasic flow. Proximal superficial femoral artery: 146 cm/sec, with triphasic flow. Mid superficial femoral artery: 125 cm/sec, with triphasic flow. Distal superficial femoral artery: 150 cm/sec, with triphasic flow. Popliteal artery: 75 cm/sec, with biphasic flow. Posterior tibial artery: 51 cm/sec, with monophasic flow. Anterior tibial artery/dorsalis pedis: 48 cm/sec, with monophasic flow. Zaragoza-scale imaging description: Mild degree of scattered plaque throughout the right lower extremity arterial system. Left lower extremity: Common femoral artery: 119 cm/sec, with triphasic flow. Deep femoral artery: 87 cm/sec, with biphasic flow. Proximal superficial femoral artery: 150 cm/sec, with triphasic flow. Mid superficial femoral artery: 109 cm/sec, with triphasic flow. Distal superficial femoral artery: 65 cm/sec, with biphasic flow. Popliteal artery: 52 cm/sec, with biphasic flow. Posterior tibial artery: 74 cm/sec, with monophasic flow. Anterior tibial artery/dorsalis pedis: 43 cm/sec, with monophasic flow. Zaragoza-scale imaging description: Mild degree of scattered plaque throughout the left lower extremity arterial system. IMPRESSION: No hemodynamically significant stenosis involving both lower extremities. Monophasic signals throughout bilateral tibial arteries possibly related to diffuse tibial disease. Dictated by: Steve Olivo M.D. on 12/16/2024 at 16:42 Approved by: Steve Olivo M.D. on 12/16/2024 at 16:44
== END ==
PROVIDERS: PCP Family Medicine; Referring Provider Surgery; Visit Provider Surgery
DX: L97.512 Non-pressure chronic ulcer of other part of right foot with fat layer exposed (principal); L97.422 Non-pressure chronic ulcer of left heel and midfoot with fat layer exposed; G62.9 Polyneuropathy, unspecified; L84 Corns and callosities; R60.0 Localized edema; M62.81 Muscle weakness (generalized); Z79.52 Long term (current) use of systemic steroids
CPT/HCPCS: 11042; 87086; 93925

== ENCOUNTER → 2024-12-23 11:30 | Outpatient (CLI) | payer MEDICARE, OTHER, SELFPAY ==
[2024-12-11 15:01] VITALS: BMI 25.1
== END ==
PROVIDERS: PCP Family Medicine; Referring Provider Family Medicine; Visit Provider Surgery
DX: G60.3 Idiopathic progressive neuropathy (principal); L97.512 Non-pressure chronic ulcer of other part of right foot with fat layer exposed; L97.522 Non-pressure chronic ulcer of other part of left foot with fat layer exposed; L84 Corns and callosities
CPT/HCPCS: 11042

== ENCOUNTER → 2024-12-23 11:52 | Outpatient (CLI) | payer MEDICARE, OTHER, SELFPAY ==
[2024-12-11 15:01] VITALS: BMI 25.1
--- NOTE | 2024-12-23 11:53 | DI.MRI.S_ITS ---
PROCEDURE: MR HEAD/BRAIN WO/W CON INDICATIONS: confusion, balance issues, weakness TECHNIQUE: Noncontrast axial T1 spin echo, axial T2 fast spin echo, sagittal and axial FLAIR, coronal T2 fast spin echo, axial gradient echo, axial diffusion and ADC through the brain. After the administration of contrast, axial and coronal and sagittal T1 spin echo with fat saturation through the brain. COMPARISON: [facility], CT, CT ANGIO HEAD AND NECK, 08/09/2023, 14:54. [facility], CT, CT HEAD/BRAIN WO CON, 08/09/2023, 14:54. [facility], MR, MR HEAD/BRAIN WO CON, 08/10/2023, 9:04. [facility], MR, MR STROKE, 08/25/2020, 15:30. FINDINGS: Image quality: Diagnostic, with note made of motion artifact. CSF spaces: Basal cisterns are patent. No extra-axial fluid collections. Ventricles are normal in size and shape. Brain: Within the deep white matter of the left frontal lobe, there is a 6 mm focus of abnormal diffusion-weighted signal, as on series 11, image 17, with associated dark signal on the ADC map. Developing T2 weighted signal can be seen at this site. No abnormal enhancement is seen at this site. No midline shift. No intracranial bleeds or masses. No abnormal intracranial enhancement. Moderate brain parenchymal volume loss is seen. There is a small amount of chronic small vessel ischemic change seen. The brainstem appears normal. No chronic ischemic insults. Normal intravascular flow voids are present. Skull and face: Calvarial marrow is normal in signal. Orbits appear normal. Note is made of bilateral lens replacements. Sinuses: Sinuses and mastoids appear clear. 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 Otherwise, unremarkable intracranial study. No masses or abnormal enhancement can be seen. Dictated by: Pranav Lopez M.D. on 12/23/2024 at 12:28 Approved by: Pranav Lopez M.D. on 12/23/2024 at 12:30
== END ==
PROVIDERS: PCP Family Medicine; Referring Provider Family Medicine; Visit Provider Family Medicine
DX: I63.9 Cerebral infarction, unspecified (principal); R41.0 Disorientation, unspecified; R26.89 Other abnormalities of gait and mobility; R53.1 Weakness; G60.3 Idiopathic progressive neuropathy; L97.512 Non-pressure chronic ulcer of other part of right foot with fat layer exposed; L97.522 Non-pressure chronic ulcer of other part of left foot with fat layer exposed; L84 Corns and callosities
CPT/HCPCS: 11042; 70553; A9579

== ENCOUNTER → 2024-12-30 11:34 | Outpatient (CLI) | payer MEDICARE, OTHER, SELFPAY ==
[2024-12-11 15:01] VITALS: BMI 25.1
== END ==
PROVIDERS: PCP Family Medicine; Referring Provider Family Medicine; Visit Provider Surgery
DX: G57.83 Other specified mononeuropathies of bilateral lower limbs (principal); L97.512 Non-pressure chronic ulcer of other part of right foot with fat layer exposed; L97.522 Non-pressure chronic ulcer of other part of left foot with fat layer exposed; L84 Corns and callosities; R60.0 Localized edema
CPT/HCPCS: 11042

== ENCOUNTER → 2025-01-06 10:42 | Outpatient (CLI) | payer MEDICARE, OTHER, SELFPAY ==
[2024-12-11 15:01] VITALS: BMI 25.1
== END ==
PROVIDERS: PCP Family Medicine; Referring Provider Family Medicine; Visit Provider Surgery
DX: L97.512 Non-pressure chronic ulcer of other part of right foot with fat layer exposed (principal); L97.522 Non-pressure chronic ulcer of other part of left foot with fat layer exposed; G62.9 Polyneuropathy, unspecified; L84 Corns and callosities; L53.9 Erythematous condition, unspecified; M62.81 Muscle weakness (generalized); L95.9 Vasculitis limited to the skin, unspecified
CPT/HCPCS: 11042; 99213

== ENCOUNTER → 2025-01-06 13:43 | Outpatient (CLI) | payer MEDICARE, OTHER, SELFPAY ==
[2024-12-11 15:01] VITALS: BMI 25.1
== END ==
LOC: CAR 13:44
PROVIDERS: PCP Family Medicine; Referring Provider Family Medicine; Visit Provider Family Medicine
DX: I48.91 Unspecified atrial fibrillation (principal); I48.92 Unspecified atrial flutter; I63.9 Cerebral infarction, unspecified
CPT/HCPCS: 93246

== ENCOUNTER → 2025-01-08 15:20 | Outpatient (CLI) | payer MEDICARE, OTHER, SELFPAY ==
[2024-12-11 15:01] VITALS: BMI 25.1
== END ==
PROVIDERS: PCP Family Medicine; Visit Provider Urology
DX: N40.1 Benign prostatic hyperplasia with lower urinary tract symptoms (principal); N13.8 Other obstructive and reflux uropathy; Z87.898 Personal history of other specified conditions; Z97.8 Presence of other specified devices; N13.39 Other hydronephrosis; R79.89 Other specified abnormal findings of blood chemistry; R33.9 Retention of urine, unspecified; Z68.23 Body mass index [BMI] 23.0-23.9, adult
CPT/HCPCS: 51798; 81002; 87077; 87086; 99214

== ENCOUNTER → 2025-01-11 10:57 | Outpatient (CLI) | payer MEDICARE, OTHER, SELFPAY ==
[2025-01-08 15:24] VITALS: BMI 25.1
== END ==
PROVIDERS: PCP Family Medicine; Referring Provider Family Medicine; Visit Provider Surgery
DX: G57.83 Other specified mononeuropathies of bilateral lower limbs (principal); L97.512 Non-pressure chronic ulcer of other part of right foot with fat layer exposed; L97.522 Non-pressure chronic ulcer of other part of left foot with fat layer exposed; R60.0 Localized edema; L53.8 Other specified erythematous conditions; Z89.421 Acquired absence of other right toe(s)
CPT/HCPCS: 11042

== ENCOUNTER → 2025-01-11 11:46 | Outpatient (CLI) | payer MEDICARE, OTHER, SELFPAY ==
[2025-01-08 15:24] VITALS: BMI 25.1
[2025-01-11 12:17] LABS: Blood Urea Nitrogen 24 mg/dL (9-20); Calcium 9.7 mg/dL (8.4-10.2); Carbon Dioxide 28 mmol/L (22-32); Chloride 100 mmol/L (98-107); Estimated Glomerular Filt Rate 57 mL/min (>60); Glucose 109 mg/dL (80-110); HEMOLYSIS < 15 (0-50); Potassium 5.1 mmol/L (3.4-5.1); Sodium 134 mmol/L (137-145)
== END ==
PROVIDERS: PCP Family Medicine; Referring Provider Urology; Visit Provider Urology
DX: E87.1 Hypo-osmolality and hyponatremia (principal); R26.89 Other abnormalities of gait and mobility
CPT/HCPCS: 36415; 80048

== ENCOUNTER → 2025-01-20 10:41 | Outpatient (CLI) | payer MEDICARE, OTHER, SELFPAY ==
[2025-01-08 15:24] VITALS: BMI 25.1
--- NOTE | 2025-01-20 | OV.WND_ITS ---
PROGRESS NOTE DETAILS PATIENT NAME: JUAN SANDERS PATIENT NUMBER: [id number] CLINICIAN: BRANDON ALTMAN PATIENT DATE OF : 1945 PHYSICIAN / NURSERY TECHNICIAN: JESS CROSS PATIENT SUBJECTIVE CHIEF COMPLAINT THIS INFORMATION WAS OBTAINED FROM THE PATIENT. LEFT TOE, I'M FEELING PAIN ALLERGIES MEROPENEM (SEVERITY: SEVERE), CEFEPIME (SEVERITY: SEVERE) HPI THIS INFORMATION WAS OBTAINED FROM THE PATIENT. THE FOLLOWING HPI ELEMENTS WERE DOCUMENTED FOR THE PATIENT'S WOUND: LOCATION: R FOOT L 2ND TOE DURATION: 11/16/24, 12/31/24 CONTEXT: NEUROPATHIC THE PATIENT IS AN 79-YEAR-OLD MALE WITH NEUROPATHY, SLE, AND OLINDA SMALL VESSEL VASCULITIS WHO RETURNS TODAY FOR FOLLOW UP OF NEUROPATHIC ULCERS ON THE PLANTAR ASPECT OF R FOOT AND DORSUM OF LEFT 2ND TOE. HE IS RECEIVING DRESSING CHANGES WITH HYDROFERA BLUE WITH FELT SURROUND PAD FOR PRESSURE OFFLOADING. THE PATIENT HAS BEEN HAVING SOME PAIN IN THE LEFT 2ND TOE BUT HE HAS NOT NOTED ANY REDNESS OR SWELLING. HE HAS HAD SOME SLIGHT DRAINAGE FROM EACH SIDE BUT HAS NOT HAD ANY FEVER OR CHILLS. THE PATIENT REPORTS A GOOD APPETITE AND IS TAKING PROTEIN SUPPLEMENTS. HE WAS HOSPITALIZED IN SEPTEMBER FOR FLARE UP OF LUPUS AND WAS ON PREDNISONE 40 MG A DAY BUT RECENTLY THIS HAS BEEN TAPERED BACK DOWN TO 5 MG A DAY. HE REPORTS THAT HIS GENERALIZED WEAKNESS AND RECENTLY FOUND OUT THAT HE HAD A STROKE. ABIS INDICATE BILATERAL PAD. ARTERIAL DOPPLER SHOWED MONOPHASIC SIGNALS THROUGHOUT BILATERAL TIBIAL ARTERIES PAST HISTORY IS REMARKABLE FOR MULTIPLE SURGICAL PROCEDURES ON HIS FEET INCLUDING EXCISION OF SESAMOID, ACHILLES TENDON LENGTHENING, HALLUX INTERPHALANGEAL JOINT FUSION WITH THE EXTENSOR TENDON TRANSFER, AND AMPUTATIONS OF THE RIGHT 2ND, RIGHT 5TH METATARSAL, AND LEFT GREAT TOES. ON EXAM TODAY THE ULCER ON THE PLANTAR RIGHT HAS IMPROVED MEASUREMENTS AND GOOD GRANULATION TISSUE. OVERALL IT HAS DECREASED IN SIZE BY 96% SINCE STARTING TREATMENT. THE ULCER ON THE DORSUM OF THE LEFT 2ND TOE IS LARGER AND NOW EXTENDS TO BONE. THE PATIENT IS NOT CURRENTLY ON ANY ANTIBIOTIC THERAPY. LABS: 12/16/24: ARTERIAL DOPPLER: NO HEMODYNAMICALLY SIGNIFICANT STENOSIS INVOLVING BOTH LOWER EXTREMITIES. 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 JUAN SANDERS [id number] 1945 PATIENT HAS A MEDICAL HISTORY OF: SYSTEMIC LUPUS ERYTHEMATOSIS HISTORY OF DVT (RIGHT LEG POST KNEE SURGERY) BENIGN PROSTATE HYPERPLASIA (BPH) GI BLEED BURSITIS (LEFT ELBOW) POSSIBLE PE ON CT (UNCERTAIN IF PE VS SCAR TISSUE) ARTHRITIS HYPERLIPIDEMIA LYMPHOCYTOPENIA VASCULITIS SURGICAL HISTORY THIS INFORMATION WAS OBTAINED FROM THE CHART, PATIENT. PATIENT HAS A SURGICAL HISTORY OF: BILATERAL TOTAL KNEE REPLACEMENT- CATARACT REMOVAL- OLECRANON BURSECTOMY- 03/25/2018 (LEFT ELBOW) LEFT 1ST RAY AMPUTATION- 05/11/2022 TONSILLECTOMY- LEFT HALLUX AMPUTATION- (2021 ) RIGHT 2ND TOE AMPUTATION- RIGHT LATERAL FOOT DEBRIDEMENT- R KNEE REPLACEMENT- 05/22/2024 URETERAL STENT PLACEMENT- OBJECTIVE VITALS HEIGHT/LENGTH: 72 IN (182.88 CM), WEIGHT: 187.9 LBS (85.41 KGS), BMI: 25.5, TEMPERATURE: 98.2 ?F (36.78 ?C), PULSE: 95 BPM, RESPIRATORY RATE: 16 BREATHS/MIN, BLOOD PRESSURE: 153/67 MMHG, PULSE OXIMETRY: 99 %. PHYSICAL EXAM CONSTITUTIONAL: VITAL SIGNS REVIEWED AND NOTED. WELL DEVELOPED, WELL NOURISHED, AND IN NO ACUTE DISTRESS. ALERT AND ORIENTED X3. RESPIRATORY: EVEN RESPIRATIONS WITHOUT USE OF ACCESSORY MUSCLES. NO INTERCOASTAL RETRACTIONS NOTED. EVEN AND NON LABORED RESPIRATION. INTEGUMENTARY (HAIR, SKIN): MILD ERYTHEMA DORSUM LEFT 2ND TOE, MULTIPLE AMPUTATIONS. NO SWELLING OR TENDERNESS. SEE WOUND ASSESSMENT. SKIN WARM AND DRY. NO RASHES. NEUROLOGICAL: DECREASED LOWER EXTREMITY SENSATION. PSYCHIATRIC: ORIENTATION TO TIME, PLACE AND PERSON: NORMAL AFFECT WITH NORMAL THOUGHT PATTERN. ADDITIONAL INFORMATION THE PATIENT'S POTENTIAL TO HEAL IS: FAIR. JUAN SANDERS [id number] 1945 WOUND ASSESSMENT(S) WOUND #16 RIGHT FOOT IS A CHRONIC FULL THICKNESS NEUROPATHIC ULCER ACQUIRED ON 11/16/2024 AND HAS RECEIVED A STATUS OF NOT HEALED. INITIAL WOUND ENCOUNTER MEASUREMENTS ARE 0.3CM LENGTH X 0.2CM WIDTH X 0.1 CM DEPTH, WITH AN AREA OF 0.06 SQ CM AND A VOLUME OF 0.006 CUBIC CM.INITIAL WOUND ENCOUNTER PREVIOUS MEASUREMENTS FROM 01/11/2025 ARE 0.5CM LENGTH X 0.5CM WIDTH X 0.1CM DEPTH, WITH AN AREA OF 0.25 SQ CM AND A VOLUME OF 0.025 CUBIC CM. ADIPOSE IS EXPOSED. NO TUNNELING HAS BEEN NOTED. NO SINUS TRACT HAS BEEN NOTED. NO UNDERMINING HAS BEEN NOTED. THERE IS A SMALL AMOUNT OF SEROSANGUINEOUS DRAINAGE NOTED WHICH HAS NO ODOR. THE PATIENT REPORTS A WOUND PAIN OF LEVEL 0/10. THE WOUND MARGIN IS UNATTACHED WOUND BED HAS YES, PINK, FIRM, GRANULATION, YES SLOUGH, NO ESCHAR, NO EPITHELIALIZATION. THE PERIWOUND SKIN EXHIBITED EDEMA AND CALLUS. THE PERIWOUND SKIN DID NOT EXHIBIT MACERATION. THE PERIWOUND SKIN WAS FRIABLE AND MOIST. THE TEMPERATURE OF THE PERIWOUND SKIN IS WNL. PERIWOUND SKIN DOES NOT EXHIBIT SIGNS OR SYMPTOMS OF INFECTION. LOCAL PULSE IS DOPPLER. ADDITIONAL INFORMATION OTHER DEVITALIZED TISSUE PRESENT: BIOFILM WOUND #18 LEFT TOE - SECOND IS AN ACUTE FULL THICKNESS NEUROPATHIC ULCER ACQUIRED ON 12/31/2024 AND HAS RECEIVED A STATUS OF NOT HEALED. INITIAL WOUND ENCOUNTER MEASUREMENTS ARE 0.3CM LENGTH X 0.4CM WIDTH X 0.1 CM DEPTH, WITH AN AREA OF 0.12 SQ CM AND A VOLUME OF 0.012 CUBIC CM.INITIAL WOUND ENCOUNTER PREVIOUS MEASUREMENTS FROM 01/11/2025 ARE 0.2CM LENGTH X 0.2CM WIDTH X 0.1CM DEPTH, WITH AN AREA OF 0.04 SQ CM AND A VOLUME OF 0.004 CUBIC CM. BONE AND ADIPOSE ARE EXPOSED. NO TUNNELING HAS BEEN NOTED. NO SINUS TRACT HAS BEEN NOTED. UNDERMINING HAS BEEN NOTED AT 12:00 AND ENDS AT 12:00 WITH A MAXIMUM DISTANCE OF 0.3CM. THERE IS A SMALL AMOUNT OF SEROSANGUINEOUS DRAINAGE NOTED. THE PATIENT REPORTS A WOUND PAIN OF LEVEL 0/10. THE WOUND MARGIN IS ATTACHED WOUND BED HAS NO, GRANULATION, YES SLOUGH, NO ESCHAR, NO EPITHELIALIZATION. THE PERIWOUND SKIN EXHIBITED ERYTHEMA. THE TEMPERATURE OF THE PERIWOUND SKIN IS WNL. LOCAL PULSE IS DOPPLER. 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 (ENCOUNTER DIAGNOSIS) L97.522 - NON-PRESSURE CHRONIC ULCER OF OTHER PART OF LEFT FOOT WITH FAT LAYER EXPOSED GENERAL NOTES ULCER OVER RIGHT 1ST METATARSAL HEAD HAS IMPROVED MEASUREMENTS ULCER DORSUM LEFT 2ND TOE LARGER AND HAS MILD ERYTHEMA, INCREASED PAIN THE FOLLOWING FACTORS HAVE BEEN IDENTIFIED THAT MAY AFFECT WOUND HEALING: DEVITALIZED TISSUE BIOFILM ADVANCED AGE IMMUNE SUPPRESSION PRESSURE GOALS: REMOVE DEVITALIZED TISSUE JUAN SANDERS [id number] 1945 REMOVE AND PREVENT BIOFILM PRESSURE OFFLOADING PREVENT INFECTION MANAGE COMORBIDITIES WOUND CLOSURE PLAN: DEBRIDEMENT, CULTURE LEFT 2ND TOE, CONTINUE DRESSING CHANGES WITH HYDROFERA BLUE AND USE FELT SURROUND PAD WITH WEDGE SHOE ON THE RIGHT FOR PRESSURE OFFLOADING, CONTINUE PROTEIN SUPPLEMENTATION, ORDER MRI LEFT FOOT, START DOXYCYCLINE 100 MG P.O. B.I.D. AND ADJUST NEEDED. FOLLOW UP IN 1 WEEK FOR A RECHECK. PROCEDURES WOUND #16 WOUND #16 (NEUROPATHIC ULCER) IS LOCATED ON THE RIGHT FOOT. A SKIN/SUBCUTANEOUS TISSUE LEVEL SURGICAL DEBRIDEMENT WITH A TOTAL AREA DEBRIDED OF 0.06 SQ CM. WAS PERFORMED BY JESS CROSS MD. SUBCUTANEOUS WAS REMOVED ALONG WITH DEVITALIZED TISSUE: BIOFILM, EXUDATE AND SLOUGH. THE FOLLOWING INSTRUMENT(S) WERE USED: CURETTE. PAIN CONTROL WAS ACHIEVED USING EMLA LIDOCAINE/PRILOCAINE 2.5%/2.5%. A TIME OUT WAS CONDUCTED PRIOR TO THE START OF THE PROCEDURE. A MINIMAL AMOUNT OF BLEEDING WAS CONTROLLED WITH PRESSURE. THE PROCEDURE WAS TOLERATED WELL WITH A PAIN LEVEL OF 0 THROUGHOUT AND A PAIN LEVEL OF 0 FOLLOWING THE PROCEDURE. POST DEBRIDEMENT MEASUREMENTS: 0.3CM LENGTH X 0.2CM WIDTH X 0.2CM DEPTH; WITH AN AREA OF 0.06 SQ CM AND A VOLUME OF 0.012 CUBIC CM. ADDITIONAL INFORMATION MUSCLE FASCIA OR BONE REMOVED AND SENT TO PATHOLOGY?: NO WOUND #18 WOUND #18 (NEUROPATHIC ULCER) IS LOCATED ON THE LEFT TOE - SECOND. A SKIN/SUBCUTANEOUS TISSUE LEVEL SURGICAL DEBRIDEMENT WITH A TOTAL AREA DEBRIDED OF 0.12 SQ CM. WAS PERFORMED BY JESS CROSS MD. SUBCUTANEOUS WAS REMOVED ALONG WITH DEVITALIZED TISSUE: BIOFILM, EXUDATE AND SLOUGH. THE FOLLOWING INSTRUMENT(S) WERE USED: CURETTE. PAIN CONTROL WAS ACHIEVED USING EMLA LIDOCAINE/PRILOCAINE 2.5%/2.5%. A TIME OUT WAS CONDUCTED PRIOR TO THE START OF THE PROCEDURE. A MINIMAL AMOUNT OF BLEEDING WAS CONTROLLED WITH PRESSURE. THE PROCEDURE WAS TOLERATED WELL WITH A PAIN LEVEL OF 0 THROUGHOUT AND A PAIN LEVEL OF 0 FOLLOWING THE PROCEDURE. POST DEBRIDEMENT MEASUREMENTS: 0.3CM LENGTH X 0.4CM WIDTH X 0.2CM DEPTH; WITH AN AREA OF 0.12 SQ CM AND A VOLUME OF 0.024 CUBIC CM. ADDITIONAL INFORMATION MUSCLE FASCIA OR BONE REMOVED AND SENT TO PATHOLOGY?: NO PLAN WOUND ORDERS: WOUND #16 RIGHT FOOT CLEANSER CLEANSE WOUND WITH NORMAL SALINE CLEANSE WOUND AND AMIRA WOUND WITH A NON-CYTOTOXIC WOUND CLEANSER. - VASHE. MAY SHOWER, LEAVE WOUND DRESSING INTACT. COVER WOUND DRESSING WITH A WATERPROOF BARRIER. KEEP DRESSING DRY. NO BATHS PLEASE. PROCEDURE / ANESTHETIC 4% TOPICAL LIDOCAINE TO WOUND BED PRIOR TO PROCEDURE, IN CLINIC ONLY. DRESSING ORDERS APPLY DRESSING(S) AND SECURE WITH: - HYDROFERA BLUE CLASSIC FOAM, MOISTENED WITH SALINE OR DISTILLED WATER AND WRUNG OUT WELL, PRIOR TO PLACING AGAINST WOUND BED. JUAN SANDERS [id number] 1945 COVER WITH OPTIFOAM OR EQUIVALENT. SECURE WITH TAPE. DRESSING CHANGE FREQUENCY CHANGE DRESSING EVERY OTHER DAY. WOUND #18 LEFT TOE - SECOND PROCEDURE / ANESTHETIC 4% TOPICAL LIDOCAINE TO WOUND BED PRIOR TO PROCEDURE, IN CLINIC ONLY. DRESSING ORDERS APPLY DRESSING(S) AND SECURE WITH: - HYDROFERA BLUE CLASSIC FOAM, MOISTENED WITH SALINE OR DISTILLED WATER AND WRUNG OUT WELL, PRIOR TO PLACING AGAINST WOUND BED. COVER WITH OPTIFOAM OR EQUIVALENT. SECURE WITH TAPE. DRESSING CHANGE FREQUENCY CHANGE DRESSING EVERY OTHER DAY. ADDITIONAL ORDERS: HAND HYGIENE HAND HYGIENE - WASH HANDS BEFORE AND AFTER WOUND CARE. CALL THE WOUND CENTER AT [phone] IF YOU HAVE SIGNS OR SYMPTOMS OF INFECTION, FEVER CHILLS OR SHAKES, INCREASED DRAINAGE, INCREASED ODOR OR UNUSUAL REDNESS. AFTER WOUND CENTER HOURS PLEASE NOTIFY YOUR PCP OR GO TO THE EMERGENCY ROOM. OFF-LOADING / PRESSURE RELIEF USE/WEAR WHEN WALKING: - FELT ADHESIVE PADS TO BOTH PLANTAR FEET. OFFLOADING WEDGE SHOE TO RIGHT FOOT. FELT SURROUND TO TOE DIETARY TAKE VITAMIN C 1000MG BY MOUTH DAILY. TAKE ZINC 25MG BY MOUTH DAILY. INCREASE THE PROTEIN IN YOUR DIET. HOME HEALTH HOME HEALTH CARE: IF YOU HAVE ANY QUESTIONS OR CONCERNS PLEASE CONTACT THE WOUND CENTER. - SIGNATURE HOME HEALTH- MAY DISCHARGE PT. PT NOW ABLE TO PREFORM DRESSING CHANGES INDEPENDENTLY. FOLLOW-UP APPOINTMENTS RETURN APPOINTMENT 1 WEEK SCRIBING ATTESTATION I ATTEST, THE NURSE, THAT I SCRIBED THESE ORDERS FOR THE WOUND CARE PROVIDER. PROVIDER REVIEW AND ATTESTATION: REVIEWED AND EVALUATED LABS. REVIEWED HOSPITAL RECORDS. DISCUSSED THE PLAN OF CARE @ BEDSIDE WITH - THE PATIENT I AGREE AND ATTEST TO THE ABOVE INFORMATION PROVIDED FROM OTHER LICENSED PROFESSIONALS. ANCILLARY SERVICES: LABORATORY: CULTURE WOUND RADIOLOGY: MRI - LEFT FOOT. PLEASE CALL AND SCHEDULE. [phone] MEDICATIONS PRESCRIBED: DOXYCYCLINE MONOHYDRATE - ORAL 100 MG 1 TABLET TWICE DAILY FOR 1 WEEK STARTING 01/20/2025 PLAN OF CARE: 01. ENSURE/ESTABLISH OPTIMAL BLOOD FLOW : - COMPLETE LOWER EXTREMITY ASSESSMENT STATUS: CONTINUED DATE: 12/23/2024 - PERFORM NON-INVASIVE VASCULAR TESTING (I.E. JOY) AND DOCUMENT FINDINGS. CONSIDER REPEATING WHEN WOUND HEALING <40% AFTER 30 DAYS OF WOUND CARE. - JOY PERFORMED- PAD. ARTERIAL US ORDERED. JUAN SANDERS [id number] 1945 STATUS: CONTINUED DATE: 12/23/2024 02. ASSESS FOR/TREAT INFECTION : - EVALUATE FOR SIGNS AND SYMPTOMS OF INFECTION AND DOCUMENT FINDINGS. STATUS: CONTINUED DATE: 12/23/2024 - OBTAIN CULTURE AND SENSITIVITY (CANDS) OR TISSUE CULTURE WHEN INFECTION IS SUSPECTED. (NOTE:) CONSIDER REPEATING WHEN WOUND HEALING <40% AFTER 30 DAYS OF WOUND CARE. STATUS: CONTINUED DATE: 12/23/2024 03. DEBRIDE WEEKLY OR MORE OFTEN PRN : - EVALUATE PATIENT IN CENTER WEEKLY TO ASSESS WOUND BED AND MARGINS FOR NEED FOR DEBRIDEMENT. STATUS: CONTINUED DATE: 12/23/2024 - DEBRIDEMENT BY ANY METHOD TO REMOVE DEVITALIZED/NECROTIC TISSUE TO PROMOTE HEALING AND PREVENT FURTHER COMPLICATIONS. GOAL IS TO STIMULATE AND/OR MAINTAIN ACUTE PHASE OF WOUND HEALING BY REDUCING BACTERIAL BURDEN AND DEVITALIZED/NON-VIABLE TISSUE. STATUS: CONTINUED DATE: 12/23/2024 04. OPTIMIZE GLUCOSE CONTROL AND NUTRITION : - ORDER/REVIEW PERTINENT LABS TO EVALUATE RENAL FUNCTION, GLUCOSE CONTROL, AND NUTRITIONAL STATUS. STATUS: CONTINUED DATE: 12/23/2024 - COMPLETE A NUTRITION RISK ASSESSMENT. STATUS: COMPLETED DATE: 12/23/2024 05. OFFLOADING PLAN : - EVALUATE PLAN FOR OFFLOADING STATUS: CONTINUED DATE: 12/23/2024 - ADVISE PATIENT TO OFFLOAD THE FOOT ULCER. (I.E. HALF SHOE, SURGICAL SHOE, INSERT, CUSTOM SHOE, FELT AND FOAM, CAM WALKER, MULTIPODUS SPLINT, TOTAL CONTACT CAST, BI-VALVE CAST, POSTERIOR SPLINT). STATUS: CONTINUED DATE: 12/16/2024 06. OPTIMIZE HOST FACTORS: - ASSESS AND REVIEW PATIENT HISTORY FOR WOUND ETIOLOGY, CO-MORBID CONDITIONS, MEDICATION REGIME, AND SMOKING HISTORY. STATUS: CONTINUED DATE: 12/23/2024 07. DRESSING SELECTION : - CHOOSE TOPICAL TREATMENTS AND/OR DRESSING BASED ON WOUND TYPE AND APPEARANCE, PERIWOUND SKIN CONDITION, WOUND SIZE AND DEPTH, ANATOMIC LOCATION, VOLUME OF EXUDATE, EDEMA IN THE LOWER EXTREMITIES, AND RISK OR PRESENCE OF INFECTION. STATUS: CONTINUED DATE: 12/23/2024 08. ADVANCED MODALITIES : - SET TREATMENT GOALS ACCORDING TO PATIENT AND/OR CAREGIVER?S ABILITY/ COMPLIANCE. STATUS: CONTINUED DATE: 12/23/2024 09. FALL PREVENTION : - COMPLETE FALL ASSESSMENT. STATUS: COMPLETED DATE: 12/23/2024 - INFORM PATIENT AND FAMILY OF RISK OF FALLING AND DISCUSS PREVENTION STRATEGIES. STATUS: COMPLETED DATE: 12/23/2024 10. PAIN MANAGEMENT : - COMPLETE PAIN ASSESSMENT STATUS: COMPLETED DATE: 12/23/2024 11. MEASURABLE GOALS FOR WOUND HEALING AND/OR HYPERBARIC OXYGEN THERAPY : - IMPLEMENT PROTOCOLS TO PROMOTE HEALING AND IMPEDE FURTHER INJURY STATUS: CONTINUED DATE: 12/23/2024 12. DURATION/FREQUENCY OF WOUND CARE VISITS : - 1X WEEKLY FOR 30 DAYS STATUS: CONTINUED DATE: 12/23/2024 JUAN SANDERS [id number] 1945 ELECTRONIC SIGNATURE(S) SIGNED BY: DATE: JESS CROSS MD 01/20/2025 15:50:59 (PT) ENTERED BY: JESS CROSS MD ON 01/20/2025 12:47:49 (PT) JUAN SANDERS [id number] 1945
== END ==
PROVIDERS: PCP Family Medicine; Referring Provider Family Medicine; Visit Provider Surgery
DX: G57.83 Other specified mononeuropathies of bilateral lower limbs (principal); L97.522 Non-pressure chronic ulcer of other part of left foot with fat layer exposed; L97.526 Non-pressure chronic ulcer of other part of left foot with bone involvement without evidence of necrosis; L84 Corns and callosities; R60.0 Localized edema; L53.8 Other specified erythematous conditions
CPT/HCPCS: 11042; 87070; 87075; 87077; 87205; 99213

== ENCOUNTER 2025-01-22 11:01 | Emergency (ER) | payer MEDICARE, OTHER, SELFPAY ==
[2025-01-08 15:24] VITALS: BMI 25.1
[2025-01-22] VITALS (42 sets, daily range): BP systolic 118–172; BP diastolic 58–116; PULSE 81–98; RESP 9–20; TEMP 36.6; O2SAT 90–100; BMI 24.7
--- NOTE | 2025-01-22 11:16 | ED_ITS ---
HPI - Extremity Injury (Lower) General Chief Complaint: Extremity Injury, Lower Stated Complaint: Rt knee pain Time Seen by Provider: 01/22/25 11:10 History of Present Illness HPI Narrative: 79-year-old gentleman history of CVA lupus and history of right knee replacement last year presents with right knee pain and swelling after crossing leg while in the sitting position to attend to the other foot with wound issues started to have severe pain afterwards unable to bear weight at this time. Patient was brought in via EMS given ketamine and morphine prior to arrival here still unable to completely bend the knee or straighten out completely. Other than what is day 14 point review of system is negative Related Data Home Medications Medication Instructions Recorded Confirmed cholecalciferol (vitamin D3) 50 2,000 unit PO DAILY 11/07/18 12/25/24 mcg (2,000 unit) capsule hydroxychloroquine 200 mg tablet 200 mg PO BID 05/09/22 12/25/24 famotidine 20 mg tablet 20 mg PO DAILY 11/27/24 12/25/24 mycophenolate mofetil 250 mg 500 mg PO BID 11/27/24 12/25/24 capsule prednisone 5 mg tablet 20 mg PO DAILY 11/27/24 12/25/24 Previous Rx's Medication Instructions Recorded Disabled Parking Permit #1 ea 10/03/20 tramadol 50 mg tablet 50 mg PO Q6H PRN pain #30 tabs 09/29/24 pantoprazole 40 mg tablet,delayed 40 mg PO BID #60 tabs 12/02/24 release tamsulosin 0.4 mg capsule 0.8 mg (2 x 0.4 mg) PO DAILY #180 12/17/24 caps fosfomycin tromethamine 3 gram 3 g PO ONCE #1 ea 12/22/24 oral packet atorvastatin 10 mg tablet 10 mg PO DAILY #90 tabs 12/28/24 ferrous sulfate 325 mg (65 mg 325 mg PO DAILY #90 tabs 01/07/25 iron) tablet nitrofurantoin 100 mg PO BID #10 caps 01/08/25 monohydrate/macrocrystals 100 mg capsule hydrocodone 5 mg-acetaminophen 300 1 tab PO Q6H PRN pain #20 tabs 01/22/25 mg tablet Allergies Allergy/AdvReac Type Severity Reaction Status Date / Time cefepime AdvReac Severe aphasia Verified 01/08/25 10:58 meropenem AdvReac Severe Aphasia Verified 01/08/25 10:58 Review of Systems Review of Systems ROS Unobtainable: All systems reviewed & are unremarkable except as noted in HPI and below Patient History Medical History (Updated 01/22/25 @ 16:38 by Rick Hubbard DO) History of urinary retention Retained ureteral stent Bill catheter in place BPH w urinary obs/LUTS Hydronephrosis Elevated serum creatinine Agent orange exposure Lower urinary tract symptoms Urine retention Osteomyelitis Lymphocytopenia Chronic UTI DVT (deep venous thrombosis) Pulmonary embolus HLD (hyperlipidemia) Arthritis 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 Mother Diabetes mellitus Hyperlipidemia Sister Diabetes mellitus Social History marital status: number of children: 2 household members: children lives independently: Yes caregiver/support person: No housing: house education level: college occupational status: previously employed Smoking Status: Former smoker Tobacco: How many years used: 25 second hand exposure: No alcohol intake: current substance use type: does not use caffeine: Yes Type(s) of exercise: bicycling and weight lifting Smoking Status: Former smoker alcohol intake frequency: 3 or more drinks per day Exam Narrative Exam Narrative: GENERAL: [79] year old patient appears stated age. Well-developed patient, in mild distress. HEAD: Atraumatic. Normocephalic. EYES: Pupils equal round and reactive. Extraocular motions intact. No scleral icterus. No injection or drainage. NECK: Trachea midline. Non tender EXTREMITIES: R knee diffuse mod patellafemoral swelling, no rash, slightly flexed position at 15 degrees, motor/sensory intact +2DP+2PT cap refill <2secs BACK: Nontender without deformity or crepitance. No flank tenderness. NEURO: AOx3. SKIN: No rash or erythema of visible areas Initial Vital Signs Initial Vital Signs: Vital Signs Temperature 97.8 F 01/22/25 11:07 Pulse Rate 96 H 01/22/25 11:07 Respiratory Rate 18 01/22/25 11:07 Blood Pressure 172/92 H 01/22/25 11:07 Pulse Oximetry 99 01/22/25 11:07 Oxygen Delivery Method Room Air 01/22/25 11:07 Course Orders Ordered: ED Orders 01/22/25 11:19 XR knee LT 3V Stat 01/22/25 12:13 MR knee RT wo con Stat Discontinued Medications Hydromorphone HCl (Hydromorphone 1 Mg Inj) 1 mg IV NOW ONE Stop: 01/22/25 11:21 Last Admin: 01/22/25 11:27 Dose: 1 mg Documented By: ARSH Ketorolac Tromethamine (Ketorolac 30 Mg/Ml Vial) 15 mg IV NOW ONE Stop: 01/22/25 11:22 Last Admin: 01/22/25 11:27 Dose: 15 mg Documented By: ARSH Propofol (Propofol 200 Mg/20 Ml Vial) 70 mg 0.5 mg/kg (40 mg) IV NOW ONE Stop: 01/22/25 14:16 Last Admin: 01/22/25 14:07 Dose: 70 mg Documented By: ARSH Vital Signs Vital signs: Vital Signs - 8 hr 01/22/25 11:07 01/22/25 11:07 01/22/25 11:08 Temperature 97.8 F Pulse Rate 96 H 98 H 98 H Respiratory Rate 18 Blood Pressure 172/92 H Pulse Oximetry 99 99 98 Oxygen Delivery Method Room Air Oxygen Flow Rate 01/22/25 11:08 01/22/25 11:30 01/22/25 11:30 Temperature Pulse Rate 92 H Respiratory Rate Blood Pressure 172/92 H 150/72 H Pulse Oximetry 100 Oxygen Delivery Method Room Air Oxygen Flow Rate 01/22/25 12:00 01/22/25 12:00 01/22/25 12:30 Temperature Pulse Rate 89 Respiratory Rate Blood Pressure 154/74 H 145/71 H Pulse Oximetry 98 Oxygen Delivery Method Oxygen Flow Rate 01/22/25 12:30 01/22/25 13:00 01/22/25 13:00 Temperature Pulse Rate 90 81 Respiratory Rate Blood Pressure 149/73 H Pulse Oximetry 98 97 Oxygen Delivery Method Room Air Oxygen Flow Rate 01/22/25 13:30 01/22/25 13:30 01/22/25 13:37 Temperature Pulse Rate 84 86 Respiratory Rate 11 L 14 Blood Pressure 159/78 H 167/81 H Pulse Oximetry 97 98 Oxygen Delivery Method Oxygen Flow Rate 01/22/25 13:47 01/22/25 13:47 01/22/25 13:50 Temperature Pulse Rate 87 85 Respiratory Rate 15 13 Blood Pressure 167/81 H 118/58 L Pulse Oximetry 99 95 Oxygen Delivery Method Oxygen Flow Rate 5 01/22/25 13:51 01/22/25 13:51 01/22/25 13:55 Temperature Pulse Rate 84 82 Respiratory Rate 15 10 L Blood Pressure 118/58 L 147/71 H Pulse Oximetry 99 99 Oxygen Delivery Method Oxygen Flow Rate 2 01/22/25 13:55 01/22/25 13:55 01/22/25 14:00 Temperature Pulse Rate 81 83 Respiratory Rate 9 L 12 Blood Pressure 147/71 H 147/72 H Pulse Oximetry 99 96 Oxygen Delivery Method Oxygen Flow Rate 01/22/25 14:00 01/22/25 14:00 01/22/25 14:05 Temperature Pulse Rate 85 81 Respiratory Rate 19 14 Blood Pressure 147/72 H 147/75 H Pulse Oximetry 97 99 Oxygen Delivery Method Oxygen Flow Rate 01/22/25 14:05 01/22/25 14:05 01/22/25 14:10 Temperature Pulse Rate 82 Respiratory Rate 16 Blood Pressure 147/75 H 148/77 H Pulse Oximetry 99 Oxygen Delivery Method Oxygen Flow Rate 01/22/25 14:10 01/22/25 14:13 01/22/25 14:51 Temperature Pulse Rate 89 81 Respiratory Rate 20 14 Blood Pressure 138/65 Pulse Oximetry 98 Oxygen Delivery Method Oxygen Flow Rate 01/22/25 14:51 01/22/25 14:55 01/22/25 14:55 Temperature Pulse Rate 98 H 93 H Respiratory Rate Blood Pressure 136/65 Pulse Oximetry 97 91 Oxygen Delivery Method Oxygen Flow Rate 01/22/25 15:00 01/22/25 15:00 01/22/25 15:05 Temperature Pulse Rate 88 88 Respiratory Rate Blood Pressure 147/69 H Pulse Oximetry 94 91 Oxygen Delivery Method Oxygen Flow Rate 01/22/25 15:05 01/22/25 15:10 01/22/25 15:10 Temperature Pulse Rate 88 Respiratory Rate Blood Pressure 141/65 H 142/71 H Pulse Oximetry Oxygen Delivery Method Oxygen Flow Rate 01/22/25 15:15 01/22/25 15:15 01/22/25 15:20 Temperature Pulse Rate 84 Respiratory Rate Blood Pressure 150/73 H 145/68 H Pulse Oximetry Oxygen Delivery Method Oxygen Flow Rate 01/22/25 15:20 Temperature Pulse Rate 84 Respiratory Rate Blood Pressure Pulse Oximetry Oxygen Delivery Method Oxygen Flow Rate MDM - Extremity Injury (Lower) MDM Narrative Medical decision making narrative: [address] [address] XRay Report Signed Patient: Lalo Hyde MR#: [id number] : 1945 Acct:[id number] Age/Sex: 79 / M Date of Service: 01/22/25 Loc: ED Accession Number: [id number] Procedure: XR knee LT 3V Ordering Provider: Rick Hubbard D.O. PROCEDURE: XR KNEE LT 3V INDICATIONS: knee pain TECHNIQUE: 3 views of the knee were acquired. COMPARISON: Located Within [facility], , XR KNEE RT 1TO2V, 05/22/2024, 15:43. FINDINGS: Bones: Patient is status post prior right total knee arthroplasty. Right knee alignment is anatomic. No acute fracture or dislocation. No gross hardware loosening or failure. Slight lateral tilt of the patella is seen. Soft tissues: No significant joint effusion. No suspicious soft tissue calcifications. IMPRESSION: No acute left knee fracture or dislocation. Prior left total knee arthroplasty. No gross hardware loosening or failure. No significant joint effusion. Dictated by: Han Velazco M.D. on 01/22/2025 at 11:53 Approved by: Han Velazco M.D. on 01/22/2025 at 11:[address] [address] Magnetic Resonance Report Signed Patient: Lalo Hyde MR#: [id number] : 1945 Acct:[id number] Age/Sex: 79 / M Date of Service: 01/22/25 Loc: ED Accession Number: [id number] Procedure: MR knee RT wo con Ordering Provider: Rick Hubbard D.O. PROCEDURE: MR KNEE RT WO CON INDICATIONS: L knee pain TECHNIQUE: Noncontrast sagittal PD fast spin echo and T2 fast spin echo with fat saturation, sagittal 3-D FLASH with fat saturation; coronal T1 spin echo and PD fast spin echo with fat saturation, and axial PD fast spin echo with fat saturation through the knee. COMPARISON: Located Within [facility], CR, XR KNEE RT 3V, 01/22/2025, 11:25. FINDINGS: Image quality: Diagnostic Menisci: Not applicable Cruciate ligaments: The cruciate ligaments are not well seen. No definite full-thickness cruciate ligament rupture is noted. Medial structures: Thickened medial collateral ligament. The visualized portions of the pes anserinus tendons appear normal. No abnormal bursal fluid. Lateral structures: The lateral collateral ligament, long and short heads of the biceps femoris tendon appear intact. Popliteus tendinosis is seen extending to musculotendinous junction. Iliotibial band appears normal. Anterior structures: The quadriceps and patellar tendons appear intact. There is low to moderate grade partial-thickness tear involving medial patellofemoral ligament near its patellar insertion with slight lateral tilting of patella. Bones and cartilage: Patient is status post right total knee arthroplasty. No gross marrow edema is seen. No acute displaced fracture or dislocation. Joint space: There is moderate knee joint fluid. No Welsh's cyst. Normal appearing synovial plicae are incidentally noted. IMPRESSION: 1. Prior left total knee arthroplasty. No gross marrow edema. No acute fracture or dislocation. 2. Moderate joint effusion, no gross intra-articular loose bodies. 3. Low to moderate grade partial-thickness tear involving medial patellofemoral ligament near its patellar insertion with slight lateral tilting of the patella. Distal quadriceps tendon and patellar tendon are grossly intact. 4. No full-thickness ACL or PCL rupture. 5. Low-grade MCL sprain. Tendinosis and low-grade partial-thickness tear involving popliteus tendons extending to musculotendinous junction. Patient had moderate sedation for knee reduction per Orthopedic Dr. the patient to sedate hyperflex the knee and translate forward for which I felt a small clunk 1 time patient tolerated the procedure with no complications. Knee x-ray in EMR were reviewed along with previous ER visits vital signs medication are list reviewed previous ER visits reviewed as well as previous lab work. Patient will be given a prescription for hydrocodone and to follow up with his orthopedic doctor next week as long as well as crutches and knee immobilizer. Differential diagnosis include fracture dislocation ligament and meniscal injury. Discharge Plan Departure Patient Disposition: Home Clinical Impression: Ligament tear Instructions: DI for Ligament Sprains Activity Restrictions/Additional Instructions: Return with new or worsening symptoms follow up with your orthopedic doctor next week. Take your medicines as directed Prescriptions: New hydrocodone-acetaminophen 5-300 mg tablet 1 tab PO Q6H PRN (Reason: pain) Qty: 20 0RF No Action tramadol 50 mg tablet 50 mg PO Q6H PRN (Reason: pain) Qty: 30 1RF cholecalciferol (vitamin D3) 2,000 unit capsule 2,000 unit PO DAILY (DME) Disabled Parking Permit See Rx Instructions .ROUTE .MEDSUPPLY Qty: 1 0RF Rx Instructions: I find this person to be disabled pantoprazole 40 mg tablet,delayed release (DR/EC) 40 mg PO BID Qty: 60 2RF tamsulosin 0.4 mg capsule 0.8 mg PO DAILY Qty: 180 3RF fosfomycin tromethamine 3 gram packet 3 g PO ONCE Qty: 1 0RF Rx Instructions: Take one 3 gram packet mixed in water by mouth the day before cystoscopy. atorvastatin 10 mg tablet 10 mg PO DAILY Qty: 90 0RF ferrous sulfate 325 mg (65 mg iron) tablet 325 mg PO DAILY Qty: 90 0RF hydroxychloroquine 200 mg Tablet 200 mg PO BID prednisone 5 mg tablet 20 mg PO DAILY mycophenolate mofetil 250 mg capsule 500 mg PO BID famotidine 20 mg tablet 20 mg PO DAILY nitrofurantoin monohyd/m-cryst 100 mg capsule 100 mg PO BID Qty: 10 0RF Rx Instructions: must administer with a meal/food Referrals: Dionne Snow MD [Primary Care Provider] - Stand Alone Forms: Patient Portal/API/Survey
--- NOTE | 2025-01-22 11:19 | DI.RAD.S_ITS ---
PROCEDURE: XR KNEE LT 3V INDICATIONS: knee pain TECHNIQUE: 3 views of the knee were acquired. COMPARISON: [facility], CR, XR KNEE RT 1TO2V, 05/22/2024, 15:43. FINDINGS: Bones: Patient is status post prior right total knee arthroplasty. Right knee alignment is anatomic. No acute fracture or dislocation. No gross hardware loosening or failure. Slight lateral tilt of the patella is seen. Soft tissues: No significant joint effusion. No suspicious soft tissue calcifications. IMPRESSION: No acute left knee fracture or dislocation. Prior left total knee arthroplasty. No gross hardware loosening or failure. No significant joint effusion. Dictated by: Han Velazco M.D. on 01/22/2025 at 11:53 Approved by: Han Velazco M.D. on 01/22/2025 at 11:53
[2025-01-22] MEDS: KETOROLAC 30 MG/ML VIAL 15 MG IV (11:27)
[2025-01-22] MEDS: HYDROMORPHONE 1 MG INJ IV (11:27)
--- NOTE | 2025-01-22 12:13 | DI.MRI.S_ITS ---
PROCEDURE: MR KNEE RT WO CON INDICATIONS: L knee pain TECHNIQUE: Noncontrast sagittal PD fast spin echo and T2 fast spin echo with fat saturation, sagittal 3-D FLASH with fat saturation; coronal T1 spin echo and PD fast spin echo with fat saturation, and axial PD fast spin echo with fat saturation through the knee. COMPARISON: [facility], CR, XR KNEE RT 3V, 01/22/2025, 11:25. FINDINGS: Image quality: Diagnostic Menisci: Not applicable Cruciate ligaments: The cruciate ligaments are not well seen. No definite full-thickness cruciate ligament rupture is noted. Medial structures: Thickened medial collateral ligament. The visualized portions of the pes anserinus tendons appear normal. No abnormal bursal fluid. Lateral structures: The lateral collateral ligament, long and short heads of the biceps femoris tendon appear intact. Popliteus tendinosis is seen extending to musculotendinous junction. Iliotibial band appears normal. Anterior structures: The quadriceps and patellar tendons appear intact. There is low to moderate grade partial-thickness tear involving medial patellofemoral ligament near its patellar insertion with slight lateral tilting of patella. Bones and cartilage: Patient is status post right total knee arthroplasty. No gross marrow edema is seen. No acute displaced fracture or dislocation. Joint space: There is moderate knee joint fluid. No Welsh's cyst. Normal appearing synovial plicae are incidentally noted. IMPRESSION: 1. Prior left total knee arthroplasty. No gross marrow edema. No acute fracture or dislocation. 2. Moderate joint effusion, no gross intra-articular loose bodies. 3. Low to moderate grade partial-thickness tear involving medial patellofemoral ligament near its patellar insertion with slight lateral tilting of the patella. Distal quadriceps tendon and patellar tendon are grossly intact. 4. No full-thickness ACL or PCL rupture. 5. Low-grade MCL sprain. Tendinosis and low-grade partial-thickness tear involving popliteus tendons extending to musculotendinous junction. Dictated by: Han Velazco M.D. on 01/22/2025 at 15:30 Approved by: Han Velazco M.D. on 01/22/2025 at 15:39
[2025-01-22] MEDS: propofoL 200 MG/20 ML VIAL 70 MG IV (14:07)
== END 2025-01-22 17:10 | disposition home or self-care (01) ==
PROVIDERS: Emergency Provider Family Medicine; PCP Family Medicine
DX: S83.92XA Sprain of unspecified site of left knee, initial encounter (principal); X58.XXXA Exposure to other specified factors, initial encounter
CPT/HCPCS: 27550; 73562; 73721; 96374; 96375; 99284; J1171; J1885; J2704

== ENCOUNTER → 2025-01-27 13:43 | Outpatient (CLI) | payer MEDICARE, OTHER, SELFPAY ==
[2025-01-08 15:24] VITALS: BMI 25.1
== END ==
PROVIDERS: PCP Family Medicine; Referring Provider Family Medicine; Visit Provider Surgery
DX: L97.412 Non-pressure chronic ulcer of right heel and midfoot with fat layer exposed (principal); L97.522 Non-pressure chronic ulcer of other part of left foot with fat layer exposed; L84 Corns and callosities; L53.9 Erythematous condition, unspecified; G62.9 Polyneuropathy, unspecified; L08.89 Other specified local infections of the skin and subcutaneous tissue; Z79.2 Long term (current) use of antibiotics
CPT/HCPCS: 11042; 99212; 99213

== ENCOUNTER → 2025-01-27 14:37 | Outpatient (CLI) | payer MEDICARE, OTHER, SELFPAY ==
[2025-01-08 15:24] VITALS: BMI 25.1
--- NOTE | 2025-01-27 14:39 | DI.MRI.S_ITS ---
PROCEDURE: MR FOOT LT WO/W CON INDICATIONS: Eval for osteo left 2nd toe TECHNIQUE: Noncontrast coronal T1 spin echo and STIR, sagittal T1 spin echo with fat saturation and STIR, axial T1 spin echo and T2 fast spin echo with fat saturation. After the administration of contrast, axial/sagittal/coronal T1 spin echo with fat saturation through the left foot. COMPARISON: [facility], CR, XR FOOT LT MIN 3V, 12/08/2024, 12:17. [facility], MR, MR FOOT RT WO/W CON, 07/30/2023, 14:34. [facility], MR, MR FOOT LT WO/W CON, 07/30/2022, 17:30. [facility], MR, MR FOOT LT WO/W CON, 04/19/2022, 12:58. FINDINGS: Image quality: Excellent. Enhancement: There is loss of the T1 marrow signal at the head of the 2nd proximal phalanx with partial marrow signal loss at the distal shaft 4/13), corresponding marrow edema (5/13), and enhancement (13/13). Mild subcutaneous edema and circumferential enhancement is present around this area as well. There is a contour irregularity of the dorsal subcutaneous tissues overlying the 2nd proximal phalangeal head, likely representing an ulcer site. There is no other focus of abnormal mass-like or nodular enhancement. Bone: The marrow signal is otherwise within normal limits. There has been prior partial amputation of the 1st digit to the level of the mid metatarsal with subsequent heterotopic ossification around the osteotomy site (04/15). 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 The Lisfranc interval is preserved. There is no significant joint effusion in the field of view. Muscle: Diffuse atrophy and fatty replacement of the plantar foot musculature is present. Tendon: The visualized flexor and extensor tendons are within normal limits. Other: Diffuse subcutaneous edema is present, predominantly along the dorsum of the forefoot and midfoot (). IMPRESSION: 1. Osteomyelitis of the 2nd digit proximal phalangeal head without necrosis. 2. Osteitis versus early osteomyelitis of the 2nd digit proximal phalangeal shaft without necrosis. 3. Likely cellulitis of the 2nd digit and dorsal forefoot/midfoot. 4. Chronic denervation change of the plantar foot musculature. Dictated by: Rajeev Navarrete M.D. on 01/28/2025 at 20:30 Approved by: Rajeev Navarrete M.D. on 01/28/2025 at 20:38
[2025-01-27 15:26] LABS: BUN Creatinine Ratio 19.1 (6-22); Blood Urea Nitrogen 25 mg/dL (9-20); Calcium 9.6 mg/dL (8.4-10.2); Carbon Dioxide 25 mmol/L (22-32); Chloride 98 mmol/L (98-107); Estimated Glomerular Filt Rate 55 mL/min (>60); Glucose 114 mg/dL (80-110); HEMOLYSIS < 15 (0-50); Potassium 4.7 mmol/L (3.4-5.1); Sodium 131 mmol/L (137-145)
== END ==
PROVIDERS: Urology; PCP Family Medicine; Referring Provider Surgery; Visit Provider Surgery
DX: L97.522 Non-pressure chronic ulcer of other part of left foot with fat layer exposed (principal); M86.9 Osteomyelitis, unspecified; R79.89 Other specified abnormal findings of blood chemistry
CPT/HCPCS: 36415; 73720; 80048; A9579

== ENCOUNTER → 2025-02-04 11:45 | Outpatient (CLI) | payer MEDICARE, OTHER, SELFPAY ==
[2025-01-08 15:24] VITALS: BMI 25.1
== END ==
PROVIDERS: PCP Family Medicine; Visit Provider Urology
DX: N40.1 Benign prostatic hyperplasia with lower urinary tract symptoms (principal); N13.8 Other obstructive and reflux uropathy; N13.39 Other hydronephrosis; R79.89 Other specified abnormal findings of blood chemistry; Z87.898 Personal history of other specified conditions
CPT/HCPCS: 51798; 81002; 87086; 99214

== ENCOUNTER → 2025-02-10 10:22 | Outpatient (CLI) | payer MEDICARE, OTHER, SELFPAY ==
[2025-01-08 15:24] VITALS: BMI 25.1
== END ==
PROVIDERS: PCP Family Medicine; Referring Provider Family Medicine; Visit Provider Surgery
DX: G57.83 Other specified mononeuropathies of bilateral lower limbs (principal); M86.172 Other acute osteomyelitis, left ankle and foot; L97.512 Non-pressure chronic ulcer of other part of right foot with fat layer exposed; L97.526 Non-pressure chronic ulcer of other part of left foot with bone involvement without evidence of necrosis; R23.4 Changes in skin texture; Z89.421 Acquired absence of other right toe(s); Z89.412 Acquired absence of left great toe; Z87.891 Personal history of nicotine dependence
CPT/HCPCS: 11042; 99213

== ENCOUNTER 2025-02-17 11:52 | Day surgery (SDC) | payer MEDICARE, OTHER, SELFPAY ==
[2025-01-08 15:24] VITALS: BMI 25.1
[2025-02-15 14:38] VITALS: BMI 26.4
[2025-02-17] MEDS: ACETAMINOPHEN 325 MG TABLET 975 MG PO (12:31)
[2025-02-17] MEDS: LACTATED RINGERS 1,000 ML 42 ML IV (12:33)
[2025-02-17 12:34] VITALS: BMI 24.5
[2025-02-17 12:50] VITALS: BP 148/78; PULSE 89; RESP 14; TEMP 36.6; O2SAT 97
--- NOTE | 2025-02-17 13:31 | PM.PREOP ---
Pre-operative Note Interval Note History & Physical reviewed/Exam performed by Physician: Yes Changes to H&P: No
[2025-02-17] MEDS: CEFAZOLIN 2 GM/100 ML PREMIX 100 ML IV (14:20)
--- NOTE | 2025-02-17 14:35 | SUR.OPER ---
Supine on padded OR bed, head on pillow, arms secured on padded arm boards at <90 degrees abduction, legs uncrossed, safety belt at thigh, tape over blanket over lower right leg.
[2025-02-17] MEDS: BUPIVACAINE 0.25% W/ EPI 30 ML VIAL 60 ML INJ (14:46)
--- NOTE | 2025-02-17 14:59 | PM.OP.1 ---
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 He has failed extensive wound care and treatment with Infectious Disease he was exposed PIP joint left 2nd toe. He has been indicated for amputation. We discussed amputation through the MTP joint due to the rigid claw toe deformity. He does not have any metatarsalgia. The risks and benefits of the procedure have been discussed with the patient and given the opportunity to ask questions. The risks of surgery include but are not limited to infection, malunion, nonunion, persistence of pain, damage to nerves and blood vessels, posttraumatic arthritis, DVT, PE, cardiopulmonary complications and . The patient expressed a thorough understanding of the risks and benefits of surgery and has elected to proceed. Consent was signed. Surgeon: Yisel Klein Click Yes if Unassisted: Yes Anesthesia Type: General and Local Operative Notes Findings: Contracted claw toe left 2nd toe with exposed bone PIP joint dorsal chronic ulceration full-thickness 2nd toe left foot. Closure Type: primary Specimen(s): none sent Estimated Blood Loss (mL): 1 Blood products transfused: none Tourniquet time (min): 4 Procedure in detail: Patient was seen in the preoperative area the site of surgery was marked informed consent confirmed this was the left 2nd toe. Patient was brought back to the operating room by the anesthesia team positioned supine on the operative table. General anesthetic was administered. A well-padded thigh tourniquet was applied. The left lower extremity was then prepped and draped in the standard sterile fashion a formal time-out procedure was performed confirming the site and site of surgery presence of informed consent and administration of preoperative antibiotic. All were in agreement. Attention then turned to the left 2nd toe a fishmouth type definitive incision was drawn out on the skin and definitive full-thickness manner a sharp scalpel was used to incise the skin at the level of the MTP joint and the 2nd toe was amputated through the metatarsophalangeal joint. There was no purulence or signs of infection at this level and this completely excise the distal phalanx middle phalanx and proximal phalanx including the area of the ulcer. The extensor and flexor tendons were divided and allowed to retract. The neurovascular bundles were divided and hemostasis achieved. The wound was then irrigated. The amputation site was then closed in a layered fashion with 4-0 Monocryl and 4-0 nylon suture. Excess tissue was excised to avoid any redundancy. The tourniquet has been released after 4 minutes and was released prior to closure. Hemostasis was achieved prior to closure. 5 cc of 0.25% Marcaine with epinephrine was injected for local anesthesia. The C-arm fluoroscopy was brought in an AP x-ray of the left toes was obtained demonstrated the previous great toe amputation through the 1st metatarsal and now the 2nd toe amputation through the metatarsophalangeal joint. A dressing was placed with Xeroform gauze and Abiola wrap and an Fernando wrap. The patient was awoken from anesthesia and taken to the recovery unit in good condition there were no immediate complications from this procedure. Counts were correct. Complications: none Post-operative Condition: stable Disposition: PACU Plan for aftercare: Flatfoot or heel weight-bearing in the postoperative shoe or forefoot offloading Darco shoe. Keep sutures clean dry and intact and in place until follow up in orthopedic clinic. May change dressing if needed otherwise keep it clean dry and intact.
[2025-02-17 15:03] VITALS: BP 126/69; PULSE 93; RESP 15; TEMP 36.4; O2SAT 95
[2025-02-17 15:09] VITALS: BP 131/62; PULSE 89; RESP 15; TEMP 36.4; O2SAT 95
[2025-02-17 15:22] VITALS: BP 142/79; O2SAT 97
[2025-02-17 16:00] VITALS: BP 152/77; PULSE 86; RESP 14; TEMP 36.1; O2SAT 94
== END 2025-02-17 16:00 | disposition home or self-care (01) ==
PROVIDERS: PCP Family Medicine; Referring Provider Internal Medicine Infectious Disease; Visit Provider Orthopaedic Surgery Foot and Ankle Surgery
PROC: (CPT 28820; principal; 2025-02-17 13:30)
DX: L97.524 Non-pressure chronic ulcer of other part of left foot with necrosis of bone (principal); M32.9 Systemic lupus erythematosus, unspecified; Z87.891 Personal history of nicotine dependence
CPT/HCPCS: 28820; J0690; J1100; J2405; J2704; J3010

== ENCOUNTER → 2025-02-24 11:12 | Outpatient (CLI) | payer MEDICARE, OTHER, SELFPAY ==
[2025-01-08 15:24] VITALS: BMI 25.1
== END ==
LOC: WC 11:13
PROVIDERS: PCP Family Medicine; Referring Provider Family Medicine; Visit Provider Surgery
DX: G57.83 Other specified mononeuropathies of bilateral lower limbs (principal); L97.526 Non-pressure chronic ulcer of other part of left foot with bone involvement without evidence of necrosis; M86.172 Other acute osteomyelitis, left ankle and foot; R23.4 Changes in skin texture; L53.8 Other specified erythematous conditions
CPT/HCPCS: 99212; 99213

== ENCOUNTER → 2025-05-06 11:03 | Outpatient (CLI) | payer MEDICARE, OTHER, SELFPAY ==
[2025-01-08 15:24] VITALS: BMI 25.1
== END ==
PROVIDERS: PCP Family Medicine; Visit Provider Urology
DX: N39.0 Urinary tract infection, site not specified (principal); N40.1 Benign prostatic hyperplasia with lower urinary tract symptoms; N13.8 Other obstructive and reflux uropathy; N13.39 Other hydronephrosis; R39.9 Unspecified symptoms and signs involving the genitourinary system
CPT/HCPCS: 51798; 81002; 87077; 87086; 87186; 99214

== ENCOUNTER → 2025-05-12 13:51 | Outpatient (CLI) | payer MEDICARE, OTHER, SELFPAY ==
[2025-05-12 08:36] VITALS: BMI 25.1
--- NOTE | 2025-05-12 13:53 | DI.CT.S_ITS ---
PROCEDURE: CT KNEE RIGHT WITHOUT CON INDICATIONS: evaluate for injury s/p right TKA TECHNIQUE: Noncontrast 1-1.5 mm axial sections acquired from the mid-patella to the proximal tibia, with coronal and sagittal reformats. For radiation dose reduction, the following was used: automated exposure control, adjustment of mA and/or kV according to patient size. COMPARISON: Located Within [facility], MR, MR KNEE RT WO CON, 01/22/2025, 14:21. Located Within [facility], CR, XR KNEE RT 1TO2V, 05/22/2024, 15:43. Located Within [facility], CR, XR KNEE RT 3V, 03/19/2024, 13:07. Located Within [facility], CR, XR KNEE RT 3V, 01/22/2025, 11:25. FINDINGS: Image quality: Excellent. Bones: Postsurgical changes are again seen from revision total knee arthroplasty. There is posterior translation of the tibial plateau component relative to the distal femur. No acute fracture is seen. There is lateral tilting of the patella. Suspected lucency along the deep margin of the tibial plateau component. Soft tissues: Moderate knee effusion. Calcifications are seen along the distal quadriceps tendon. The ligaments and tendons are not well evaluated with CT. There is fatty infiltration of the musculature surrounding the knee. Arterial vascular calcifications are present. IMPRESSION: 1. Postsurgical changes from total knee arthroplasty. Suspected posterior subluxation of the tibial component and radiolucent spacer relative to the distal femoral component. 2. Lucency along the deep margin of the tibial plateau component could indicate loosening. 3. Moderate joint effusion. Approved by: David Herrera M.D. on 05/12/2025 at 19:54
== END ==
PROVIDERS: PCP Family Medicine; Referring Provider Orthopaedic Surgery Adult Reconstructive Orthopaedic Surgery; Visit Provider Orthopaedic Surgery Adult Reconstructive Orthopaedic Surgery
DX: M25.461 Effusion, right knee (principal); Z96.651 Presence of right artificial knee joint
CPT/HCPCS: 73700

== ENCOUNTER → 2025-05-19 09:22 | Outpatient (CLI) | payer MEDICARE, OTHER, SELFPAY ==
[2025-05-12 08:36] VITALS: BMI 25.1
--- NOTE | 2025-05-19 09:52 | EKG_ITS ---
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
[2025-05-19 09:54] LABS: Add Manual Diff / Slide Review NO; Hematocrit 32.5 % (41-53); Hemoglobin 11.0 g/dL (13.5-17.5); Lymphocytes Absolute Auto 800 /uL (1100-4500); Mean Corpuscular HGB Conc 33.9 % (30-36); Mean Corpuscular Hemoglobin 29.5 PG (26-34); Mean Corpuscular Volume 86.9 fL (80-100); Platelet Count 270 X10^3/uL (150-400)
[2025-05-19 10:04] LABS: Hemoglobin A1C% w Est Avg Glu 5.4 % (4.0-6.0)
[2025-05-19 10:19] LABS: Albumin 3.5 g/dL (3.5-5.0); Blood Urea Nitrogen 22 mg/dL (9-20); Calcium 9.4 mg/dL (8.4-10.2); Carbon Dioxide 24 mmol/L (22-32); Chloride 100 mmol/L (98-107); Estimated Glomerular Filt Rate 41 mL/min (>60); Glucose 107 mg/dL (70-99); HEMOLYSIS < 15 (0-50); Potassium 4.9 mmol/L (3.4-5.1); Sodium 131 mmol/L (137-145)
[2025-05-19 10:22] LABS: Prealbumin 18.5 mg/dL (17.6-36.0)
[2025-05-19 10:32] LABS: Vitamin D 25 Hydroxy (D3) 64.3 ng/mL (30.0-100.0)
== END ==
PROVIDERS: PCP Family Medicine; Referring Provider Orthopaedic Surgery Adult Reconstructive Orthopaedic Surgery; Visit Provider Orthopaedic Surgery Adult Reconstructive Orthopaedic Surgery
DX: Z01.812 Encounter for preprocedural laboratory examination (principal); T84.012A Broken internal right knee prosthesis, initial encounter
CPT/HCPCS: 36415; 80048; 82040; 82306; 83036; 84134; 85025; 85651; 86140; 93005

== ENCOUNTER 2025-05-20 06:06 | Inpatient (IN) | payer MEDICARE, OTHER, SELFPAY ==
[2025-05-12 08:36] VITALS: BMI 25.1
[2025-05-17 08:14] VITALS: BMI 25.0
[2025-05-20] VITALS (10 sets, daily range): BP systolic 125–179; BP diastolic 56–84; PULSE 86–93; RESP 16–19; TEMP 35.7–36.8; O2SAT 94–99; BMI 25.0; BMI 26.2
[2025-05-20] MEDS: LACTATED RINGERS 1,000 ML 42 ML IV (07:08)
[2025-05-20] MEDS: ACETAMINOPHEN 325 MG TABLET 975 MG PO (07:08)
--- NOTE | 2025-05-20 07:19 | DI.RAD.S_ITS ---
PROCEDURE: XR KNEE RT 1TO2V INDICATIONS: post-op TECHNIQUE: 2 view(s) of the knee acquired. COMPARISON: [facility], CR, XR KNEE RT 3V, 01/22/2025, 11:25. FINDINGS: Bones: Similar knee arthroplasty components are in place. No unexpected fractures. No periprosthetic lucency. Soft tissues: Intra-articular soft tissue gas. Moderate peripheral vascular calcification. IMPRESSION: Expected post-operative appearance of a knee arthroplasty. Dictated by: Liseth Lopez M.D. on 05/20/2025 at 13:39 Approved by: Liseth Lopez M.D. on 05/20/2025 at 13:40
--- NOTE | 2025-05-20 07:31 | PM.PREOP ---
Pre-operative Note Interval Note History & Physical reviewed/Exam performed by Physician: Yes Changes to H&P: No
[2025-05-20] MEDS: CEFAZOLIN 2 GM/100 ML PREMIX 100 ML IV (08:04)
[2025-05-20] MEDS: TRANEXAMIC ACID 1,000 MG VIAL 1000 MG INJ ×2 (08:15→08:52)
--- NOTE | 2025-05-20 08:33 | SUR.OPER ---
Supine on padded OR bed. Pillow under head, arms secured on padded armboards <90 degree abduction. Safety belt across torso. Non-operative leg secured with tape over blanket over lower leg. Operative leg secured in DeMayo/Efe/Nathe positioner. Foam padded brace at thigh of operative leg. Dr. Hirsch in room to approve final position
[2025-05-20] MEDS: BUPIVACAINE 0.5% W/ EPI (PF) 30 ML VIAL 60 ML INJ (08:41)
[2025-05-20] MEDS: KETOROLAC 30 MG/ML VIAL 15 MG INJ (08:41)
[2025-05-20] MEDS: VANCOMYCIN 1,000 MG VIAL 1000 MG INTRA-ARTI (08:43)
[2025-05-20] MEDS: SODIUM CHLORIDE 0.9% 50 ML INJ (08:48)
--- NOTE | 2025-05-20 09:28 | P.OP_ITS ---
Operative Date/Time/Diagnoses Date of procedure: 05/20/25 Time of procedure: 07:45 Pre-op diagnosis: Prior right revision total knee arthroplasty with jumped post Post-op diagnosis: same Procedure & Clinicians Procedure: Revision right total knee arthroplasty with retention of femoral and tibial components with the exchange of polyethylene insert (56648-09) Intraosseous administration of vancomycin (80796) Same procedure(s) as scheduled: Yes Surgeon: Todd Hirsch School Bus Driver/Teacher Assistant: Aminata Reyes Anesthesia Type: General, Peripheral nerve block and Local Operative Notes Findings: Jumped post Applied: implant(s) Estimated Blood Loss (mL): 50 Tourniquet time (min): 29 Procedure in detail: Revision of prior right [employer] legion journey revision total knee arthroplasty with polyethylene exchange and retention of prior femoral and tibial components Implants: * Xenia 2 constrained articular insert, 21 mm Procedure Summary: This 79-year-old male patient underwent a revision total knee arthroplasty by me last year. He felt a popping sensation while in a figure of 4 position and was unable to move his knee. He presented to the emergency department where he was sedated and a reduction maneuver was performed. The emergency department physician felt a click during that procedure and noted improved range of motion afterwards. He had improving function after the reduction returned for follow up with me where radiographs noted that his tibial component was still sitting posterior to his femoral component and I could impact the post against the cam by pulling forward on the tibia. Interestingly he had had improving function despite his jumped post and had had progressive range of motion and improvements with physical therapy although he had persistent symptoms of pain and a sensation of instability. I therefore made plans to urgently returned him to the operating room which we did today. Encountered the tibia in a posterior position relative to the cam mechanism. I did upsize his polyethylene insert to accommodate for some of the soft tissue stretching that had occurred while at remained in that position. I upsized to a constrained insert. His knee was able to achieve full extension and he had good stability with varus and valgus stress. He had a firm endpoint with valgus stress indicative of a competent MCL. His soft tissue flaps were very thin and we will utilize an incisional wound VAC as well as prophylactic antibiotics postoperatively. Procedure in Detail: This patient was seen preoperatively and evaluated for knee pain which was refractory to physical therapy. The risks and benefits of continued nonoperative management versus operative management were discussed at length and all of the patient?s questions were answered. Additional educational materials providing further details beyond our discussion in clinic were provided via a publicly available patient education video which included the incidence of medical complications associated with total knee arthroplasty, reasons for revision following total knee arthroplasty, and patient satisfaction rates following total knee arthroplasty. With this understanding of the risks inherent to the procedure, the patient elected to move forward with operative management. Following preoperative optimization, the patient was scheduled for surgery. The patient was met in the preoperative holding area the day of the procedure and all questions were answered. The patient?s nares were swabbed in order to decolonize them from MRSA. Informed consent was signed and the right limb was marked with indelible ink.? The patient was brought back to the operating room where anesthesia was induced. The patient was transferred to the operating table and all bony prominences were padded. The operative site was prepped and draped in the usual sterile fashion. A second prep stick was utilized following drape placement. The incision was marked corresponding to the medial aspect of the tibial tubercle and the patella. Ioban was wrapped circumferentially around the knee. Prior to incision, tranexamic acid and cefazolin were administered. Templating images were displayed. A timeout procedure was performed verifying the patient?s identity, medical comorbidities, allergies, relevant medications, anesthesia type and the surgical plan. All present were in agreement. The assistance of a physician day care assistant was required for positioning, room setup, soft tissue retraction and wound closure. Without this assistance, the procedure would have been significantly more challenging and time consuming.?? The tourniquet was inflated prior to incision. I made an anterior incision over the knee, dissected through the subcutaneous tissues and identified the lateral border of the VMO. Medial and lateral soft tissue flaps were developed. I ins erted a intraosseous needle into the tibia and administered 50 mL of dilute vancomycin to bathe the soft tissues of the surgical field. A medial parapatellar arthrotomy was performed ensuring that adequate capsular tissue would remain for closure at the conclusion of the procedure. The knee was brought into extension and the medial soft tissues were released off the joint line of the tibia. I limited my soft tissue dissection to minimize surgical trauma to the knee. Only dissected around that medial side. I did not clear out the gutters or the retropatellar fat pad. I was able to achieve enough exposure to test the femoral and tibial implants and found that both remained well fixed. There was some stress shielding underneath the medial aspect of the tibial base plate which was further evidence of good implant stability. I noted that the tibial component was sitting posterior relative to the cam mechanism of the femur. I was able to reduce the polyethylene insert with a combination of distraction and flexion. I did not note any significant damage to the post. Removed the polyethylene insert and trialed with both an 18 mm insert and a 21 mm insert. The 18 mm insert is what he had had an prior to today's surgery with the high flex insert. He was still able to achieve full extension with the 21 mm insert so I elected to utilize that size in order to accommodate for any soft tissue stretching that had occurred while the knee had been sitting in a jumped position. I cleaned off the tibial base plate and inserted that polyethylene insert ensuring that the locking mechanism was fully seated. I soaked the knee in a dilute mixture of Betadine and peroxide for 3 minutes. I infiltrated the soft tissues around the knee with a mixture of bupivacaine epinephrine and Toradol including performing an adductor canal block. The arthrotomy was closed with non-absorbable interrupted suture ensuring that this extended to the top of the arthrotomy. This was backed up with running barbed suture throughout the arthrotomy. The skin was closed with 2-0 and 3-0 sutures. Surgical glue was applied and a soft dressing was placed.?The sponge, instrument and needle counts were reported as being correct at the end of the case. The patient was transferred from the operating table back to a stretcher. The patient emerged from anesthesia without difficulty and was taken to the PACU in a stable condition.? Plan for aftercare: * Weightbearing as tolerated * Eliquis 2.5 mg for DVT prophylaxis given history of a DVT * Multimodal pain regimen with no IV opioids ordered * Anticipate discharge home later today versus tomorrow * Cefadroxil 500 mg BID for 14 days for PJI prophylaxis * Follow up at [facility] in 2 weeks for wound check Complications: none Post-operative Condition: stable Disposition: PACU
[2025-05-20] MEDS: TRAMADOL 50 MG TABLET 25 MG PO (10:11)
[2025-05-20] MEDS: ACETAMINOPHEN 325 MG TABLET 650 MG PO (11:07)
[2025-05-20] MEDS: LACTATED RINGERS 1,000 ML 100 ML IV (11:07)
--- NOTE | 2025-05-20 11:59 | PT.IIE ---
Current Diagnoses Instability of internal right knee prosthesis, initial encounter (05/20/25) Surgery Performed Operation Date: 05/20/25 07:45 Actual Procedures p polyethylene exchange of knee(Right) - Todd Hirsch MD Surgical History (Last Updated 05/17/25 @ 08:44 by Karen Davis, RN) History of arthroplasty of left knee History of arthroplasty of right knee History of orthopedic surgery (05/11/22) History of orthopedic surgery (07/04/23) History of urologic surgery (10/25/24) Hx of cataract extraction Hx of elbow surgery (~2019) Status post total knee replacement, right Medical History (Last Updated 05/17/25 @ 09:10 by Karen Davis RN) Agent orange exposure Amputated toe of left foot (02/17/25) Arthritis BPH (benign prostatic hyperplasia) BPH w urinary obs/LUTS Cataracts, bilateral Chronic cough (~2017) 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 Chronic UTI DVT (deep venous thrombosis) Elevated serum creatinine Bill catheter in place Foot pain (~2017) GI bleed (~03/2018) History of CVA (cerebrovascular accident) (12/23/24) History of pulmonary embolism (~08/2015) History of revision of total replacement of right knee joint (05/22/24) History of urinary retention HLD (hyperlipidemia) Hydronephrosis Lower urinary tract symptoms Lupus (systemic lupus erythematosus) Lymphocytopenia 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 Osteomyelitis Pulmonary embolus Retained ureteral stent Shoulder pain (~2014) Urine retention Physical Therapy Inpatient Evaluation/Re-Eval M1 PT/OT-IP Prior Functional Status Start: 05/20/25 11:03 Freq: NEEDED Status: Active Protocol: Document 05/20/25 11:03 MB (Rec: 05/20/25 11:59 MB Desktop) Medical Review Prior Functional Status Medical History Yes Reviewed Communication Unsure baseline diet Mobility and Gait Mod I with rollator inside the house and an outdoor rollator outside for gardening Activities of Daily Mod I Living and IADL's Social History Household Members children Living Arrangements House Number of Floors ( Two Floors Floors) Number of Stairs To Outside elevator to get into the home and no steps when Enter/Railing? he is on the main level in which he lives Home Environment High Toilet,Walk in Shower Home Equipment Four Wheel Walker,Straight Cane,Leg Fast Food Cashier,Grab Bars Near Toilet,Grab Bars In Shower Employment Status Retired M2 PT-IP Current Condition Start: 05/20/25 11:03 Freq: NEEDED Status: Active Protocol: Document 05/20/25 11:03 MB (Rec: 05/20/25 11:59 MB Desktop) Physical Therapy Current Condition Current Condition Evaluation Date 05/20/25 Treatment Diagnosis Right total knee revision with jump post M3 PT-IP Subjective Start: 05/20/25 11:03 Freq: NEEDED Status: Active Protocol: Document 05/20/25 11:03 MB (Rec: 05/20/25 11:59 MB Desktop) Subjective Physical Therapy Visit Type Type Initial Evaluation Visit Start Time 11:03 Visit Stop Time 11:35 Number of TORNADO CHASER Visits 0 Physical Therapy Visit Comments Patient Comments Pt is agreeable to PT. Therapy Pain Assessment Pain When Pain Assessed At Rest Pain Present Pain Present Pain Reported Location Right Knee Scale Used Not rated, states it is okay M4 PT-IP Mobility and Gait Start: 05/20/25 11:03 Freq: NEEDED Status: Active Protocol: Document 05/20/25 11:03 MB (Rec: 05/20/25 11:59 MB Desktop) PT-Bed Mobility Assessment Rolling Type of Rolling Roll to Left Level of Assist Independent Supine to Sit Supine to Sit Independent Scooting Scooting to Edge of Standby Assistance Bed PT-Transfer Assessment Sit to and From Stand Sit to and from Standby Assistance,1 Person Assistance,Use of Upper Stand Extremities Equipment Transfer Assistive Gait Belt,4 Wheeled Walker Device Transfers Transfer Destination Chair Transfer Technique Ambulation Transfer Ability Level of Assist Standby Assistance,1 Person Assistance,Use of Upper Extremities Gait Assessment Gait Gait Assistance Standby Assistance Required: Distance (Feet) 20 Able to Maintain Yes Weight Bearing Status During Gait Assistive Devices Assistive Device Gait Belt,4 Wheeled Walker Gait Deviations General Gait Pattern Antalgic,Decreased Stride Length,Decreased Feet Clearance,Flexed Trunk,Step-to Gait Factors Limiting Gait Function Factors Limiting Decreased Strength,Pain Gait Function Stair Climbing Assessment Comments Stair Climbing No steps at home, has outdoor elevator to use to get Comments into the house PT-Balance Assessment Sitting Balance and Reactions Static Sitting Normal Balance Ability Dynamic Sitting Good Balance Ability Standing Balance and Reactions Static Standing Good Balance Ability Dynamic Standing Good Balance Ability Device Used Rollator M5 PT-IP Objective Assessments Start: 05/20/25 11:03 Freq: NEEDED Status: Active Protocol: Document 05/20/25 11:03 MB (Rec: 05/20/25 11:59 MB Desktop) Orientation Orientation/Cognition Level of Alertness Alert Orientation Name,Age,Birthday,Month,Date,Year,Day of Week,Place, Situation Language Function No Deficits Noted Ability Safety Awareness Understands Safety Issues Memory Description No Deficits Noted Gross Range of Motion Upper Extremity ROM Impairments NT, functional for mobility today Lower Extremity ROM Assessment Right Impaired Impairments AROM right knee 5-30 deg in the bed Strength Upper Extremity Strength Assessment Within Functional Limits Lower Extremity Strength Assessment Right Impaired Coordination Assessment Gross Coordination Gross Coordination Impaired Sensation Assessment Sensation Gross Sensation Right UE Impaired,Left UE Impaired,Right LE Impaired, Left LE Impaired Comments Sensation Comments 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 PT-IP Treatment Start: 05/20/25 11:03 Freq: NEEDED Status: Active Protocol: Document 05/20/25 11:03 MB (Rec: 05/20/25 11:59 MB Desktop) Physical Therapy Treatment Exercises Exercises Ankle Pumps,Gluteal Sets,Quad Sets,Heel Slides Education Education Provided Weight Bearing Status,Safety M7 PT-IP Assessment and Plan Start: 05/20/25 11:03 Freq: NEEDED Status: Active Protocol: Document 05/20/25 11:03 MB (Rec: 05/20/25 11:59 MB Desktop) PT Summary Assessment and Plan Potential Rehabilitation Good Potential Status of Condition Evolving at Evaluation Summary Impairments Pain,ROM,Strength,Balance,Coordination,Sensation, Transfers,Gait,Activity Tolerance Assessment Summary Pt is an 79 y/o male who is same day surgery for right total knee revision. He has had two right knee surgeries in the past and has d/cd home with his kids with whom he con't to live. They have gotten him an outdoor elevator to the main level and he has no steps to negotiate. Pt is I with bed mobility and SBA for transfers and gait in room with his rollator and he prefers to use rollators at home. He has many questions about history of imbalance, three falls, double vision and doing the Jarret to the left at home d/t dizziness and imbalance. Encouraged pt to get through rehab for his knee (he has OPPT in 10 days) and then consider vestibular PT for assessment and treatment. No further acute PT needs. His BP is stable today with supine to standing and he is not dizzy. Frequency of Treatment Frequency Of Discharge Treatment Weight Bearing Status Weight Bearing Weight Bear as Tolerated Status Recommendations To Nursing Amount of Assist Standby Assistance Needed Discharge Recommendations PT Discharge Home with 20/05 Assist Available,Outpatient PT Recommendations Transportation Needs Private Vehicle at Discharge - PT assist x1
== END 2025-05-20 16:15 | disposition home or self-care (01) | DRG 489 ==
PROVIDERS: Admitting Provider Orthopaedic Surgery Adult Reconstructive Orthopaedic Surgery; PCP Family Medicine; Referring Provider Orthopaedic Surgery Adult Reconstructive Orthopaedic Surgery; Visit Provider Orthopaedic Surgery Adult Reconstructive Orthopaedic Surgery
PROC: 0SPC09Z Removal of Liner from Right Knee Joint, Open Approach (ICD-10-PCS; principal; 2025-05-20 07:45)
DX: T84.012A Broken internal right knee prosthesis, initial encounter (principal); D64.9 Anemia, unspecified; Y79.2 Prosthetic and other implants, materials and accessory orthopedic devices associated with adverse incidents; Z87.891 Personal history of nicotine dependence; Z86.711 Personal history of pulmonary embolism; Z86.73 Personal history of transient ischemic attack (TIA), and cerebral infarction without residual deficits
CPT/HCPCS: 36415; 73560; 80048; 82040; 82306; 83036; 84134; 85025; 85651; 86140; 93005; 97161; 97535; C1776; J0690; J1100; J1885; J2405; J2704; J3010

== ENCOUNTER → 2025-08-11 11:20 | Outpatient (CLI) | payer MEDICARE, OTHER, SELFPAY ==
[2025-05-20 11:37] VITALS: BMI 26.2
== END ==
PROVIDERS: PCP Family Medicine; Visit Provider Urology
DX: R39.9 Unspecified symptoms and signs involving the genitourinary system (principal); R33.9 Retention of urine, unspecified
CPT/HCPCS: 87077; 87086

== ENCOUNTER → 2025-08-23 10:53 | Outpatient (CLI) | payer MEDICARE, OTHER, SELFPAY ==
[2025-05-20 11:37] VITALS: BMI 26.2
--- NOTE | 2025-08-23 10:54 | DI.RAD.S_ITS ---
PROCEDURE: FL JOINT INJECTION LARGE LT INDICATIONS: Left Shoulder Pain COMPARISON: None. TECHNIQUE: The indications, alternatives, benefits, risks, and complications of the procedure were explained to the patient. Written informed consent was obtained and placed in the chart. The patient was placed in an appropriate position on the fluoroscopy table, and a site was chosen for percutaneous access under fluoroscopic guidance. The site was prepped and draped in a sterile fashion. Local anesthetic was administered using a 1% lidocaine solution. A hypodermic or spinal needle was then used to access the symptomatic joint. Intra-articular location of the needle tip was confirmed by injecting a small amount of contrast, followed by steroid administration. The needle was then withdrawn, and a bandage applied to the puncture site. FINDINGS: Joint injected: Left glenohumeral Medications injected: 5 mL of 40 mg/mL Kenalog and 0.5% Ropivacaine mixture. Complications: None. IMPRESSION: Successful fluoroscopically guided administration of steroid and anaesthetic solution into the left glenohumeral joint. There is significant superior subluxation of the humeral head in relation to the glenoid. Contrast is seen extending into the bursal space. This is suggestive of full- thickness rotator cuff tear Dictated by: Adan Murcia M.D. on 08/23/2025 at 12:59 Approved by: Adan Murcia M.D. on 08/23/2025 at 13:00
[2025-08-23] MEDS: LIDOCAINE 1% 20 ML INJ (12:01)
[2025-08-23] MEDS: TRIAMCINOLONE 40 MG/ML VIAL INTRA-ARTI (12:02)
== END ==
LOC: RAD 10:53
PROVIDERS: PCP Family Medicine; Referring Provider Family Medicine; Visit Provider Orthopaedic Surgery Adult Reconstructive Orthopaedic Surgery
DX: M19.012 Primary osteoarthritis, left shoulder (principal); S43.002A Unspecified subluxation of left shoulder joint, initial encounter
CPT/HCPCS: 20610; 77002